=== PATIENT | female | born 1955 | race African-American/Black ===

== ENCOUNTER 2016-05-02 17:15 | Emergency (ER) | payer BC, OTHER ==
[~2016-05-02] VITALS: Ht 149.9 cm; Wt 82.6 kg
[2016-05-02 17:25] VITALS: Ht 149.9 cm; Wt 82.6 kg
[2016-05-02] MEDS ORDERED: TRMO2580 TOP (17:49)
--- NOTE | 2016-05-02 17:49 | EMERGENCY ROOM VISIT NOTE ---
ED Visit Note First contact with patient: 17:28 CHIEF COMPLAINT: Rash HISTORY OF PRESENT ILLNESS: This 60-year-old female patient presents to the emergency department ambulatory complaining of a rash on her abdomen which started a few days ago. The patient reports that she was seen by an urgent care over one week ago for a rash under her breasts. They prescribed her a nystatin powder and Diflucan, which resolved this rash. However, the patient reports that over the past few days she has had an itchy rash on her abdomen. She has been applying nystatin powder but this has been making it worse. She has also been applying an aloe lotion to the area. The patient denies fever, chills, nausea, or loss of appetite. They deny any URI symptoms. No change in food, soap, detergents, or other environmental factors. No new medications. No weakness or numbness. REVIEW OF SYSTEMS: A 6 system review of systems was completed with positives and pertinent negatives listed in the HPI. ALLERGIES: No known drug allergies MEDICATIONS: No known drug allergies PMH: See med list SOCIAL HISTORY: The patient lives locally with family. She is a smoker. PHYSICAL EXAM: Vital Signs: Reviewed Nurse's notes, vital signs stable. GENERAL : This is a 60-year-old female, in no acute distress, well-developed, well- nourished. SKIN: There are multiple urticarial lesions across the abdomen and low back. Capillary refill less than 2 seconds. EMERGENCY DEPARTMENT COURSE: The patient was evaluated as above. She was instructed to stop the nystatin powder, as she may be having an allergic reaction. She was given a prescription for tramadol and ointment. She was instructed to follow-up with her primary care provider or return here for worsening symptoms. She verbalized understanding assessment and treatment plan was discharged home in good condition. DIAGNOSIS: Urticaria Current/Historical Medications Scheduled Cetirizine (Zyrtec), 10 MG PO DAILY Chlorthalidone (Chlorthalidone), 50 MG PO QAM Nystatin (Topical) (Nystop), 1 APPLN TOP TID Triamcinolone Acetonide (Topic (Triamcinolone Acet 0.025%), 1 APPLN TOP BID Allergies Coded Allergies: No Known Allergies (Unverified , 05/02/16) Vital Signs Date Time Temp Pulse Resp B/P Pulse Ox O2 Delivery O2 Flow Rate FiO2 05/02/16 18:05 36.8 91 18 154/100 97 05/02/16 17:25 36.8 91 18 154/100 97 Room Air Departure Information Impression Primary Impression: Urticaria Dispostion Home / Self-Care Condition GOOD Prescriptions Triamcinolone Acetonide (Topic (TRIAMCINOLONE ACET 0.025%) 0.025 % Oin 1 APPLN TOP BID, #30 GM Prov: Shelby Turner ., HERACLIO 05/02/16 Referrals No Doctor, Assigned (PCP) Patient Instructions My [facility] Additional Instructions You have been treated in the Emergency Department for a rash. You should take Benadryl (diphenhydramine) 25-50 mg orally every 4-6 hours for the next 5-7 days as needed for itching. This medication is [id number] and you will NOT need a prescription to purchase this at your local pharmacy. You should take Zantac (ranitidine) 75 mg orally once daily for the next 5-7 days as needed for itching. Apply the ointment to any areas of itching/redness. As with every Emergency Department visit, you should follow-up with your primary care provider in 2-3 days for reevaluation. Return to the Emergency Department if your current symptoms worsen despite treatment course outlined above.
[2016-05-02] MEDS ORDERED: CETI10TA84 PO (17:52)
[2016-05-02] MEDS ORDERED: CHLO50TA PO (17:52)
[2016-05-02] MEDS ORDERED: NYST100010 TOP (17:52)
[2016-05-02 18:05] VITALS: BP 154/100; PULSE 91; TEMP 36.8; O2SAT 97
[2016-07-12] MEDS ORDERED: AMLO-114 PO (08:22)
[2016-07-12] MEDS ORDERED: ASPI81TA28 PO (08:22)
[2016-07-12] MEDS ORDERED: POTA20TA16 PO (08:22)
[2016-07-12] MEDS ORDERED: MISCCAP55 PO (08:22)
[2016-07-12] MEDS ORDERED: IBUP-1450 PO (08:22)
[2016-07-12] MEDS ORDERED: GARL1TAB8 PO (08:22)
[2016-07-12] MEDS ORDERED: [UNRECOGNIZED DRUG - OTHER] PO (08:35)
[2016-08-29] MEDS ORDERED: AN ANTIBIOTIC (19:23)
[2016-08-29] MEDS ORDERED: EYED (19:29)
[2016-11-21] MEDS ORDERED: AMOX1TAB42 PO (14:43)
[2016-11-21] MEDS ORDERED: BENZ100C6 PO (14:43)
== END 2016-05-02 18:06 | disposition home or self-care (01) ==
LOC: C.EDB 17:16 → C.EDD 18:06
DX: L50.9 Urticaria, unspecified (principal); F17.200 Nicotine dependence, unspecified, uncomplicated; Z79.899 Other long term (current) drug therapy

== ENCOUNTER → 2016-05-10 | Outpatient (CLI) | payer OTHER ==
[~2016-05-10] MED LIST: AMLO-114 PO; AMOX1TAB42 PO; AN ANTIBIOTIC; ASPI81TA28 PO; BENZ100C6 PO; CETI10TA84 PO; CHLO50TA PO; EYED; GARL1TAB8 PO; IBUP-1450 PO; MISCCAP55 PO; NYST100010 TOP; POTA20TA16 PO; TRMO2580 TOP; [UNRECOGNIZED DRUG - OTHER] PO
--- NOTE | 2016-05-10 08:36 | DIAGNOSTIC IMAGING REPORT ---
Ultrasound left axilla LEFT EXTREMITY NONVASCULAR LIMITED CLINICAL HISTORY: ENLARGED LYMPH NODES nodule TECHNIQUE: Ultrasound COMPARISON STUDY: None FINDINGS: A well-circumscribed somewhat serpiginous node left axilla measuring 3.5 x 2 x 3.0 cm. IMPRESSION: Palpable nodular density appears to represent enlarged lymph node Electronically signed by: Rommel Poole M.D. 05/10/2016 8:34 AM Dictated Date/Time: 05/10/2016 8:32 AM
[2016-05-10 11:01] LABS: BASO % 0.3 %; BASO ABS # 0.03 K/uL (0-0.2); COMPLETE YES; EOS % 3.4 %; HEMATOCRIT 45.8 % (37-47); IG% 0.1 %; LYMPH % 38.1 %; LYMPH ABS # 4.04 K/uL (1.2-3.4); MEAN CELL VOLUME 86.3 fL (80-100); MEAN CORPUSCULAR HEMOGLOBIN 29.6 pg (25-34); MEAN CORPUSCULAR HGB CONC 34.3 g/dl (32-36); MONO % 5.1 %; PLATELET COUNT 322 K/uL (130-400); RED BLOOD COUNT 5.31 M/uL (4.2-5.4)
[2016-05-10 11:18] LABS: ALKALINE PHOSPHATASE 67 U/L (45-117); ALT/SGPT 27 U/L (12-78); AST/SGOT 15 U/L (15-37); BLOOD UREA NITROGEN 16 mg/dl (7-18); BUN/CREATININE RATIO 14.5 (10-20); CALCIUM 9.2 mg/dl (8.5-10.1); CARBON DIOXIDE 31 mmol/L (21-32); CHLORIDE 103 mmol/L (98-107); GLUCOSE 123 mg/dl (70-99); HDL CHOLESTEROL 43 mg/dl; POTASSIUM 3.4 mmol/L (3.5-5.1); SODIUM 142 mmol/L (136-145)
[2016-05-10 11:19] LABS: ALB/GLOB RATIO 0.9 (0.9-2); CHOLESTEROL 187 mg/dl (0-200); CHOLESTEROL/HDL RATIO 4.3; LDL CHOLESTEROL CALCULATED 105 mg/dl; TRIGLYCERIDES 196 mg/dl (0-150); VERY LOW DENSITY LIPOPROT CALC 39 mg/dl
[2016-05-10 11:39] LABS: ESTIMATED AVERAGE GLUCOSE 134 mg/dl; HA1C FLAG Normal (Normal)
== END | disposition home or self-care (01) ==
LOC: C.ULTRBC 07:30
PROVIDERS: ATTEND Family Medicine
DX: R21 Rash and other nonspecific skin eruption (principal); L29.9 Pruritus, unspecified; Z13.220 Encounter for screening for lipoid disorders; Z13.228 Encounter for screening for other metabolic disorders; R59.0 Localized enlarged lymph nodes

== ENCOUNTER → 2016-05-16 | Outpatient (CLI) | payer OTHER ==
[~2016-05-16] MED LIST changes: -TRMO2580 TOP
--- NOTE | 2016-05-16 14:03 | Discharge Instructions ---
Discharge Instructions Procedure Procedure Date: May 16, 2016. Reason for visit: Enlarged Lymph Node, Left Axillary. Discharge Discharge Date: May 16, 2016. Discharge Diagnosis: s/p left axillary lymph node FNA Instructions Activity Recommendations: No limitations Return to School/Work: no limitations Recommended Home Diet: No Limitations Provider Instructions: ACTIVITY RECOMMENDATIONS: * Rest today. * Resume regular activity in one day. MEDICATIONS: * May take Tylenol or Ibuprofen as needed for pain. DIET: * Resume previous diet. SPECIAL CARE INSTRUCTIONS: Call your doctor if: * Temperature above 101 degrees F. * Pain not relieved by pain medicine ordered. * Increased drainage or redness from incision. * Notify your doctor with any questions or concerns. Call your doctor or go to the nearest Emergency Department if you experience: * Increased chest pain or shortness of breath. FOLLOW UP VISIT: Follow-up with Referring Physician as scheduled. Allergies Coded Allergies: No Known Allergies (Unverified , 05/02/16) Caitlin Sims Recommendations: Call your doctor if: * Temperature above 101 degrees * Pain not relieved by pain medicine ordered * There is increased drainage or redness from any incision * You have any unanswered questions or concerns. Your Doctors Instructions noted above were prepared by provider Pedrito Gutierrez. Patient Signature Section: Patient Instructions Signature Page Ann Mariedorita Preston Patient (or Guardian) Signature/Date: I have read and understand the instructions given to me by my caregivers. Caregiver/RN/Doctor Signature/Date: The above-named patient and/or guardian has received patient instructions on this date. + Original Patient Signature Page (only) stays with chart. Please make copy for patient.
--- NOTE | 2016-05-16 14:44 | DIAGNOSTIC IMAGING REPORT ---
ULTRASOUND GUIDED FINE NEEDLE ASPIRATION OF LEFT AXILLARY LYMPH NODE CLINICAL HISTORY: Enlarged left axillary lymph node. COMPARISON STUDY: Left axillary ultrasound May 10, 2016. PROCEDURE: Sonography of the left axilla again demonstrated the enlarged left axillary lymph node that measured 3.5 x 2 x 3 cm. The procedure, risks and benefits were discussed with the patient. The patient agreed to the procedure and informed written consent was obtained. The procedure was performed by Dr. Gutierrez following a timeout. Skin of the left axilla was prepped and draped in sterile fashion and local anesthesia achieved with 1% lidocaine. Under direct ultrasound guidance, 4 25-gauge fine needle aspirations of the left axillary lymph node were performed. The samples were deemed preliminarily adequate by pathology. The patient tolerated the procedure well and no immediate complications were evident. IMPRESSION: Ultrasound guided fine needle aspiration of left axillary lymph node. Electronically signed by: Pedrito Gutierrez M.D. 05/16/2016 2:43 PM Dictated Date/Time: 05/16/2016 2:42 PM
== END | disposition home or self-care (01) ==
LOC: C.ULTR 12:32
PROVIDERS: ATTEND Family Medicine
DX: C77.3 Secondary and unspecified malignant neoplasm of axilla and upper limb lymph nodes (principal)

== ENCOUNTER → 2016-05-22 | Outpatient (CLI) | payer OTHER ==
--- NOTE | 2016-05-22 15:37 | MAMMOGRAPHY REPORT ---
BILATERAL DIGITAL DIAGNOSTIC MAMMOGRAM TOMOSYNTHESIS WITH CAD AND TARGETED BILATERAL ULTRASOUND: 05/22 CLINICAL HISTORY: 60-year-old woman presents for diagnostic evaluation of the breasts after a recent fine-needle aspiration performed of an enlarged lymph node in the left axilla yielded metastatic ca rcinoma. Prior mammograms performed in 2008. TECHNIQUE: Bilateral CC and MLO 2-D digital and tomosynthesis images; right spot compression CC 2-D digital and tomosynthesis; spot magnification left CC and ML views were obtained. Current study wa s also evaluated with a Computer Aided Detection (CAD) system. COMPARISON: Comparison is made to exams dated: 05/25/2008 and 04/24/2008. BREAST COMPOSITION: There are scattered areas of fibroglandular density in both breasts. FINDINGS: A triangle skin palpable marker denotes the enlarged left axillary lymph node which was re cently biopsied and cytology results yielded metastatic carcinoma. This lymph node measures 2.6 x 3 .5 cm mammographically. There is a dense mass in the anterior lower inner left breast that measures 1.6 x 1.7 x 1.4 cm, suspicious for the primary malignancy. There are pleomorphic and coarse hetero geneous microcalcifications associated with this mass and extending over an area measuring approxima tely 3.4 x 2.8 cm throughout the lower inner anterior left breast, suspicious for associated DCIS. There is a third circumscribed mass in the subareolar left breast measuring approximately 1.9 x 2.1 x 2.2 cm. This is increased comparing to the 2009 and 2003 mammograms and is indeterminate. Additi onal evaluation with ultrasound was performed. There is an 11 mm asymmetry in the anterior right breast, 4 cm posterior to the nipple line on the C C view for which an additional spot compression CC view was obtained. With this additional view, th ere is persistence of an 11 x 10 mm mass. This was not definitely seen on the prior 2008 or 2003 ma mmograms. Further characterization with ultrasound was performed. Targeted ultrasound was performed in the left axilla, left subareolar breast and lower inner quadran t, and 12:00, retroareolar and 6:00 axes of the right breast. In the 7:00 left breast, 1 cm from th e nipple, there is an irregular hypoechoic solid mass with internal reflectors likely representing c alcifications. This mass measures 1.5 x 1.2 x 1.5 cm and is suspicious for malignancy. The retroar eolar left breast, there is a lobulated, partially circumscribed but partially angular solid mass me asuring 1.0 x 0.9 x 2.0 cm. Given the interval increase comparing to the prior mammograms and ultra sounds, this is indeterminate, warranting further evaluation with tissue sampling, as an intraductal mass could appear similar. Ultrasound of the left axilla again demonstrates an abnormal 3.4 x 1.5 cm node. In the 12:00 periareolar right breast, there is a lobulated hypoechoic solid mass measuring 0.8 x 0. 4 x 0.9 cm. This likely correlates with the mammographic mass and is indeterminate. Definitive kya racterization with tissue sampling is recommended. IMPRESSION: ACR BI-RADS CATEGORY 5: HIGHLY SUGGESTIVE OF MALIGNANCY, TARGETED ULTRASOUND ACR BI-RAD S CATEGORY 5: HIGHLY SUGGESTIVE OF MALIGNANCY 1. There is a suspicious angular solid 1.5 cm mass in the 7:00 left breast with associated pleomorp hic microcalcification thought to represent the primary lesion. The calcifications extend throughou t the lower inner quadrant of the left breast by approximately 3.4 x 2.8 cm. Definitive characteriz ation of the mass with tissue sampling and biopsy marker clip placement is recommended. 2. Indeterminate enlarging mass in the subareolar left breast which could represent an intraductal mass. Given the increase in size comparing to the 2008 and 2003 exams, definitive characterization with tissue sampling is recommended. 3. Indeterminate solid mass in the 12:00 right breast for which additional ultrasound guided core n eedle biopsy is recommended. 4. The patient is consulting with Dr. Monsalve 2 days from now. Will await his consultation and fu rther discussion with him if he deems it necessary to place a biopsy marker clip within the left axi llary lymph node, if he deems it necessary or if neoadjuvant chemotherapy is being considered. These results and recommendations were discussed with the patient, her daughter and her river driver at th e time of the exam. Approximately 10% of breast cancers are not detected with mammography. A negative mammographic repor t should not delay biopsy if a clinically suggestive mass is present. Katelyn Fuentes M.D. ay/:05/22/2016 15:18:28 Seedling Puller: Dagmar Phelan, [facility] letter sent: Abnormal 4/5 BI-RADS Code: ACR BI-RADS Category 5: Highly Suggestive Of Malignancy Ultrasound BI-RADS: ACR BI-RA DS Category 5: Highly Suggestive Of Malignancy
== END | disposition home or self-care (01) ==
LOC: C.MAMM 10:15
PROVIDERS: ATTEND Family Medicine
DX: N63 Unspecified lump in breast (principal)

== ENCOUNTER → 2016-05-26 | Outpatient (CLI) | payer OTHER | END | disposition home or self-care (01) | LOC: C.PAPS 11:48 | PROVIDERS: ATTEND Physician Assistant | DX: Z12.4 Encounter for screening for malignant neoplasm of cervix (principal); R87.616 Satisfactory cervical smear but lacking transformation zone ==

== ENCOUNTER → 2016-05-29 | Outpatient (CLI) | payer OTHER ==
--- NOTE | 2016-05-30 08:04 | DIAGNOSTIC IMAGING REPORT ---
PET/CT HISTORY: BREAST CANCER TECHNIQUE: PET/CT was performed from the base of the skull through the pelvis following the intravenous administration of 13.6 mCi of F18-FDG. Non-contrast CT imaging was performed over the same range without breath-hold for attenuation correction of PET images and anatomic correlation, but not for primary interpretation as it is not of standard diagnostic quality. CT DOSE: COMPARISON: Breast ultrasound 05/22/2016. FINDINGS: HEAD AND NECK: There is no FDG-avid disease or significant lymphadenopathy in the imaged portions of the head and the neck. A 1.4 cm left thyroid nodule. CHEST: A 1.6 cm mass within the central aspect of the left breast which demonstrates moderate FDG uptake with an SUV max of 4.9. There is also a single enlarged and FDG avid left axillary lymph node which demonstrates an SUV max of 5. This lymph node measures 3.8 x 1.8 cm. Additional subcentimeter axillary and subpectoral lymph nodes do not demonstrate abnormal FDG uptake. Mild skin thickening and mild FDG uptake associated with the upper left breast. This demonstrates an SUV max of 1.5. No FDG avid or suspicious pulmonary nodules. Mild volume loss within the right hemithorax. Linear densities within the right upper lobe and right middle lobe favor scarring or atelectasis. Mild smooth right pleural thickening does not demonstrate significant FDG uptake. ABDOMEN/PELVIS: Below the diaphragm, tracer is distributed physiologically in the gastrointestinal and genitourinary tracts. There is no significant lymphadenopathy and no FDG-avid disease. A few subcentimeter hypodense lesions within the liver do not appear to demonstrate significant FDG uptake. Dominant lesion within the right hepatic lobe measures 7 mm. These are too small to characterize. No adrenal gland masses. There are 2 hypodense lesions within the body of the pancreas measuring 1.4 and1.2 cm. These do not demonstrate abnormal FDG uptake. Punctate gallstone. There is a tiny infraumbilical midline ventral hernia which contains a knuckle of small bowel. The small bowel proximal to this hernia is slightly distended and contains fecal material is consistent with stasis. The small bowel loop measures 3 cm in diameter. The distal small bowel is decompressed. Therefore, this is consistent with a low-grade partial small bowel obstruction. MUSCULOSKELETAL: There is no FDG-avid or destructive bone lesion. IMPRESSION: 1. A 1.6 cm FDG avid mass within the left breast consistent with a malignancy. 2. There is also a 3.8 x 1.8 cm FDG avid left axillary lymph node consistent with metastatic disease. 3. Mild FDG uptake associated with the mildly thickened upper left breast skin. The mild FDG uptake is nonspecific and less likely to be pathologic. However, clinical correlation recommended to exclude the less likely possibility of a developing inflammatory type malignancy. 4. Tiny infraumbilical midline ventral hernia which contains a knuckle of small bowel. The small bowel proximal to this hernia is slightly distended. Therefore, this is consistent with a low-grade partial small bowel obstruction with the transition point at the ventral hernia. 5. There are 2 hypodense lesions within the body the pancreas measuring up to 1.4 cm. 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 One year MR/MRCP follow-up of the abdomen is recommended. Electronically signed by: Alfred Arguelles M.D. 05/30/2016 8:02 AM Dictated Date/Time: 05/29/2016 2:31 PM
== END | disposition home or self-care (01) ==
LOC: C.PET 12:16
PROVIDERS: ATTEND Surgery
DX: C50.312 Malignant neoplasm of lower-inner quadrant of left female breast (principal); C77.3 Secondary and unspecified malignant neoplasm of axilla and upper limb lymph nodes; K86.89 Other specified diseases of pancreas; K43.9 Ventral hernia without obstruction or gangrene

== ENCOUNTER → 2016-05-31 | Outpatient (CLI) | payer OTHER ==
--- NOTE | 2016-05-31 11:10 | Discharge Instructions ---
Discharge Instructions Procedure Procedure Date: May 31, 2016. Reason for visit: Bilateral Masses--Left Breast Ca. Discharge Discharge Date: May 31, 2016. Discharge Diagnosis: post bilateral breast ultrasound guided core biopsy Medications Restart Stopped Medication(s): May restart Aspirin today Instructions Activity Recommendations: Additional Limitations (see below) Return to School/Work: no limitations Recommended Home Diet: No Limitations Provider Instructions: ACTIVITY RECOMMENDATIONS: * No lifting, pushing, pulling or exercising the affected side for three days. RETURN TO SCHOOL/WORK: * You may return to work/school after the procedure, but do not perform any strenuous activities for 24 to 48 hours. MEDICATIONS: * Tylenol (two 325 mg) every four to six hours if needed for mild pain (if not allergic to Tylenol). DIET: * Resume previous diet. SPECIAL CARE INSTRUCTIONS: * Keep biopsy site dry for 24 hours. May shower after 24 hours, but do not soak (bathe) incision. * May remove Tegaderm (plastic patch) tomorrow AFTER showering. * Leave the steri-strips on for one week. Allow the steri-strips to fall off by themselves. If not off after one week, you may remove them. You may place a Bandaid crosswise over the strips, if desired. * Apply ice 10 minutes on and 10 minutes off as needed. * Wear a bra at bedtime to sleep more comfortably for 2-3 days. * Your referring physician should have the results after approximately 5 to 7 business days. * Call for unusual bleeding, fever, drainage, etc or if you have any questions call [phone] during normal business hours or after hours call Dr Fuentes, . FOLLOW UP VISIT: Follow-up with Referring Physician as scheduled. Allergies Coded Allergies: No Known Allergies (Unverified , 05/02/16) Caitlin Sims Recommendations: Call your doctor if: * Temperature above 101 degrees * Pain not relieved by pain medicine ordered * There is increased drainage or redness from any incision * You have any unanswered questions or concerns. Your Doctors Instructions noted above were prepared by provider Katelyn Fuentes. Patient Signature Section: Patient Instructions Signature Page Ann Marie Preston Patient (or Guardian) Signature/Date: I have read and understand the instructions given to me by my caregivers. Caregiver/RN/Doctor Signature/Date: The above-named patient and/or guardian has received patient instructions on this date. + Original Patient Signature Page (only) stays with chart. Please make copy for patient.
--- NOTE | 2016-05-31 16:06 | MAMMOGRAPHY REPORT ---
ULTRASOUND GUIDED BIOPSY LEFT BREAST: 05/31/2016 CLINICAL HISTORY: Indeterminate solid mass in the 12:00 right breast and 7:00 left breast. Patient presents for bilateral breast ultrasound guided core biopsy. She has a history of a recent FNA of a n enlarged left axillary lymph node which yielded metastatic carcinoma. COMPARISON: Comparison is made to exams dated: 04/24/2008, 05/25/2008, 05/22/2016 mammogram, 05/22/2016 ult rasound, and 05/31/2016 mammogram - [facility]. PATIENT CONSENT: The procedure, risks and benefits were discussed with the patient and informed writ ten consent was obtained. Specific risks to this procedure include: bleeding, infection, puncture of adjacent structure, nontarget biopsy, sampling error, metal allergy and medication reaction. PROCEDURE DESCRIPTION: First repeat targeted ultrasound was performed in the 7:00 left breast and 12 :00 right breast to reevaluate the masses seen on diagnostic ultrasound dated 05/22/2016. They are again identified and amenable to ultrasound-guided core biopsy. Please see below. A time out was performed and the both breasts were agreed as the site of biopsy. First the solid ir regular mass with associated pleomorphic microcalcifications in the 7:00 left breast was identified and targeted for biopsy. The skin was prepped and draped in the usual sterile fashion. The solid mas s in the 7:00 breast was identified. Subcutaneous and intraparenchymal 1% buffered lidocaine, with and without epinephrine, was administered as local anesthesia. A skin incision was made. Through th e incision, 4 samples were taken with a 14 gauge Achieve biopsy device. A metallic marker was placed at the biopsy site. Hemostasis was achieved after manual compression. The patient tolerated the pro cedure well and there was no immediate complication. The samples were sent to the pathology departm ent in an appropriately labeled container. Then the solid lobulated hypoechoic mass in the 12:00 right breast was identified and targeted for b iopsy. The skin was prepped and draped in the usual sterile fashion. Subcutaneous and intraparenchy mal 1% buffered lidocaine, with and without epinephrine, was administered as local anesthesia. A ski n incision was made. Through the incision, 4 samples were taken with a 14 gauge Achieve biopsy john ce. A metallic marker was placed at the biopsy site. Hemostasis was achieved after manual compressio n. The patient tolerated the procedure well and there was no immediate complication. The samples we re sent to the pathology department in an appropriately labeled container. Postprocedure CC and ML views of each breast were obtained. Ribbon-shaped metallic biopsy markers ar e identified within the masses in the 7:00 left breast and 12:00 right breast. No significant postb iopsy hematoma is seen in either breast. Pathology is pending. IMPRESSION: ULTRASOUND GUIDED BIOPSY Status post ultrasound guided core biopsy of indeterminate masses in the right 12:00 and left 7:00 b reast, with biopsy markers placed at each site. The patient will receive notification of the biopsy results from her referring physician. Katelyn Fuentes M.D. ay/:05/31/2016 12:45:40 Director Custom: Chaya GONZALES)(Gely), [facility]
--- NOTE | 2016-06-02 07:42 | MAMMOGRAPHY REPORT ---
ULTRASOUND GUIDED BIOPSY: 05/31/2016 CLINICAL HISTORY: Indeterminate solid masses in the left 7:00 and right 12:00 breast. Patient prese nted for ultrasound-guided core needle biopsy. Please refer to the report from left breast ultrasound guided core biopsy performed at the same time for full detail. IMPRESSION: ULTRASOUND GUIDED BIOPSY Please refer to the report from left breast ultrasound guided core biopsy performed at the same time for full detail. Katelyn Fuentes M.D. ay/:05/31/2016 11:13:40 Wet Machine Cutter: Chaya GARCIA(R)(M), [facility]
--- NOTE | 2016-06-02 07:42 | MAMMOGRAPHY REPORT ---
BILATERAL DIGITAL DIAGNOSTIC MAMMOGRAM TOMOSYNTHESIS: 05/31/2016 CLINICAL HISTORY: Status post bilateral breast ultrasound guided core needle biopsy of indeterminate masses in the left 7:00 and right 12:00 axes. Please refer to the report from left breast ultrasound guided core biopsy performed at the same time for full detail. IMPRESSION: POST PROCEDURE IMAGING FOR MARKER PLACEMENT Please refer to the report from left breast ultrasound guided core biopsy performed at the same time for full detail. Approximately 10% of breast cancers are not detected with mammography. A negative mammographic repor t should not delay biopsy if a clinically suggestive mass is present. Katelyn Fuentes M.D. ay/:05/31/2016 11:12:41 Straightener Gun Parts: Chaya GONZALES)(Gely), [facility] BI-RADS Code: Post Procedure Imaging For Marker Placement
== END | disposition home or self-care (01) ==
LOC: C.MAMM 09:30
PROVIDERS: ATTEND Surgery
DX: N63 Unspecified lump in breast (principal); C50.912 Malignant neoplasm of unspecified site of left female breast

== ENCOUNTER → 2016-06-05 | Outpatient (CLI) | payer OTHER ==
--- NOTE | 2016-06-05 09:05 | DIAGNOSTIC IMAGING REPORT ---
THYROID ULTRASOUND HISTORY: THYROID NODULE COMPARISON: None. FINDINGS: Right lobe: 3.8 x 1.5 x 1.3 cm. There is a single nodule measuring 2 mm. Left lobe: 4.5 x 1.5 x 2.1 cm. There are 3 adjacent nodules within the lower pole with the largest measuring 1.5 cm. This demonstrates a small amount of peripheral calcification. Isthmus: An 8 mm hypoechoic nodule. IMPRESSION: A few scattered nodules within the thyroid gland with the largest solid nodule in the lower pole measuring 1.5 cm. Ultrasound-guided fine-needle aspiration of this nodule is recommended given the size of the lesion. Electronically signed by: Alfred Arguelles M.D. 06/05/2016 9:03 AM Dictated Date/Time: 06/05/2016 8:59 AM
--- NOTE | 2016-06-05 16:29 | EXERCISE STRESS ECHO ---
*NOTICE TO RECEIVING LIBERTARIAN AGENCY This information is strictly Confidential and protected under [place] law. [place] law prohibits you from making any further disclosure of this information unless further disclosure is expressly permitted by the written consent of the person to whom it pertains or is authorized by law. A general authorization for the release of medical or other information is not sufficient for this purpose. Hospital accepts no responsibility if the information is made available to any other person, INCLUDING THE PATIENT. Interpretation Summary * Name: JAVIER WHITTINGTON Study Date: 06/05/2016 09:04 AM BP: 124/81 mmHg * Patient Location: Cardiopulmonary Lab HR: 60 * : 1955 (M/d/yyyy) Gender: Female Height: 59 in * Age: 60 yrs Ethnicity: AA Weight: 182 lb * Ordering Physician: Pamella Zelaya * Referring Physician: Pamella Zelaya D.O. * Performed By: Rosa Holguin RCS * * Reason For Study: Abnormal EKG, Pre-Op Clearance * BSA: 1.8 m2 * -- Conclusions -- * 1. Negative exercise stress echo for ischemia at 94% MPHR. * 2. Negative stress ECG for ischemia. * 3. Normal LV size and function. RV not well visualized. No significant valvular pathology. * 4. Above average functional capacity. Exercised 6:41 min, achieved 8 METS. Normal hemodynamic response to exercise. No exercise induced chest pain. Procedure Details * ECHOEX, CPT #[id number] * ECHO COLOR FLOW, CPT #[id number] * ECHO DOPPLER, CPT #[id number] Left Ventricle * The left ventricle is grossly normal size. * There is normal left ventricular wall thickness. * Ejection Fraction = 65-70%. * Resting wall motion: Normal. Stress wall motion: Appropriate increase in Left ventricular systolic function and decrease in cavity size. No stress induced segmental wall motion abnormalities. * The left ventricular ejection fraction increases normally with stress. The left ventricular end-systolic cavity size reduces post-stress (normal response). The left ventricular wall motion with stress is normal. Right Ventricle * The right ventricle is not well visualized. * The right ventricle is grossly normal size. * The right ventricular systolic function is mildly reduced. Atria * The left atrial size is normal. * Right atrial size is normal. * No ASD detected; PFO is not assessed. Mitral Valve * The mitral valve is grossly normal. * Mitral stenosis is absent. * There is trace mitral regurgitation. Tricuspid Valve * The tricuspid valve is not well visualized. * There is trace tricuspid regurgitation. Aortic Valve * The aortic valve opens well. * Aortic stenosis is absent. * There is no significant aortic regurgitation. Pulmonic Valve * The pulmonary valve is inadequately visualized, but the Doppler data is adequate for interpretation. * There is no pulmonic valvular regurgitation. Great Vessels * The aortic root and proximal ascending aorta are normal sized. Stress Parameters * Normal baseline electrocardiogram. * inferolateral T wave inversions. * Stress ECG: No ST changes. No arrhythmias. * No arrhythmia were noted with stress. * The stress portion of this study was personally supervised by the undersigned interpreting physician. * Rest heart rate was '60' BPM. * Rest blood pressure was '124/81' * Maximum heart rate achieved was 151 bpm. * Maximum heart rate was 94 % of maximum age-predicted heart rate. * Maximum blood pressure was '186/83' * Total exercise time was '6:41' * Maximum exercise MET level achieved was '8.0' METS * Maximum treadmill speed was '3.4' miles per hour. * Maximum treadmill elevation was '14'% grade. * Exercise was terminated due to 'fatigue after achieving target heart rate' * Normal blood pressure response to exercise. MMode 2D Measurements and Calculations IVSd 1.0 cm IVSs 1.2 cm LVIDd 4.2 cm LVIDs 2.5 cm LVPWd 1.0 cm LVPWs 1.2 cm IVS/LVPW 1.0 FS 40.8 % EDV(Teich) 80.4 ml ESV(Teich) 22.6 ml EF(Teich) 71.9 % EDV(cubed) 76.3 ml ESV(cubed) 15.9 ml EF(cubed) 79.2 % % IVS thick 13.5 % % LVPW thick 21.4 % LV mass(C)d 142.8 grams LV mass(C)dI 80.6 grams/m\S\2 LV mass(C)s 85.4 grams LV mass(C)sI 48.2 grams/m\S\2 CO(Teich) 3.4 l/min CI(Teich) 1.9 l/min/m\S\2 SV(Teich) 57.8 ml SI(Teich) 32.6 ml/m\S\2 CO(cubed) 3.5 l/min CI(cubed) 2.0 l/min/m\S\2 SV(cubed) 60.4 ml SI(cubed) 34.1 ml/m\S\2 Ao root diam 3.0 cm Ao root area 6.9 cm\S\2 ACS 1.5 cm LA dimension 3.4 cm LA/Ao 1.2 LVAd ap4 24.8 cm\S\2 LVLd ap4 7.6 cm EDV(MOD-sp4) 68.0 ml LVAs ap4 10.5 cm\S\2 LVLs ap4 5.5 cm ESV(MOD-sp4) 19.0 ml EF(MOD-sp4) 72.1 % LVAd ap2 21.6 cm\S\2 LVLd ap2 7.2 cm EDV(MOD-sp2) 55.0 ml LVAs ap2 9.4 cm\S\2 LVLs ap2 5.0 cm ESV(MOD-sp2) 15.0 ml EF(MOD-sp2) 72.7 % CO(MOD-sp4) 2.8 l/min CI(MOD-sp4) 1.6 l/min/m\S\2 SV(MOD-sp4) 49.0 ml SI(MOD-sp4) 27.7 ml/m\S\2 CO(MOD-sp2) 2.3 l/min CI(MOD-sp2) 1.3 l/min/m\S\2 SV(MOD-sp2) 40.0 ml SI(MOD-sp2) 22.6 ml/m\S\2 Doppler Measurements and Calculations MV E max erica 46.5 cm/sec MV A max erica 46.3 cm/sec MV E/A 1.0 MV P1/2t max erica 111.0 cm/sec MV P1/2t 62.2 msec MVA(P1/2t) 3.5 cm\S\2 MV dec slope 522.8 cm/sec\S\2 MV dec time 0.19 sec Ao V2 max 135.7 cm/sec Ao max PG 7.4 mmHg Ao max PG (full) 2.6 mmHg LV V1 max PG 4.8 mmHg LV V1 max 109.7 cm/sec PA V2 max 88.8 cm/sec PA max PG 3.2 mmHg TR max erica 249.3 cm/sec
== END | disposition home or self-care (01) ==
LOC: C.ULTR 08:12
PROVIDERS: ATTEND Family Medicine
DX: R94.31 Abnormal electrocardiogram [ECG] [EKG] (principal); E04.1 Nontoxic single thyroid nodule

== ENCOUNTER → 2016-11-03 | Outpatient (CLI) | payer OTHER ==
[~2016-11-03] MED LIST changes: -AN ANTIBIOTIC; -EYED; -GARL1TAB8 PO; -IBUP-1450 PO; -MISCCAP55 PO; -NYST100010 TOP; -POTA20TA16 PO
--- NOTE | 2016-11-03 16:01 | DIAGNOSTIC IMAGING REPORT ---
CHEST 2 VIEWS ROUTINE CLINICAL HISTORY: 61 years-old Female presenting with COUGH. TECHNIQUE: PA and lateral views of the chest were obtained. COMPARISON: CT from 08/08/2016. FINDINGS: Slight rightward cardiomediastinal shift. Architectural distortion in the right midlung with reticular and bandlike opacities and overlying loculated pleural fluid or pleural thickening. Left lung and pleural space clear. Osseous structures normal. Upper abdomen normal. IMPRESSION: 1. Chronic architectural distortion in the right lung with suspected cicatrizing atelectasis. Chronic overlying loculated fluid and/or pleural thickening. No convincing evidence of acute cardiopulmonary disease. Electronically signed by: Chivo Kitchen M.D. 11/03/2016 3:59 PM Dictated Date/Time: 11/03/2016 3:57 PM
== END | disposition home or self-care (01) ==
LOC: C.RAD 15:33
PROVIDERS: ATTEND Physician Assistant Medical
DX: R05 Cough (principal); Z92.3 Personal history of irradiation

== ENCOUNTER → 2016-11-21 | Outpatient (CLI) | payer OTHER ==
[2016-11-21 14:31] VITALS: BP 137/88; PULSE 78; TEMP 36.8; O2SAT 95
--- NOTE | 2016-11-21 16:14 | Radiation Oncology Follow-Up ---
Radiation Oncology Follow-Up Date of Visit Nov 21, 2016. 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 Received 6640 cGy. Last Edited By: Ena Bishop on Oct 27, 2016 13:56 History of Present Illness Ms. Preston is a 61-year-old female who self detected a left axillary lymph node. She presented to her PCP Dr. Zelaya who ordered an ultrasound of the left axilla on 05/10/2016. This showed a well circumscribed somewhat serpiginous node in the left axilla measuring 3.5 x 2.0 x 3.0 cm. An ultrasound-guided biopsy of this left axillary lymph node was recommended and was performed on 05/16/2016. This identified metastatic adenocarcinoma with apocrine features consistent with a metastatic apocrine carcinoma of breast origin. Metastatic adenocarcinoma is estrogen receptor negative, progesterone receptor negative and HER-2/sadie negative by immunohistochemical analysis. The tumor cells were confirmed negative for HER-2/sadie amplification by FISH confirming the negative results obtained by IHC. Case: [id number]. The patient was sent for further evaluation to Dr. Patrick Monsalve. Bilateral digital diagnostic mammograms and targeted bilateral breast ultrasound were ordered and performed on 05/22/2016. A marker was placed over the palpable nodule. This node measured 2.6 x 3.5 cm mammographically. There was dense mass in the anterior lower inner left breast measuring 1.6 x 1.7 x 1.4 cm that was suspicious for a primary malignancy. There were pleomorphic and coarse heterogeneous microcalcifications associated with this mass and extending over an area measuring 3.4 x 2.8 cm throughout the lower inner anterior left breast. This was suspicious for associated DCIS. A third circumscribed mass was noted in the subareolar left breast measuring 1.9 x 2.1 x 2.2 cm. This had increased in size compared to prior mammograms from 2008 and 2003 and was deemed indeterminate. In the right breast and 1.1 cm asymmetry was noted in the anterior position 4 cm from the nipple on the CC view. Additional spot compression cc views were obtained and a persistence of a 1.1 x 1.0 cm mass was noted. This was not definitely seen on the prior 2009 or 2003 mammograms and further characterization with ultrasound was performed. Targeted ultrasound of the left axilla, left supra areolar breast and lower inner quadrant and 12 o' clock position as well as retroareolar and 6:00 axis of the right breast were performed. At the 7:00 left breast 1 cm from the nipple there was an irregular hypoechoic solid mass likely representing calcifications. This mass measured 1.5 x 1.2 x 1.5 cm and was suspicious for malignancy. The retroareolar left breast there was a lobulated partially circumscribed but partially angular solid mass measuring 1.0 x 0.9 x 2.0 cm with interval increase compared to prior mammogram warrants further evaluation and tissue sampling. Ultrasound of the left axilla again demonstrated an abnormal 3.4 x 1.5 cm lymph node. In the right breast at the 12:00 periareolar position was a lobulated hypoechoic solid mass measuring 0.8 x 0.4 x 0.9 cm likely correlates with the mammographic mass and was indeterminate with tissue sampling recommended. These were given BI- RADS Category 5 highly suggestive of malignancies. On 05/29/2016 the patient underwent a staging PET/CT scan. There were no FDG avid disease or significant lymphadenopathy in the images of the head and neck. A 1.4 cm left thyroid nodule was appreciated. In the chest a 1.6 cm mass within the central aspect of the left breast demonstrating moderate FDG uptake and an SUV max of 4.9 was noted. There was also a single enlarged and FDG avid left axillary node demonstrating an SUV max of 5. This lymph node measured 3.8 x 1.8 cm. Additional subcentimeter axillary and subpectoral lymph nodes were noted but did not demonstrate abnormal FDG uptake. There was mild skin thickening and mild FDG uptake associated with the upper left breast. This demonstrated an SUV max of 1.5. There were no FDG avid or suspicious pulmonary nodules. In the abdomen and pelvis there were no significant areas of FDG uptake. 2 hypodense lesions were noted in the body of the pancreas measuring 1.4 and 1.2 cm which did not demonstrate abnormal FDG uptake. There was a tiny infraumbilical midline ventral hernia containing a knuckle of small bowel. The small bowel proximal to the hernia is slightly distended and contained fecal material and consistent with stasis. This measured 3 cm and is consistent with a low-grade partial small bowel obstruction. On 05/31/2016 Dr. Monsalve performed and ultrasound-guided core biopsy of the right breast at 12 o'clock position. This was negative for invasive and in situ carcinoma. Ultrasound-guided biopsies of the left breast 7 o'clock position confirmed an infiltrating ductal carcinoma, grade 3 with apocrine features. There was no perineural or lymphovascular space invasion identified. Estrogen receptors and progesterone receptors were negative and HER-2/sadie was negative by IHC and confirmed negative by fish analysis. Case: [id number]. After discussion of treatment options the patient agreed to proceed with a breast conserving technique consisting of a left axillary dissection and left breast partial mastectomy. This procedure was performed on 06/12/2016. The partial mastectomy specimen confirmed infiltrating apocrine carcinoma. The area of infiltrating and in situ carcinoma measured 2.0 x 2.0 x 1.5 cm on gross examination. The inked and examined surgical margins were free of tumor. Lymphatic and askedinvasion was present. No perineural invasion was identified. The margins for the invasive carcinoma was negative but in infiltrative apocrine carcinoma was located 1 mm from the superior inked margin of the specimen. The margin from the ductal carcinoma in situ apocrine type high-grade was also negative and located 3 mm the superior inked margin. A lymph node dissection was performed. A total of 10 lymph nodes were identified. 2 of the lymph nodes were involved by carcinoma with macro metastasis. The largest metastasis was 1.8 cm and there was not extranodal extension. Tissue from the "hernia sac" revealed benign fibroma adipose tissue and fibrovascular tissue with no tumor. Tissue from the left breast areolar cyst also revealed no tumor seen. Case: [id number]. The patient was seen by Dr. Keith Gan on 06/28/2016 to discuss the role of systemic therapy. Given the unusual histology of high-grade apocrine carcinoma and more significantly the finding of triple negative cancer he is highly recommended systemic chemotherapy either conventional or possibly participation in a NR randomized trial BR003 which is a phase 3 trial of adjuvant chemotherapy comparing Adriamycin and Cytoxan followed by weekly Paclitaxel with or without Carboplatin for a node positive or high risk node-negative triple negative invasive breast cancer. He felt the patient was somewhat overwhelmed by all this data and at that time was not able to make a decision. She is considering this option. It was arranged for us to see the patient in referral to review the role of adjuvant radiation in this setting. His for this reason the patient is being seen. Ultimately she declined systemic chemotherapy. She underwent conventional radiation therapy. This was completed on 2016. She received 6640 cGy. Interim History Over this past month she has had steady improvement in the skin irritation. The peeling has nearly resolved. She had swelling which has steadily improved. She denies any pain. She is noted no masses. There is no change of the axilla. She is being followed by [facility] for her lymphedema. Her arm has improved but she continues to have some swelling in her hand. They have sent a prescription in this was signed and returned for a sleeve and gauntlet. She continues to have an ongoing cough. We had discussed this following treatment. A chest x-ray was obtained and did not reveal radiation pneumonia. She was seen by a primary care physician and is currently on Augmentin. The cough continues in spite of the antibiotic therapy. She denies nasal drainage. Reviewed prior studies. She did have a ultrasound of the neck which showed thyroid nodules. An FNA was recommended. She did not follow through with getting the FNA performed. Allergies Coded Allergies: Cat Dander (Verified Allergy, Mild, Itchy Eyes , 07/12/16) Home Medications Scheduled Amlodipine (Norvasc), 10 MG PO DAILY Amoxicillin & Pot Clavulanate (Amoxicillin/Clavulanate P), 1 TAB PO BID Aspirin (Aspirin Ec), 81 MG PO DAILY Cetirizine (Zyrtec), 10 MG PO DAILY Chlorthalidone (Chlorthalidone), 50 MG PO QAM [Centrum Gummy ], 1 CAP PO DAILY Scheduled PRN Benzonatate (Tessalon Perles), 100 MG PO TID PRN for Cough Review of Systems Gastrointestinal: Symptoms: WNL Oral: Symptoms: No Problems Respiratory: Symptoms: WNL, Dry Cough Other Respiratory: Conitued Dry Cough since finishing radiation Urinary: Symptoms: WNL Skin: Symptoms: Dry Desquamation, No Problems Other Skin Symptoms: "Healing" Breast: Right Upper Arm Measurement: 32.2 Right Mid Arm Measurement: 25.3 Right Wrist Measurement: 16.8 Left Upper Arm Measurement: 34.3 Left Mid Arm Measurement: 27.3 Left Wrist Measurement: 17.3 Arm Dominence: Left Additional Notes: She completed distress management report and answered "no" other than she is concerned about her breathing and lymphedema. Physical Exam Vital Signs Date Time Temp Pulse Resp B/P (MAP) Pulse Ox O2 Delivery O2 Flow Rate FiO2 11/21/16 14:31 36.8 78 16 137/88 95 Fatigue: None General Appearance: no apparent distress Eyes: normal inspection, EOMI ENT: normal ENT inspection, hearing grossly normal Neck: no adenopathy, thyroid normal Respiratory/Chest: lungs clear, no respiratory distress, no accessory muscle use Breast: Breast examination reveals resolving hyperpigmentation and edema of the left breast. There is mild dryness to the skin. Resolving hyperpigmentation of the nipple. There are no masses or tenderness and no axillary adenopathy. She is no skin retractions. Using the [place] score cosmesis she currently had a fair outcome. The right breast showed no masses or tenderness no axillary adenopathy. Cardiovascular: regular rate, rhythm, no gallop, no murmur Abdomen: non tender Extremities: + pertinent finding (there is edema of the left hand.) Neurologic/Psychiatric: no motor/sensory deficits, alert, normal mood/affect Skin: warm/dry Laboratory Studies Test 08/23/16 18:42 Thyroid Stimulating Hormone (TSH) 1.330 uIu/ml (0.300-4.500) Assessment & Plan Plan: Due to the ongoing cough a CT of the chest was ordered. Due to prior noncompliance in obtaining the FNA of the thyroid nodule we will include CT of the neck. We did discuss that should this continue to show abnormalities that an FNA should be performed. She was in agreement to go forward with that. She' ll complete the antibiotic given by her primary care physician. She'll be seeing Dr. Monsalve next month. We discussed that she should continue follow- up with Dr. Gan. Today we ordered mammography for the left breast in 2 months. She'll then have bilateral mammography in 8 months. These will be digital diagnostic mammograms. Today we completed a cancer survivorship care plan. A copy of the document was given to patient. She'll be notified as to results of her studies and treatment will be recommended according to the outcomes of her tests. If there is finding of radiation pneumonia she'll be given steroid therapy. Continue physical therapy for lymphedema. Recently I completed forms for her to obtain a sleeve and gauntlet. She will otherwise return to our office in 6 months. She may call our office if she has any questions or concerns in the interim. Total Time In Follow-Up I spent 20 minutes speaking to the patient performing examination. I spent 20 minutes reviewing information, preparing the survivorship document, and completing this note. Copy To Patrick Monsalve M.D.; Keith Gan MD; Pamella Zelaya D.[place] Problem Qualifiers (1) Breast cancer: Breast location: upper inner quadrant of breast Estrogen receptor status: negative Patient sex: female Laterality: left Qualified Codes: C50.212 - Malignant neoplasm of upper-inner quadrant of left female breast; Z17.1 - Estrogen receptor negative status [ER-]
== END | disposition home or self-care (01) ==
LOC: C.ONC 14:27
PROVIDERS: ATTEND Physician Assistant Medical
DX: Z08 Encounter for follow-up examination after completed treatment for malignant neoplasm (principal); Z92.3 Personal history of irradiation; Z85.3 Personal history of malignant neoplasm of breast

== ENCOUNTER → 2016-12-01 | Outpatient (CLI) | payer OTHER ==
[~2016-12-01] MED LIST changes: +OPTIRAY 320 IV PRN
--- NOTE | 2016-12-01 13:04 | DIAGNOSTIC IMAGING REPORT ---
CT OF THE NECK WITH CONTRAST CLINICAL HISTORY: Cough. Thyroid nodules. History of breast cancer. COMPARISON STUDY: PET/CT May 29, 2016 and thyroid ultrasound June 05, 2016. TECHNIQUE: Axial images of the neck were obtained following intravenous injection of 93 cc Optiray 320 IV. FINDINGS: Visualized portions of the intracranial contents are unremarkable. There is moderate polypoid mucosal thickening of the right maxillary sinus. No enlarged cervical lymph nodes are identified. No mass is identified within the neck. The epiglottis is normal. No mucosal lesion is identified although these may be occult by CT. The parotid and submandibular glands are normal. No suspicious osseous lesions are identified within visualized skeletal structures. A few thyroid nodules are again noted, including a 1.8 cm nodule within the lower pole of the left thyroid lobe with peripheral calcification. These are similar to prior PET/CT. The chest will be reported separately. IMPRESSION: 1. No acute process within the neck by CT. No cervical lymphadenopathy. 2. Redemonstration of several thyroid nodules, including a 1.8 cm left lower pole thyroid nodule with peripheral calcification. If not already performed, ultrasound guided fine needle aspiration of this nodule might be considered. Electronically signed by: Pedrito Gutierrez M.D. 12/01/2016 1:03 PM Dictated Date/Time: 12/01/2016 12:49 PM
--- NOTE | 2016-12-01 13:06 | DIAGNOSTIC IMAGING REPORT ---
CT OF THE CHEST WITH IV CONTRAST CLINICAL HISTORY: COUGH,THYROID NODULES COMPARISON STUDY: Thyroid ultrasound dated 06/05/2016 TECHNIQUE: Following the IV administration of 93 mL of Optiray-320, CT of the thorax was performed from the thoracic inlet to the lung bases. Images are reviewed in the axial, sagittal, and coronal planes. IV contrast was administered without complication. A dose lowering technique was utilized adhering to the principles of ALARA. CT DOSE: 1205.84 mGy.cm FINDINGS: Thyroid: There is a dominant 17 mm left lobe thyroid nodule. Thoracic aorta: The thoracic aorta is normal in course and caliber, noting standard 3-vessel arch anatomy. No aneurysm or dissection is seen. Pulmonary vasculature: The pulmonary trunk is normal in caliber. There are no central filling defects identified to suggest pulmonary embolus. Note that this examination was not protocoled for the evaluation of pulmonary emboli. HEART: The heart is normal in size and configuration, without pericardial effusion. Lungs and pleural spaces: There are subpleural opacities within the left upper lobe, likely secondary to post radiation changes, as the left breast demonstrates skin thickening and surgical clips. There is mild right-sided circumferential pleural thickening. There is right lung volume loss. There are nodular opacities within the right upper lobe, likely representing atelectasis/scarring. Mediastinum: There is no mediastinal lymphadenopathy. Rika: Clear. Axilla: There is nonspecific infiltration of the left axilla, possibly related to prior surgery/radiation therapy. Upper abdomen: There is a 3 mm gallbladder polyp/noncalcified stone. There is a 3 mm upper pole right renal cyst. There is mild hepatic steatosis. There are subcentimeter hepatic hypodensities, likely representing cysts. There are 2 cystic lesions in the pancreas measuring 13 mm and 15.5 mm respectively. These statistically represent side branch IPMNs. Skeletal structures: There are no lytic or blastic osseous lesions. IMPRESSION: 1. Dominant 17 mm lower pole left lobe thyroid nodule 2. No evidence of pathologic adenopathy 3. Subpleural left upper lobe opacities, likely secondary to post radiation change 4. Unexplained mild right upper and right middle lobe volume loss with associated parenchymal opacities.. In addition there is mild circumferential right-sided pleural thickening. The findings remain similar to a prior PET CT scan performed May 2016, and may represent chronic disease. 5. Two cystic pancreatic lesions measuring 13 and 15.5 mm respectively. These may represent side branch IPMNs. Electronically signed by: Magen Crespo M.D. 12/01/2016 1:04 PM Dictated Date/Time: 12/01/2016 12:51 PM
== END | disposition home or self-care (01) ==
LOC: C.CTS 12:20
PROVIDERS: ATTEND Physician Assistant Medical
DX: R05 Cough (principal); E04.2 Nontoxic multinodular goiter; R91.8 Other nonspecific abnormal finding of lung field; K86.9 Disease of pancreas, unspecified; E07.89 Other specified disorders of thyroid

== ENCOUNTER → 2016-12-12 | Outpatient (CLI) | payer OTHER ==
[~2016-12-12] MED LIST changes: -OPTIRAY 320 IV PRN
--- NOTE | 2016-12-12 11:59 | DIAGNOSTIC IMAGING REPORT ---
ULTRASOUND GUIDED FINE-NEEDLE ASPIRATION BIOPSY OF A LOWER POLE LEFT LOBE THYROID NODULE CLINICAL HISTORY: Thyroid nodule. Breast carcinoma. COMPARISON STUDY: 05/16/2016 FINDINGS: A timeout was performed. The risks the procedure were explained the patient informed consent was obtained. The patient was prepped in sterile fashion. The skin was anesthetized 1% lidocaine. Under ultrasound guidance, utilizing a 25-gauge needle, 2 passes into the left lower pole nodule in question were performed. Initial pathologic review indicates satisfactory material for diagnosis. IMPRESSION: Successful ultrasound-guided fine-needle aspiration biopsy of a dominant peripherally calcified lower pole left lobe thyroid nodule. Electronically signed by: Magen Crespo M.D. 12/12/2016 11:58 AM Dictated Date/Time: 12/12/2016 11:55 AM
== END | disposition home or self-care (01) ==
LOC: C.ULTR 10:38
PROVIDERS: ATTEND Physician Assistant Medical
DX: E04.1 Nontoxic single thyroid nodule (principal); R94.6 Abnormal results of thyroid function studies; R05 Cough; C50.312 Malignant neoplasm of lower-inner quadrant of left female breast; Z92.3 Personal history of irradiation

== ENCOUNTER → 2017-01-01 | Outpatient (CLI) | payer OTHER ==
--- NOTE | 2017-01-01 08:40 | DIAGNOSTIC IMAGING REPORT ---
RIGHT HAND ULTRASONOGRAPHY CLINICAL HISTORY: SMALL TISSUE MASS RT HAND COMPARISON STUDY: No previous studies for comparison. FINDINGS: There is a hypoechoic 18 x 12 x 6 mm mass located between the first and second metacarpals. This lesion demonstrates internal vascularity. The lesion is circumscribed. IMPRESSION: Solid circumscribed 18 x 12 x 6 mm mass located between the first and second metacarpals. The lesion demonstrates internal vascularity, and should be presumed neoplastic. Electronically signed by: Magen Crespo M.D. 01/01/2017 8:39 AM Dictated Date/Time: 01/01/2017 8:36 AM
== END | disposition home or self-care (01) ==
LOC: C.ULTRBC 08:01
PROVIDERS: ATTEND Dermatology
DX: M79.9 Soft tissue disorder, unspecified (principal); R22.31 Localized swelling, mass and lump, right upper limb

== ENCOUNTER → 2017-01-22 | Outpatient (CLI) | payer OTHER ==
--- NOTE | 2017-01-22 15:19 | MAMMOGRAPHY REPORT ---
UNILATERAL LEFT DIGITAL DIAGNOSTIC MAMMOGRAM TOMOSYNTHESIS WITH CAD: 01/22/2017 CLINICAL HISTORY: 61-year-old woman with a personal history of left breast invasive cancer plus DCIS and metastatic lymph nodes to the left axilla presents after breast conserving treatment. A benign l esion was also removed from the subareolar left breast at the time of lumpectomy. TECHNIQUE: Left breast CC and MLO 2-D and tomosynthesis images, spot magnification left CC and ML vie ws were obtained. Current study was also evaluated with a Computer Aided Detection (CAD) system. COMPARISON: Comparison is made to exams dated: 05/31/2016 mammogram, 05/22/2016 mammogram - [facility], 05/25/2008, and 04/24/2008. BREAST COMPOSITION: There are scattered areas of fibroglandular density in the left breast. FINDINGS: There is asymmetry, expected architectural distortion and surgical clips within the 6:00 an d medial left breast, denoting the surgical bed. There is diffuse trabecular edema and skin thickeni ng, likely related to prior radiation therapy. Spot magnification views of the left breast demonstra te a few scattered benign-appearing coarse calcifications that could represent dystrophic calcificati on. However, close follow-up and repeat assessment with spot magnification views is recommended when the patient is due for bilateral mammography in 4-5 months. No other suspicious mass, suspicious mi crocalcifications or unexpected architectural distortion is seen in the left breast. IMPRESSION: ACR-BI-RADS CATEGORY 3: PROBABLY BENIGN 1. Expected posttreatment changes in the left breast with a few scattered benign-appearing calcifica tions near the surgical site. Close follow-up diagnostic mammography including spot magnification vi ews is recommended of the left breast in 4-5 months. Annual right mammography will also be due at at time. These results and recommendations were discussed with the patient at the time of the exam. Approximately 10% of breast cancers are not detected with mammography. A negative mammographic report should not delay biopsy if a clinically suggestive mass is present. Katelyn Fuentes M.D. ay/:01/22/2017 11:32:21 Security Solutions Architect: Milena GARCIA(Chastity)(Gely), [facility] letter sent: Follow Up Recommended 3 BI-RADS Code: ACR-BI-RADS Category 3: Probably Benign
== END | disposition home or self-care (01) ==
LOC: C.MAMM 09:09
PROVIDERS: ATTEND Physician Assistant Medical
DX: Z08 Encounter for follow-up examination after completed treatment for malignant neoplasm (principal); R92.0 Mammographic microcalcification found on diagnostic imaging of breast

== ENCOUNTER → 2017-03-21 | Outpatient (CLI) | payer OTHER ==
[~2017-03-21] MED LIST changes: +BENZ-54 PO; -BENZ100C6 PO
== END | disposition home or self-care (01) ==
LOC: C.PATHSPEC 18:13
PROVIDERS: ATTEND Orthopaedic Surgery
DX: D18.01 Hemangioma of skin and subcutaneous tissue (principal)

== ENCOUNTER → 2017-05-22 | Outpatient (CLI) | payer OTHER ==
[~2017-05-22] MED LIST changes: +IBUP-1427 PO
[2017-05-22 13:37] VITALS: BP 157/92; PULSE 69; TEMP 36.6; O2SAT 95
--- NOTE | 2017-05-22 15:19 | Radiation Oncology Follow-Up ---
Radiation Oncology Follow-Up Date of Visit May 22, 2017. 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 Received 6640 cGy. Lymphedema of the left arm and breast, lymphedema therapy Last Edited By: Ena Bishop on May 22, 2017 14:52 History of Present Illness Ms. Preston had self detected a left axillary lymph node. She presented to her PCP Dr. Zelaya who ordered an ultrasound of the left axilla on 05/10/2016. This showed a well circumscribed somewhat serpiginous node in the left axilla measuring 3.5 x 2.0 x 3.0 cm. An ultrasound-guided biopsy of this left axillary lymph node was recommended and was performed on 05/16/2016. This identified metastatic adenocarcinoma with apocrine features consistent with a metastatic apocrine carcinoma of breast origin. Metastatic adenocarcinoma is estrogen receptor negative, progesterone receptor negative and HER-2/sadie negative by immunohistochemical analysis. The tumor cells were confirmed negative for HER-2/sadie amplification by FISH confirming the negative results obtained by IHC. Case: [id number]. The patient was sent for further evaluation to Dr. Patrick Monsalve. Bilateral digital diagnostic mammograms and targeted bilateral breast ultrasound were ordered and performed on 05/22/2016. A marker was placed over the palpable nodule. This node measured 2.6 x 3.5 cm mammographically. There was dense mass in the anterior lower inner left breast measuring 1.6 x 1.7 x 1.4 cm that was suspicious for a primary malignancy. There were pleomorphic and coarse heterogeneous microcalcifications associated with this mass and extending over an area measuring 3.4 x 2.8 cm throughout the lower inner anterior left breast. This was suspicious for associated DCIS. A third circumscribed mass was noted in the subareolar left breast measuring 1.9 x 2.1 x 2.2 cm. This had increased in size compared to prior mammograms from 2008 and 2003 and was deemed indeterminate. In the right breast and 1.1 cm asymmetry was noted in the anterior position 4 cm from the nipple on the CC view. Additional spot compression cc views were obtained and a persistence of a 1.1 x 1.0 cm mass was noted. This was not definitely seen on the prior 2009 or 2003 mammograms and further characterization with ultrasound was performed. Targeted ultrasound of the left axilla, left supra areolar breast and lower inner quadrant and 12 o' clock position as well as retroareolar and 6:00 axis of the right breast were performed. At the 7:00 left breast 1 cm from the nipple there was an irregular hypoechoic solid mass likely representing calcifications. This mass measured 1.5 x 1.2 x 1.5 cm and was suspicious for malignancy. The retroareolar left breast there was a lobulated partially circumscribed but partially angular solid mass measuring 1.0 x 0.9 x 2.0 cm with interval increase compared to prior mammogram warrants further evaluation and tissue sampling. Ultrasound of the left axilla again demonstrated an abnormal 3.4 x 1.5 cm lymph node. In the right breast at the 12:00 periareolar position was a lobulated hypoechoic solid mass measuring 0.8 x 0.4 x 0.9 cm likely correlates with the mammographic mass and was indeterminate with tissue sampling recommended. These were given BI- RADS Category 5 highly suggestive of malignancies. On 05/29/2016 the patient underwent a staging PET/CT scan. There were no FDG avid disease or significant lymphadenopathy in the images of the head and neck. A 1.4 cm left thyroid nodule was appreciated. In the chest a 1.6 cm mass within the central aspect of the left breast demonstrating moderate FDG uptake and an SUV max of 4.9 was noted. There was also a single enlarged and FDG avid left axillary node demonstrating an SUV max of 5. This lymph node measured 3.8 x 1.8 cm. Additional subcentimeter axillary and subpectoral lymph nodes were noted but did not demonstrate abnormal FDG uptake. There was mild skin thickening and mild FDG uptake associated with the upper left breast. This demonstrated an SUV max of 1.5. There were no FDG avid or suspicious pulmonary nodules. In the abdomen and pelvis there were no significant areas of FDG uptake. 2 hypodense lesions were noted in the body of the pancreas measuring 1.4 and 1.2 cm which did not demonstrate abnormal FDG uptake. There was a tiny infraumbilical midline ventral hernia containing a knuckle of small bowel. The small bowel proximal to the hernia is slightly distended and contained fecal material and consistent with stasis. This measured 3 cm and is consistent with a low-grade partial small bowel obstruction. On 05/31/2016 Dr. Monsalve performed and ultrasound-guided core biopsy of the right breast at 12 o'clock position. This was negative for invasive and in situ carcinoma. Ultrasound-guided biopsies of the left breast 7 o'clock position confirmed an infiltrating ductal carcinoma, grade 3 with apocrine features. There was no perineural or lymphovascular space invasion identified. Estrogen receptors and progesterone receptors were negative and HER-2/sadie was negative by IHC and confirmed negative by fish analysis. Case: [id number]. After discussion of treatment options the patient agreed to proceed with a breast conserving technique consisting of a left axillary dissection and left breast partial mastectomy. This procedure was performed on 06/12/2016. The partial mastectomy specimen confirmed infiltrating apocrine carcinoma. The area of infiltrating and in situ carcinoma measured 2.0 x 2.0 x 1.5 cm on gross examination. The inked and examined surgical margins were free of tumor. Lymphatic and askedinvasion was present. No perineural invasion was identified. The margins for the invasive carcinoma was negative but in infiltrative apocrine carcinoma was located 1 mm from the superior inked margin of the specimen. The margin from the ductal carcinoma in situ apocrine type high-grade was also negative and located 3 mm the superior inked margin. A lymph node dissection was performed. A total of 10 lymph nodes were identified. 2 of the lymph nodes were involved by carcinoma with macro metastasis. The largest metastasis was 1.8 cm and there was not extranodal extension. Tissue from the "hernia sac" revealed benign fibroma adipose tissue and fibrovascular tissue with no tumor. Tissue from the left breast areolar cyst also revealed no tumor seen. Case: [id number]. The patient was seen by Dr. Keith Gan on 06/28/2016 to discuss the role of systemic therapy. Given the unusual histology of high-grade apocrine carcinoma and more significantly the finding of triple negative cancer he is highly recommended systemic chemotherapy either conventional or possibly participation in a [facility] randomized trial BR003 which is a phase 3 trial of adjuvant chemotherapy comparing Adriamycin and Cytoxan followed by weekly Paclitaxel with or without Carboplatin for a node positive or high risk node-negative triple negative invasive breast cancer. He felt the patient was somewhat overwhelmed by all this data and at that time was not able to make a decision. She is considering this option. It was arranged for us to see the patient in referral to review the role of adjuvant radiation in this setting. His for this reason the patient is being seen. Ultimately she declined systemic chemotherapy. She underwent conventional radiation therapy. This was completed on 2016. She received 6640 cGy. Interim History She continues to have lymphedema of the breast and left arm. She had been seen weekly at the lymphedema clinic. This is now twice a month. Arm wraps were placed. She does wear a glove. Massage therapy is given to the breast also. She was seen by Dr. Pantoja at the breast care center in [place]. She had noted a firm area in the upper inner portion of the breast. There was no associated pain. He felt this was lymphedema also in the breast. She has no discomfort. She has noticed no change of the axilla. There is a tight feeling of the skin of her hand. She continues to use Aquaphor to the breast for prevention of skin dryness. Allergies Coded Allergies: Cat Dander (Verified Allergy, Mild, Itchy Eyes , 07/12/16) Home Medications Scheduled Amlodipine (Norvasc), 10 MG PO DAILY Aspirin (Aspirin Ec), 81 MG PO DAILY Cetirizine (Zyrtec), 10 MG PO DAILY Chlorthalidone (Chlorthalidone), 50 MG PO QAM [Centrum Gummy ], 1 CAP PO DAILY Scheduled PRN Ibuprofen Tab (Motrin), 600 MG PO Q6H PRN for Swelling Review of Systems Gastrointestinal: Symptoms: WNL Oral: Symptoms: No Problems Respiratory: Symptoms: WNL Urinary: Symptoms: WNL Skin: Symptoms: No Problems Breast: Right Upper Arm Measurement: 33.9 Right Mid Arm Measurement: 26.7 Right Wrist Measurement: 17.0 Left Upper Arm Measurement: 34.5 Left Mid Arm Measurement: 28.5 Left Wrist Measurement: 17.5 Arm Dominence: Left Physical Exam Vital Signs Date Time Temp Pulse Resp B/P (MAP) Pulse Ox O2 Delivery O2 Flow Rate FiO2 05/22/17 13:37 36.6 69 16 157/92 95 General Appearance: no apparent distress Eyes: normal inspection, EOMI ENT: normal ENT inspection, hearing grossly normal Neck: no adenopathy, thyroid normal Respiratory/Chest: lungs clear, no respiratory distress, no accessory muscle use Breast: Breast examination reveals hyperpigmentation and lymphedema of the left breast. There is firmness in the upper inner portion of the breast. There are no distinct masses. There is no tenderness. She has no axillary adenopathy. Using the [place]ag[place] score cosmesis she has a fair outcome. The right breast showed no masses or tenderness and no axillary adenopathy. Cardiovascular: regular rate, rhythm, no gallop, no murmur Abdomen: non tender, soft, no organomegaly Extremities: no pedal edema, + pertinent finding (There is lymphedema of the left arm.) Neurologic/Psychiatric: no motor/sensory deficits, alert, normal mood/affect Skin: warm/dry Pain Management Patient Reports Pain: No Pain Management Plan She denies pain therefore requires no pain management. Laboratory Laboratory Results: not applicable Pathology Pathology Results: were reviewed, and pertinent findings noted in HPI Imaging Imaging Studies: were reviewed, and pertinent findings noted below Imaging Comments Patient: JAVIER PRESTON [facility] Rec: [id number] Address1: [address] [place] [address] Address2: [facility] ID: [id number] Date: 1955 Sex: F Ref Phy: Patrick Monsalve M.D. Att Phy: Ena Bishop PA-C Lilo Phy: Pamella Zelaya D.O. Inter Phy: Katelyn Fuentes MD [facility]: [place] [address] SC: [email or web address] Report #: [id number] Office Messenger Helper: HUSEYIN Diagnosis: POST RADIATION LEFT Service Date: 01/22/17 MNE: [id number] Ordering Dr: Ena Bishop PA-C CC: Ena Bishop PA-C CONF: DICTATED BY: Katelyn Fuentes MD MAMMOGRAPHY REPORT UNILATERAL LEFT DIGITAL DIAGNOSTIC MAMMOGRAM TOMOSYNTHESIS WITH CAD: 01/22/2017 CLINICAL HISTORY: 61-year-old woman with a personal history of left breast invasive cancer plus DCIS and metastatic lymph nodes to the left axilla presents after breast conserving treatment. A benign lesion was also removed from the subareolar left breast at the time of lumpectomy. TECHNIQUE: Left breast CC and MLO 2-D and tomosynthesis images, spot magnification left CC and ML views were obtained. Current study was also evaluated with a Computer Aided Detection (CAD) system. COMPARISON: Comparison is made to exams dated: 05/31/2016 mammogram, 05/22/2016 mammogram - [facility], 05/25/2008, and 04/24/2008. BREAST COMPOSITION: There are scattered areas of fibroglandular density in the left breast. FINDINGS: There is asymmetry, expected architectural distortion and surgical clips within the 6:00 and medial left breast, denoting the surgical bed. There is diffuse trabecular edema and skin thickening, likely related to prior radiation therapy. Spot magnification views of the left breast demonstrate a few scattered benign-appearing coarse calcifications that could represent dystrophic calcification. However, close follow-up and repeat assessment with spot magnification views is recommended when the patient is due for bilateral mammography in 4-5 months. No other suspicious mass, suspicious microcalcifications or unexpected architectural distortion is seen in the left breast. IMPRESSION: ACR-BI-RADS CATEGORY 3: PROBABLY BENIGN 1. Expected posttreatment changes in the left breast with a few scattered benign-appearing calcifications near the surgical site. Close follow-up diagnostic mammography including spot magnification views is recommended of the left breast in 4-5 months. Annual right mammography will also be due at that time. These results and recommendations were discussed with the patient at the time of the exam. Approximately 10% of breast cancers are not detected with mammography. A negative mammographic report should not delay biopsy if a clinically suggestive mass is present. Katelyn Fuentes M.D. ay/:01/22/2017 11:32:21 Tool And Fixture Repairer: Milena GONZALES)(Gely), [facility] letter sent: Follow Up Recommended 3 BI-RADS Code: ACR-BI-RADS Category 3: Probably Benign Dictated by: Katelyn Fuentes MD Signed by: Katelyn Fuentes MD Assessment & Plan Plan: Continue mammography as scheduled. She will have bilateral digital diagnostic mammogram first week of June. She continues therapy through the lymphedema clinic. Treatment to the breast as well as her arm. She can use Aquaphor for the skin dryness. We asked her to return to our office in 1 year. She will be seeing Dr. Pantoja in between times. I had recommended previously to continue follow-up also with medical oncology. She may call our office if she has any questions or concerns in the interim. Total Time In Follow-Up I spent 20 minutes speaking to the patient in performing examination. I spent 15 minutes reviewing information and completing this note. AK Copy To Keith Gan MD; LUDIVINA PANTOJA M.D.; Pamella Zelaya D.OGeorg[place] Problem Qualifiers (1) Breast cancer: Breast location: upper inner quadrant of breast Estrogen receptor status: negative Patient sex: female Laterality: left Qualified Codes: C50.212 - Malignant neoplasm of upper-inner quadrant of left female breast; Z17.1 - Estrogen receptor negative status [ER-]
== END | disposition home or self-care (01) ==
LOC: C.ONC 13:33
PROVIDERS: ATTEND Physician Assistant Medical
DX: Z08 Encounter for follow-up examination after completed treatment for malignant neoplasm (principal); Z92.3 Personal history of irradiation; Z85.3 Personal history of malignant neoplasm of breast

== ENCOUNTER → 2017-06-19 | Outpatient (CLI) | payer OTHER ==
[~2017-06-19] MED LIST changes: -AMOX1TAB42 PO; -BENZ-54 PO
--- NOTE | 2017-06-19 12:46 | MAMMOGRAPHY REPORT ---
BILATERAL DIGITAL DIAGNOSTIC MAMMOGRAM TOMOSYNTHESIS WITH CAD: 06/19/2017 CLINICAL HISTORY: 62-year-old woman with a personal history of left breast cancer status post breast conservation treatment and axillary lymph node dissection presents for continued close follow-up in t he left breast after treatment. She has left arm lymphedema and reports mild persistent swelling of the left breast. Also due for annual bilateral screening mammography. TECHNIQUE: Bilateral breast tomosynthesis in addition to standard 2D mammography was performed. Spot magnification left CC and ML views were also obtained. Current study was also evaluated with a Comp uter Aided Detection (CAD) system. COMPARISON: Comparison is made to exams dated: 01/22/2017 mammogram, 05/31/2016 ultrasound biopsy, 05/20 mammogram, 05/22/2016 mammogram - [facility], 05/25/2008, and 04/24/2008. BREAST COMPOSITION: There are scattered areas of fibroglandular density in the right breast. The ti ssue of the left breast is heterogeneously dense, which may obscure small masses. FINDINGS: There is persistent diffuse skin thickening and trabecular edema of the left breast, likely related to prior treatment. There is expected architectural distortion, focal asymmetry and surgica l clips in the retroareolar middle and posterior left breast, at the site of prior lumpectomy. There are a few benign linear calcifications near the surgical site which could represent sutural calcific ation. No obvious new masses, suspicious calcifications, unexpected architectural distortion or asym metries are identified in the left breast. There is a 7 mm lobulated and circumscribed mass in the retroareolar middle to anterior right breast, with associated ribbon-shaped biopsy marker clip. The mass appears slightly decreased in size elier ring to the 2017 mammograms, concordant with the pathology results of a benign mass. A few morpholog ically normal lymph nodes project over the superior right pectoralis muscle on the MLO view. No new suspicious masses, asymmetries, areas of architectural distortion or microcalcifications are identifi ed in the right breast. IMPRESSION: ACR-BI-RADS CATEGORY 3: PROBABLY BENIGN 1. Expected posttreatment changes in the left breast, without definite mammographic evidence of elke gnancy. Recommend another six-month close follow-up left diagnostic mammogram and possible ultrasoun d to ensure longer stability after treatment. 2. Stable mammographic appearance of the right breast, without mammographic evidence of malignancy. Recommend routine screening mammography in 1 year. These results and recommendations were discussed with the patient at the time of the exam. Approximately 10% of breast cancers are not detected with mammography. A negative mammographic report should not delay biopsy if a clinically suggestive mass is present. Katelyn Fuentes M.D. ay/:06/19/2017 09:36:12 Company Doctor: Alcira GONZALES)(Gely), [facility] letter sent: Follow Up Recommended 3 BI-RADS Code: ACR-BI-RADS Category 3: Probably Benign
== END | disposition home or self-care (01) ==
LOC: C.MAMM 08:30
PROVIDERS: ATTEND Physician Assistant Medical
DX: Z08 Encounter for follow-up examination after completed treatment for malignant neoplasm (principal); Z12.31 Encounter for screening mammogram for malignant neoplasm of breast

== ENCOUNTER → 2017-06-21 | Outpatient (CLI) | payer OTHER ==
[~2017-06-21] VITALS: Ht 149.9 cm; Wt 83.8 kg
[2017-06-21 11:30] VITALS: BP 137/89; PULSE 81; Ht 149.9 cm; Wt 83.8 kg
== END | disposition home or self-care (01) ==
LOC: C.NEUR 11:10
PROVIDERS: ATTEND Internal Medicine Pulmonary Disease
DX: G47.33 Obstructive sleep apnea (adult) (pediatric) (principal)

== ENCOUNTER → 2017-07-04 | Outpatient (CLI) | payer OTHER ==
--- NOTE | 2017-07-04 14:34 | DIAGNOSTIC IMAGING REPORT ---
MRCP CLINICAL HISTORY: 62 years-old Female presenting with K86.2 Pancreatic cyst. TECHNIQUE: Multisequence, multiplanar MR imaging of the abdomen was performed without the use of intravenous contrast. IV contrast: None. COMPARISON: PET/CT from 05/29/2016. FINDINGS: Localizer images: Unremarkable. Lung bases: Lungs and pleural spaces clear. Normal heart size. No pericardial or pleural effusion. Liver: Normal morphology. Several well-defined T2 hyperintense lesions, indeterminate though suggestive of hepatic cysts or hamartomas. Biliary: No intrahepatic or extrahepatic biliary ductal dilatation. Gallbladder contains gallstones. Pancreas: At least 5 T2 hyperintense well-defined lobular lesions noted throughout the pancreatic parenchyma the largest in the pancreatic body-tail measuring 16 mm in diameter. All of these lesions demonstrate small connections to the pancreatic ductal system. No pancreatic ductal dilatation. Mild pancreatic parenchymal atrophy. Spleen: Normal noncontrast appearance. Adrenal glands: Normal noncontrast appearance. Kidneys and ureters: Normal noncontrast appearance. No hydronephrosis. Normal ureters. Bowel: Normal noncontrast appearance. No bowel obstruction. Peritoneal cavity: No free fluid. Lymph nodes: No gross lymphadenopathy allowing for noncontrast technique. Vasculature: Normal noncontrast appearance. Abdominal wall: Normal. Musculoskeletal: Normal. IMPRESSION: 1. 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 No worrisome features. By Judith 2012 criteria, CT or MRI is recommended yearly for 2 years from their initial identification, lengthening the interval if no change occurs. Electronically signed by: Chivo Kitchen M.D. 07/04/2017 2:32 PM Dictated Date/Time: 07/04/2017 2:22 PM
== END | disposition home or self-care (01) ==
LOC: C.MRI 13:48
PROVIDERS: ATTEND Physician Assistant
DX: K86.2 Cyst of pancreas (principal)

== ENCOUNTER → 2017-07-09 | Outpatient (CLI) | payer OTHER ==
--- NOTE | 2017-07-10 06:26 | SPLIT NIGHT TECHNICIAN REPORT ---
[facility] Split Night Polysomnogram - Administrator Pesticide Report Study date: 07/09/2017 Referring Physician: Dr. Hugo Olivas DO Name: JAVIER PRESTON Administrator Pesticide: MATEO Carvajal. Date of : 1955 Height: 62 years, Height 4' 11" Sex: Female Weight: 184.7 lbs Age: 62 BMI: Medications: 37.3 Amlodipine 10 mg, chlorthalidone 50 mg, Ibuprofen 600 mg, Zyrtec 10 mg Patient History 62 yr. old female here for a split night sleep study if AHI >15. Patient complains of EDS, snoring and witnessed apneas. ESS . Parameters Monitored NPSG: E1-M2, E2-M1, Fp1-M2, Fp2-M1, F3-M2, F4-M2, F4-M1, C3-M2, C4-M2, C4-M1, O1-M2, O2-M2, O2-M1, T3-M2, T4-M1, P3-M2, P4-M1, CHIN1, CHIN2, HR, EKG, Legs, PFLOW, SNOR, FLOW, CFLOW, Tidal Volume, THOR, ABDO, SpO2, PLTH, CPRESS, ETCO2 Wave, ETCO2, pH SLEEP SUMMARY DATA DIAGNOSTIC TREATMENT Lights Out: 10:41:00 PM 1:08:00 AM Lights On: 1:02:00 AM 5:37:30 AM Total Recording Time (TRT): 143.5 min. 269.5 min. Total Sleep Time (TST): 121.5 min. 258.5 min. NREM Time: 121.5 min. 187.0 min. REM Time: 0.0 min. 71.5 min. Sleep Period Time (SPT): 135.0 min. 266.5 min. Sleep Efficiency (SE): 86 % 96 % Sleep Latency: 6.0 min. 3.0 min. Arousal Index: 24.2 8.1 PAP Treatment Levels: 5, 7, 8, 9, 10, 11, 12, 13, 14 * Optimal Pressure(s) SLEEP STAGING DATA DIAGNOSTIC TREATMENT Duration (min) TST % Duration (min) TST % Stage Wake: 21.5 min. -- 11.0 min. -- WASO: 13.5 min. -- 8.0 min. -- NREM: 121.5 min. 100 % 187.0 min. 72 % Stage N1: 18.5 min. 15 % 11.5 min. 4 % Stage N2: 103.0 min. 85 % 128.5 min. 50 % Stage N3: 0.0 min. 0 % 47.0 min. 18 % REM: 0.0 min. 0 % 71.5 min. 28 % POSITIONAL DATA Event Count Index Event Count Index Supine: 216 107 81 25.8 Supine NREM: 216 106.7 56 28.8 Supine REM: N/A N/A 25 21 Non-Supine: N/A N/A 11 9.4 Non-Supine NREM: N/A N/A 11 9.4 Non-Supine REM: N/A N/A N/A N/A AROUSAL SUMMARY DATA: Event Count Index Event Count Index Apnea Arousals: 39 72.1 1 0.9 Hypopnea Arousals: 9 4.4 8 1.9 Snore Arousals: 0 0.0 6 1.4 PLM Arousals: 0 0.0 1 0.2 Non-Specific Arousals: 2 1.0 8 1.9 Total Arousals: 49 24.2 35 8.1 MYOCLONUS (PLM) Event Count Index Event Count Index PLM: 0 0.0 7 1.6 PLM AROUSAL: 0 0.0 1 0.2 PLM W/O AROUSAL 0 0.0 6 1.4 PLM W/RESP EVENT 0 0.0 1 0.0 MYOCLONUS (PLM) Event Count Index Event Count Index LM: 3 33.6 45 10.4 LM AROUSAL: 3 1.5 12 2.8 LM W/O AROUSAL LM W/RESP EVENT LM NON SPECIFIC 10 4.9 28 6.5 HEART RATE DATA DIAGNOSTIC TREATMENT Sleep (bpm): 65 67 REM (bpm): N/A 93 NREM (bpm): 90 94 Tachycardia Count: 0 0 Tachycardia Duration: 0.00 0 Bradycardia Count: 0 0 Bradycardia Duration: 0.00 0 DIAGNOSTIC PORTION TREATMENT PORTION RESPIRATORY DATA Event Count Index Event Count Index AHI: -- 106.7 -- 21.4 RDI: -- 106.7 -- 21 Obstructive Apnea: 112 55.3 0 0.0 Central Apnea: 6 3.0 4 0.9 Mixed Apnea: 28 13.8 0 0.0 Hypopnea: 70 34.6 88 20.4 RERA: 0 0.0 0 0.0 Total Apneas: 146 72.1 4 0.9 RESPIRATORY DATA REM NREM SLEEP REM NREM SLEEP Supine Position: Obstructive Apneas: N/A 112 112 0 0 0 Central Apneas: N/A 6 6 0 4 4 Mixed Apneas: N/A 28 28 0 0 0 Hypopneas: N/A 70 70 25 52 77 RERA N/A 0 0 0 0 0 Total Supine Events: N/A 216 216 25 56 81 Supine AHI: N/A 106.7 107 21 28.8 25.8 Supine RDI: N/A 106.7 106.7 21.0 28.8 25.8 REM NREM SLEEP REM NREM SLEEP Non-Supine Position: Obstructive Apneas: N/A N/A N/A N/A 0 0 Central Apneas: N/A N/A N/A N/A 0 0 Mixed Apneas: N/A N/A N/A N/A 0 0 Hypopneas: N/A N/A N/A N/A 11 11 RERA N/A N/A N/A N/A 0 0 Total Supine Events: N/A N/A N/A N/A 11 11 Supine AHI: N/A N/A N/A N/A 9.4 9.4 Supine RDI: N/A N/A N/A N/A 9.4 9.4 OXYGEN DESTAURATION DATA: Event Count Index Event Count Index REM Desaturations: N/A N/A 25 21.0 NREM Desaturations: 217 107.2 73 23.4 SNORE DATA DIAGNOSTIC TREATMENT Snore Time: 2.1 1:11:00 AM Snore TST%: 1 1 Snore Arousal Count: 0 6 Snore Arousal Index: 0.0 1.4 Desaturation Event Summary: Minimum %SpO2 Event Count Mean/Min/Max Duration(sec.) Desaturation Index % Time In Bed > 90 329 21.7 / 6.3 / 55.0 59.1 81.4 86 - 90 1 20.8 / 20.8 / 20.8 1.1 13.3 81 - 85 0 N/A 0.0 5.1 76 - 80 0 N/A 0.0 0.2 71 - 75 0 N/A 0.0 0.0 66 - 70 0 N/A 0.0 0.0 61 - 65 0 N/A 0.0 0.0 56 - 60 0 N/A 0.0 0.0 51 - 55 0 N/A 0.0 0.0 < 50 0 N/A 0.0 0.0 OXYGEN SATURATION DATA DIAGNOSTIC TREATMENT SpO2 Mean Sleep: 90 % 94 % SpO2 Mean REM: N/A % 93 % SpO2 Mean NREM: 90 % 94 % SpO2 Minimum Sleep: 78 % 83 % SpO2 Minimum REM: N/A % 84 % SpO2 Minimum NREM: 78 % 83 % Time Below 90% (TST): 51.8 7.1 Time Below 88% (TST): 36.5 2.6 Total REM NREM Awake <50% 0.0 min. 0.0 min. 0.0 min. 0.0 min. 51 - 60% 0.0 min. 0.0 min. 0.0 min. 0.0 min. 61 - 70% 0.0 min. 0.0 min. 0.0 min. 0.0 min. 71 - 80% 0.7 min. 0.0 min. 0.7 min. 0.0 min. 81 - 90% 75.7 min. 5.1 min. 67.4 min. 3.2 min. 91 - 100% 333.9 min. 66.4 min. 240.2 min. 27.3 min. Average 93 93 92 94 Minimum SpO2 78 84 78 82 Desaturation Event Index 48.1 21.0 56.4 31.5 # Desat. Events below 89% 194 4 185 5 Time(%) with Saturation below 89% 12.1 0.4 11.3 0.5 Time(min.) with Saturation below 89% 49.8 1.4 46.2 2.2 Recording Administrator Pesticide Comments: Mrs. Preston slept in the right and supine positions. Cardiac arrhythmia and PLMs noted. No bruxism noted. Snoring was noted and scored as a 3 on a scale of 0 through 5. (0=no snoring, 5=snoring loud enough to be heard through a closed door or down the ma way) At 1:08 am , Mrs. Preston met specific Split-Night criteria during the diagnostic portion of this study. CPAP was initiated at +4 CMH2O room air and up-titrated to a level of +14 CMH2O Cflex, which nearly eliminated all respiratory events and snoring. A small ResMed mirage FX nasal mask, was used during titration. Mrs. Preston did not wake to use the restroom during the night. Mrs. Preston stated, I slept the same. The final report will be interpreted and signed by a sleep physician. The completed physician report will then be placed in the patient medical record. Therapy Event: Therapy (cm H20) 0 5 7 8 9 10 11 12 13 14 Total Time at Pressure (min.) 141.0 13.4 13.7 26.6 64.7 11.5 29.7 38.3 42.7 29.0 TST at Pressure (min.) 121.5 8.4 13.7 26.6 64.2 11.0 28.2 37.3 40.2 29.0 # Periods 1 1 1 1 1 1 1 1 1 1 Sleep Onset (min.) 6.0 3.0 0.0 0.0 0.0 0.0 0.0 0.0 0.0 0.0 REM Onset (min.) N/A N/A 8.6 0.0 0.0 N/A N/A 18.4 N/A N/A Sleep Efficiency % 86 62 100 100 99 95 95 97 94 100 Wakefulness (%) 13.8 37.4 0.0 0.0 0.8 4.4 5.0 2.6 5.9 0.0 Wakefulness (min.) 19.5 5.0 0.0 0.0 0.5 0.5 1.5 1.0 2.5 0.0 NREM 1 (%) 13.1 22.4 3.7 0.0 1.5 13.1 3.4 2.6 8.2 0.0 NREM 1 (min.) 18.5 3.0 0.5 0.0 1.0 1.5 1.0 1.0 3.5 0.0 NREM 2 (%) 73.0 40.2 59.3 0.0 21.5 82.6 37.8 54.3 71.9 100.0 NREM 2 (min.) 103.0 5.4 8.1 0.0 13.9 9.5 11.2 20.8 30.7 29.0 NREM 3 (%) 0.0 0.0 0.0 0.0 38.7 0.0 53.8 0.0 14.1 0.0 NREM 3 (min.) 0.0 0.0 0.0 0.0 25.0 0.0 16.0 0.0 6.0 0.0 REM (%) 0.0 0.0 37.0 100.0 37.6 0.0 0.0 40.5 0.0 0.0 REM (min.) 0.0 0.0 5.1 26.6 24.3 0.0 0.0 15.5 0.0 0.0 # Arousals 49 4 4 0 5 7 5 4 2 4 Arousal Index 24.2 28.6 17.5 0.0 4.7 38.2 10.6 6.4 3.0 8.3 # Snore 116 17 42 17 17 6 12 5 5 4 Snore Index 57.3 121.6 184.1 38.3 15.9 32.8 25.5 8.0 7.5 8.3 AHI 106.7 85.9 83.3 18.0 9.4 54.6 14.9 27.4 9.0 6.2 AHI Supine 106.7 85.9 83.3 18.0 9.4 54.6 14.9 25.0 N/A N/A AHI Non-Supine N/A N/A N/A N/A N/A N/A N/A 92.5 9.0 6.2 NREM AHI 106.7 85.9 90.5 N/A 10.5 54.6 14.9 24.8 9.0 6.2 REM AHI N/A N/A 71.0 18.0 7.4 N/A N/A 31.0 N/A N/A RDI 106.7 85.9 83.3 18.0 9.4 54.6 14.9 27.4 9.0 6.2 # Obstructive 112 0 0 0 0 0 0 0 0 0 # Central Ap 6 3 1 0 0 0 0 0 0 0 # Mixed 28 0 0 0 0 0 0 0 0 0 # Hypopneas 70 9 18 8 10 10 7 17 6 3 RERAS 0 0 0 0 0 0 0 0 0 0 Total Respiratory Events 216 12 19 8 10 10 7 17 6 3 Time Below SpO2 89.00% (min.) 44.2 0.6 2.1 0.5 0.2 0.0 0.0 0.0 0.0 0.0 Mean NREM SpO2 (%) 90 93 92 N/A 93 93 93 93 95 95 Mean REM SpO2 (%) N/A N/A 91 93 93 N/A N/A 93 N/A N/A Mean Sleep SpO2 (%) 90 93 92 93 93 93 93 93 95 95 Min NREM SpO2 (%) 78 83 85 N/A 90 89 90 89 91 91 Min REM SpO2 (%) N/A N/A 84 87 87 N/A N/A 90 N/A N/A Position Supine (min.) 121.5 8.4 13.7 26.6 64.2 11.0 28.2 36.0 0.0 0.0 Position Non-supine (min.) 0.0 0.0 0.0 0.0 0.0 0.0 0.0 1.3 40.2 29.0 LM Index Sleep 33.6 64.4 21.9 6.8 8.4 38.2 19.1 3.2 10.5 2.1 LM Index NREM 33.6 64.4 34.8 N/A 9.0 38.2 19.1 5.5 10.5 2.1 LM Index REM N/A N/A 0.0 6.8 7.4 N/A N/A 0.0 N/A N/A Mean Heart Rate (bpm) 65 67 72 77 71 69 67 65 61 61 Min Heart Rate (bpm) 54 55 57 62 59 59 58 54 52 53
--- NOTE | 2017-07-12 21:22 | POLYSOMNOGRAPH REPORT ---
CLINICAL DATA: The patient is a 62-year-old female with a history of snoring, observed apneas, and excessive daytime somnolence. Her [place] sleepiness scale score is 14 out of a possible 24. She has hypertension and prediabetes, has comorbidities. This was an in-lab overnight split study. SLEEP ARCHITECTURE: The study was divided into a diagnostic and treatment portion, using nasal CPAP during the treatment portion of the study. During the diagnostic portion of the study, the sleep period time was 135 minutes. The total sleep time was 121.5 minutes. The sleep efficiency was 86%. Sleep latency was 6 minutes. Sleep consisted of stage N1 of 15%, stage N2 of 85%, stage N3 of 0%, stage REM 0%. During the treatment portion of the study, the sleep period time was 266.5 minutes. The total sleep time was 258.5 minutes. The sleep efficiency was normal at 96%. The sleep latency was only 3 minutes. Sleep consisted of stage N1 of 4%, stage N2 of 50%, stage N3 of 18%, stage REM 28%. AROUSAL DATA: During the diagnostic portion of the study, the patient had 49 arousals including 39 apnea arousals, 9 hypopnea arousals, and 2 nonspecific arousals. The arousal index was 24.2. During the therapeutic portion of the study, the patient had 35 arousals including 1 apnea arousal, 8 hypopnea arousals, 6 snoring arousals, 1 PLM arousal, and 8 nonspecific arousals. The arousal index was 8.1. PLM DATA: During the diagnostic portion of the study, there was no periodic limb movements. During the treatment portion of the study, there were 7 periodic limb movements for a PLM index of 1.6. There was only 1 arousal associated with limb movements for a PLM arousal index of 0.2. EKG: The underlying cardiac rhythm was normal sinus. The cardiac rates ranged from 65-94 beats per minute. There was a rare extrasystole. RESPIRATORY DATA: During the diagnostic portion of the study, the patient had a total of 216 respiratory events including 112 obstructive apneas, 6 central apneas, 28 mixed apneas, and 70 hypopneas. The apnea hypopnea index was severely elevated at 106.7 events per hour. During the treatment portion of the study, the patient's nocturnal events were treated with nasal CPAP, which was titrated up to a final pressure of 14 cm. The patient had a total of 92 respiratory events including 4 central apneas and 88 hypopneas. Hypopneas were scored according to the 4% desaturation rule. The apnea hypopnea index was 21.4 events per hour. At the final pressure of 14 cm, the patient had an apnea hypopnea index of 6.2 events per hour. She was at that pressure for 29 minutes. OXIMETRY DATA: During the diagnostic portion of the study, the mean saturation was 90%. The minimum saturation was 78%. There was a total of 36.5 minutes with saturations less than 88%. During the treatment portion of the study, the mean saturation was 94%. The minimum saturation was 83%. There was only 2.6 minutes with saturations less than 88%. BOAT CAMP OPERATOR COMMENTS: Ms. Preston slept in the right and supine positions. Cardiac arrhythmia and PLMs noted. No bruxism noted. Snoring was noted and scored as a 3 on a scale of 0 through 5. Ms. Preston met specific split night criteria during the diagnostic portion of the study. CPAP was initiated at 4 cm and up titrated to a level of 14 cm, which nearly eliminated all respiratory events and snoring. A small ResMed Mirage FX nasal mask was used during the titration. Ms. Preston did not wake to use the restroom during the night. She stated that she slept the same as usual. IMPRESSION: Severe obstructive sleep apnea -- markedly improved with nasal CPAP at 14 cm. COMMENTS: The patient had very severe sleep apnea as noted. This was resulting in significant decreases in her oxygen saturation as well as disruption to her sleep. A split study was done and she was treated with nasal CPAP and did well. It was notable that during the treatment portion of the study, she developed a significant amount of stage N3 and stage REM sleep, none of which was seen during the diagnostic portion. Her oxygenation also significantly improved. RECOMMENDATIONS: 1. It is advised that the patient be treated with nasal CPAP at 14 cm. 2. It is suggested that she wear the ResMed small Mirage FX nasal mask. 3. Weight loss is advised in light of the elevation of body mass index at 37.3 events per hour. 4. If possible, she should avoid sleeping in the supine position as there is typically more respiratory events supine.
== END | disposition home or self-care (01) ==
LOC: C.NEUR 21:00
PROVIDERS: ATTEND Internal Medicine Pulmonary Disease
DX: G47.33 Obstructive sleep apnea (adult) (pediatric) (principal)

== ENCOUNTER → 2017-09-27 | Outpatient (CLI) | payer OTHER ==
[~2017-09-27] MED LIST changes: -AMLO-114 PO; +AMLO10TA3 PO; +ATOR-22 PO
[2017-09-27 17:00] LABS: HEMATOCRIT 41.9 % (37-47); HEMOGLOBIN 14.3 g/dL (12.0-16.0); MEAN CELL VOLUME 85.5 fL (80-100); MEAN CORPUSCULAR HEMOGLOBIN 29.2 pg (25-34); MEAN CORPUSCULAR HGB CONC 34.1 g/dl (32-36); MEAN PLATELET VOLUME 10.2 fL (7.4-10.4); PLATELET COUNT 346 K/uL (130-400); RED CELL DISTRIBUTION WIDTH CV 13.8 % (11.5-14.5); RED CELL DISTRIBUTION WIDTH SD 43.2 fL (36.4-46.3); WHITE BLOOD COUNT 9.34 K/uL (4.8-10.8)
== END | disposition home or self-care (01) ==
LOC: C.LAB 16:28
PROVIDERS: ATTEND Family Medicine
DX: N61.1 Abscess of the breast and nipple (principal)

== ENCOUNTER → 2017-10-01 | Outpatient (CLI) | payer OTHER ==
--- NOTE | 2017-10-01 14:41 | DIAGNOSTIC IMAGING REPORT ---
L VENOUS DOPP LOWER EXT UNILAT CLINICAL HISTORY: 62 years-old Female presenting with LT LEG Pain, r/o DVT. TECHNIQUE: Real-time grayscale and color and spectral Doppler ultrasound imaging of the veins of the left lower extremity was performed. Compression and augmentation were also utilized. COMPARISON: None. FINDINGS: LEFT: Common femoral vein: Patent. Greater saphenous vein: Patent. Deep femoral vein: Patent. Femoral vein: Patent. Popliteal vein: Patent. Calf veins: Patent. Other: None. IMPRESSION: No evidence of deep venous thrombosis. Electronically signed by: Chivo Kitchen M.D. 10/01/2017 2:40 PM Dictated Date/Time: 10/01/2017 2:39 PM
[2017-10-01 17:41] LABS: ALBUMIN 3.7 gm/dl (3.4-5.0); ALKALINE PHOSPHATASE 58 U/L (45-117); ALT/SGPT 20 U/L (12-78); AST/SGOT 15 U/L (15-37); BLOOD UREA NITROGEN 15 mg/dl (7-18); CALCIUM 9.4 mg/dl (8.5-10.1); CARBON DIOXIDE 28 mmol/L (21-32); CREATININE 0.98 mg/dl (0.60-1.20); GLUCOSE 97 mg/dl (70-99); POTASSIUM 3.4 mmol/L (3.5-5.1); SODIUM 137 mmol/L (136-145); TOTAL PROTEIN 7.7 gm/dl (6.4-8.2)
[2017-10-01 18:04] LABS: BASO % 0.2 %; BASO ABS # 0.02 K/uL (0-0.2); EOS % 1.7 %; EOS ABS # 0.17 K/uL (0-0.5); HEMATOCRIT 42.3 % (37-47); HEMOGLOBIN 14.6 g/dL (12.0-16.0); IG# 0.03 K/uL (0.00-0.02); LYMPH % 25.7 %; LYMPH ABS # 2.62 K/uL (1.2-3.4); MEAN CELL VOLUME 86.2 fL (80-100); MEAN CORPUSCULAR HEMOGLOBIN 29.7 pg (25-34); MEAN CORPUSCULAR HGB CONC 34.5 g/dl (32-36); MEAN PLATELET VOLUME 10.5 fL (7.4-10.4); MONO ABS # 0.41 K/uL (0.11-0.59); NEUT % 68.1 %; NEUT ABS # 6.96 K/uL (1.4-6.5); PLATELET COUNT 313 K/uL (130-400); RED CELL DISTRIBUTION WIDTH CV 14.1 % (11.5-14.5); RED CELL DISTRIBUTION WIDTH SD 44.3 fL (36.4-46.3); WHITE BLOOD COUNT 10.21 K/uL (4.8-10.8)
== END | disposition home or self-care (01) ==
LOC: C.ULTRBC 13:59
PROVIDERS: ATTEND Family Medicine
DX: M79.605 Pain in left leg (principal); I10 Essential (primary) hypertension; R25.2 Cramp and spasm

== ENCOUNTER 2018-07-31 21:25 | Inpatient (IN) ==
[2018-07-31] MEDS ORDERED: ALBUT/IPRATROP 3MG/0.5MG NEB 3 ML VIAL NEB STA (21:52)
[2018-07-31] MEDS ORDERED: SODIUM CHLORIDE 0.9% 1000ML 1,000 ML IV SCH (22:00)
[2018-07-31 22:07] LABS: Basophils # (auto) 0.03 K/uL (0-0.2); Basophils % (auto) 0.2 %; Eosinophils % (auto) 1.3 %; Hematocrit (blood only) 41.8 % (37-47); Hemoglobin 14.5 g/dL (12.0-16.0); Immature Granulocytes # (auto) 0.05 K/uL (0.00-0.02); Immature Granulocytes % (auto) 0.3 %; Lymphocytes # (auto) 2.26 K/uL (1.2-3.4); Lymphocytes % (auto) 14.7 %; Mean Corpuscular Hgb Conc 34.7 g/dL (32-36); Mean Corpuscular Volume 83.4 fL (80-100); Mean Platelet Volume 10.3 fL (7.4-10.4); Monocytes # (auto) 0.94 K/uL (0.11-0.59); Monocytes % (auto) 6.1 %; Neutrophils # (auto) 11.87 K/uL (1.4-6.5); Neutrophils % (auto) 77.4 %; Platelet Count 360 K/uL (130-400); RDW Coefficient of Variation 14.6 % (11.5-14.5); RDW Standard Deviation 44.2 fL (36.4-46.3); Red Blood Count 5.01 M/uL (4.2-5.4); White Blood Count 15.35 K/uL (4.8-10.8)
[2018-07-31 22:17] LABS: Albumin Level 3.4 gm/dl (3.4-5.0); BUN Creatinine Ratio 16.2 (10-20); Calcium 9.9 mg/dl (8.5-10.1); Creatinine Clr Calc Pharmacy 61.9 ml/min; Est GFR (African American) 83.3; Est GFR (Non-African American) 71.9; Potassium 3.1 mmol/L (3.5-5.1)
[2018-07-31 22:27] LABS: Albumin Globulin Ratio 0.8 (0.9-2); Bilirubin,Total 0.5 mg/dl (0.2-1); Globulin 4.4 gm/dl (2.5-4.0); Total Protein 7.8 gm/dl (6.4-8.2); Troponin I 0.033 ng/ml (0-0.045)
[2018-07-31 22:31] LABS: D Dimer 800 ug/L FEU (0-500)
[2018-07-31] MEDS ORDERED: OPTIRAY 320 125ml IV PRN (22:34)
--- NOTE | 2018-07-31 22:40 | Emergency Department Note ---
History of Present Illness General Chief complaint: Cough Stated complaint: COUGHING, WHEEZING Time Seen by Provider: 07/31/18 21:43 History of Present Illness Maximum Pain Intensity: 0 This is a 63-year-old female presenting to the emergency department for evaluation of shortness of breath, coughing, and wheezing worsening over the past 1 day. The patient was seen and evaluated by thoracic medicine 2 days ago at this facility for lymph node biopsy. The patient evidently has a history of breast cancer with possible metastasis, and underwent ultrasound-guided esophageal needle biopsy of carinal lymph nodes. The patient believes that she tolerated the procedure well, and was told that she would have a mild cough. The patient did well immediately after the procedure without any sort of complication, however today she feels it is difficult to walk any distance without becoming short of breath. She does not experience any lightheadedness or dizziness. She is without distinct chest pain. She does have an albuterol inhaler that she used twice without any relief of symptoms. She rates her current pain is 0/10, however her shortness of breath is worsened with walking. She does not report pain or swelling into her legs. No fevers or chills. Home Medications Home Medications Medication Instructions Recorded Confirmed Type amlodipine 10 mg PO HS 07/26/18 08/01/18 History cetirizine [Zyrtec] 10 mg PO QAM 07/26/18 08/01/18 History chlorthalidone 50 mg PO QAM 07/26/18 08/01/18 History cholecalciferol (vitamin D3) 2,000 unit PO DAILY 07/26/18 08/01/18 History [Vitamin D3] clindamycin HCl 300 mg PO BID 07/26/18 08/01/18 History multivitamin 1 tab PO DAILY 07/26/18 08/01/18 History albuterol sulfate 2 puff INHALATION QID PRN 08/01/18 08/01/18 History albuterol sulfate 2.5 mg INHALATION QID PRN 08/01/18 08/01/18 History cephalexin 500 mg PO TID 08/01/18 08/01/18 History Allergies Allergy/AdvReac Type Severity Reaction Status Date / Time cat dander Allergy Mild Itchy Eyes Verified 08/01/18 00:09 Past Med/Surg History Medical History Mediastinal adenopathy Essential (primary) hypertension CKD (chronic kidney disease), stage III Thyroid nodule 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 Prediabetes MARK (obstructive sleep apnea) CPAP Breast CA LEFT BREAST CANCER LEFT BREAST TUMOR REMOVAL Cellulitis LEFT BREAST (REASON FOR ANTIBIOTICS) History of ectopic had part of tube removed Hyperlipidemia DIET CONTROLLED Hypertension Obesity Pancreatic cyst BEING MONITORED Thalassemia carrier Surgical History H/O heart surgery (Acute) BENIGN VALVULAR TUMOR EXCISION 2004; SUBSEQUENT CARDIO FOLLOWUP "NORMAL" AND TOLD SHE DID NOT NEED TO CONTINUE FOLLOWING WITH CARDIO H/O section H/O hernia repair H/O tubal ligation History of cardiac cath 2004 (NO STENTS) DONE BEFORE HEART TUMOR REMOVAL History of tooth extraction Status post partial mastectomy of left breast Family History Father Family history of diabetes mellitus Social History Preferred Language: Kiswahili Communication Ability: Effective Beliefs That Will Affect Care: None Current Living Situation: Spouse Feels Safe at Home: Yes Smoking Status: Never smoker Second Hand Exposure: No Hx Alcohol Use: Yes Alcohol type: wine Hx Substance Use: No Review of Systems A total of 10 systems reviewed and were otherwise negative Physical Exam Vital Signs Vital Signs - 24 hr 07/31/18 21:27 07/31/18 22:08 07/31/18 22:10 Temperature 36.6 C Temperature Source Oral Sepsis Recent Fever Within 48 Hours No Sepsis New/Unexplained Change in Mental Status No Sepsis Action Taken by Nursing No Action Required Pulse Rate 102 H Pulse Rate [Exercises] 112 H Pulse Rate [Left Finger] 93 H Respiratory Rate 22 20 Respiratory Rate [Exercises] 22 Respiratory Effort / Characteristics Non-Labored Spontaneous Blood Pressure 151/98 H Blood Pressure [Right Arm] Blood Pressure Mean 115 Blood Pressure Mean [Right Arm] Pulse Oximetry 90 93 Pulse Oximetry [Exercises] 84 L Oxygen Delivery Method Room Air Room Air Nasal Cannula Oxygen Flow Rate 4 07/31/18 23:50 08/01/18 01:04 Temperature 36.6 C 36.6 C Temperature Source Oral Oral Sepsis Recent Fever Within 48 Hours Sepsis New/Unexplained Change in Mental Status Sepsis Action Taken by Nursing Pulse Rate Pulse Rate [Exercises] Pulse Rate [Left Finger] 97 H 93 H Respiratory Rate 20 20 Respiratory Rate [Exercises] Respiratory Effort / Characteristics Non-Labored Spontaneous Non-Labored Spontaneous Blood Pressure Blood Pressure [Right Arm] 127/71 130/70 Blood Pressure Mean Blood Pressure Mean [Right Arm] 89 90 Pulse Oximetry 93 95 Pulse Oximetry [Exercises] Oxygen Delivery Method Nasal Cannula Nasal Cannula Oxygen Flow Rate 2 2 VITALS: Vitals are noted on the nurse's note and reviewed by myself. Vital signs with hypoxia GENERAL: Well-developed, well-nourished, white female, who is in no acute distress and resting comfortably. Patient is cooperative with the examination. HEAD: Normocephalic atraumatic. NECK: Supple without nuchal rigidity. No lymphadenopathy. No thyromegaly. Cervical spine is nontender. HEART: Mildly tachycardic with regular rate LUNGS: No significant wheezing or rhonchi, however breath sounds are overall diminished and lung negron do sound tight ABDOMEN: Positive normal bowel sounds x 4. Soft, nontender, without masses or organomegaly. No guarding or rebound tenderness. MUSCULOSKELETAL: No muscle atrophy, erythema, or edema noted. Full range of motion in all extremities. No posterior calf tenderness NEURO: Patient was alert and oriented to person place and time. CN II through XII grossly intact. SKIN: The skin was without rashes, erythema, edema, or bruising. Capillary refill less than 2 seconds. Course Administered Medications Vancomycin HCl 1,750 mg/ (Sodium Chloride) 535 mls @ 200 mls/hr IV NOW ONE; Protocol Stop: 08/01/18 02:12 Last Admin: 08/01/18 00:28 Dose: 200 mls/hr Documented by: [id number] Ioversol (Optiray 320 125ml) 125 ml IV ONCE PRN PRN Reason: Interaction Checking Stop: 08/04/18 22:33 Last Admin: 07/31/18 22:35 Dose: 91 ml Documented by: [id number] Discontinued Medications Albuterol (Duoneb) 3 ml NEB NOW STA Stop: 07/31/18 21:53 Last Admin: 07/31/18 22:09 Dose: 3 ml Documented by: [id number] Sodium Chloride (Nss 1000ml) 1,000 mls @ 999 mls/hr IV .Q1H1M DANIA Stop: 07/31/18 23:00 Last Infusion: 07/31/18 23:49 Dose: 0 mls/hr Documented by: [id number] Admin: 07/31/18 22:41 Dose: 999 mls/hr Documented by: [id number] Piperacillin Sod/Tazobactam Sod (Zosyn) 4.5 gm in 120 mls @ 240 mls/hr IV NOW ONE Stop: 08/01/18 00:01 Last Infusion: 08/01/18 00:42 Dose: 0 mls/hr Documented by: [id number] Admin: 07/31/18 23:49 Dose: 240 mls/hr Documented by: [id number] Medical Decision Making Differential Diagnosis Differential diagnosis includes, but is not limited to: Myocardial infarction, dysrhythmia, pericarditis, pneumothorax, aortic aneurysm/dissection, DVT/PE, anxiety, GERD, PUD, electrolyte imbalance, thyroid disorder, pneumonia, bronchitis, pancreatitis, and others Laboratory Data Result diagrams: 07/31/18 21:47 07/31/18 21:47 Lab Results 07/31/18 07/31/18 07/31/18 Range/Units 21:47 21:47 21:47 WBC 15.35 H (4.8-10.8) K/uL RBC 5.01 (4.2-5.4) M/uL Hgb 14.5 (12.0-16.0) g/dL Hct 41.8 (37-47) % MCV 83.4 (80-100) fL MCH 28.9 (25-34) pg MCHC 34.7 (32-36) g/dL RDW Std Deviation 44.2 (36.4-46.3) fL RDW Coeff of Geoffrey 14.6 H (11.5-14.5) % Plt Count 360 (130-400) K/uL MPV 10.3 (7.4-10.4) fL Immature Gran % (Auto) 0.3 % Neut % (Auto) 77.4 % Lymph % (Auto) 14.7 % [place] % (Auto) 6.1 % Eos % (Auto) 1.3 % Baso % (Auto) 0.2 % Immature Gran # (Auto) 0.05 H (0.00-0.02) K/uL Neut # (Auto) 11.87 H (1.4-6.5) K/uL Lymph # (Auto) 2.26 (1.2-3.4) K/uL [place] # (Auto) 0.94 H (0.11-0.59) K/uL Eos # (Auto) 0.20 (0-0.5) K/uL Baso # (Auto) 0.03 (0-0.2) K/uL D-Dimer 800 H* (0-500) ug/L FEU Sodium 137 (136-145) mmol/L Potassium 3.1 L (3.5-5.1) mmol/L Chloride 100 (98-107) mmol/L Carbon Dioxide 27 (21-32) mmol/L Anion Gap 10.0 (3-11) BUN 14 (7-18) mg/dl Creatinine 0.86 (0.6-1.2) mg/dl Est Cr Clr Drug Dosing 61.9 ml/min Est GFR ( Amer) 83.3 Est GFR (Non-Af Amer) 71.9 BUN/Creatinine Ratio 16.2 (10-20) Glucose 123 H (70-99) mg/dl Calcium 9.9 (8.5-10.1) mg/dl Total Bilirubin 0.5 (0.2-1) mg/dl AST 25 (15-37) U/L ALT 27 (12-78) U/L Alkaline Phosphatase 72 (45-117) U/L Troponin I 0.033 (0-0.045) ng/ml Total Protein 7.8 (6.4-8.2) gm/dl Albumin 3.4 (3.4-5.0) gm/dl Globulin 4.4 H (2.5-4.0) gm/dl Albumin/Globulin Ratio 0.8 L (0.9-2) TSH 2.210 (0.300-4.500) uIu/ml Urine Color Urine Appearance (Clear) Urine pH (4.5-7.5) Ur Specific [place] (1.000-1.030) Urine Protein (Negative) Urine Glucose (UA) (Negative) Urine Ketones (Negative) Urine Blood (Negative) Urine Nitrite (Negative) Urine Bilirubin (Negative) Urine Urobilinogen (Negative) Ur Leukocyte Esterase (Negative) 07/31/18 Range/Units 21:47 WBC (4.8-10.8) K/uL RBC (4.2-5.4) M/uL Hgb (12.0-16.0) g/dL Hct (37-47) % MCV (80-100) fL MCH (25-34) pg MCHC (32-36) g/dL RDW Std Deviation (36.4-46.3) fL RDW Coeff of Geoffrey (11.5-14.5) % Plt Count (130-400) K/uL MPV (7.4-10.4) fL Immature Gran % (Auto) % Neut % (Auto) % Lymph % (Auto) % [place] % (Auto) % Eos % (Auto) % Baso % (Auto) % Immature Gran # (Auto) (0.00-0.02) K/uL Neut # (Auto) (1.4-6.5) K/uL Lymph # (Auto) (1.2-3.4) K/uL [place] # (Auto) (0.11-0.59) K/uL Eos # (Auto) (0-0.5) K/uL Baso # (Auto) (0-0.2) K/uL D-Dimer (0-500) ug/L FEU Sodium (136-145) mmol/L Potassium (3.5-5.1) mmol/L Chloride (98-107) mmol/L Carbon Dioxide (21-32) mmol/L Anion Gap (3-11) BUN (7-18) mg/dl Creatinine (0.6-1.2) mg/dl Est Cr Clr Drug Dosing ml/min Est GFR ( Amer) Est GFR (Non-Af Amer) BUN/Creatinine Ratio (10-20) Glucose (70-99) mg/dl Calcium (8.5-10.1) mg/dl Total Bilirubin (0.2-1) mg/dl AST (15-37) U/L ALT (12-78) U/L Alkaline Phosphatase (45-117) U/L Troponin I (0-0.045) ng/ml Total Protein (6.4-8.2) gm/dl Albumin (3.4-5.0) gm/dl Globulin (2.5-4.0) gm/dl Albumin/Globulin Ratio (0.9-2) TSH (0.300-4.500) uIu/ml Urine Color Yellow Urine Appearance Clear (Clear) Urine pH 8.0 H (4.5-7.5) Ur Specific [place] 1.013 (1.000-1.030) Urine Protein Negative (Negative) Urine Glucose (UA) Negative (Negative) Urine Ketones Negative (Negative) Urine Blood Negative (Negative) Urine Nitrite Negative (Negative) Urine Bilirubin Negative (Negative) Urine Urobilinogen Negative (Negative) Ur Leukocyte Esterase Negative (Negative) Imaging Data Radiologist's Impression: CT angio chest PE protocol CLINICAL HISTORY: 63 years-old Female presenting with shortness of breath, carinal lymph node biopsy 2 days ago, history of breast cancer, clinical concern for pulmonary embolus. TECHNIQUE: Multidetector CT angiography of the chest was performed after admini stration of intravenous contrast. 3-D volumetric and/or maximum intensity projection (MIP) images were subsequently reconstructed for review. IV contrast: 91 mL of Optiray 320. One or more dose lowering techniques were used consistent with the principles of ALARA (as low as reasonably achievable), including automatic exposure control, mA or kV adjustment to individual patient size, and/or use of iterative reconstruction. COMPARISON: Contrast-enhanced CT chest from 12/01/2016. CT DOSE (mGy.cm): The estimated cumulative dose is 563.31 mGy.cm. 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 Right perihilar reticulation. Pulmonary vasculature: The study is suboptimal for the assessment of the pulmonary vascular tree secondary to respiratory motion artifact. No filling defect within the pulmonary arteries to suggest embolus. Main pulmonary artery is not enlarged. No flattening of the interventricular septum. No intracardiac filling defect. No reflux of contrast into the hepatic veins. Remaining chest: Soft tissues: Left breast skin thickening and a surgical clips likely indicate a history of left lumpectomy and prior radiation therapy. Peripherally calcified nodule noted in the left lobe of the thyroid unchanged from prior. Pathologically enlarged right supraclavicular lymph nodes. Pathologically enlarged right axillary and mediastinal lymph nodes. Bilateral hilar lymphaden opathy is also suspected. Normal aorta. Normal heart size. There is rightward mediastinal shift. This is similar to prior exam. Moderate to large left pleural effusion, which is simple appearing and low density. Upper abdomen normal. Lungs and airways: No pneumothorax. Limited layering debris in the trachea. Bronchial wall thickening in the right middle and lower lobes increased from prior. Persistence architectural distortion of the right lung with bandlike opacities and cicatrizing atelectasis of the right middle lobe. Interval development of patchy groundglass opacity in the superior segment of the right lower lobe and more solid peripheral/subpleural consolidation in the lateral basal right lower lobe. Interlobular septal thickening is noted in the right lower lobe. Extensive passive atelectasis of the left lower lobe though the superior segment remains aerated. Left upper lobe clear with passive atelectasis of the lingula noted. Musculoskeletal: Sclerotic focus in the anterolateral left fifth rib, unchanged from prior exam and likely related to prior radiation. No destructive osseous lesion. IMPRESSION: 1. No evidence of pulmonary embolus. 2. Moderate to large simple left pleural effusion with extensive left lung passive atelectasis. 3. Groundglass infiltrate in the superior segment of the right lower lobe consistent with pneumonia. Differential considerations include hemorrhage. Edema would be expected to the more basilar and diffuse. 4. Congestive changes of the right lower lobe are also evident. 5. Extensive lymphadenopathy involving the right supraclavicular, right axillary, mediastinal, and bilateral hilar regions. This is most suspicious for metastatic disease. 6. Posttreatment changes of the left breast. ECG Data Additional Comments: Normal sinus rhythm @95bpm No acute ST elevation No previous ECGs available MDM Narrative Physical exam and history were performed. Nursing notes, EMR, and Medication List were personally reviewed. Patient appears to have shortness of breath symptoms over the past 1 day. The patient does have a concerning history of breast cancer with likely metastasis. IV access was established and labs were obtained. EKG was performed as above. She was placed on the quality assurance monitor. The patient was gently hydrated with normal saline and given a DuoNeb. Ambulatory pulse ox was performed, and the patient desaturated to 84% on room air with less than 30 feet of walking. She does not wear oxygen regularly, and was placed on 2 L nasal cannula. The patient's blood work is as above and was reviewed. She does have an elevated white blood cell count of 15,000. She does not have a significant anemia, bandemia, or gross electrolyte imbalance. TSH is 2.2. Troponin is negative. Transaminases are not diagnostic. D-dimer is elevated at 800. CT scan of the chest was performed and reviewed by myself and radiology. CT scan does not show acute pulmonary emboli, but is concerning for pneumonia. Additionally she has a left pleural effusion and findings concerning for metastatic cancer. On reevaluation the patient feels somewhat improved after oxygen and the DuoNeb. She continues without distinct pain, and her primary complaint is shortness of breath. I discussed the case with my attending, as well as the on-call hospitalist, Dr. Salamanca. We will start the patient on vancomycin and Zosyn. Dr. Salamanca agreed to evaluate the patient here in the department. Please see his dictation for further patient course, plan, and disposition. The chart was completed utilizing [employer] Speech Voice Recognition Software. Grammatical errors, random word insertions, pronoun errors, and incomplete sentences are an occasional consequence of this system due to software case itations, ambient noise, and hardware issues. Any formal questions or concerns about the content, text, or information contained within the body of this dictation should be directly addressed to the provider for clarification. . Impression & Plan Pneumonia, Hypoxia Discharge Plan Visit Data Chief Complaint: Cough Stated Complaint: COUGHING, WHEEZING ED Provider: Diogo Mares ED Midlevel Provider: Monico Concepcion Discharge Problem: Pneumonia, Hypoxia Patient Disposition: Being Evaluated by Hospitalist Condition: Fair Forms Stand Alone Forms: My [facility], Important Visit Information Prescriptions Prescriptions: No Action albuterol sulfate 90 mcg/actuation Hfa Aerosol Inhaler 2 puff INHALATION QID PRN (Reason: Wheezing) RF: 0 albuterol sulfate 2.5 mg /3 mL (0.083 %) Solution For Nebulization 2.5 mg INHALATION QID PRN (Reason: sob/wheezing) RF: 0 cephalexin 500 mg Capsule 500 mg PO TID RF: 0 multivitamin Tablet 1 tab PO DAILY RF: 0 cetirizine [Zyrtec] 10 mg Tablet 10 mg PO QAM RF: 0 cholecalciferol (vitamin D3) [Vitamin D3] 2,000 unit Capsule 2,000 unit PO DAILY RF: 0 chlorthalidone 50 mg Tablet 50 mg PO QAM RF: 0 amlodipine 10 mg Tablet 10 mg PO HS RF: 0 clindamycin HCl 300 mg Capsule 300 mg PO BID RF: 0 Referrals Referrals: Pamella Zelaya DO [Primary Care Provider] - Discharge Problem: Pneumonia Qualifiers: Pneumonia type: due to unspecified organism Laterality: unspecified laterality Lung location: lower lobe of lung Qualified Code(s): J18.1 - Lobar pneumonia, unspecified organism
--- NOTE | 2018-07-31 22:50 | CT Scan Report ---
CT angio chest PE protocol CLINICAL HISTORY: 63 years-old Female presenting with shortness of breath, carinal lymph node biopsy 2 days ago, history of breast cancer, clinical concern for pulmonary embolus. TECHNIQUE: Multidetector CT angiography of the chest was performed after administration of intravenou s contrast. 3-D volumetric and/or maximum intensity projection (MIP) images were subsequently reconst ructed for review. IV contrast: 91 mL of Optiray 320. One or more dose lowering techniques were used consistent with the principles of ALARA (as low as reasonably achievable), including automatic exposu re control, mA or kV adjustment to individual patient size, and/or use of iterative reconstruction. COMPARISON: Contrast-enhanced CT chest from 12/01/2016. CT DOSE (mGy.cm): The estimated cumulative dose is 563.31 mGy.cm. 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 Right perihilar reticulation. Pulmonary vasculature: The study is suboptimal for the assessment of the pulmonary vascular tree secondary to respiratory mo tion artifact. No filling defect within the pulmonary arteries to suggest embolus. Main pulmonary art jeff is not enlarged. No flattening of the interventricular septum. No intracardiac filling defect. No reflux of contrast into the hepatic veins. Remaining chest: Soft tissues: Left breast skin thickening and a surgical clips likely indicate a history of left lump ectomy and prior radiation therapy. Peripherally calcified nodule noted in the left lobe of the thyro id unchanged from prior. Pathologically enlarged right supraclavicular lymph nodes. Pathologically en larged right axillary and mediastinal lymph nodes. Bilateral hilar lymphadenopathy is also suspected. Normal aorta. Normal heart size. There is rightward mediastinal shift. This is similar to prior exam . Moderate to large left pleural effusion, which is simple appearing and low density. Upper abdomen n ormal. Lungs and airways: No pneumothorax. Limited layering debris in the trachea. Bronchial wall thickening in the right middle and lower lobes increased from prior. Persistence architectural distortion of th e right lung with bandlike opacities and cicatrizing atelectasis of the right middle lobe. Interval d evelopment of patchy groundglass opacity in the superior segment of the right lower lobe and more mac id peripheral/subpleural consolidation in the lateral basal right lower lobe. Interlobular septal thi ckening is noted in the right lower lobe. Extensive passive atelectasis of the left lower lobe though the superior segment remains aerated. Left upper lobe clear with passive atelectasis of the lingula noted. Musculoskeletal: Sclerotic focus in the anterolateral left fifth rib, unchanged from prior exam and l ikely related to prior radiation. No destructive osseous lesion. IMPRESSION: 1. No evidence of pulmonary embolus. 2. Moderate to large simple left pleural effusion with extensive left lung passive atelectasis. 3. Groundglass infiltrate in the superior segment of the right lower lobe consistent with pneumonia. Differential considerations include hemorrhage. Edema would be expected to the more basilar and diff use. 4. Congestive changes of the right lower lobe are also evident. 5. Extensive lymphadenopathy involving the right supraclavicular, right axillary, mediastinal, and b ilateral hilar regions. This is most suspicious for metastatic disease. 6. Posttreatment changes of the left breast. Electronically signed by: Chivo Kitchen M.D. 07/31/2018 10:48 PM
[2018-07-31 23:27] LABS: Appearance Urine Clear (Clear); Bilirubin Urine Negative (Negative); Blood Urine Negative (Negative); Color Urine Yellow; Glucose Urine UA Negative (Negative); Ketones Urine Negative (Negative); Leukocyte Esterase Urine Negative (Negative); Nitrite Urine Negative (Negative); Protein Urine Negative (Negative); Specific Gravity Urine 1.013 (1.000-1.030); Urobilinogen Urine Negative (Negative)
[2018-07-31] MEDS ORDERED: PIPERACILLIN/TAZOBACTAM 4.5 GM/120 ML BAG IV ONE (23:32)
[2018-07-31] MEDS ORDERED: PIPERACILL/TAZOBAC CONSULT ACTIVE PRN (23:32)
[2018-07-31] MEDS ORDERED: VANCOMYCIN CONSULT ACTIVE PRN (23:32)
[2018-07-31] MEDS ORDERED: VANCOMYCIN HCL 1,750 MG in SODIUM CHLORIDE 0.9% 500 ML IV ONE (23:32)
--- NOTE | 2018-08-01 00:38 | History & Physical Report ---
Date of Service August 01, 2018 Assessment & Plan (1) Pleural effusion: Left lower leg with worsening pleural effusion compared x-ray 2 days previously. We will consult Dr. Judd, as patient is likely to need a thoracentesis. May eventually need a Pleurx catheter. Present on Admission?: Yes (2) Pneumonia: Healthcare associated. Place on vancomycin IV and Zosyn IV. Duonebs every 4 hours while awake and every 2 hours when necessary. Guaifenesin extended release 600 mg p.o. twice daily. Sputum Gram stain and culture. Present on Admission?: Yes (3) Hypoxia: Secondary to pneumonia and pleural effusion, treated as above. Present on Admission?: Yes (4) Mediastinal adenopathy: Consult with oncology Dr. Gan to assess response to treatment. Present on Admission?: Yes (5) Essential (primary) hypertension: Hypertension/hypokalemia- Continue amlodipine 10 mg p.o. at bedtime. Hold chlorthalidone 50 mg every morning, as because of hypokalemia. Follow vital signs, and adjust medications as needed. Present on Admission?: Yes (6) Hypokalemia due to loss of potassium: See above Present on Admission?: Yes History of Present Illness Chief Complaint: The patient presents to the emergency department with worsening shortness of breath, wheezing and a chronic cough which has now become productive. Primary Care Provider: Pamella Zelaya DO The patient is a 63-year-old female with history of metastatic breast cancer to lung, who was seen by Dr. Judd, thoracic surgery, and underwent an ultrasound-guided needle biopsy of carinal lymph nodes a few days ago. She tolerated the procedure well, but has noted over the past 24 hours that her chronic cough has become more productive sounding, has developed wheezing, and more short of breath. She has been using her albuterol inhaler and nebulizer as directed. Allergies Allergy/AdvReac Type Severity Reaction Status Date / Time cat dander Allergy Mild Itchy Eyes Verified 08/01/18 00:09 Home Medications Home Medications Medication Instructions Recorded Confirmed Type amlodipine 10 mg PO HS 07/26/18 08/01/18 History cetirizine [Zyrtec] 10 mg PO QAM 07/26/18 08/01/18 History chlorthalidone 50 mg PO QAM 07/26/18 08/01/18 History cholecalciferol (vitamin D3) 2,000 unit PO DAILY 07/26/18 08/01/18 History [Vitamin D3] clindamycin HCl 300 mg PO BID 07/26/18 08/01/18 History multivitamin 1 tab PO DAILY 07/26/18 08/01/18 History albuterol sulfate 2 puff INHALATION QID PRN 08/01/18 08/01/18 History albuterol sulfate 2.5 mg INHALATION QID PRN 08/01/18 08/01/18 History cephalexin 500 mg PO TID 08/01/18 08/01/18 History Past Med/Surg History Medical History Mediastinal adenopathy Essential (primary) hypertension CKD (chronic kidney disease), stage III Thyroid nodule 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 Prediabetes MARK (obstructive sleep apnea) CPAP Breast CA LEFT BREAST CANCER LEFT BREAST TUMOR REMOVAL Cellulitis LEFT BREAST (REASON FOR ANTIBIOTICS) History of ectopic had part of tube removed Hyperlipidemia DIET CONTROLLED Hypertension Obesity Pancreatic cyst BEING MONITORED Thalassemia carrier Surgical History H/O heart surgery (Acute) BENIGN VALVULAR TUMOR EXCISION 2004; SUBSEQUENT CARDIO FOLLOWUP "NORMAL" AND TOLD SHE DID NOT NEED TO CONTINUE FOLLOWING WITH CARDIO H/O section H/O hernia repair H/O tubal ligation History of cardiac cath 2004 (NO STENTS) DONE BEFORE HEART TUMOR REMOVAL History of tooth extraction Status post partial mastectomy of left breast Family History Father Family history of diabetes mellitus Social History Preferred Language: [place]i Communication Ability: Effective Beliefs That Will Affect Care: None Current Living Situation: Spouse Other Information That Helps Us Care for You: No Feels Safe at Home: Yes Safety Concerns: Feels Safe At This Time Smoking Status: Never smoker Do You Dip or Chew Tobacco: No Second Hand Exposure: No Tobacco Cessation Education Requested by Patient: No Hx Alcohol Use: Yes Alcohol type: wine Hx Substance Use: No Review of Systems Review of Systems: The patient denies chest pain, palpitations, lower extremity swelling, sore throat, fevers, chills, sweats, nausea, vomiting, diarrhea , constipation, abdominal pain, pelvic pain, blood in urine or stool, dysuria, urinary frequency or urgency, lightheadedness, dizziness, headache, memory loss, loss of consciousness, rash, abnormal bruising or bleeding, imbalance, focal or generalized weakness, numbness or tingling in arms or legs, generalized arthralgias or myalgias, back or neck pain, or night sweats. The review of systems is otherwise negative other than for that already noted above, and at least 10 systems have been reviewed. Physical Exam Physical Exam: The patient is awake, alert and oriented 3, normocephalic and atraumatic, lying in bed and in no acute distress. HEENT--PERRL, EOMI, mucous membranes and oropharynx normal. Neck--supple. No JVD. No bruits. Thyroid normal, trachea midline, no adenopathy. Heart--normal S1 and S2. No murmurs, rubs or gallops. Lungs--coarse breath sounds bilaterally, with decreased breath sounds left base. Abdomen--normal bowel sounds and soft. Nontender. Nondistended. Extremities--no cyanosis or clubbing. No edema. There are good distal pulses b/l. Dermatologic--normal skin turgor, normal color, no abnormal lymph nodes, no rash. Neurologic--cranial nerves II through XII grossly intact. Rheumatologic--normal range of motion. Psychiatric--normal affect. Results & Data Vital Signs (Past 12 Hours) Vital Signs Temp Pulse Pulse Pulse Resp Resp BP 07/31/18 23:50 97.9 F 97 H 20 07/31/18 22:10 93 H 20 07/31/18 22:08 112 H 22 07/31/18 21:27 97.9 F 102 H 22 151/98 H BP Pulse Ox Pulse Ox 07/31/18 23:50 127/71 93 07/31/18 22:10 93 07/31/18 22:08 84 L 07/31/18 21:27 90 Laboratory Results Laboratory Results WBC 15.35 K/uL (4.8-10.8) H 07/31/18 21:47 RBC 5.01 M/uL (4.2-5.4) 07/31/18 21:47 Hgb 14.5 g/dL (12.0-16.0) 07/31/18 21:47 Hct 41.8 % (37-47) 07/31/18 21:47 MCV 83.4 fL (80-100) 07/31/18 21:47 MCH 28.9 pg (25-34) 07/31/18 21:47 MCHC 34.7 g/dL (32-36) 07/31/18 21:47 RDW Std Deviation 44.2 fL (36.4-46.3) 07/31/18 21:47 RDW Coeff of Geoffrey 14.6 % (11.5-14.5) H 07/31/18 21:47 Plt Count 360 K/uL (130-400) 07/31/18 21:47 MPV 10.3 fL (7.4-10.4) 07/31/18 21:47 Immature Gran % (Auto) 0.3 % 07/31/18 21:47 Neut % (Auto) 77.4 % 07/31/18 21:47 Lymph % (Auto) 14.7 % 07/31/18 21:47 [place] % (Auto) 6.1 % 07/31/18 21:47 Eos % (Auto) 1.3 % 07/31/18 21:47 Baso % (Auto) 0.2 % 07/31/18 21:47 Immature Gran # (Auto) 0.05 K/uL (0.00-0.02) H 07/31/18 21:47 Neut # (Auto) 11.87 K/uL (1.4-6.5) H 07/31/18 21:47 Lymph # (Auto) 2.26 K/uL (1.2-3.4) 07/31/18 21:47 [place] # (Auto) 0.94 K/uL (0.11-0.59) H 07/31/18 21:47 Eos # (Auto) 0.20 K/uL (0-0.5) 07/31/18 21:47 Baso # (Auto) 0.03 K/uL (0-0.2) 07/31/18 21:47 D-Dimer 800 ug/L FEU (0-500) H* 07/31/18 21:47 Sodium 137 mmol/L (136-145) 07/31/18 21:47 Potassium 3.1 mmol/L (3.5-5.1) L 07/31/18 21:47 Chloride 100 mmol/L (98-107) 07/31/18 21:47 Carbon Dioxide 27 mmol/L (21-32) 07/31/18 21:47 Anion Gap 10.0 (3-11) 07/31/18 21:47 BUN 14 mg/dl (7-18) 07/31/18 21:47 Creatinine 0.86 mg/dl (0.6-1.2) 07/31/18 21:47 Est Cr Clr Drug Dosing 61.9 ml/min 07/31/18 21:47 Est GFR ( Amer) 83.3 07/31/18 21:47 Est GFR (Non-Af Amer) 71.9 07/31/18 21:47 BUN/Creatinine Ratio 16.2 (10-20) 07/31/18 21:47 Glucose 123 mg/dl (70-99) H 07/31/18 21:47 Calcium 9.9 mg/dl (8.5-10.1) 07/31/18 21:47 Total Bilirubin 0.5 mg/dl (0.2-1) 07/31/18 21:47 AST 25 U/L (15-37) 07/31/18 21:47 ALT 27 U/L (12-78) 07/31/18 21:47 Alkaline Phosphatase 72 U/L (45-117) 07/31/18 21:47 Troponin I 0.033 ng/ml (0-0.045) 07/31/18 21:47 Total Protein 7.8 gm/dl (6.4-8.2) 07/31/18 21:47 Albumin 3.4 gm/dl (3.4-5.0) 07/31/18 21:47 Globulin 4.4 gm/dl (2.5-4.0) H 07/31/18 21:47 Albumin/Globulin Ratio 0.8 (0.9-2) L 07/31/18 21:47 TSH 2.210 uIu/ml (0.300-4.500) 07/31/18 21:47 Urine Color Yellow 07/31/18 21:47 Urine Appearance Clear (Clear) 07/31/18 21:47 Urine pH 8.0 (4.5-7.5) H 07/31/18 21:47 Ur Specific [place] 1.013 (1.000-1.030) 07/31/18 21:47 Urine Protein Negative (Negative) 07/31/18 21:47 Urine Glucose (UA) Negative (Negative) 07/31/18 21:47 Urine Ketones Negative (Negative) 07/31/18 21:47 Urine Blood Negative (Negative) 07/31/18 21:47 Urine Nitrite Negative (Negative) 07/31/18 21:47 Urine Bilirubin Negative (Negative) 07/31/18 21:47 Urine Urobilinogen Negative (Negative) 07/31/18 21:47 Ur Leukocyte Esterase Negative (Negative) 07/31/18 21:47 Diagnostic Findings [place], [place] [phone] CT Scan Report Patient: JAVIER WHITTINGTON Date: 07/31/18 MR#: [id number]: [address] Acct ID:[id number]: Date: 1955ity Zip: [place] [address] Age: 63Location: ED Sex: F Room/Bed: Att Phy: Diagnosis: COUGHING, WHEEZING Lilo Phy: Pamella Zelaya D.O.Service Date: 07/31/18 Fam Phy: Interpreting Phy: Chivo Kitchen MD Admit Phy: Ordering Phy: Monico Concepcion PA-C cc: ~ CT angio chest PE protocol CLINICAL HISTORY: 63 years-old Female presenting with shortness of breath, carinal lymph node biopsy 2 days ago, history of breast cancer, clinical concern for pulmonary embolus. TECHNIQUE: Multidetector CT angiography of the chest was performed after administration of intravenous contrast. 3-D volumetric and/or maximum intensity projection (MIP) images were subsequently reconstructed for review. IV contrast: 91 mL of Optiray 320. One or more dose lowering techniques were used consistent with the principles of ALARA (as low as reasonably achievable), including automatic exposure control, mA or kV adjustment to individual patient size, and/or use of iterative reconstruction. COMPARISON: Contrast-enhanced CT chest from 12/01/2016. CT DOSE (mGy.cm): The estimated cumulative dose is 563.31 mGy.cm. FINDINGS: Physical Geographer topogram: Left pleural effusion. Right perihilar reticulation. Pulmonary vasculature: The study is suboptimal for the assessment of the pulmonary vascular tree secondary to respiratory motion artifact. No filling defect within the pulmonary arteries to suggest embolus. Main pulmonary artery is not enlarged. No flattening of the interventricular septum. No intracardiac filling defect. No reflux of contrast into the hepatic veins. Remaining chest: Soft tissues: Left breast skin thickening and a surgical clips likely indicate a history of left lumpectomy and prior radiation therapy. Peripherally calcified nodule noted in the left lobe of the thyroid unchanged from prior. Pathologically enlarged right supraclavicular lymph nodes. Pathologically enlarged right axillary and mediastinal lymph nodes. Bilateral hilar lymphadenopathy is also suspected. Normal aorta. Normal heart size. There is rightward mediastinal shift. This is similar to prior exam. Moderate to large left pleural effusion, which is simple appearing and low density. Upper abdomen normal. Lungs and airways: No pneumothorax. Limited layering debris in the trachea. Bronchial wall thickening in the right middle and lower lobes increased from prior. Persistence architectural distortion of the right lung with bandlike opacities and cicatrizing atelectasis of the right middle lobe. Interval development of patchy groundglass opacity in the superior segment of the right lower lobe and more solid peripheral/subpleural consolidation in the lateral basal right lower lobe. Interlobular septal thickening is noted in the right lower lobe. Extensive passive atelectasis of the left lower lobe though the superior segment remains aerated. Left upper lobe clear with passive atelectasis of the lingula noted. Musculoskeletal: Sclerotic focus in the anterolateral left fifth rib, unchanged from prior exam and likely related to prior radiation. No destructive osseous lesion. IMPRESSION: 1. No evidence of pulmonary embolus. 2. Moderate to large simple left pleural effusion with extensive left lung passive atelectasis. 3. Groundglass infiltrate in the superior segment of the right lower lobe consistent with pneumonia. Differential considerations include hemorrhage. Edema would be expected to the more basilar and diffuse. 4. Congestive changes of the right lower lobe are also evident. 5. Extensive lymphadenopathy involving the right supraclavicular, right axillary, mediastinal, and bilateral hilar regions. This is most suspicious for metastatic disease. 6. Posttreatment changes of the left breast. Electronically signed by: Chivo Kitchen M.D. 07/31/2018 10:48 PM Dictated: 07/31/182237 Transcribed: 07/31/182237 Code Status & VTE Plan Code Status Full code VTE Prophylaxis Plan VTE Prophylaxis will be ordered: Yes (1) Pneumonia Laterality: unspecified laterality Lung location: lower lobe of lung Pneumonia type: due to unspecified organism Qualified Code(s): J18.1 - Lobar pneumonia, unspecified organism
[2018-08-01] MEDS ORDERED: MAGNESIUM HYDROXIDE SUSP 30 ML UDC PO PRN (01:51)
[2018-08-01] MEDS ORDERED: POTASSIUM CHLORIDE 20 MEQ TABCR PO STA (01:51)
[2018-08-01] MEDS ORDERED: ACETAMINOPHEN 325 MG TAB PO PRN (01:51)
[2018-08-01] MEDS ORDERED: POLYETHYLENE (MIRALAX) 17 GM PACK PO PRN (01:51)
[2018-08-01] MEDS ORDERED: ALUMINUM/MAGNESIUM SUSP 30 ML UDC PO PRN (01:51)
[2018-08-01] MEDS ORDERED: ALBUT/IPRATROP 3MG/0.5MG NEB 3 ML VIAL NEB PRN ×2 (02:29→02:45)
[2018-08-01] MEDS: ALBUT/IPRATROP 3MG/0.5MG NEB 3 ML VIAL NEB SCH ×7 (02:57→23:21)
[2018-08-01] MEDS: PIPERACILLIN/TAZOBACTAM 4.5 GM in DEXTROSE 5% 100 ML IV SCH ×3 (06:00→22:42)
--- NOTE | 2018-08-01 07:27 | XRay Report ---
TWO VIEW CHEST CLINICAL HISTORY: Cough and wheezing. FINDINGS: AP and lateral chest radiographs are compared to study dated 07/29/2018. Correlation is made with PET/CT dated 07/08/[address] performed the same day 07/31/2018. The AP view is degraded b y apical lordotic positioning. The heart is top normal for projection. Again seen is volume loss in t he right lung. Foci of parenchyma scarring are noted in the right mid to lower lung. There are modera te left and trace right pleural effusions with associated bibasilar consolidation. No pneumothorax is seen. The skeletal structures are osteopenic. The bony thorax is grossly intact. IMPRESSION: 1. There are trace right and moderate left pleural effusions with associated bibasilar consolidation. 2. Chronic parenchymal change and volume loss are again seen in the right lung. Electronically signed by: Zheng Campos M.D. 08/01/2018 7:25 AM
[2018-08-01] MEDS: CHOLECALCIFEROL 1,000 UNITS TAB PO SCH (07:41)
[2018-08-01] MEDS: MULTIVITAMIN TAB PO SCH (07:41)
[2018-08-01] MEDS: CETIRIZINE HCL 10 MG TABLET PO SCH (07:42)
[2018-08-01 09:27] LABS: INR 1.1 (0.9-1.1); Partial Thromboplastin Ratio 1.1; Partial Thromboplastin Time 29.3 Seconds (21.0-31.0)
--- NOTE | 2018-08-01 11:59 | Pharmacy Report ---
Pharmacy Abx Initial Consult - Date of Service August 01, 2018 - Pharmacy Dosing Scope Date of Consult: 08/01/18 Consultation requested by: Dr. Pond Pharmacy is consulted to initiate Vancomycin + Zosyn IV dosing therapy, order appropriate labs and adjust drug dose/frequency. - Subjective The patient is a 63 year old F admitted on 08/01/18 00:38. - Objective Height: 4 ft 11 in Weight: 82.1 kg Vital Signs (Past 12hrs): Vital Signs Temp Pulse Pulse Resp BP Pulse Ox 08/01/18 11:27 85 16 96 08/01/18 10:53 36.5 C 90 18 137/91 94 08/01/18 07:19 36.8 C 91 H 19 126/92 93 08/01/18 07:14 96 H 16 91 08/01/18 04:00 36.6 C 90 20 114/74 91 08/01/18 03:09 82 20 94 08/01/18 03:00 84 18 94 08/01/18 01:30 37 C 98 H 22 165/85 H 93 08/01/18 01:04 36.6 C 93 H 20 130/70 95 Lab Results (24hrs): Laboratory Tests (24 Hours) 07/31/18 07/31/18 21:47 21:47 WBC 15.35 H Neut # (Auto) 11.87 H Creatinine 0.86 Est Cr Clr Drug Dosing 61.9 - Risk Factors for Resistance * Recent procedure (biopsy) * Immunocompromised (chronic steroid therapy, chemotherapy, immunomodulators) * Antimicrobial use within the last 90 days Keflex, clinda - Assessment & Plan Assessment 63 year old F initiated on IV Vanco + Zosyn for HAP BMI > 35kg/m2 --> will need to dose on a lower mg/kg basis to prevent supratherapeutic trough levels Combination of Vanco/Zosyn can induce JOSE; will need to deescalate JAK Plan Vancomycin IV * Estimated PK Parameters: Vd 0.6 L/kg, Ajit 0.044 hr-1, t1/2 15.8 hr * Loading dose: 1,750 mg (21.3 mg/kg) * Maintenance dose: 1,000 mg IV (12 mg/kg) every 16 hours * Goal trough level for Pulmonary : 15 to 20 mcg/mL * Trough/Random level ordered for 6/15/19 @ 1330 (prior to 4th maintenance dose d/t large Vd) * A less than traditional dose and/or extended dosing interval have been selected due to likelihood of drug accumulation in obese patient Piperacillin/tazobactam * 4.5 g bolus administered over 30 minutes, then 4.5 g IV extended infusion every 8 hours for CrCl greater than 20 mL/min * Aggressive dosing selected due to BMI 35 or more Pharmacy will continue to follow and will adjust dose/frequency as necessary. Thank you.
--- NOTE | 2018-08-01 13:22 | Surgery Progress Note ---
Date of Service August 01, 2018 Assessment & Plan (1) Pleural effusion: -discussed withh Dr. Coats: -he will see pt. for thoracentesis later today (2) Mediastinal adenopathy: -pt. had EBUS on 07/29/18 with path showing findings consistent with metastatic breaast CA Subjective Pt. notes she is slightly SOB, worse than what she noted at time of EBUS on 07/29/18. Physical Exam Respiratory: BS decreased on left. No use of accessory muscles. Results & Data Vital Signs (Past 12 Hours) Vital Signs Temp Pulse Pulse Resp BP Pulse Ox 08/01/18 11:27 85 16 96 08/01/18 10:53 36.5 C 90 18 137/91 94 08/01/18 07:19 36.8 C 91 H 19 126/92 93 08/01/18 07:14 96 H 16 91 08/01/18 04:00 36.6 C 90 20 114/74 91 08/01/18 03:09 82 20 94 08/01/18 03:00 84 18 94 08/01/18 01:30 37 C 98 H 22 165/85 H 93
[2018-08-01] MEDS: VANCOMYCIN HCL 1,000 MG in SODIUM CHLORIDE 0.9% 250 ML IV SCH (14:01)
--- NOTE | 2018-08-01 14:29 | Procedure Note ---
Procedure Note Date of Service August 01, 2018 Procedure: Left diagnostic and therapeutic thoracentesis. Indication: Large symptomatic left pleural effusion in the setting of metastatic breast cancer Surgeon: Dr. Coats Assistants: None Anesthesia: Local Informed consent: Obtained from patient Specimens: 800 cc of bloody pleural fluid obtained without difficulty and sent for cytology as well as usual pleural fluid studies Blood loss: 1 cc Complications: None Postprocedure chest x-ray: Pending Follow-up: With Dr. Judd as scheduled on Sunday Procedure was explained to the patient and informed consent was obtained and the patient was appropriately identified. Pleural fluid collection was marked with ultrasound and confirmed by percussion. Thoracentesis was performed in the usual manner and 800 cc of bloody fluid was obtained without difficulty and sent for the usual studies including cytology and cell block. Coding CPT Codes Pulmonary/Thoracic - Pulmonary and Thoracic: Thoracentesis w/o imaging ([id number])
--- NOTE | 2018-08-01 14:38 | History & Physical Bridge Note ---
Date of Service August 01, 2018 History & Physical Bridge Note 63yo F w/ hx of Stage IV triple-negative breast cancer who presents with shortness of breath and cough after a lymph node biopsy with Dr. uJdd on 07/29. - Will treat her cough. - Plan for thoracentesis today with Dr. Matt - Treat her pneumonia
--- NOTE | 2018-08-01 14:59 | XRay Report ---
XR chest 1V portable HISTORY: post thoracentesis COMPARISON: Chest 07/31/2018. FINDINGS: Trace left pleural effusion has decreased in size status post thoracentesis. No pneumothora x. A trace right pleural effusion persists. The heart remains enlarged. Bilateral mid to lower lungs and densities are again noted. IMPRESSION: 1. Trace left pleural effusion has decreased in size status post thoracentesis. 2. No pneumothorax. 3. Bibasilar airspace opacities and a trace right pleural effusion are again noted. Electronically signed by: Alfred Arguelles M.D. 08/01/2018 2:58 PM
[2018-08-01 15:01] LABS: Appearance Pleural Fluid BLOODY; Color Pleural Fluid RED; Mononuclear WBC Pleural 88.2 %; Polynuclear WBC Pleural 11.8 %; RBC Pleural Fluid (A) 147000 /uL; Source Pleural Fluid LEFT LUNG; WBC Pleural Fluid (A) 2006 /uL
[2018-08-01] MEDS: GUAIFENESIN/CODEINE 200MG/20MG 10ML UDC PO PRN (17:15)
[2018-08-01] MEDS: BENZONATATE 100 MG CAPSULE PO SCH (20:45)
[2018-08-01] MEDS: AMLODIPINE BESYLATE 5 MG TAB PO SCH (20:45)
[2018-08-02] MEDS: ALBUT/IPRATROP 3MG/0.5MG NEB 3 ML VIAL NEB SCH ×6 (03:29→23:02)
[2018-08-02] MEDS: PIPERACILLIN/TAZOBACTAM 4.5 GM in DEXTROSE 5% 100 ML IV SCH ×3 (06:30→22:21)
[2018-08-02] MEDS: VANCOMYCIN HCL 1,000 MG in SODIUM CHLORIDE 0.9% 250 ML IV SCH ×2 (06:45→22:22)
[2018-08-02 07:23] LABS: Hematocrit (blood only) 39.5 % (37-47); Hemoglobin 13.6 g/dL (12.0-16.0); Mean Corpuscular Hgb Conc 34.4 g/dL (32-36); Mean Corpuscular Volume 84.2 fL (80-100); Mean Platelet Volume 10.2 fL (7.4-10.4); Platelet Count 329 K/uL (130-400); RDW Coefficient of Variation 14.8 % (11.5-14.5); RDW Standard Deviation 45.4 fL (36.4-46.3); Red Blood Count 4.69 M/uL (4.2-5.4)
[2018-08-02] MEDS: MULTIVITAMIN TAB PO SCH (07:45)
[2018-08-02] MEDS: BENZONATATE 100 MG CAPSULE PO SCH ×3 (07:45→22:23)
[2018-08-02] MEDS: CHOLECALCIFEROL 1,000 UNITS TAB PO SCH (07:45)
[2018-08-02] MEDS: CETIRIZINE HCL 10 MG TABLET PO SCH (07:45)
[2018-08-02 07:49] LABS: Calcium 9.2 mg/dl (8.5-10.1); Creatinine Clr Calc Pharmacy 57.4 ml/min; Est GFR (African American) 75.8; Est GFR (Non-African American) 65.4; Magnesium 1.9 mg/dl (1.8-2.4); Potassium 3.4 mmol/L (3.5-5.1)
--- NOTE | 2018-08-02 08:31 | XRay Report ---
TWO VIEW CHEST CLINICAL HISTORY: Recent thoracentesis. FINDINGS: PA and lateral chest radiographs are compared to study dated 08/01/2018. Correlation is made with PET/CT dated 07/08/[address] dated 07/31/2018. The PA view is degraded by apical lordotic positioning and patient rotation. The heart is top normal for projection. Again seen is volume loss in the right lung. Foci of parenchyma scarring are noted in the right mid to lower lung. There are sm all pleural effusions with associated bibasilar consolidation. No pneumothorax is seen. The skeletal structures are osteopenic. The bony thorax is grossly intact. IMPRESSION: 1. Small pleural effusions with bibasilar consolidation. This is similar in appearance to yesterday. 2. Chronic parenchymal change and volume loss are again seen in the right lung. Electronically signed by: Zheng Campos M.D. 08/02/2018 8:29 AM
--- NOTE | 2018-08-02 12:36 | Palliative Care Progress Note ---
Date of Service August 02, 2018 Subjective This is a 63 year old patient who has Stage IV triple-negative breast cancer who presented with shortness of breath and cough after a lymph node biopsy with Dr. Judd on 07/29. Palliative Care consulted to discuss goals of care. Will await heme-onc documented input to discuss overall goals with patient. Formal consult to follow. Please contact us with any further questions. Results & Data Vital Signs (Past 12 Hours) Vital Signs Temp Pulse Pulse Resp BP Pulse Ox 08/02/18 11:31 36.7 C 98 H 16 115/78 91 08/02/18 11:18 80 18 91 08/02/18 07:30 37 C 78 20 120/82 97 08/02/18 07:10 84 20 97 08/02/18 07:09 20 97 08/02/18 04:39 36.4 C L 85 20 117/81 94 08/02/18 03:30 87 18 95 08/02/18 03:29 87 18 95
--- NOTE | 2018-08-02 13:18 | Hospitalist Progress Note ---
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 - Oncology consulted - Dr. Gan spoke with the patient on 08/01, though no note at this time. - Palliative care consulted - General surgery consulted for possible Port placement - Close follow ups (2) Pleural effusion: Left lower lung with worsening pleural effusion compared x-ray 2 days previously. - Tapped by pulmonology on 08/01 with improvement in breathing - Weaned O2 on 08/02 with sats in the 95% range. - Will follow up outpatient with Dr. Judd. May eventually need a Pleurx catheter as the pleural effusion was exudative and likely a malignant pleural effusion. (3) Pneumonia: Healthcare associated. - Place on vancomycin IV and Zosyn IV on admission. - Duonebs PRN - Guaifenesin extended release 600 mg p.o. twice daily. - Sputum Gram stain and culture ordered, but not able to provide - Following pleural fluid culture from 08/01 (4) Hypoxia: Secondary to pneumonia and pleural effusion, treated as above. - Weaned on 08/02 (5) Essential (primary) hypertension: BP has been normal here with some highs due to stress (up to 170/100). - Continue amlodipine - Holding chlorthalidone for hypokalemia - Follow vital signs, and adjust medications as needed. (6) MARK (obstructive sleep apnea): Using hospital CPAP. (7) DVT prophylaxis: Lovenox Subjective Doing better this morning. Breathing is improving. No change to her left breast redness and swelling. Review of Systems Review of Systems: All systems reviewed & are unremarkable except as noted in HPI & below Physical Exam Constitutional: WD/WN, vitals as above Eyes: EOM intact bilaterally; no conjunctival abnormality ENMT: external ear and nose normal, oropharynx normal Neck: trachea midline, no thyromegaly normal visual inspection Respiratory: normal respiratory effort; no respiratory distress Auscultation: + crackles Cardiovascular: RRR, no murmur, no edema Gastrointestinal (Abdomen): Inspection/Auscultation: abdomen normal to inspection; abdomen not distended Musculoskeletal: no cyanosis or clubbing, extremities motor strength 5/5 Skin: Left breast with erythema and induration. Unchanged and not better or worse in comparison to markings from yesterday. Neurologic: moves all extremities and awake Psychiatric: Orientation: alert, oriented to person and cooperative Results & Data Vital Signs (Past 12 Hours) Vital Signs Temp Pulse Pulse Resp BP Pulse Ox 08/02/18 11:31 36.7 C 98 H 16 115/78 91 08/02/18 11:18 80 18 91 08/02/18 07:30 37 C 78 20 120/82 97 08/02/18 07:10 84 20 97 08/02/18 07:09 20 97 08/02/18 04:39 36.4 C L 85 20 117/81 94 08/02/18 03:30 87 18 95 08/02/18 03:29 87 18 95 PG Care Time/CCT Total # of Minutes Spent Total Time Spent with Patient: Total time spent is greater than 50% in coordination of care (as documented) at patient's floor/unit and/or counseling patient: (1) Pneumonia Laterality: unspecified laterality Lung location: lower lobe of lung Pneumonia type: due to unspecified organism Qualified Code(s): J18.1 - Lobar pneumonia, unspecified organism
--- NOTE | 2018-08-02 15:47 | Palliative Care Consultation ---
Date of Consultation August 02, 2018 Assessment & Plan (1) Palliative care encounter: Patient is a 63-year-old female with a history of triple negative left breast cancer status post mastectomy in 2016 who underwent biopsy of carinal node on 07/29-node was positive for metastatic breast cancer. Patient presented to the emergency room on 07/31 with increased shortness of breath. Patient was found to have a left pleural effusion-status post paracentesis on 08/01-800 cc of bloody fluid removed. Pathology pending-fluid suggestive of a malignant effusion. Patient shortness of breath has improved-however she still has a cough whenever she takes a deep breath. Patient was seen by Dr. Gan of oncology to evaluate for treatment options. Patient's medical history is significant for CAD-status post CABG in 2004, CKD stage III-EGFR 65, MARK-on CPAP, and hypertension. Patient's goal is to be able to sing and breech again. Patient unable to speak for any length of time or sitting due to increased cough. Patient is , lives with her , their 36-year-old son who is currently a student also lives with them. She has 3 other children a daughter in this area, son in [place] and a daughter in [facility]. Patient has 4 grandsons ages 9-20 locally. 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 Discussed the role of palliative care in regards to managing current symptoms as well as assisting with medical decision making. Patient given information to be followed up as an outpatient after a plan is proposed by oncology. -Gave patient information to make follow-up appointment in the palliative care clinic as an outpatient. 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, will have patient make appointment after follow-up with oncology -Dyspnea-improved after thoracentesis-continues to have cough with deep inspiration -Pleural effusion-status post thoracentesis-suspect malignant pleural effusion -Metastatic breast cancer-status post left mastectomy 2016, mets to lung and [id number] with oncology -CKD stage III-creatinine 0.9 with EGFR of 65-follow as an outpatient -MARK-on CPAP nightly Will continue to follow well inpatient or can follow-up as an outpatient to further discuss goals of care once oncology for poses a treatment plan (2) Shortness of breath: (3) Pleural effusion: (4) Metastatic breast cancer: (5) CKD (chronic kidney disease), stage III: (6) MARK (obstructive sleep apnea): History of Present Illness Reason for Consultation: Establish goals of care Requesting Physician: Dr. Farhat Lane Attending Physician: Farhat Lane MD History of Present Illness Patient is a 63-year-old female with a history of triple negative left breast cancer status post mastectomy in 2016 who underwent biopsy of carinal node on 07/29-node was positive for metastatic breast cancer. Patient presented to the emergency room on 07/31 with increased shortness of breath. Patient was found to have a left pleural effusion-status post paracentesis on 08/01-800 cc of bloody fluid removed. Pathology pending-fluid suggestive of a malignant effusion. Patient shortness of breath has improved-however she still has a cough whenever she takes a deep breath. Patient was seen by Dr. Gan of oncology to evaluate for treatment options. Patient's medical history is significant for CAD-status post CABG in 2004, CKD stage III-EGFR 65, MARK-on CPAP, and hypertension. Patient's goal is to be able to sing and breech again. Patient unable to speak for any length of time or sitting due to increased cough. Patient is , lives with her , their 36-year-old son who is currently a student also lives with them. She has 3 other children a daughter in this area, son in [place] and a daughter in [facility]. Patient has 4 grandsons ages 9-20 locally. 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 Discussed the role of palliative care in regards to managing current symptoms as well as assisting with medical decision making. Patient given information to be followed up as an outpatient after a plan is proposed by oncology. Allergies Allergy/AdvReac Type Severity Reaction Status Date / Time cat dander Allergy Mild Itchy Eyes Verified 08/01/18 00:09 Home Medications Home Medications Medication Instructions Recorded Confirmed Type amlodipine 10 mg PO HS 07/26/18 08/01/18 History cetirizine [Zyrtec] 10 mg PO QAM 07/26/18 08/01/18 History chlorthalidone 50 mg PO QAM 07/26/18 08/01/18 History cholecalciferol (vitamin D3) 2,000 unit PO DAILY 07/26/18 08/01/18 History [Vitamin D3] clindamycin HCl 300 mg PO BID 07/26/18 08/01/18 History multivitamin 1 tab PO DAILY 07/26/18 08/01/18 History albuterol sulfate 2 puff INHALATION QID PRN 08/01/18 08/01/18 History albuterol sulfate 2.5 mg INHALATION QID PRN 08/01/18 08/01/18 History cephalexin 500 mg PO TID 08/01/18 08/01/18 History Patient History Medical History Essential (primary) hypertension CKD (chronic kidney disease), stage III Thyroid nodule 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 Prediabetes MARK (obstructive sleep apnea) CPAP Breast CA LEFT BREAST CANCER LEFT BREAST TUMOR REMOVAL Cellulitis LEFT BREAST (REASON FOR ANTIBIOTICS) History of ectopic had part of tube removed Hyperlipidemia DIET CONTROLLED Hypertension Obesity Pancreatic cyst BEING MONITORED Thalassemia carrier Surgical History H/O heart surgery (Acute) BENIGN VALVULAR TUMOR EXCISION 2004; SUBSEQUENT CARDIO FOLLOWUP "NORMAL" AND TOLD SHE DID NOT NEED TO CONTINUE FOLLOWING WITH CARDIO H/O section H/O hernia repair H/O tubal ligation History of cardiac cath 2004 (NO STENTS) DONE BEFORE HEART TUMOR REMOVAL History of tooth extraction Status post partial mastectomy of left breast Family History Father Family history of diabetes mellitus Social History Preferred Language: Thai Communication Ability: Effective Beliefs That Will Affect Care: None marital status: Current Living Situation: Spouse Feels Safe at Home: Yes Smoking Status: Never smoker Second Hand Exposure: No Hx Alcohol Use: Yes Alcohol type: wine Hx Substance Use: No Review of Systems Constitutional: no fever and no chills Eyes: no problem reported Respiratory: + cough and + dyspnea Left pleural effusion-status post thoracentesis on 08/01 Cardiovascular: Additional Comments: No chest pain-status post CABG 2004 Gastrointestinal: no abdominal pain Musculoskeletal: no muscle weakness Integumentary: no rash Neurologic: no problem reported Psychiatric: No prior psychiatric issues Endocrine: Hyperglycemia Hematologic / Lymphatic: + lymphadenopathy Physical Exam Physical Exam: PE: Awake and alert, no acute distress, cough with deep inspiration or prolonged conversation HEENT: EOMI, hearing within normal limits Respirations: Slightly labored with prolonged conversation, diminished bilateral bases CV: Regular rate on exam, no edema Abdomen: Soft nontender, obese Extremities: Full range of motion, normal strength Neuro: Alert and oriented x4 Results & Data Vital Signs (Past 12 Hours) Vital Signs Temp Pulse Resp BP Pulse Ox 08/02/18 14:23 91 H 14 93 08/02/18 11:31 98.1 F 98 H 16 115/78 91 08/02/18 11:18 80 18 91 08/02/18 07:30 98.6 F 78 20 120/82 97 08/02/18 07:10 84 20 97 08/02/18 07:09 20 97 08/02/18 04:39 97.5 F L 85 20 117/81 94 Time Spent Attending Total time spent 60 minutes with greater than 50% of the time spent at bedside discussing role of palliative care, assessing patient's current symptoms as well as providing emotional support.
[2018-08-02] MEDS: ENOXAPARIN INJ 40 MG/0.4 ML SYR SQ SCH (15:58)
--- NOTE | 2018-08-02 17:09 | Oncology Consultation ---
Date of Consultation August 01, 2018 Assessment & Plan (1) Metastatic breast cancer: I spent some time speaking with Ms. Preston and her daughter. We reviewed the natural history and prognosis of metastatic triple-negative breast cancer. It is unfortunately an aggressive disease and will likely play a role in the end of her life. However, there are a number of treatment options and there remains optimism that we can control her disease and prolong her survival with a good quality of life. I requested pathology to send her tumor specimen for PD-L1 testing, to evaluate her candidacy for immunotherapy. If she is positive, we would start with Abraxane and atezolizumab. If she is negative, there are a few options and we can discuss them more at an office visit. For now, she needs to complete treatment for her pneumonia. If her pleural effusion recurs, she may also require a Pleur-x drain. Hopefully, it will resolve with treatment of her cancer. She is not in much pain and is otherwise comfortable. I will make arrangements for her to be seen in my office to make a final plan for treatment. Present on Admission?: Yes History of Present Illness Reason for Consultation: Metastatic breast cancer Attending Physician: Farhat Lane MD History of Present Illness Ms. Preston is a 63 year old woman who presented in April of 2016 with an enlarging axillary lymph node. Subsequent diagnostic workup revealed a triple negative breast cancer. She underwent needle-localization lumpectomy with ALND on 06/08/16. This revealed a Stage IIA (pT1c pN1a cM0) cancer. I met her around that time and recommended adjuvant chemotherapy. However, she refused, citing concerns about toxicity. She did proceed with radiation, which she completed in September 2016. She came to attention again in May, with a left breast cellulitis. As part of a workup, she was found to have an abnormal right axillary lymph node with no associated breast masses. A biopsy of the node on 07/02/18 revealed metastatic apocrine breast cancer that was triple negative and had an IHC profile similar to her breast cancer from 2017. A PET/CT 07/10/18 revealed FDG avid neck and thoracic adenopathy and a left pleural effusion with focal FDG avidity. I referred her to Dr. Judd, who took her for EBUS and biopsies on Sunday. The biopsies confirmed metastatic breast cancer. She was admitted on Wednesday with worsening shortness of breath and chest pain. Imaging in the ER revealed a moderate to large simple left pleural effusion with extensive left lung passive atelectasis and a groundglass infiltrate in the superior segment of the right lower lobe consistent with pneumonia. She underwent thoracentesis yesterday, with removal of 800 cc of bloody pleural fluid. She felt better afterward and was breathing more comfortably when I saw her in the afternoon. She was tired but otherwise looked well. Allergies Allergy/AdvReac Type Severity Reaction Status Date / Time cat dander Allergy Mild Itchy Eyes Verified 08/01/18 00:09 Home Medications Home Medications Medication Instructions Recorded Confirmed Type amlodipine 10 mg PO HS 07/26/18 08/01/18 History cetirizine [Zyrtec] 10 mg PO QAM 07/26/18 08/01/18 History chlorthalidone 50 mg PO QAM 07/26/18 08/01/18 History cholecalciferol (vitamin D3) 2,000 unit PO DAILY 07/26/18 08/01/18 History [Vitamin D3] clindamycin HCl 300 mg PO BID 07/26/18 08/01/18 History multivitamin 1 tab PO DAILY 07/26/18 08/01/18 History albuterol sulfate 2 puff INHALATION QID PRN 08/01/18 08/01/18 History albuterol sulfate 2.5 mg INHALATION QID PRN 08/01/18 08/01/18 History cephalexin 500 mg PO TID 08/01/18 08/01/18 History Patient History Medical History Essential (primary) hypertension CKD (chronic kidney disease), stage III Thyroid nodule 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 Prediabetes MARK (obstructive sleep apnea) CPAP Breast CA LEFT BREAST CANCER LEFT BREAST TUMOR REMOVAL Cellulitis LEFT BREAST (REASON FOR ANTIBIOTICS) History of ectopic had part of tube removed Hyperlipidemia DIET CONTROLLED Hypertension Obesity Pancreatic cyst BEING MONITORED Thalassemia carrier Surgical History H/O heart surgery (Acute) BENIGN VALVULAR TUMOR EXCISION 2004; SUBSEQUENT CARDIO FOLLOWUP "NORMAL" AND TOLD SHE DID NOT NEED TO CONTINUE FOLLOWING WITH CARDIO H/O section H/O hernia repair H/O tubal ligation History of cardiac cath 2004 (NO STENTS) DONE BEFORE HEART TUMOR REMOVAL History of tooth extraction Status post partial mastectomy of left breast Family History Father Family history of diabetes mellitus Social History Preferred Language: Malay Communication Ability: Effective Beliefs That Will Affect Care: None marital status: Current Living Situation: Spouse Feels Safe at Home: Yes Smoking Status: Never smoker Second Hand Exposure: No Hx Alcohol Use: Yes Alcohol type: wine Hx Substance Use: No Review of Systems Constitutional: + fatigue; no fever and no weight loss Eyes: no worsening vision Respiratory: + cough and + dyspnea; no hemoptysis Cardiovascular: no chest pain and no palpitations Gastrointestinal: no abdominal pain, no nausea and no diarrhea/loose stools Genitourinary: no dysuria and no urinary frequency Musculoskeletal: no back pain and no joint pain Integumentary: no rash Neurologic: no dizziness and no headache(s) Hematologic / Lymphatic: + lymphadenopathy (in her right axilla) Physical Exam Constitutional: well developed, well nourished and comfortable; no acute distress Eyes: + anicteric sclerae and EOM intact bilaterally ENMT: external ear and nose normal, oropharynx normal Respiratory: normal respiratory effort Auscultation: + diminished lung sounds (at the bases) Cardiovascular: RRR, no murmur, no edema Gastrointestinal (Abdomen): normal bowel sounds, soft, nontender, no hepatosplenomegaly Skin: no rashes, warm and dry Psychiatric: A+Ox3, euthymic affect Lymphatic: + axillary lymphadenopathy (palpable right axillary lymph node, non-tender) Results & Data Vital Signs (Past 12 Hours) Vital Signs Temp Pulse Pulse Resp BP Pulse Ox 08/02/18 16:00 95 H 08/02/18 15:49 36.4 C L 102 H 18 131/86 94 08/02/18 14:23 91 H 14 93 08/02/18 11:31 36.7 C 98 H 16 115/78 91 08/02/18 11:18 80 18 91 08/02/18 07:30 37 C 78 20 120/82 97 08/02/18 07:10 84 20 97 08/02/18 07:09 20 97 Laboratory Results Abnormal Labs 07/31/18 07/31/18 07/31/18 21:47 21:47 21:47 WBC 15.35 H RDW Coeff of Geoffrey 14.6 H Immature Gran # (Auto) 0.05 H Neut # (Auto) 11.87 H Story # (Auto) 0.94 H D-Dimer 800 H* Potassium 3.1 L Glucose 123 H Globulin 4.4 H Albumin/Globulin Ratio 0.8 L Urine pH 07/31/18 08/02/18 08/02/18 21:47 06:57 06:57 WBC 12.60 H RDW Coeff of Geoffrey 14.8 H Immature Gran # (Auto) Neut # (Auto) Story # (Auto) D-Dimer Potassium 3.4 L Glucose 140 H Globulin Albumin/Globulin Ratio Urine pH 8.0 H Diagnostic Findings CTA, 07/31/18: IMPRESSION: 1. No evidence of pulmonary embolus. 2. Moderate to large simple left pleural effusion with extensive left lung passive atelectasis. 3. Groundglass infiltrate in the superior segment of the right lower lobe consistent with pneumonia. Differential considerations include hemorrhage. Edema would be expected to the more basilar and diffuse. 4. Congestive changes of the right lower lobe are also evident. 5. Extensive lymphadenopathy involving the right supraclavicular, right axillary, mediastinal, and bilateral hilar regions. This is most suspicious for metastatic disease. 6. Posttreatment changes of the left breast.
[2018-08-02] MEDS ORDERED: POTASSIUM CHLORIDE PWD 20 MEQ PACK PO STA (17:57)
[2018-08-02] MEDS: AMLODIPINE BESYLATE 5 MG TAB PO SCH (22:22)
[2018-08-03] MEDS: ALBUT/IPRATROP 3MG/0.5MG NEB 3 ML VIAL NEB SCH ×2 (04:18→06:40)
[2018-08-03] MEDS: PIPERACILLIN/TAZOBACTAM 4.5 GM in DEXTROSE 5% 100 ML IV SCH (05:33)
[2018-08-03 06:59] LABS: Calcium 8.7 mg/dl (8.5-10.1); Creatinine Clr Calc Pharmacy 56.7 ml/min; Est GFR (African American) 74.8; Est GFR (Non-African American) 64.6; Potassium 3.2 mmol/L (3.5-5.1)
[2018-08-03] MEDS ORDERED: POTASSIUM CHLORIDE 20 MEQ TABCR PO STA (07:59)
[2018-08-03] MEDS: BENZONATATE 100 MG CAPSULE PO SCH ×3 (08:03→20:49)
[2018-08-03] MEDS: MULTIVITAMIN TAB PO SCH (08:03)
[2018-08-03] MEDS: CHOLECALCIFEROL 1,000 UNITS TAB PO SCH (08:03)
[2018-08-03] MEDS: ENOXAPARIN INJ 40 MG/0.4 ML SYR SQ SCH (08:03)
[2018-08-03] MEDS: CETIRIZINE HCL 10 MG TABLET PO SCH (08:03)
[2018-08-03] MEDS ORDERED: POTASSIUM CHLORIDE PWD 20 MEQ PACK PO ONE (08:30)
[2018-08-03] MEDS ORDERED: ALBUTEROL HFA 8 GM INHALER INH PRN (10:33)
[2018-08-03] MEDS: ALBUTEROL HFA 8 GM INHALER INH SCH ×3 (13:22→20:49)
[2018-08-03] MEDS ORDERED: VANCOMYCIN TROUGH ONE (13:30)
--- NOTE | 2018-08-03 13:36 | Hospitalist Progress Note ---
Date of Service August 03, 2018 Assessment & Plan (1) Pneumonia: Healthcare associated. - Placed on vancomycin IV and Zosyn IV on admission -> Switched to levofloxacin on 08/03 - Sputum Gram stain and culture ordered, but not able to provide - Following pleural fluid culture from 08/01 - Negative so far. 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 - Oncology consulted - Dr. Gan spoke with the patient on 08/01 - Palliative care consulted - Can follow up outpatient. - General surgery consulted - Will get outpatient Port placement as she has current infection. - Close follow ups (3) Pleural effusion: Left lower lung with worsening pleural effusion compared x-ray 2 days previously. - Tapped by pulmonology on 08/01 with improvement in breathing - Weaned O2 on 08/02 with sats in the 95% range. - Will follow up outpatient with Dr. Judd. May eventually need a Pleurx catheter as the pleural effusion was a malignant pleural effusion. (4) Hypoxia: Secondary to pneumonia and pleural effusion, treated as above. - Weaned on 08/02 (5) Essential (primary) hypertension: BP has been normal here with some highs due to stress (up to 170/100). - Continue amlodipine - Holding chlorthalidone for hypokalemia - Follow vital signs, and adjust medications as needed. (6) MARK (obstructive sleep apnea): Using hospital CPAP. (7) DVT prophylaxis: Lovenox Subjective Less coughing today. Less shortness of breath. Feeling better. Review of Systems Review of Systems: All systems reviewed & are unremarkable except as noted in HPI & below Physical Exam Constitutional: WD/WN, vitals as above Eyes: EOM intact bilaterally; no conjunctival abnormality ENMT: external ear and nose normal, oropharynx normal Neck: trachea midline, no thyromegaly normal visual inspection Respiratory: normal respiratory effort; no respiratory distress Auscultation: + crackles Cardiovascular: RRR, no murmur, no edema Gastrointestinal (Abdomen): Inspection/Auscultation: abdomen normal to inspection; abdomen not distended Musculoskeletal: no cyanosis or clubbing, extremities motor strength 5/5 Neurologic: moves all extremities and awake Psychiatric: Orientation: alert, oriented to person and cooperative Results & Data Vital Signs (Past 12 Hours) Vital Signs Temp Pulse Pulse Pulse Resp BP Pulse Ox 08/03/18 11:54 36.7 C 100 H 18 130/86 96 08/03/18 08:21 37.0 C 86 16 130/82 97 08/03/18 06:40 89 20 91 08/03/18 04:19 82 20 92 08/03/18 04:18 85 20 92 08/03/18 03:00 36.7 C 78 20 118/81 95 PG Care Time/CCT Total # of Minutes Spent Total Time Spent with Patient: Total time spent is greater than 50% in coordi nation of care (as documented) at patient's floor/unit and/or counseling patient: (1) Pneumonia Laterality: unspecified laterality Lung location: lower lobe of lung Pneumonia type: due to unspecified organism Qualified Code(s): J18.1 - Lobar pneumonia, unspecified organism
[2018-08-03] MEDS: GUAIFENESIN/CODEINE 200MG/20MG 10ML UDC PO PRN ×2 (15:01→23:30)
[2018-08-03] MEDS: levoFLOXacin 750 MG TAB PO SCH (15:01)
[2018-08-03] MEDS: AMLODIPINE BESYLATE 5 MG TAB PO SCH (20:48)
[2018-08-03] MEDS ORDERED: COUGH DROP (SUGAR FREE) LOZ 24 LOZ/1 BOX BUCCAL PRN (22:39)
[2018-08-04] MEDS: ENOXAPARIN INJ 40 MG/0.4 ML SYR SQ SCH (08:37)
[2018-08-04] MEDS: BENZONATATE 100 MG CAPSULE PO SCH (08:38)
[2018-08-04] MEDS: CHOLECALCIFEROL 1,000 UNITS TAB PO SCH (08:39)
[2018-08-04] MEDS: MULTIVITAMIN TAB PO SCH (08:40)
[2018-08-04] MEDS: CETIRIZINE HCL 10 MG TABLET PO SCH (08:40)
[2018-08-04] MEDS: ALBUTEROL HFA 8 GM INHALER INH SCH (08:40)
[2018-08-04] MEDS: levoFLOXacin 750 MG TAB PO SCH (11:02)
--- NOTE | 2018-08-04 14:16 | Discharge Summary ---
Date of Service August 04, 2018 Admission HPI Per Admitting Provider The patient is a 63-year-old female with history of metastatic breast cancer to lung, who was seen by Dr. Judd, thoracic surgery, and underwent an ultrasound-guided needle biopsy of carinal lymph nodes a few days ago. She tolerated the procedure well, but has noted over the past 24 hours that her chronic cough has become more productive sounding, has developed wheezing, and more short of breath. She has been using her albuterol inhaler and nebulizer as directed. Principal Diagnosis Pneumonia and left malignant pleural effusion Discharge Exam Constitutional WD/WN, vitals as above Eyes EOM intact bilaterally; no conjunctival abnormality ENMT external ear and nose normal, oropharynx normal Neck trachea midline, no thyromegaly normal visual inspection Respiratory normal respiratory effort; no respiratory distress Auscultation: + crackles Cardiovascular RRR, no murmur, no edema Gastrointestinal (Abdomen) Inspection/Auscultation: abdomen normal to inspection; abdomen not distended Musculoskeletal no cyanosis or clubbing, extremities motor strength 5/5 Neurologic moves all extremities and awake Psychiatric Orientation: alert, oriented to person and cooperative Discharge Data Allergies Allergy/AdvReac Type Severity Reaction Status Date / Time cat dander Allergy Mild Itchy Eyes Verified 08/01/18 00:09 Consultations 07/31/18 23:32 ED Decision to Admit Stat 08/01/18 01:51 Consult Case Management - Discharge Planning Routine Consult Hematology Routine 08/01/18 04:09 Consult Thoracic Surgery Routine 08/01/18 08:47 Consult Property Damage Claims Adjustor Routine 08/01/18 14:41 Consult Palliative Care Routine 08/01/18 18:13 Consult General Surgery Routine 08/04/18 08:02 Consult [facility] first crusher Routine Ordered Studies 07/31/18 22:09 CT angio chest PE protocol Stat Hospital Course (1) Pneumonia: Healthcare associated. - Placed on vancomycin IV and Zosyn IV on admission -> Switched to levofloxacin on 08/03. Will need 3 additional days. - Sputum Gram stain and culture ordered, but not able to provide - Following pleural fluid culture from 08/01 - Negative so far. 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 - Oncology consulted - Dr. Gan spoke with the patient on 08/01 - Palliative care consulted - Can follow up outpatient. - General surgery consulted - Will get outpatient Port placement as she has current infection. - Close follow ups (3) Pleural effusion: Left lower lung with worsening pleural effusion compared x-ray 2 days previously. - Tapped by pulmonology on 08/01 with improvement in breathing - Weaned O2 on 08/02 with sats in the 95% range. - Will follow up outpatient with Dr. Judd. May eventually need a Pleurx catheter as the pleural effusion was a malignant pleural effusion. (4) Hypoxia: Secondary to pneumonia and pleural effusion, treated as above. - Weaned on 08/02 (5) Essential (primary) hypertension: BP has been normal here with some highs due to stress (up to 170/100). - Continue amlodipine - Held chlorthalidone for hypokalemia -> Restarted on discharge. (6) MARK (obstructive sleep apnea): Using hospital CPAP. (7) DVT prophylaxis: Lovenox Total Time Total Time Spent Total Time Spent (In Minutes): 35 Total Time Includes: Examination of the Patient, Discharge Planning and Co mmunication With Other Providers Discharge Plan Discharge Items Patient Disposition: Home - Self-Care Reason For Visit: ACUTE RESPIRATORY FAILURE WITH HYPOXIA Discharge Diagnosis: Pneumonia and pleural effusion Condition: Fair Discharge Goals: Decrease discomfort, Diagnostic testing, Improve disease control and Improve function Activity: Resume your previous activity Exercise/Sports: Gradually increase as tolerated Non-emergency contact: Primary Care Provider, Surgeon and Oncologist Call non-emergency contact if: your symptoms worsen and your pain is not controlled Follow-up/Referrals: Hugo Judd MD, FACS [Surgeon] - 08/05/18 1:00 pm (Please keep this previously scheduled appointment with Dr. Judd in his office. ) Cuco Brooks DO [Surgeon] - (Please call Dr. Brooks's office on Sunday morning for an appointment next week. Tell them he allowed for an "overbook" if needed.) Milena Angelo MD [Physician] - Keith Gan [Physician] - 08/09/18 2:30 pm Pamella Zelaya DO [Primary Care Provider] - Diet: Regular Addtl Provider Instructions: Ms. Preston, Dennis were admitted for shortness of breath that was related to a pneumonia (infection) in your right lung and due to fluid on the left lung. The electronics processing supervisor removed the fluid on the left side. Repeat chest x-rays showed that it had not come back. However, over the next weeks, it may return as our testing indicates it is related to the breast cancer that has spread to the lungs. You will see Dr. Hugo Judd in the office tomorrow and can discuss options for how to keep the fluid away. For the pneumonia, we will give you another 3 days of antibiotics by mouth. For the cough, please take the Tessalon Perles and/or cough syrup sent [facility] on [facility]. As we discussed, the cough may last another week or more after you finish your antibiotics. You saw Dr. Keith Gan in the hospital as well. You will see him next Sunday to discuss the results of the extra testing he sent out. He will be able to talk with you about treatment options. We are also having you call the surgeons on Sunday morning to help get a port placed to start chemotherapy as soon as you are able. Dr. Gan would like to start treatment before the end of the month. Finally, we had Dr. Milena Angelo speak with you. She is a palliative care doctor and can help work with you regarding your symptoms and how you are feeling. You can follow up with her as you would like in her office. Please come back to the hospital or call with any further shortness of breath, chest pain, or other concerning symptoms. Prescriptions: New benzonatate [Tessalon Perles] 100 mg Capsule 100 mg PO TID PRN (Reason: Cough) Qty: 50 RF: 0 levofloxacin 750 mg Tablet 750 mg PO DAILY@1100 Qty: 3 RF: 0 codeine-guaifenesin [Cheratussin AC] 10-100 mg/5 mL Liquid 10 ml PO Q6H PRN (Reason: cough) Qty: 473 RF: 0 Continued albuterol sulfate 90 mcg/actuation Hfa Aerosol Inhaler 2 puff INHALATION QID PRN (Reason: Wheezing) RF: 0 albuterol sulfate 2.5 mg /3 mL (0.083 %) Solution For Nebulization 2.5 mg INHALATION QID PRN (Reason: sob/wheezing) RF: 0 multivitamin Tablet 1 tab PO DAILY RF: 0 cetirizine [Zyrtec] 10 mg Tablet 10 mg PO QAM RF: 0 cholecalciferol (vitamin D3) [Vitamin D3] 2,000 unit Capsule 2,000 unit PO DAILY RF: 0 amlodipine 10 mg Tablet 10 mg PO HS RF: 0 Discontinued cephalexin 500 mg Capsule 500 mg PO TID RF: 0 chlorthalidone 50 mg Tablet 50 mg PO QAM RF: 0 clindamycin HCl 300 mg Capsule 300 mg PO BID RF: 0 Stand-Alone Forms: [facility] Discharge Orders: Discharge Order (Routine); Ordered 08/04/18 Ordered By: Farhat Lane Admission Data Admit Date/Time: 08/01/18 00:38 Attending Provider: Farhat Lane Admit Provider: Micheal Pond Primary Care Provider: Pamella Zelaya Other Providers: Farhat Lane ; Micheal Pond ; Keith Gan ; Hugo Judd ; Milena Angelo Matthew D. ; Chi Coats Service: Medical Other Interventions: Discharge Summary Assessment (RN) Last Done: 08/04/18 11:09 DC Date/Time DO NOT enter until pt leaves facility: 08/04/18 12:42
== END 2018-08-04 12:42 | disposition home or self-care (01) | DRG 194 ==
LOC: ED 21:25 → SUATTDRO 08-01 00:38 → 2S 08-01 00:38 → 4E 08-02 15:14

== ENCOUNTER 2018-08-22 05:39 | Inpatient (IN) ==
[2018-08-22] MEDS ORDERED: ALBUT/IPRATROP 3MG/0.5MG NEB 3 ML VIAL NEB ONE (06:07)
[2018-08-22 06:23] LABS: Basophils # (auto) 0.01 K/uL (0-0.2); Basophils % (auto) 0.1 %; Eosinophils # (auto) 0.08 K/uL (0-0.5); Eosinophils % (auto) 0.6 %; Hematocrit (blood only) 39.4 % (37-47); Hemoglobin 13.8 g/dL (12.0-16.0); Immature Granulocytes # (auto) 0.02 K/uL (0.00-0.02); Immature Granulocytes % (auto) 0.1 %; Lymphocytes # (auto) 1.64 K/uL (1.2-3.4); Lymphocytes % (auto) 12.3 %; Mean Corpuscular Volume 83.1 fL (80-100); Mean Platelet Volume 10.3 fL (7.4-10.4); Monocytes # (auto) 0.82 K/uL (0.11-0.59); Monocytes % (auto) 6.1 %; Neutrophils # (auto) 10.81 K/uL (1.4-6.5); Neutrophils % (auto) 80.8 %; Platelet Count 394 K/uL (130-400); RDW Coefficient of Variation 13.8 % (11.5-14.5); RDW Standard Deviation 41.2 fL (36.4-46.3); Red Blood Count 4.74 M/uL (4.2-5.4); White Blood Count 13.38 K/uL (4.8-10.8)
[2018-08-22 06:43] LABS: Alanine Aminotransferase 21 U/L (12-78); Albumin Level 3.4 gm/dl (3.4-5.0); Aspartate Aminotransferase 21 U/L (15-37); BUN Creatinine Ratio 14.1 (10-20); Blood Urea Nitrogen 13 mg/dl (7-18); Carbon Dioxide 26 mmol/L (21-32); Chloride 98 mmol/L (98-107); Est GFR (African American) 76.8; Est GFR (Non-African American) 66.3; Glucose 166 mg/dl (70-99); Magnesium 1.8 mg/dl (1.8-2.4); Potassium 2.8 mmol/L (3.5-5.1); Sodium 135 mmol/L (136-145)
--- NOTE | 2018-08-22 06:48 | XRay Report ---
XR chest 1V portable HISTORY: 63 years-old Female sob acute shortness of breath COMPARISON: Chest radiograph 08/02/2018, CTA chest 07/31/2018 TECHNIQUE: Portable AP view of the chest FINDINGS: Cardiac silhouette is enlarged. Pulmonary vascular congestion. No pneumothorax. Large left pleural ef fusion with associated left midlung opacities. Patchy alveolar opacities throughout the right lung ar e redemonstrated with unchanged blunting of the right costophrenic angle suggestive of trace right pl eural effusion. Degenerative changes of the shoulders and spine. IMPRESSION: 1. Large left pleural effusion with left midlung opacities. 2. Cardiomegaly with pulmonary vascular congestion. 3. Multifocal alveolar opacities throughout the right lung with probable small right pleural effusion appears similar to comparison. The above report was generated using voice recognition software. It may contain grammatical, syntax o r spelling errors. Electronically signed by: Cornell Flores M.D. 08/22/2018 6:47 AM
[2018-08-22 06:51] LABS: INR 1.1 (0.9-1.1); Partial Thromboplastin Ratio 1.1; Partial Thromboplastin Time 28.9 Seconds (21.0-31.0); Prothrombin Time 11.1 Seconds (9.0-12.0)
[2018-08-22 06:54] LABS: Albumin Globulin Ratio 0.7 (0.9-2); Alkaline Phosphatase 80 U/L (45-117); Bilirubin,Total 0.3 mg/dl (0.2-1); Globulin 4.6 gm/dl (2.5-4.0); Troponin I 0.019 ng/ml (0-0.045)
[2018-08-22 06:56] LABS: Oxygen Saturation VBG 96.9 %; pH VBG 7.5 (7.36-7.41)
[2018-08-22] MEDS ORDERED: PIPERACILLIN/TAZOBACTAM 4.5 GM/120 ML BAG IV ONE (06:58)
[2018-08-22] MEDS ORDERED: SODIUM CHLORIDE 0.9% IV ONE (06:58)
[2018-08-22] MEDS ORDERED: PIPERACILL/TAZOBAC CONSULT ACTIVE PRN ×2 (06:58→15:44)
[2018-08-22] MEDS ORDERED: VANCOMYCIN CONSULT ACTIVE PRN (06:58)
[2018-08-22] MEDS ORDERED: VANCOMYCIN HCL IV ONE (06:58)
[2018-08-22] MEDS ORDERED: VANCOMYCIN HCL 1,500 MG in SODIUM CHLORIDE 0.9% 500 ML IV STA (07:09)
--- NOTE | 2018-08-22 07:33 | History & Physical Report ---
Date of Service August 22, 2018 Assessment & Plan (1) Acute respiratory failure with hypoxia: At minimum is 2nd to large left-sided malignant pleural effusion which has reaccumulated since her last admission. I am concerned she may have PEs or additional metastatic foci to the lungs. It is uncertain if bacterial pneumonia is present. I have spoken with Dr Judd who will consult today for management of the left-sided pleural effusion. Likely he will place pleurX catheter. Once she is more comfortable & less dyspneic I would like to obtain CTA chest to rule out new PE, pneumonia, etc. She did receive IV zosyn/vanco for HCAP - await CTA to make decision about ongoing IV antibiotics. Continue NC O2; keep sats >90%. Present on Admission?: Yes (2) Malignant pleural effusion: Left-sided. Large. Consult thoracic, Dr Judd - see above. (3) Breast cancer, stage 4: Initial diagnosis in 2017 - triple negative breast ca of left breast s/p lumpectomy at that time. s/p XRT. Did NOT receive chemotherapy. Now with recurrent stage 4 disease, biopsy-confirmed. Appears to be quite aggressive. Just saw Carol earlier this week to discuss palliative chemotherapy. Address effusion. r/o PE. Pain control. There is considerable inflammatory change in the superior portion of the breast. I am not certain if there is a component of cellulitis of the breast. Low threshold to treat for such. Present on Admission?: Yes (4) Essential (primary) hypertension: Continue amlodipine. Would hold diuretic in light of severe hypokalemia. Adjust meds as needed. Present on Admission?: Yes (5) Prediabetes: HbA1c was >6.5% earlier this year. Glucose is elevated today. T2DM diet. BSGs ac/hs. Low threshold for basal-bolus insulin. Present on Admission?: Yes (6) MARK (obstructive sleep apnea): Continue home CPAP. Present on Admission?: Yes (7) Hypokalemia: Likely due to thiazide use +/- lack of adequate intake. KCL 20meq IV x 1. KCL 40meq PO x 1. Place on telemetry. Recheck K later today. Mag noted to be normal. BMP am. Present on Admission?: Yes (8) Edema: left leg - focal. check doppler - r/o DVT in light of cancer and recent travel. Present on Admission?: Yes (9) DVT prophylaxis: after Dr Judd has completed his procedure and if CTA chest is negative start lovenox 40mg daily family updated at bedside time - 75 minutes History of Present Illness Chief Complaint: dyspnea Primary Care Provider: Pamella Zelaya DO 63yo female with known stage 4 breast cancer who presents with worsening dyspnea x 24-36 hours. She has had cough for several weeks - no hemoptysis or sputum. She had associated orthopnea and PND last evening. No chest pain or pleurisy. No fevers or chills. Denies anorexia. No weight loss. She saw Dr Gan last and she was referred to [facility] for 2nd opinion. She saw [place] this past Sunday and she was given a "treatment plan" for treating her cancer. She had a cxr on Sunday of this week and she was called the next day. She was told she had a pleural effusion. She is NOT on oxygen at home. Allergies Allergy/AdvReac Type Severity Reaction Status Date / Time cat dander Allergy Mild Itchy Eyes Verified 08/22/18 06:12 Home Medications Home Medications Medication Instructions Recorded Confirmed Type cetirizine [Zyrtec] 10 mg PO QAM 07/26/18 08/22/18 History chlorthalidone 50 mg PO QAM 08/09/18 08/22/18 History albuterol sulfate 0.63 mg INHALATION QID PRN 08/12/18 08/22/18 History albuterol sulfate 2 inh INHALATION Q6H PRN 08/12/18 08/22/18 History amlodipine 5 mg PO HS 08/12/18 08/22/18 History aspirin 81 mg PO DAILY 08/12/18 08/22/18 History benzonatate [Tessalon Perles] 100 mg PO TID PRN 08/12/18 08/22/18 History codeine-guaifenesin 5 - 10 ml PO UD PRN 08/22/18 08/22/18 History dexamethasone 4 mg PO BID 08/22/18 08/22/18 History ondansetron HCl 8 mg PO Q8 08/22/18 08/22/18 History prochlorperazine maleate 10 mg PO UD PRN 08/22/18 08/22/18 History Past Med/Surg History Medical History Essential (primary) hypertension CKD (chronic kidney disease), stage III Thyroid nodule 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 Prediabetes MARK (obstructive sleep apnea) CPAP Breast CA LEFT BREAST CANCER S/P LEFT BREAST TUMOR REMOVAL Hyperlipidemia DIET CONTROLLED Obesity Pancreatic cyst BEING MONITORED Pneumonia RECENT DX Thalassemia carrier Surgical History H/O section H/O heart surgery BENIGN VALVULAR TUMOR EXCISION 2004; SUBSEQUENT CARDIO FOLLOWUP "NORMAL" AND TOLD SHE DID NOT NEED TO CONTINUE FOLLOWING WITH CARDIO H/O hernia repair H/O tubal ligation History of bronchoscopy + CANCER (RECENT BIOPSY) History of cardiac cath 2004= NO STENTS History of ectopic WITH PARTIAL FALLOPIAN TUBE REMOVAL PER PT History of tooth extraction Status post partial mastectomy of left breast lumpectomy, 2017, with axillary lymph node dissection Family History Father , age 61 Stroke Mother , age 78 Pulmonary embolism Social History Preferred Language: Estonian Communication Ability: Effective Beliefs That Will Affect Care: None marital status: marital status details: 4 children Current Living Situation: Spouse 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[place]; 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[employer] (-[place] [employer] Other Information That Helps Us Care for You: No Feels Safe at Home: Yes Safety Concerns: Feels Safe At This Time Smoking Status: Never smoker Second Hand Exposure: No Hx Alcohol Use: Yes Alcohol type: wine Alcohol Intake Frequency: Holidays/Special Occasions Hx Substance Use: No Review of Systems Constitutional: no fever, no chills, no anorexia and no weight loss Eyes: no worsening vision Ear, Nose, Mouth, Throat: no sore throat and no dysphagia Respiratory: + cough and + dyspnea on exertion; no hemoptysis and no sputum production Cardiovascular: + orthopnea, + paroxysmal nocturnal dyspnea and + edema (left leg); no chest pain Gastrointestinal: no abdominal pain, no nausea, no vomiting and no diarrhea/loose stools Genitourinary: no dysuria Musculoskeletal: no joint pain Integumentary: no rash Neurologic: no numbness Psychiatric: no depression Hematologic / Lymphatic: no easy bleeding Physical Exam Constitutional: + acute distress (tachypneic, with moving on bed she has mild retractions) and + obese; no altered mental status Eyes: PERRL ENMT: external ear and nose normal, oropharynx normal Ears: no TM abnormality Neck: trachea midline, no thyromegaly Respiratory: + labored breathing, + retractions, + dullness to percussion (1/2 way up L posterior thorax) and + tachypneic Auscultation: + diminished lung sounds (left base 1/2 way up back); no rales, no rhonchi and no wheezes Cardiovascular: Rate/Rhythm: regular rhythm and + tachycardic Heart Sounds: normal S1 and normal S2; no murmur Vessels: posterior tibial pulses present and dorsalis pedis pulses present; no JVD Extremities: + edema (<1+ on left) Chest (Breasts): Additional Comments: chaperoned by nursing staff - left breast severely enlarged, erythema left upper inner quadrant; skin thickening of most of breast with crusting around nipple and areola Gastrointestinal (Abdomen): normal bowel sounds, soft, nontender, no hepato splenomegaly Musculoskeletal: no cyanosis or clubbing, extremities motor strength 5/5 Skin: no generalized rash; left upper inner breast (10 to 12 o'clock) with warmth and erythema; skin thickening throughout most of the breast with nipple skin changes Neurologic: deep tendon reflexes 2+ bilaterally; no focal motor deficits Psychiatric: A+Ox3, euthymic affect Lymphatic: + subclavicular lymphadenopathy (right) and + axillary lymphadenopathy (right); no cervical lymphadenopathy Results & Data Vital Signs (Past 12 Hours) Vital Signs Temp Pulse Pulse Resp BP BP Pulse Ox 08/22/18 07:11 103 H 28 H 150/112 H 97 08/22/18 06:26 101 H 20 90 08/22/18 05:43 37.1 C 107 H 24 151/92 H 88 L Laboratory Results Laboratory Results - last 24 hr 08/22/18 08/22/18 08/22/18 06:11 06:11 06:11 WBC 13.38 H RBC 4.74 Hgb 13.8 Hct 39.4 MCV 83.1 MCH 29.1 MCHC 35.0 RDW Std Deviation 41.2 RDW Coeff of Geoffrey 13.8 Plt Count 394 MPV 10.3 Immature Gran % (Auto) 0.1 Neut % (Auto) 80.8 Lymph % (Auto) 12.3 Kent % (Auto) 6.1 Eos % (Auto) 0.6 Baso % (Auto) 0.1 Immature Gran # (Auto) 0.02 Neut # (Auto) 10.81 H Lymph # (Auto) 1.64 Kent # (Auto) 0.82 H Eos # (Auto) 0.08 Baso # (Auto) 0.01 PT 11.1 INR 1.1 APTT 28.9 PTT Ratio 1.1 VBG pH VBG pCO2 VBG pO2 VBG HCO3 VBG O2 Saturation VBG Base Excess Barometric Pressure Sodium 135 L Potassium 2.8 L Chloride 98 Carbon Dioxide 26 Anion Gap 11.0 BUN 13 Creatinine 0.92 Est Cr Clr Drug Dosing Not Reportable Est GFR ( Amer) 76.8 Est GFR (Non-Af Amer) 66.3 BUN/Creatinine Ratio 14.1 Glucose 166 H Lactate Calcium 9.0 Magnesium 1.8 Total Bilirubin 0.3 AST 21 ALT 21 Alkaline Phosphatase 80 Troponin I 0.019 Total Protein 8.0 Albumin 3.4 Globulin 4.6 H Albumin/Globulin Ratio 0.7 L Lipase 84 Procalcitonin TSH 1.210 08/22/18 08/22/18 08/22/18 06:11 06:11 06:46 WBC RBC Hgb Hct MCV MCH MCHC RDW Std Deviation RDW Coeff of Geoffrey Plt Count MPV Immature Gran % (Auto) Neut % (Auto) Lymph % (Auto) Kent % (Auto) Eos % (Auto) Baso % (Auto) Immature Gran # (Auto) Neut # (Auto) Lymph # (Auto) Kent # (Auto) Eos # (Auto) Baso # (Auto) PT INR APTT PTT Ratio VBG pH 7.50 H VBG pCO2 34 L VBG pO2 82 VBG HCO3 26 VBG O2 Saturation 96.9 VBG Base Excess 3.0 Barometric Pressure 733.3 Sodium Potassium Chloride Carbon Dioxide Anion Gap BUN Creatinine Est Cr Clr Drug Dosing Est GFR ( Amer) Est GFR (Non-Af Amer) BUN/Creatinine Ratio Glucose Lactate 2.1 H* Calcium Magnesium Total Bilirubin AST ALT Alkaline Phosphatase Troponin I Total Protein Albumin Globulin Albumin/Globulin Ratio Lipase Procalcitonin < 0.05 TSH Diagnostic Findings CXR - IMPRESSION: 1. Large left pleural effusion with left midlung opacities. 2. Cardiomegaly with pulmonary vascular congestion. 3. Multifocal alveolar opacities throughout the right lung with probable small right pleural effusion appears similar to comparison. EKG - my reading - sinus tach, flattened ST segments in limb and anterior chest leads, similar to prior EKG from July Code Status & VTE Plan Code Status full code VTE Prophylaxis Plan VTE Prophylaxis will be ordered: Yes PG Care Time/CCT Total # of Minutes Spent Total Time Spent with Patient: 75 minutes (1) Breast cancer, stage 4 Laterality: left Qualified Code(s): C50.912 - Malignant neoplasm of unspecified site of left female breast (2) Edema Edema type: unspecified Qualified Code(s): R60.9 - Edema, unspecified
[2018-08-22] MEDS ORDERED: POTASSIUM CHLORIDE 10 MEQ TABCR PO STA ×3 (08:21→20:15)
[2018-08-22] MEDS: POTASSIUM CHLORIDE / WTR 10 MEQ/100 ML PLCT IV SCH ×2 (09:05→10:06)
[2018-08-22] MEDS ORDERED: LORazepam 2 MG/4 ML VIAL ONE (12:28)
[2018-08-22] MEDS ORDERED: LIDOCAINE HCL 1% 20 ML VIAL ONE (12:33)
[2018-08-22] MEDS ORDERED: ONDANSETRON INJ 2 MG/ML 2 ML VIAL IV PRN (12:58)
[2018-08-22] MEDS ORDERED: NITROGLYCERIN SL 0.4 MG/TAB TAB SL PRN (12:58)
[2018-08-22] MEDS ORDERED: MoRPHine SULFATE 2 MG/ML CARP IV PRN (12:58)
[2018-08-22] MEDS ORDERED: LORazepam 0.25 MG/0.5 ML VIAL IV STA (13:00)
--- NOTE | 2018-08-22 13:47 | XRay Report ---
XR chest 1V portable HISTORY: 63 years-old Female LEFT CATH PLACEMENT STATUS post placement of a left-sided pleural drain age catheter COMPARISON: Chest radiograph of same day at 6:07 AM TECHNIQUE: Portable AP view of the chest FINDINGS: Cardiomediastinal and hilar silhouettes are unchanged. Markedly decreased size of the left pleural ef fusion status post placement of a left basilar pleural drainage catheter. No postprocedural pneumotho rax. Persistent bilateral midlung and lung base opacities with trace bilateral pleural effusions. Deg enerative changes of the shoulders and spine. IMPRESSION: 1. Markedly decreased size of the left pleural effusion status post placement of a pleural drainage c atheter. 2. No postprocedural pneumothorax. 3. Unchanged bilateral midlung zone and bibasilar opacities. 4. Cardiomegaly. The above report was generated using voice recognition software. It may contain grammatical, syntax o r spelling errors. Electronically signed by: Cornell Flores M.D. 08/22/2018 1:46 PM
[2018-08-22] MEDS: ASPIRIN 81 MG ECTAB PO SCH (13:58)
[2018-08-22] MEDS: CETIRIZINE HCL 10 MG TABLET PO SCH (13:58)
[2018-08-22] MEDS: ENOXAPARIN INJ 40 MG/0.4 ML SYR SQ SCH (13:58)
[2018-08-22] MEDS: BENZONATATE 100 MG CAPSULE PO PRN (13:58)
--- NOTE | 2018-08-22 14:28 | Ultrasound Report ---
US venous doppler LE LT HISTORY: 63 years-old Female edema, breast ca; eval DVT acute swelling of the left lower extremity COMPARISON: Doppler study 10/01/2017 TECHNIQUE: Multiple real time sonographic images of the left lower extremity deep venous structures w ere obtained assessing grayscale appearance, color and spectral flow FINDINGS: Normal flow, compressibility, phasicity and augmentation of the left lower extremity deep venous stru ctures. IMPRESSION: No sonographic evidence of deep venous thrombosis. The above report was generated using voice recognition software. It may contain grammatical, syntax o r spelling errors. Electronically signed by: Cornell Flores M.D. 08/22/2018 2:26 PM
[2018-08-22] MEDS ORDERED: OPTIRAY 320 125ml IV PRN (14:32)
--- NOTE | 2018-08-22 15:07 | CT Scan Report ---
CT angio chest PE protocol CT DOSE: 629.45 mGy.cm HISTORY: 63 years-old Female with breast ca, dyspnea, L effusion; eval PE. Acute shortness of breat h with history of breast cancer TECHNIQUE: Multiple CTA images of the chest were obtained after the intravenous administration of 86 ml Optiray 320. Coronal and sagittal MIPS were obtained from the axial data set and were submitted f or review. All measurements were obtained according to NASCET criteria. A dose lowering technique wa s utilized adhering to the principles of ALARA. COMPARISON: Chest radiograph of same day. FINDINGS: CTA: Heart is mildly enlarged. No pericardial effusion. No thoracic aortic aneurysm or dissection. Tortuos ity of the descending thoracic aorta. Patency of the imaged great vessels. The pulmonary arterial callie e is opacified to the level of the proximal subsegmental branches and demonstrates no focal filling d efects to suggest pulmonary thromboembolic disease. CT CHEST: Multinodular goiter. Enlarged mediastinal hilar and bilateral axillary chain lymph nodes are redemons trated. 1.8 x 3.0 cm right hilar lymph node, image 176 series 4 previously measured the same on prior study. No adenopathy measures up to 1.8 cm in short axis, also unchanged. AP window lymph nodes aubrey uring up to 10 mm are stable. Small left and trace right pleural effusions. Pleural drainage catheter "about the left lung base. No pneumothorax. Multifocal bronchovascular distribution of alveolar opac ities noted about the left greater than right lungs and multilobar distribution. Bilateral bronchial wall thickening. Areas of pleural-parenchymal scarring admixed with atelectasis again noted throughou t the right lung. Opacities throughout the left lung are new from comparison. Mild associated intralo bular septal thickening. Indeterminate 9 mm hypodense lesion about the hepatic dome. There are a few additional subcentimeter hypodense lesions of the liver again noted. Skin thickening of the left breast with asymmetric strand ing about the left neck trauma is musculature redemonstrated, possibly on a posttreatment related bas is. Biopsy clips noted about the left breast. There are multiple scattered lytic lesions throughout s everal ribs and vertebral bodies compatible with osseous metastatic disease (please see bookmarks) ad ditional lytic lesion about the right clavicular head, image 208 series 4. Lesion at T12 measures 9 m m, previously 7 mm. Additional lesions have also slightly increased in size. IMPRESSION: 1. Small left and trace right pleural effusions with pleural drainage catheter noted about the left l adolph base. 2. Cardiomegaly with suggestion of interstitial pulmonary edema. 3. Left greater than right multifocal, multisegmental and multilobar distribution of groundglass and alveolar opacities suggest multifocal pneumonia versus asymmetric alveolar pulmonary edema. 4. Irregular and linear pleural-based consolidative opacity throughout the right lung appear unchange d suggestive of scarring with atelectasis. 5. Posttreatment related changes of the left breast with multifocal thoracic metastatic adenopathy re demonstrated. 6. Multiple osseous lytic metastatic lesions have slightly progressed from comparison. 7. No evidence of pulmonary thromboembolic disease. The above report was generated using voice recognition software. It may contain grammatical, syntax o r spelling errors. Electronically signed by: Cornell Flores M.D. 08/22/2018 3:05 PM
[2018-08-22] MEDS ORDERED: PIPERACILLIN/TAZOBACTAM 3.375 GM in DEXTROSE 5% 100 ML IV SCH (15:45)
[2018-08-22 15:59] LABS: Glucose Pleural Fluid 131 mg/dl
[2018-08-22] MEDS ORDERED: FUROSEMIDE 20 MG in SYRINGE 0 ML IV ONE (16:00)
[2018-08-22] MEDS ORDERED: PIPERACILLIN/TAZOBACTAM 4.5 GM in DEXTROSE 5% 100 ML IV ONE (16:00)
[2018-08-22 16:08] LABS: LDH Pleural Fluid 220 U/L; Total Protein Pleural Fluid 5.4 g/dl
[2018-08-22 16:39] LABS: Appearance Pleural Fluid BLOODY; Color Pleural Fluid RED; Mononuclear WBC Pleural 45.8 %; Polynuclear WBC Pleural 54.2 %; RBC Pleural Fluid (A) 124000 /uL; Source Pleural Fluid LEFT LUNG; WBC Pleural Fluid (A) 4339 /uL
[2018-08-22] MEDS: GUAIFENESIN/CODEINE 100MG/10MG 5ML UDC PO PRN ×2 (17:20→22:29)
[2018-08-22] MEDS: AMLODIPINE BESYLATE 5 MG TAB PO SCH (19:46)
--- NOTE | 2018-08-22 22:02 | Consultation Report ---
DATE OF CONSULTATION: 08/22/2018 REASON FOR CONSULTATION: Enlarging left pleural effusion. 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 She has a malignant pleural effusion which was diagnosed on 08/01/2018 from a thoracentesis. This left effusion was nicely drained, but it was consistent with metastatic breast cancer. Unfortunately, Ann Marie presents back with acute shortness of breath and she has an extremely large left pleural effusion, which is not surprising. We discussed this after we tapped her and I told her that this would more than likely recur unless she responds to treatment. The fact that she is so short of breath now is almost certainly due to this malignant effusion. I have been asked to see her today about possibly inserting a PleurX catheter which we have discussed. PAST MEDICAL HISTORY: 1. Stage IV breast cancer. 2. Obesity. 3. Hypertension. 4. Hyperglycemia. 5. Obstructive sleep apnea. 6. Apparent cardiac valve "tumor." 7. Inguinal hernia. 8. Thalassemia carrier. 9. Obstructive sleep apnea. PAST SURGICAL HISTORY: 1. Childbirth with section. 2. Apparent benign tumor excision 14 years ago. 3. Herniorrhaphy. 4. Bilateral tubal ligation. 5. History of endobronchial ultrasound with biopsy. 6. Cardiac catheterization. 7. Salpingo-oophorectomy for ectopic . 8. Lumpectomy with axillary node dissection on the left in 2017. 9. Tooth extraction. MEDICATIONS: 1. Chlorthalidone. 2. Amlodipine. 3. Albuterol inhalers. 4. Aspirin. 5. Tessalon Perles. 6. Dexamethasone. 7. Prochlorperazine. ALLERGIES: No drug allergies. 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 She lives at home with her . She is originally from [place]. Her family and friends are quite supportive. She does not smoke cigarettes. She has never smoked. She does occasionally have alcohol. She has 4 children. 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 REVIEW OF SYSTEMS: The patient has had much more shortness of breath, has orthopnea with cough, dyspnea on exertion. She denies fever, chills or sputum production. She has had no hemoptysis. She denies palpitations. She has had no visual or auditory complaints. She had no skin breakdown, although she has had some swelling in her lower legs. She has had no arthritic-type pain. Neurologically, she has had no symptoms. PHYSICAL EXAMINATION: GENERAL: This is an obese female who stands 4 feet 11 inches tall and weighs almost 180 pounds. She is awake and alert. HEENT: Her extraocular movements are intact. Sclerae are muddy, but anicteric. Her tongue is midline. Her oral mucosa is moist. She is having difficulty breathing and cannot lie down. NECK: I really do not see much in the way of tracheal deviation or neck vein distention, but she is working pretty hard to breathe. LUNGS: She has markedly decreased breath sounds with dullness to percussion of her left base from her scapular tip down. HEART: She is tachycardic at about 105 beats per minute with a regular rate and rhythm with no significant murmur. BREASTS: Her left breast has edema with some erythema. ABDOMEN: Obese, soft, nontender. EXTREMITIES: She does have some swelling of her lower legs. She has palpable pulses. She has no joint effusions. NEUROLOGIC: She is completely intact. ASSESSMENT AND PLAN: Increasing left malignant pleural effusion. We will insert a left PleurX catheter today. I discussed this with the patient, her , and her grandson and they are all agreeable.
[2018-08-22] MEDS: PIPERACILLIN/TAZOBACTAM 4.5 GM in DEXTROSE 5% 100 ML IV SCH (22:28)
--- NOTE | 2018-08-22 22:28 | Operative Report ---
DATE OF OPERATION: 08/22/2018 PREOPERATIVE DIAGNOSIS: Increasing left malignant pleural effusion. POSTOPERATIVE DIAGNOSIS: Increasing left malignant pleural effusion. PROCEDURE PERFORMED: Insertion of a PleurX catheter. SURGEON: Hugo Judd MD IT ANALYST: Danie Moss MD ANESTHESIA: Local with sedation. 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 The patient is markedly short of breath and came in through the ER today. We had discussed a PleurX catheter before if this malignant pleural effusion on the left recurred and indeed it has. She has a large effusion on x-ray. DESCRIPTION OF PROCEDURE: I attempted to lay the patient down so we could place her in a decubitus position, but she could not lie down. She was too anxious and was working too hard to breathe. Even though her saturations did not drop, she was tachypneic. For this reason, we kept her in an upright position, which made it a bit more difficult. After consents had been obtained and appropriate timeout had been called, the patient's left lateral back was prepped and draped in the usual sterile fashion. A 25-gauge needle was used to raise a skin wheal in 2 different areas about 10 cm apart. A 1 cm incisions were made at each. A large bore needle was placed through the posterior incision and went above the rib anesthetizing the deeper subcutaneous tissues with Xylocaine and we got free-flowing bloody fluid back. A guidewire was inserted through the needle and the needle removed. A long needle was used to anesthetize the subcutaneous tissues between these 2 incisions and then a metal tunneler was attached to the PleurX catheter and dragged from the anterior to the posterior incision. After this had been pulled through, the tunneler was removed from the PleurX catheter. An introducer sheath with inner cannula was slid over the guidewire and inner cannula and guidewire removed. The PleurX catheter was then inserted through the peel-away sheath which was removed. Two separate 2-0 silk sutures were used to close the posterior incision. A 2-0 silk suture was used to anchor the catheter to the patient's skin anteriorly. A 1500 mL of a bloody non-clotting effusion was drained. She was much improved at the conclusion. Sterile dressings which were antimicrobial dressings in the form of Acticoat were placed over both incisions. She was then sterilely taped and her sites covered. She tolerated it quite well and felt much better. I attest to the content of the Intraoperative Record and any orders documented therein. Any exception s are noted below.
--- NOTE | 2018-08-23 01:20 | Emergency Department Note ---
History of Present Illness General Chief complaint: Shortness of Breath/Dyspnea Stated complaint: SOB History of Present Illness This is a 63-year-old female presenting to the emergency department for evaluation of worsening shortness of breath over the past 24 hours. The patient is with a history of relatively recently diagnosed metastatic stage IV breast cancer. The patient was admitted to this facility roughly 2 weeks ago for what ultimately was determined to be a malignant pleural effusion. The patient has subsequently followed with [facility] where chemotherapy treatment has been discussed. The patient has not yet begun chemo. She does not report fever or chills, but states it is difficult for her to breathe. She believes that her lungs are full again. She rates her overall discomfort in 09/28. No swelling into her legs. She has used albuterol inhalers at home without signifi cant improvement of symptoms. Home Medications Home Medications Medication Instructions Recorded Confirmed Type cetirizine [Zyrtec] 10 mg PO QAM 07/26/18 08/22/18 History chlorthalidone 50 mg PO QAM 08/09/18 08/22/18 History albuterol sulfate 0.63 mg INHALATION QID PRN 08/12/18 08/22/18 History albuterol sulfate 2 inh INHALATION Q6H PRN 08/12/18 08/22/18 History amlodipine 5 mg PO HS 08/12/18 08/22/18 History aspirin 81 mg PO DAILY 08/12/18 08/22/18 History benzonatate [Tessalon Perles] 100 mg PO TID PRN 08/12/18 08/22/18 History codeine-guaifenesin 5 - 10 ml PO UD PRN 08/22/18 08/22/18 History dexamethasone 4 mg PO BID 08/22/18 08/22/18 History ondansetron HCl 8 mg PO Q8 08/22/18 08/22/18 History prochlorperazine maleate 10 mg PO UD PRN 08/22/18 08/22/18 History Allergies Allergy/AdvReac Type Severity Reaction Status Date / Time cat dander Allergy Mild Itchy Eyes Verified 08/22/18 06:12 Past Med/Surg History Medical History Essential (primary) hypertension (Chronic) CKD (chronic kidney disease), stage III Thyroid nodule 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 Prediabetes (Chronic) MARK (obstructive sleep apnea) (Chronic) CPAP Breast CA LEFT BREAST CANCER S/P LEFT BREAST TUMOR REMOVAL Hyperlipidemia DIET CONTROLLED Obesity Pancreatic cyst BEING MONITORED Pneumonia RECENT DX Thalassemia carrier Surgical History H/O section H/O heart surgery BENIGN VALVULAR TUMOR EXCISION 2004; SUBSEQUENT CARDIO FOLLOWUP "NORMAL" AND TOLD SHE DID NOT NEED TO CONTINUE FOLLOWING WITH CARDIO H/O hernia repair H/O tubal ligation History of bronchoscopy + CANCER (RECENT BIOPSY) History of cardiac cath 2004= NO STENTS History of ectopic WITH PARTIAL FALLOPIAN TUBE REMOVAL PER PT History of tooth extraction Status post partial mastectomy of left breast lumpectomy, 2017, with axillary lymph node dissection Family History Father , age 61 Stroke Mother , age 78 Pulmonary embolism Social History Preferred Language: Albanian Communication Ability: Effective Beliefs That Will Affect Care: None marital status: marital status details: 4 children Current Living Situation: Spouse 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[place]; 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[employer] (-[employer] Other Information That Helps Us Care for You: No Feels Safe at Home: Yes Safety Concerns: Feels Safe At This Time Smoking Status: Never smoker Second Hand Exposure: No Hx Alcohol Use: Yes Alcohol type: wine Alcohol Intake Frequency: Holidays/Special Occasions Hx Substance Use: No Review of Systems A total of 10 systems reviewed and were otherwise negative Physical Exam Vital Signs Vital Signs - 24 hr 08/22/18 05:43 08/22/18 06:10 08/22/18 06:11 Temperature 37.1 C Temperature Source Oral Sepsis Recent Fever Within 48 Hours No Sepsis Action Taken by Nursing No Action Required Pulse Rate 107 H Pulse Rate [Right Finger] Pulse Rhythm Regular Pulse Strength Normal Respiratory Rate 24 Respiratory Effort / Characteristics Non-Labored Spontaneous Spontaneous Labored Short of Breath Respiratory Depth Normal Deep Respiratory Pattern Tachypnea Blood Pressure 151/92 H Blood Pressure [Right Arm] Blood Pressure Mean 111 Blood Pressure Mean [Right Arm] Blood Pressure Position Sitting Pulse Oximetry 88 L Oxygen Delivery Method Room Air Nasal Cannula Nasal Cannula Oxygen Flow Rate 4 4 08/22/18 06:26 08/22/18 07:11 08/22/18 07:50 Temperature Temperature Source Sepsis Recent Fever Within 48 Hours Sepsis Action Taken by Nursing Pulse Rate Pulse Rate [Right Finger] 101 H 103 H 105 H Pulse Rhythm Pulse Strength Respiratory Rate 20 28 H 30 H Respiratory Effort / Characteristics Labored Spontaneous Spontaneous Respiratory Depth Respiratory Pattern Blood Pressure Blood Pressure [Right Arm] 150/112 H 146/93 H Blood Pressure Mean Blood Pressure Mean [Right Arm] 124 110 Blood Pressure Position Pulse Oximetry 90 97 92 Oxygen Delivery Method Nasal Cannula Nebulizer Nasal Cannula Oxygen Flow Rate 4 2 VITALS: Vitals are noted on the nurse's note and reviewed by myself. Vital signs with tachycardia and tachypnea GENERAL: Ill-appearing black female who is cooperative with examination HEAD: Normocephalic atraumatic. NECK: Supple without nuchal rigidity. No lymphadenopathy. No thyromegaly. Cervical spine is nontender. HEART: Regular rate and rhythm without murmurs gallops or rubs. LUNGS: Mild wheezing heard throughout. Absent breath sounds in the left lower lung are noted ABDOMEN: Positive normal bowel sounds x 4. Soft, nontender, without masses or organomegaly. No guarding or rebound tenderness. MUSCULOSKELETAL: No muscle atrophy, erythema, or edema noted. Full range of motion in all extremities. NEURO: Patient was alert and oriented to person place and time. CN II through XII grossly intact. Course Administered Medications Amlodipine Besylate (Norvasc) 5 mg PO HS DANIA Stop: 09/21/18 20:59 Last Admin: 08/22/18 19:46 Dose: 5 mg Documented by: [id number] Aspirin (Ecotrin Ectab) 81 mg PO DAILY DANIA Stop: 09/21/18 12:57 Last Admin: 08/22/18 13:58 Dose: 81 mg Documented by: [id number] Benzonatate (Tessalon Perle) 100 mg PO TID PRN PRN Reason: Cough Stop: 09/21/18 12:57 Last Admin: 08/22/18 13:58 Dose: 100 mg Documented by: [id number] Cetirizine HCl (Zyrtec) 10 mg PO QAM DANIA Stop: 09/21/18 12:57 Last Admin: 08/22/18 13:58 Dose: 10 mg Documented by: [id number] Enoxaparin Sodium (Lovenox) 40 mg SQ Q24H DANIA Stop: 09/21/18 12:59 Last Admin: 08/22/18 13:58 Dose: 40 mg Documented by: [id number] Guaifenesin/Codeine Phosphate (Robitussin-Ac Sugar Free) 5 ml PO Q6H PRN PRN Reason: Cough Stop: 09/21/18 12:57 Last Admin: 08/22/18 22:29 Dose: 5 ml Documented by: [id number] Admin: 08/22/18 17:20 Dose: 5 ml Documented by: [id number] Piperacillin Sod/Tazobactam (Sod 4.5 gm/ Dextrose) 120 mls @ 30 mls/hr IV Q8H DANIA; Protocol Stop: 08/29/18 21:59 Last Admin: 08/22/18 22:28 Dose: 30 mls/hr Documented by: [id number] Ioversol (Optiray 320 125ml) 86 ml IV ONCE PRN PRN Reason: Interaction Checking Stop: 08/26/18 14:31 Last Admin: 08/22/18 14:33 Dose: 86 ml Documented by: [id number] Discontinued Medications Albuterol (Duoneb) 12 ml NEB ONE ONE Stop: 08/22/18 06:08 Last Admin: 08/22/18 06:25 Dose: 12 ml Documented by: [id number] Vancomycin HCl 1,594 mg/ (Sodium Chloride) 531.88 mls @ 200 mls/hr IV NOW ONE; Protocol Stop: 08/22/18 09:27 Last Admin: 08/22/18 14:56 Dose: Not Given Documented by: [id number] Piperacillin Sod/Tazobactam Sod (Zosyn) 4.5 gm in 120 mls @ 240 mls/hr IV NOW ONE Stop: 08/22/18 07:27 Last Infusion: 08/22/18 07:45 Dose: 0 mls/hr Documented by: [id number] Admin: 08/22/18 07:10 Dose: 240 mls/hr Documented by: [id number] Vancomycin HCl 1,500 mg/ (Sodium Chloride) 530 mls @ 200 mls/hr IV NOW STA; Protocol Stop: 08/22/18 09:47 Last Infusion: 08/22/18 10:25 Dose: 0 mls/hr Documented by: [id number] Admin: 08/22/18 07:46 Dose: 200 mls/hr Documented by: [id number] Potassium Chloride (K Gómez / Wtr) 10 meq in 100 mls @ 100 mls/hr IV Q1H DANIA Stop: 08/22/18 10:29 Last Infusion: 08/22/18 11:06 Dose: 0 mls/hr Documented by: [id number] Admin: 08/22/18 10:06 Dose: 100 mls/hr Documented by: [id number] Infusion: 08/22/18 10:05 Dose: 100 mls/hr Documented by: [id number] Admin: 08/22/18 09:05 Dose: 100 mls/hr Documented by: [id number] Lorazepam (Ativan) 0.25 mg in 0.5 mls @ 0.5 mls/min IV NOW STA Stop: 08/22/18 13:01 Last Admin: 08/22/18 13:08 Dose: 0.5 mls/min Documented by: [id number] Furosemide 20 mg/ Syringe 2 mls @ 4 mls/min IV ONE ONE Stop: 08/22/18 16:01 Last Admin: 08/22/18 16:05 Dose: 4 mls/min Documented by: [id number] Piperacillin Sod/Tazobactam (Sod 4.5 gm/ Dextrose) 120 mls @ 200 mls/hr IV NOW ONE; Protocol Stop: 08/22/18 16:35 Last Infusion: 08/22/18 17:04 Dose: 0 mls/hr Documented by: [id number] Admin: 08/22/18 16:28 Dose: 200 mls/hr Documented by: [id number] Lidocaine HCl (Xylocaine 1% (Local)) Confirm Administered Dose 20 ml .ROUTE .STK-MED ONE Stop: 08/22/18 12:34 Last Admin: 08/22/18 13:04 Dose: Not Given Documented by: [id number] Lorazepam (Ativan) Confirm Administered Dose 2 mg .ROUTE .STK-MED ONE Stop: 08/22/18 12:29 Last Admin: 08/22/18 13:03 Dose: Not Given Documented by: [id number] Potassium Chloride (Klor-Con M10) 40 meq PO NOW STA Stop: 08/22/18 08:22 Last Admin: 08/22/18 09:04 Dose: 40 meq Documented by: [id number] Potassium Chloride (Klor-Con M10) 40 meq PO NOW STA Stop: 08/22/18 15:45 Last Admin: 08/22/18 16:04 Dose: 40 meq Documented by: [id number] Potassium Chloride (Klor-Con M10) 40 meq PO NOW STA Stop: 08/22/18 20:16 Last Admin: 08/22/18 22:30 Dose: 40 meq Documented by: [id number] Medical Decision Making Differential Diagnosis Differential diagnosis includes, but is not limited to: Myocardial infarction, dysrhythmia, pericarditis, pneumothorax, aortic aneurysm/dissection, DVT/PE, anxiety, GERD, PUD, electrolyte imbalance, thyroid disorder, pneumonia, bronchitis, pancreatitis, and others Laboratory Data Result diagrams: 08/22/18 06:11 08/22/18 18:48 Lab Results 08/22/18 08/22/18 08/22/18 Range/Units 06:11 06:11 06:11 WBC 13.38 H (4.8-10.8) K/uL RBC 4.74 (4.2-5.4) M/uL Hgb 13.8 (12.0-16.0) g/dL Hct 39.4 (37-47) % MCV 83.1 (80-100) fL MCH 29.1 (25-34) pg MCHC 35.0 (32-36) g/dL RDW Std Deviation 41.2 (36.4-46.3) fL RDW Coeff of Geoffrey 13.8 (11.5-14.5) % Plt Count 394 (130-400) K/uL MPV 10.3 (7.4-10.4) fL Immature Gran % (Auto) 0.1 % Neut % (Auto) 80.8 % Lymph % (Auto) 12.3 % [place] % (Auto) 6.1 % Eos % (Auto) 0.6 % Baso % (Auto) 0.1 % Immature Gran # (Auto) 0.02 (0.00-0.02) K/uL Neut # (Auto) 10.81 H (1.4-6.5) K/uL Lymph # (Auto) 1.64 (1.2-3.4) K/uL [place] # (Auto) 0.82 H (0.11-0.59) K/uL Eos # (Auto) 0.08 (0-0.5) K/uL Baso # (Auto) 0.01 (0-0.2) K/uL PT 11.1 (9.0-12.0) Seconds INR 1.1 (0.9-1.1) APTT 28.9 (21.0-31.0) Seconds PTT Ratio 1.1 VBG pH (7.36-7.41) VBG pCO2 (38-50) mmHg VBG pO2 mmHg VBG HCO3 mmol/L VBG O2 Saturation % VBG Base Excess mEq/L Barometric Pressure mm/Hg Sodium 135 L (136-145) mmol/L Potassium 2.8 L (3.5-5.1) mmol/L Chloride 98 (98-107) mmol/L Carbon Dioxide 26 (21-32) mmol/L Anion Gap 11.0 (3-11) BUN 13 (7-18) mg/dl Creatinine 0.92 (0.6-1.2) mg/dl Est Cr Clr Drug Dosing Not Reportable Est GFR ( Amer) 76.8 Est GFR (Non-Af Amer) 66.3 BUN/Creatinine Ratio 14.1 (10-20) Glucose 166 H (70-99) mg/dl Lactate (0.4-2.0) mmol/L Calcium 9.0 (8.5-10.1) mg/dl Magnesium 1.8 (1.8-2.4) mg/dl Total Bilirubin 0.3 (0.2-1) mg/dl AST 21 (15-37) U/L ALT 21 (12-78) U/L Alkaline Phosphatase 80 (45-117) U/L Troponin I 0.019 (0-0.045) ng/ml Total Protein 8.0 (6.4-8.2) gm/dl Albumin 3.4 (3.4-5.0) gm/dl Globulin 4.6 H (2.5-4.0) gm/dl Albumin/Globulin Ratio 0.7 L (0.9-2) Lipase 84 (73-393) U/L Procalcitonin (0-0.5) ng/ml TSH 1.210 (0.300-4.500) uIu/ml 08/22/18 08/22/18 08/22/18 Range/Units 06:11 06:11 06:46 WBC (4.8-10.8) K/uL RBC (4.2-5.4) M/uL Hgb (12.0-16.0) g/dL Hct (37-47) % MCV (80-100) fL MCH (25-34) pg MCHC (32-36) g/dL RDW Std Deviation (36.4-46.3) fL RDW Coeff of Geoffrey (11.5-14.5) % Plt Count (130-400) K/uL MPV (7.4-10.4) fL Immature Gran % (Auto) % Neut % (Auto) % Lymph % (Auto) % [place] % (Auto) % Eos % (Auto) % Baso % (Auto) % Immature Gran # (Auto) (0.00-0.02) K/uL Neut # (Auto) (1.4-6.5) K/uL Lymph # (Auto) (1.2-3.4) K/uL [place] # (Auto) (0.11-0.59) K/uL Eos # (Auto) (0-0.5) K/uL Baso # (Auto) (0-0.2) K/uL PT (9.0-12.0) Seconds INR (0.9-1.1) APTT (21.0-31.0) Seconds PTT Ratio VBG pH 7.50 H (7.36-7.41) VBG pCO2 34 L (38-50) mmHg VBG pO2 82 mmHg VBG HCO3 26 mmol/L VBG O2 Saturation 96.9 % VBG Base Excess 3.0 mEq/L Barometric Pressure 733.3 mm/Hg Sodium (136-145) mmol/L Potassium (3.5-5.1) mmol/L Chloride (98-107) mmol/L Carbon Dioxide (21-32) mmol/L Anion Gap (3-11) BUN (7-18) mg/dl Creatinine (0.6-1.2) mg/dl Est Cr Clr Drug Dosing Est GFR ( Amer) Est GFR (Non-Af Amer) BUN/Creatinine Ratio (10-20) Glucose (70-99) mg/dl Lactate 2.1 H* (0.4-2.0) mmol/L Calcium (8.5-10.1) mg/dl Magnesium (1.8-2.4) mg/dl Total Bilirubin (0.2-1) mg/dl AST (15-37) U/L ALT (12-78) U/L Alkaline Phosphatase (45-117) U/L Troponin I (0-0.045) ng/ml Total Protein (6.4-8.2) gm/dl Albumin (3.4-5.0) gm/dl Globulin (2.5-4.0) gm/dl Albumin/Globulin Ratio (0.9-2) Lipase (73-393) U/L Procalcitonin < 0.05 (0-0.5) ng/ml TSH (0.300-4.500) uIu/ml Imaging Data Radiologist's Impression: XR chest 1V portable HISTORY: 63 years-old Female sob acute shortness of breath COMPARISON: Chest radiograph 08/02/2018, CTA chest 07/31/2018 TECHNIQUE: Portable AP view of the chest FINDINGS: Cardiac silhouette is enlarged. Pulmonary vascular congestion. No pneumothorax. Large left pleural effusion with associated left midlung opacities. Patchy alveolar opacities throughout the right lung are redemonstrated with unchanged blunting of the right costophrenic angle suggestive of trace right pleural effusion. Degenerative changes of the shoulders and spine. IMPRESSION: 1. Large left pleural effusion with left midlung opacities. 2. Cardiomegaly with pulmonary vascular congestion. 3. Multifocal alveolar opacities throughout the right lung with probable small right pleural effusion appears similar to comparison. ECG Data Additional Comments: Sinus tachycardia @102 bpm Cannot rule out Anterior infarct (cited on or before 31-JUL-2018) Nonspecific T wave abnormality Abnormal ECG When compared with ECG of 31-JUL-2018 22:08, No significant change was found MDM Narrative Physical exam and history were performed. Nursing notes, EMR, and Medication List were personally reviewed. Patient appears to have shortness of breath bringing her to the emergency department. The patient has a history of breast cancer and recent pleural ef fusion. IV access was established and labs were obtained. The patient was given a 1 hour DuoNeb. She was placed on the engine monitor. Chest x-ray was performed. The patient's blood work is as above and was reviewed. The patient's blood work is as above and was reviewed. She does have an elevated white blood cell count of 13,000. She does not have a significant anemia or gross electrolyte imbalance. Lactate is slightly elevated at 2.1. Blood cultures are pending. Lipase and transaminases are not diagnostic. Troponin is not elevated. Chest x-ray was reviewed by myself and radiology and shows a large left pleural effusion. On reevaluation the patient did have some mild improvement of her breathing with the hour-long DuoNeb. She did have some improvement of her vital signs. O verall she is doing much better with an oxygen mask. I do have concern for possible infection and the patient was started on Vanco and Zosyn. Overall she does not appear well for discharge home. She has multiple comorbidities and continues to be in respiratory discomfort. The patient case was discussed with the on-call hospitalist who agreed to evaluate the patient here in the department. Please see their dictation for further patient course, plan, and disposition. The chart was completed utilizing [employer] Voice Recognition Software. Grammatical errors, random word insertions, pronoun errors, and incomplete sentences are an occasional consequence of this system due to software l imitations, ambient noise, and hardware issues. Any formal questions or concerns about the content, text, or information contained within the body of this dictation should be directly addressed to the provider for clarification. . Impression & Plan Shortness of breath, Pleural effusion on left Discharge Plan Visit Data *Final* Discharge Date/Time: 08/22/18 10:01 Chief Complaint: Shortness of Breath/Dyspnea Stated Complaint: SOB ED Provider: Alba Avina ED Midlevel Provider: Monico Concepcion Discharge Problem: Shortness of breath, Pleural effusion on left Patient Disposition: Admitted As Inpatient Discharge Instructions Interventions: ED Discharge Assessment Last Done: 08/22/18 10:01
[2018-08-23] MEDS: PIPERACILLIN/TAZOBACTAM 4.5 GM in DEXTROSE 5% 100 ML IV SCH ×3 (05:25→22:27)
[2018-08-23] MEDS: ACETAMINOPHEN 325 MG TAB PO PRN ×3 (08:05→19:55)
--- NOTE | 2018-08-23 08:06 | XRay Report ---
XR chest 1V portable CLINICAL HISTORY: malignant pleural effusion COMPARISON STUDY: Chest radiograph and chest CT August 22, 2018. FINDINGS: Cardiomegaly is unchanged. A left pleural catheter is in place. Small left and trace right pleural effusions are noted. There is no pneumothorax. Bilateral lower lung airspace opacities are no case. Left lower lung opacity has slightly increased. Right lower lung opacity has slightly improved. IMPRESSION: 1. Persistent bilateral airspace opacities which may reflect pneumonia or pulmonary edema. 2. Small left and trace right pleural effusions. Electronically signed by: Pedrito Gutierrez M.D. 08/23/2018 8:05 AM
[2018-08-23] MEDS: CETIRIZINE HCL 10 MG TABLET PO SCH (08:21)
[2018-08-23] MEDS: ASPIRIN 81 MG ECTAB PO SCH (08:21)
[2018-08-23 08:50] LABS: BUN Creatinine Ratio 11.5 (10-20); Calcium 9.1 mg/dl (8.5-10.1); Creatinine Clr Calc Pharmacy 47.6 ml/min; Est GFR (African American) 61.2; Est GFR (Non-African American) 52.8; Potassium 3.6 mmol/L (3.5-5.1)
[2018-08-23] MEDS ORDERED: POTASSIUM CHLORIDE 20 MEQ TABCR PO STA (08:53)
[2018-08-23] MEDS ORDERED: FUROSEMIDE 20 MG in SYRINGE 0 ML IV ONE (09:45)
[2018-08-23] MEDS: ENOXAPARIN INJ 40 MG/0.4 ML SYR SQ SCH (13:08)
[2018-08-23] MEDS: GUAIFENESIN/CODEINE 100MG/10MG 5ML UDC PO PRN ×2 (15:32→22:27)
--- NOTE | 2018-08-23 19:16 | Hospitalist Progress Note ---
Date of Service August 23, 2018 Assessment & Plan (1) Acute respiratory failure with hypoxia: 2nd to large left-sided malignant pleural effusion which has reaccumulated since her last admission. Also possibly due to pneumonia +/- acute CHF. CTA chest negative for PEs. Appreciate Dr Judd's assistance with placement of left-sided pleurX catheter. 1500cc of fluid removed at time of insertion. Give additional lasix today. Continue zosyn for possible pneumonia. Can d/c MRSA coverage as MRSA swab negative. (2) Malignant pleural effusion: Left-sided. Large. s/p PleurX catheter insertion by Dr Judd - appreciate his assistance. PleurX catheter teaching. (3) Breast cancer, stage 4: Initial diagnosis in 2017 - triple negative breast ca of left breast s/p lumpectomy at that time. s/p XRT. Did NOT receive chemotherapy. Now with recurrent stage 4 disease, biopsy-confirmed. Appears to be quite aggressive. Just saw Carol earlier this week to discuss palliative chemotherapy. There continues to be considerable inflammatory change in the superior portion of the left breast. Less likely that this represents cellulitis of the breast. (4) Essential (primary) hypertension: Continue amlodipine. (5) Prediabetes: HbA1c was >6.5% earlier this year. T2DM diet. BSGs ac/hs. Low threshold for basal-bolus insulin. (6) MARK (obstructive sleep apnea): Continue home CPAP. (7) Hypokalemia: improved. continue supplementation in face of diuresis. repeat BMP in am. (8) Edema: left leg - focal. doppler negative for DVT. improved w/ diuresis. (9) DVT prophylaxis: lovenox 40mg daily Subjective tele stable overnight. she feels better - less dyspnea, less orthopnea, less cough. cough largely nonproductive. has pleurX catheter pain on left chest - this is largest complaint. Review of Systems Constitutional: no fever, no chills and no anorexia Respiratory: + pain on inspiration; no hemoptysis Cardiovascular: + chest pain; no dyspnea at rest and no edema Gastrointestinal: no abdominal pain, no nausea and no vomiting Physical Exam Constitutional: + obese; no acute distress and no altered mental status ENMT: external ear and nose normal, oropharynx normal Neck: trachea midline, no thyromegaly Respiratory: Auscultation: + diminished lung sounds (left base but much improved relative to prior exams) and + rales (left base); no rhonchi and no wheezes Cardiovascular: Rate/Rhythm: regular rate and regular rhythm Heart Sounds: normal S1 and normal S2; no murmur Vessels: posterior tibial pulses present and dorsalis pedis pulses present; no JVD Extremities: no edema Gastrointestinal (Abdomen): normal bowel sounds, soft, nontender, no hepatosplenomegaly Musculoskeletal: no cyanosis or clubbing, extremities motor strength 5/5 Psychiatric: A+Ox3, euthymic affect Results & Data Vital Signs (Past 12 Hours) Vital Signs Temp Pulse Resp BP Pulse Ox 08/23/18 15:27 36.8 C 87 20 119/89 96 08/23/18 11:55 36.4 C L 87 19 139/85 96 Laboratory Results Laboratory Results - last 24 hr 08/23/18 07:50 Sodium 134 L Potassium 3.6 Chloride 97 L Carbon Dioxide 28 Anion Gap 9.0 BUN 13 Creatinine 1.11 Est Cr Clr Drug Dosing 47.6 Est GFR ( Amer) 61.2 Est GFR (Non-Af Amer) 52.8 BUN/Creatinine Ratio 11.5 Glucose 141 H Calcium 9.1 PG Care Time/CCT Total # of Minutes Spent Total Time Spent with Patient: Total time spent is greater than 50% in coordination of care (as documented) at patient's floor/unit and/or counseling patient: (1) Edema Edema type: unspecified Qualified Code(s): R60.9 - Edema, unspecified (2) Breast cancer, stage 4 Laterality: left Qualified Code(s): C50.912 - Malignant neoplasm of unspecified site of left female breast
[2018-08-23] MEDS: BENZONATATE 100 MG CAPSULE PO PRN (19:55)
[2018-08-23] MEDS: AMLODIPINE BESYLATE 5 MG TAB PO SCH (19:55)
[2018-08-24] MEDS: PIPERACILLIN/TAZOBACTAM 4.5 GM in DEXTROSE 5% 100 ML IV SCH ×3 (05:26→22:02)
[2018-08-24 06:20] LABS: BUN Creatinine Ratio 15.9 (10-20); Calcium 8.9 mg/dl (8.5-10.1); Creatinine Clr Calc Pharmacy 58.7 ml/min; Est GFR (African American) 78.9; Potassium 3.3 mmol/L (3.5-5.1)
[2018-08-24] MEDS: ASPIRIN 81 MG ECTAB PO SCH ×2 (08:10→08:11)
[2018-08-24] MEDS: CETIRIZINE HCL 10 MG TABLET PO SCH (08:10)
[2018-08-24] MEDS: BENZONATATE 100 MG CAPSULE PO PRN ×2 (08:10→14:58)
--- NOTE | 2018-08-24 08:45 | Surgery Progress Note ---
Date of Service August 24, 2018 Assessment & Plan (1) Malignant pleural effusion: -pleurex catheter placed on with marked improvement of symptoms -continue daily drainage -pt. stable for d/c for thoracic surgery standpoint -pleurex form is signed and on chart -at time of d/c, our office will call for a follow-up appointment with CXR preceding appointment Subjective Pt. notes her breathing has markedly improved. She notes pain with drainage of pleurex, mostly at the end of drainage. Physical Exam Constitutional: well developed and well nourished; no acute distress Respiratory: BS are decreased at bases bilaterally Results & Data Vital Signs (Past 12 Hours) Vital Signs Temp Pulse Pulse Resp BP Pulse Ox 08/24/18 07:10 36.7 C 80 19 113/77 100 08/24/18 04:03 36.3 C L 79 18 114/80 97 08/23/18 23:57 36.3 C L 82 18 116/75 96 08/23/18 23:17 79 08/23/18 22:45 83 16 98
[2018-08-24] MEDS ORDERED: POTASSIUM CHLORIDE 10 MEQ TABCR PO ONE (10:00)
--- NOTE | 2018-08-24 11:02 | XRay Report ---
XR chest 2V routine HISTORY: breast ca, CHF, pleurX left COMPARISON: Chest 08/23/2018. FINDINGS: Left basilar pleural catheter is unchanged in position. No pneumothorax. The heart remains mildly enlarged. Improved aeration at the left lung base. Trace left pleural effusion has also improv ed. Patchy density at the right lung base persist. IMPRESSION: 1. Left basilar pleural catheter remains unchanged in position. No pneumothorax. 2. Improvement in the left base airspace opacities and trace left pleural effusion. Right basilar den sities persist. Electronically signed by: Alfred Arguelles M.D. 08/24/2018 11:01 AM
[2018-08-24] MEDS: ENOXAPARIN INJ 40 MG/0.4 ML SYR SQ SCH (11:52)
[2018-08-24] MEDS: GUAIFENESIN/CODEINE 100MG/10MG 5ML UDC PO PRN ×2 (11:53→18:00)
[2018-08-24] MEDS: ACETAMINOPHEN 325 MG TAB PO PRN (11:53)
[2018-08-24] MEDS ORDERED: COUGH DROP (SUGAR FREE) LOZ 24 LOZ/1 BOX BUCCAL PRN (14:28)
--- NOTE | 2018-08-24 18:44 | Hospitalist Progress Note ---
Date of Service August 24, 2018 Assessment & Plan (1) Bilateral pneumonia: as seen on CTA chest day of admission. day #3 of zosyn. consider atypical coverage as well given the b/l distribution. overall stable/improved. blood cx's negative to date. Present on Admission?: Yes (2) Acute respiratory failure with hypoxia: 2nd to large left-sided malignant pleural effusion which has reaccumulated since her last admission. Also possibly due to pneumonia +/- acute CHF. CTA chest negative for PEs. Appreciate Dr Judd's assistance with placement of left-sided pleurX catheter. 1500cc of fluid removed at time of insertion. 40cc obtained during daily drain today. No further lasix today; appears compensated. Continue zosyn for probable pneumonia. Overall status improved with Rx of multiple issues. Repeat cxr today pending. Increase tessalon to 200mg each dose PRN. (3) Malignant pleural effusion: Left-sided. Large. s/p PleurX catheter insertion by Dr Judd - appreciate his assistance. PleurX catheter teaching. Daily drain. (4) Breast cancer, stage 4: Initial diagnosis in 2017 - triple negative breast ca of left breast s/p lumpectomy at that time. s/p XRT. Did NOT receive chemotherapy. Now with recurrent stage 4 disease, biopsy-confirmed. Appears to be quite aggressive. Just saw Carol earlier this week to discuss palliative chemotherapy. Mets to pleural space, bones, etc. There continues to be considerable inflammatory change in the superior portion of the left breast. Less likely that this represents cellulitis of the breast. (5) Essential (primary) hypertension: Continue amlodipine. (6) Prediabetes: HbA1c was >6.5% earlier this year. T2DM diet. BSGs ac/hs. Control acceptable at this time. (7) MARK (obstructive sleep apnea): Continue home CPAP. (8) Hyponatremia: worse with diuresis. stop any further diuresis. hold home diuretic for now. BMP am. (9) Hypokalemia: continue to replace BMP am (10) Edema: left leg - focal. doppler negative for DVT. improved/resolved w/ diuresis. (11) DVT prophylaxis: lovenox 40mg daily d/c tele move to med/surg progressing Subjective overall feels better sleeping much better at night because cough/orthopnea are improved tele - NSR still coughing but largely nonproductive during my visit I stopped her O2 - sats stayed>90% for 10 minutes does report MACDONALD eating well Review of Systems Constitutional: no fever Respiratory: + cough, + dyspnea, + dyspnea on exertion and + pain on inspiration; no hemoptysis and no wheezing Cardiovascular: as per Subjective / HPI and + chest pain; no edema Gastrointestinal: no abdominal pain, no nausea and no vomiting Physical Exam Constitutional: + obese; no acute distress and no altered mental status ENMT: external ear and nose normal, oropharynx normal Respiratory: Auscultation: + rales (left base - minimal today; airation MUCH BETTER LLL); no rhonchi and no wheezes Cardiovascular: Rate/Rhythm: regular rate and regular rhythm Heart Sounds: normal S1 and normal S2; no murmur Vessels: posterior tibial pulses present and dorsalis pedis pulses present; no JVD Extremities: no edema Gastrointestinal (Abdomen): normal bowel sounds, soft, nontender, no hepatosplenomegaly Skin: erythema extending from inner upper quadrant of left breast unchanged Neurologic: no focal motor deficits Psychiatric: A+Ox3, euthymic affect Results & Data Vital Signs (Past 12 Hours) Vital Signs Temp Pulse Pulse Resp BP Pulse Ox 08/24/18 14:28 36.8 C 94 H 20 122/85 92 08/24/18 11:56 36.4 C L 89 17 114/84 95 08/24/18 08:00 81 08/24/18 07:10 36.7 C 80 19 113/77 100 Laboratory Results Laboratory Results - last 24 hr 08/24/18 04:56 Sodium 131 L Potassium 3.3 L Chloride 96 L Carbon Dioxide 28 Anion Gap 7.0 BUN 14 Creatinine 0.90 Est Cr Clr Drug Dosing 58.7 Est GFR ( Amer) 78.9 Est GFR (Non-Af Amer) 68.0 BUN/Creatinine Ratio 15.9 Glucose 117 H Calcium 8.9 Magnesium 2.0 PG Care Time/CCT Total # of Minutes Spent Total Time Spent with Patient: Total time spent is greater than 50% in coordination of care (as documented) at patient's floor/unit and/or counseling patient: (1) Edema Edema type: unspecified Qualified Code(s): R60.9 - Edema, unspecified (2) Breast cancer, stage 4 Laterality: left Qualified Code(s): C50.912 - Malignant neoplasm of unspecified site of left female breast (3) Bilateral pneumonia Pneumonia type: due to unspecified organism Lung location: unspecified part of lung Qualified Code(s): J18.9 - Pneumonia, unspecified organism
[2018-08-24] MEDS: AMLODIPINE BESYLATE 5 MG TAB PO SCH ×2 (22:05→22:06)
[2018-08-25] MEDS: PIPERACILLIN/TAZOBACTAM 4.5 GM in DEXTROSE 5% 100 ML IV SCH (05:39)
[2018-08-25 06:18] LABS: BUN Creatinine Ratio 14.2 (10-20); Calcium 8.9 mg/dl (8.5-10.1); Creatinine Clr Calc Pharmacy 56.8 ml/min; Est GFR (African American) 76.8; Est GFR (Non-African American) 66.3; Potassium 3.3 mmol/L (3.5-5.1)
[2018-08-25 06:27] LABS: Creatinine Clr Calc Pharmacy 52.8 ml/min; Est GFR (African American) 70.3; Est GFR (Non-African American) 60.6
[2018-08-25] MEDS ORDERED: POTASSIUM CHLORIDE 20 MEQ TABCR PO ONE (08:30)
[2018-08-25] MEDS: BENZONATATE 100 MG CAPSULE PO PRN ×3 (08:43→20:34)
--- NOTE | 2018-08-25 10:10 | Surgery Progress Note ---
Date of Service August 25, 2018 Assessment & Plan (1) Malignant pleural effusion: -left pleurex inserted on 08/22/18 -continue daily drainage (drained 300 cc this am) -will call her for outpt. follow-up after discharge Subjective Pt. notes her breathing is good, and definitely much better than time of admission. Physical Exam Physical Exam: Pleurex sites are clean. Respiratory: BS have slight decrese at bases Results & Data Vital Signs (Past 12 Hours) Vital Signs Temp Pulse Pulse Pulse Resp BP BP 08/25/18 08:00 36.7 C 87 22 123/85 08/25/18 05:42 86 16 08/25/18 02:14 83 16 08/24/18 23:55 36.6 C 85 20 106/73 Pulse Ox 08/25/18 08:00 94 08/25/18 05:42 93 08/25/18 02:14 93 08/24/18 23:55 98
[2018-08-25] MEDS: GUAIFENESIN/CODEINE 100MG/10MG 5ML UDC PO PRN (10:58)
[2018-08-25] MEDS: CETIRIZINE HCL 10 MG TABLET PO SCH (10:59)
[2018-08-25] MEDS: predniSONE 20 MG TAB PO SCH (13:43)
[2018-08-25] MEDS: levoFLOXacin 750 MG TAB PO SCH (13:44)
[2018-08-25] MEDS: LEVALBUTEROL TARTRATE 15 GM HFA.AER.AD INH SCH ×3 (13:44→20:00)
[2018-08-25] MEDS: HYDROCODONE/HOMATROPINE SYRUP 5MG/1.5MG 5ML UDP PO PRN ×2 (13:51→22:25)
[2018-08-25] MEDS: ENOXAPARIN INJ 40 MG/0.4 ML SYR SQ SCH (14:05)
--- NOTE | 2018-08-25 19:14 | Hospitalist Progress Note ---
Date of Service August 25, 2018 Assessment & Plan (1) Bilateral pneumonia: as seen on CTA chest day of admission. day #4 of zosyn. IMPROVED clinically. Off O2, no fevers, eating better, etc. STOP zosyn today. Transition to levaquin daily, first dose today. Plan 7 days of IV/PO abx in total. blood cx's negative to date. O2 sats at rest and w/ activity are satisfactory. (2) Acute respiratory failure with hypoxia: RESOLVED. 2nd to large left-sided malignant pleural effusion which had reaccumulated since her last admission. Also possibly due to pneumonia +/- acute CHF. CTA chest negative for PEs. Appreciate Dr Judd's assistance with placement of left-sided pleurX catheter earlier this stay. 1500cc of fluid removed at time of insertion. Continue daily draining of left chest cavity. No further lasix; appears compensated. Continue abx for probable b/l pneumonia. Overall status improved with Rx of multiple issues. I cannot rule out that she has lymphangitic spread of breast cancer in lungs. (3) Cough: Ongoing. Multifactorial - pneumonia, pleurX catheter irritation of pleura and effusions, ?cancer in lungs, pulm edema, etc. On recent CTA they mentioned bronchial wall thickening thus she may have bronchitic component as well. Start prednisone 40mg daily x 5 days. Xopenex 2 puffs q6h via spacer. Try hycotan in thelma of robitussin ac. Tessalon pearles 200mg prn. Levaquin for pneumonia. (4) Malignant pleural effusion: Left-sided. Large. s/p PleurX catheter insertion by Dr Judd - appreciate his assistance. PleurX catheter teaching. Daily drain. (5) Breast cancer, stage 4: Initial diagnosis in 2017 - triple negative breast ca of left breast s/p lumpectomy at that time. s/p XRT. Did NOT receive chemotherapy. Now with recurrent stage 4 disease, biopsy-confirmed. Appears to be quite aggressive. Just saw Carol earlier this week to discuss palliative chemotherapy. Mets to pleural space, bones, ?liver (see CTA chest report this admission), etc. There continues to be considerable inflammatory change in the superior portion of the left breast. Less likely that this represents cellulitis of the breast. She has been asking me the same questions every day, sometimes within the same conversation. Will check CT head to r/o mets. She was to have port placement later this week at [place] - this may have to be deferred because of resolving pneumonia. (6) Essential (primary) hypertension: Continue amlodipine. Chlorthalidone on hold due to low-normal BPs, low K, low Na, etc. (7) Prediabetes: HbA1c was >6.5% earlier this year. T2DM diet. BSGs ac/hs. Control acceptable at this time based on current BSGs. (8) MARK (obstructive sleep apnea): Continue home CPAP. (9) Hyponatremia: Had gotten worse with diuresis. stopped lasix. hold home diuretic as well. Na level mildly low today but stable. BMP am. (10) Hypokalemia: continue to replace BMP am (11) Edema: left leg - focal. doppler negative for DVT. improved/resolved w/ diuresis. (12) DVT prophylaxis: lovenox 40mg daily both daughters updated at bedside today home tomorrow on Sunday with ?? Subjective pt continues with cough - largely nonproductive. no dyspnea at rest. sleeping more soundly at night-time. less orthopnea. no PND. o2 has been off since yesterday. staff walked her today -- o2 sats 91% in RA at lowest. eating fair. drained 300cc of fluid from left PleurX today. 2 daughters at bedside today. questions answered. Review of Systems Constitutional: no fever, no chills and no fatigue Respiratory: + cough and + wheezing (subjective ); no hemoptysis Cardiovascular: no chest pain, no orthopnea, no paroxysmal nocturnal dyspnea and no edema Gastrointestinal: no abdominal pain, no nausea and no vomiting Physical Exam Constitutional: + obese; no acute distress and no altered mental status coughing ENMT: external ear and nose normal, oropharynx normal Respiratory: Auscultation: + rales (minimal left base) and + wheezes (scant b/l); no rhonchi Cardiovascular: Rate/Rhythm: regular rate and regular rhythm Heart Sounds: normal S1 and normal S2; no murmur Vessels: posterior tibial pulses present and dorsalis pedis pulses present; no JVD Extremities: no edema Gastrointestinal (Abdomen): normal bowel sounds, soft, nontender, no hepatosplenomegaly Psychiatric: A+Ox3, euthymic affect (asks the same questions repeatedly as earlier today & yesterday) Results & Data Vital Signs (Past 12 Hours) Vital Signs Temp Pulse Pulse Resp BP BP Pulse Ox 08/25/18 16:00 36.9 C 94 H 18 128/85 92 08/25/18 08:00 36.7 C 87 22 123/85 94 Laboratory Results Laboratory Results - last 24 hr 08/25/18 08/25/18 08/25/18 05:30 05:30 08:21 Sodium 132 L Potassium 3.3 L Chloride 97 L Carbon Dioxide 30 Anion Gap 5.0 BUN 13 Creatinine 0.99 0.92 Est Cr Clr Drug Dosing 52.8 56.8 Est GFR ( Amer) 70.3 76.8 Est GFR (Non-Af Amer) 60.6 66.3 BUN/Creatinine Ratio 14.2 Glucose 114 H POC Glucose 147 H Calcium 8.9 08/25/18 08/25/18 11:53 16:53 Sodium Potassium Chloride Carbon Dioxide Anion Gap BUN Creatinine Est Cr Clr Drug Dosing Est GFR ( Amer) Est GFR (Non-Af Amer) BUN/Creatinine Ratio Glucose POC Glucose 118 H 133 H Calcium PG Care Time/CCT Total # of Minutes Spent Total Time Spent with Patient: Total time spent is greater than 50% in coordination of care (as documented) at patient's floor/unit and/or counseling patient: (1) Bilateral pneumonia Pneumonia type: due to unspecified organism Lung location: unspecified part of lung Qualified Code(s): J18.9 - Pneumonia, unspecified organism (2) Breast cancer, stage 4 Laterality: left Qualified Code(s): C50.912 - Malignant neoplasm of unspecified site of left female breast (3) Edema Edema type: unspecified Qualified Code(s): R60.9 - Edema, unspecified
[2018-08-25] MEDS ORDERED: POTASSIUM CHLORIDE 20 MEQ TABCR PO STA (19:30)
--- NOTE | 2018-08-25 21:23 | CT Scan Report ---
HEAD CT NONCONTRAST CT DOSE: 537.48 mGy.cm HISTORY: stage 4 breast ca, mild confusion; eval for mets TECHNIQUE: Multiaxial CT images of the head were performed without the use of intravenous contrast. A utomated exposure control was utilized for this study. A dose lowering technique was utilized adheri ng to the principles of ALARA. Comparison: None. Findings: The paranasal sinuses and mastoid air cells are clear. The calvarium and skull base are int act. The ventricles and sulci are within normal limits. There is no mass, hematoma, midline shift, or acute infarct. Of note, evaluation for an intracranial lesion is suboptimal due to the lack of intra venous contrast. Impression: No acute intracranial abnormality. Electronically signed by: Alfred Arguelles M.D. 08/25/2018 9:22 PM
[2018-08-26 07:07] LABS: BUN Creatinine Ratio 21.5 (10-20); Calcium 9.3 mg/dl (8.5-10.1); Creatinine Clr Calc Pharmacy 63.8 ml/min; Est GFR (African American) 88.3; Est GFR (Non-African American) 76.2; Potassium 3.8 mmol/L (3.5-5.1)
--- NOTE | 2018-08-26 08:41 | Hospitalist Progress Note ---
Date of Service August 26, 2018 Assessment & Plan (1) Bilateral pneumonia: as seen on CTA chest day of admission. zosyn with transition to levaquin for planned 7 day course. IMPROVED clinically. Off O2, no fevers, eating better, etc. blood cx's negative to date. O2 sats at rest and w/ activity are satisfactory. (2) Acute respiratory failure with hypoxia: RESOLVED. 2nd to large left-sided malignant pleural effusion which had reaccumulated since her last admission. and pneumonia CTA chest negative for PEs. Appreciate Dr Judd's assistance with placement of left-sided pleurX catheter earlier this stay. 1500cc of fluid removed at time of insertion. Continue daily draining of left chest cavity. No further lasix; appears compensated. (3) Cough: Multifactorial - pneumonia, pleurX catheter irritation of pleura and effusions, ?cancer in lungs, pulm edema, etc. On recent CTA they mentioned bronchial wall thickening thus she may have bronchitic component as well. Started prednisone 40mg daily Xopenex 2 puffs q6h via spacer. Try hycotan in thelma of robitussin ac. Tessalon pearles 200mg prn. Levaquin for pneumonia. (4) Malignant pleural effusion: Left-sided. Large. s/p PleurX catheter insertion by Dr Judd - appreciate his assistance. PleurX catheter teaching. Daily drain. (5) Breast cancer, stage 4: Initial diagnosis in 2017 - triple negative breast ca of left breast s/p lumpectomy at that time. s/p XRT. Did NOT receive chemotherapy. Now with recurrent stage 4 disease, biopsy-confirmed. Appears to be quite aggressive. Just saw Carol earlier this week to discuss palliative chemotherapy. Mets to pleural space, bones, ?liver (see CTA chest report this admission), etc. There continues to be considerable inflammatory change in the superior portion of the left breast. Less likely that this represents cellulitis of the breast. CT head performed and did r/o mets. she has a baseline facial drop that she states has been present since post CABG She was to have port placement later this week at [place] -I did phone carol and she is on for IR around 12:30 on august 28, 2018 (6) Essential (primary) hypertension: Continue amlodipine. Chlorthalidone on hold due to low-normal BPs, low K, low Na, etc. (7) Prediabetes: HbA1c was >6.5% earlier this year. T2DM diet. BSGs ac/hs. Control acceptable at this time based on current BSGs. (8) MARK (obstructive sleep apnea): Continue home CPAP. (9) Hyponatremia: Had gotten worse with diuresis. stopped lasix. held home diuretic as well. (10) Hypokalemia: replete (11) Edema: left leg - focal. doppler negative for DVT. improved/resolved w/ diuresis. (12) DVT prophylaxis: lovenox 40mg daily Subjective Patient has occasional coughing with speaking. She overall states she feels m uch better. I did personally call Dr. BARTON at [facility] and informed of her inpatient stay. The patient is supposed to have a Mediport placement at [place] and interventional radiology on Sunday, August 28 otherwise the patient still has some breast discomfort on the left side her cough is nonproductive she is currently on room air She continues with pain at the left breast primarily in the upper quadrants it is firm to touch and uncomfortable Review of Systems Review of Systems: ROS: well nourished well developed. No double vision blurry vision No problems with speech or swallowing No palpitations, chest pain or pressure No Wheezing, patient coughs easily with speech this cough is nonproductive No abdominal pain nausea vomiting diarrhea changes in appetite or weight No burning urine urine frequency or changes in color No focal joint pain or muscle pain Tender skin changes about her left breast No focused back pain or numbness or loss of strength No changes in memory or confusion Physical Exam Physical Exam: The patient appeared well nourished and normally developed. Vital signs as documented. Head exam is unremarkable. normocephalic, atraumatic Neck is without jugular venous distension, thyromegaly, or lymphademopathy Lungs are clear to auscultation still slightly dull at the right base Pleurx catheter left chest wall Cardiac exam reveals Rhythm is regular. First and second heart sounds normal. Abdominal exam reveals normal bowel sounds, no masses, no organomegaly Extremities are nonedematous and both pedal pulses are present Neurologic exam is A&Ox3, no focal deficits, strength is equal bilateral Psychologically seems neither anxious or depressed Skin of left breast changes is nodular knobby and erythematous and firm Results & Data Vital Signs (Past 12 Hours) Vital Signs Temp Pulse Pulse Resp BP BP Pulse Ox 08/26/18 07:47 36.3 C L 76 16 154/67 H 98 08/26/18 05:43 84 14 98 08/26/18 01:03 73 16 96 08/25/18 23:30 36.7 C 97 H 20 134/86 94 08/25/18 22:54 88 16 98 PG Care Time/CCT Total # of Minutes Spent Total Time Spent with Patient: Total time spent is greater than 50% in coordination of care (as documented) at patient's floor/unit and/or counseling patient: (1) Edema Edema type: unspecified Qualified Code(s): R60.9 - Edema, unspecified (2) Breast cancer, stage 4 Laterality: left Qualified Code(s): C50.912 - Malignant neoplasm of unspecified site of left female breast (3) Bilateral pneumonia Lung location: unspecified part of lung Pneumonia type: due to unspecified organism Qualified Code(s): J18.9 - Pneumonia, unspecified organism
[2018-08-26] MEDS: LEVALBUTEROL TARTRATE 15 GM HFA.AER.AD INH SCH ×4 (09:09→21:18)
[2018-08-26] MEDS: levoFLOXacin 750 MG TAB PO SCH (09:09)
[2018-08-26] MEDS: CETIRIZINE HCL 10 MG TABLET PO SCH (09:10)
[2018-08-26] MEDS: predniSONE 20 MG TAB PO SCH (09:10)
[2018-08-26] MEDS: ASPIRIN 81 MG ECTAB PO SCH (09:10)
[2018-08-26] MEDS: ENOXAPARIN INJ 40 MG/0.4 ML SYR SQ SCH (14:10)
[2018-08-26] MEDS: HYDROCODONE/HOMATROPINE SYRUP 5MG/1.5MG 5ML UDP PO PRN ×2 (14:37→22:52)
[2018-08-26] MEDS: BENZONATATE 100 MG CAPSULE PO PRN (18:56)
[2018-08-26] MEDS: AMLODIPINE BESYLATE 5 MG TAB PO SCH (21:17)
[2018-08-27] MEDS: LEVALBUTEROL TARTRATE 15 GM HFA.AER.AD INH SCH (08:31)
[2018-08-27] MEDS: ASPIRIN 81 MG ECTAB PO SCH (08:32)
[2018-08-27] MEDS: CETIRIZINE HCL 10 MG TABLET PO SCH (08:32)
[2018-08-27] MEDS: predniSONE 20 MG TAB PO SCH (08:32)
[2018-08-27] MEDS: BENZONATATE 100 MG CAPSULE PO PRN (08:32)
[2018-08-27] MEDS: HYDROCODONE/HOMATROPINE SYRUP 5MG/1.5MG 5ML UDP PO PRN ×2 (08:37→13:46)
[2018-08-27] MEDS: levoFLOXacin 750 MG TAB PO SCH (11:38)
[2018-08-27] MEDS: ENOXAPARIN INJ 40 MG/0.4 ML SYR SQ SCH (13:42)
--- NOTE | 2018-08-27 16:23 | Discharge Summary ---
Date of Service August 27, 2018 Admission HPI Per Admitting Provider 63yo female with known stage 4 breast cancer who presents with worsening dyspnea x 24-36 hours. She has had cough for several weeks - no hemoptysis or sputum. She had associated orthopnea and PND last evening. No chest pain or pleurisy. No fevers or chills. Denies anorexia. No weight loss. She saw Dr Gan last and she was referred to [facility] for 2nd opinion. She saw [facility] this past Sunday and she was given a "treatment plan" for treating her cancer. She had a cxr on Sunday of this week and she was called the next day. She was told she had a pleural effusion. She is NOT on oxygen at home. Principal Diagnosis acute respiratory failure secondary to pneumonia and malignant pleural effusion Discharge Exam Patient awake and alert Vitals are stable She has a cough when talking Pulmonary exam shows bibasilar reduced breath sounds Pleurx catheter left chest wall site is mildly tender but not looking infected Significant firmness and skin changes about her left breast consistent with her recurrent breast cancer Discharge Data Allergies Allergy/AdvReac Type Severity Reaction Status Date / Time cat dander Allergy Mild Itchy Eyes Verified 08/22/18 06:12 Consultations 08/22/18 07:20 ED Decision to Admit Stat 08/22/18 12:58 Consult Thoracic Surgery Routine Ordered Studies 08/22/18 08:27 CT angio chest PE protocol Stat US venous doppler LE LT Stat 08/25/18 19:09 CT head/brain wo con Routine Hospital Course (1) Bilateral pneumonia: as seen on CTA chest day of admission. zosyn with transition to levaquin for planned 7 day course. Discharged with 3 additional days IMPROVED clinically. Off O2, no fevers, eating better, etc. blood cx's negative to date. O2 sats at rest and w/ activity are satisfactory. (2) Acute respiratory failure with hypoxia: RESOLVED. 2nd to large left-sided malignant pleural effusion which had reaccumulated since her last admission. and pneumonia CTA chest negative for PEs. Appreciate Dr Judd's assistance with placement of left-sided pleurX catheter earlier this stay. 1500cc of fluid removed at time of insertion. Continue daily draining of left chest cavity and arrange to home health therapy. No further lasix; appears compensated. (3) Cough: Multifactorial - pneumonia, pleurX catheter irritation of pleura and effusions this is improved since addition of prednisone therapy On recent CTA they mentioned bronchial wall thickening thus she may have bronchitic component as well. Will discharge home completing her course of Levaquin, 3 additional days of prednisone therapy, and Hycodan cough medicine (4) Malignant pleural effusion: Left-sided. Large. s/p PleurX catheter insertion by Dr Judd - appreciate his assistance. PleurX catheter teaching. Daily drain. (5) Breast cancer, stage 4: Initial diagnosis in 2017 - triple negative breast ca of left breast s/p lumpectomy at that time. s/p XRT. Did NOT receive chemotherapy. Now with recurrent stage 4 disease, biopsy-confirmed. Appears to be quite aggressive. Just saw [facility] earlier this week to discuss palliative chemotherapy. Mets to pleural space, bones, ?liver (see CTA chest report this admission), etc. There continues to be considerable inflammatory change in the superior portion of the left breast. Less likely that this represents cellulitis of the breast. CT head performed and did r/o mets. she has a baseline facial drop that she states has been present since post CABG She was to have port placement later this week at [facility] I spoke to her oncologist and she recommended slightly postponing her chemo treatment as she is planning for interventional radiology to place her Mediport around 12:30 on august 28, 2018 at [facility] (6) Essential (primary) hypertension: Continue amlodipine. Chlorthalidone to be held due to low-normal BPs, low K, low Na, etc. (7) Prediabetes: HbA1c was >6.5% earlier this year. T2DM diet. BSGs ac/hs. Control acceptable at this time based on current BSGs. (8) MARK (obstructive sleep apnea): Continue home CPAP. (9) Hyponatremia: held home diuretic as well. (10) Hypokalemia: replete (11) Edema: left leg - focal. doppler negative for DVT. improved/resolved w/ diuresis. Total Time Total Time Spent Total Time Spent (In Minutes): greater than 30 minutes were required to prepare discharge Discharge Plan Discharge Items Patient Disposition: Home - Home Health Services Reason For Visit: acute hypoxic resp failure; malignant L pe Discharge Diagnosis: fluid in lung. left breast cancer Discharge Goals: Decrease discomfort, Diagnostic testing and Improve disease control Activity: Resume your previous activity Non-emergency contact: Oncologist Call non-emergency contact if: you have any medication questions Follow-up/Referrals: Pamella Zelaya DO [Primary Care Provider] - 09/02/18 12:15 pm (Please, follow up with Dr. Zelaya on SundaySeptember 02 at 12:15 pm. *If you need to change this appointment, call the office at [phone].) Diet: Regular Addtl Provider Instructions: please follow up with Felicita for IV line placement this week on monday 08/28 Prescriptions: New hydrocodone-homatropine [Hydromet] 5-1.5 mg/5 mL Syrup 5 ml PO Q4H PRN (Reason: cough) Qty: 100 RF: 0 levofloxacin 750 mg Tablet 750 mg PO DAILY@1100 Qty: 3 RF: 0 prednisone 20 mg Tablet 40 mg PO DAILY Qty: 6 RF: 0 Continued albuterol sulfate 0.63 mg/3 mL Solution For Nebulization 0.63 mg INHALATION QID PRN (Reason: Shortness Of Breath) RF: 0 amlodipine 5 mg Tablet 5 mg PO HS RF: 0 aspirin 81 mg Tablet,Delayed Release (Dr/Ec) 81 mg PO DAILY RF: 0 benzonatate [Tessalon Perles] 100 mg Capsule 100 mg PO TID PRN (Reason: Cough) RF: 0 albuterol sulfate 90 mcg/actuation Aerosol Powdr Breath Activated 2 inh INHALATION Q6H PRN (Reason: Shortness Of Breath) RF: 0 ondansetron HCl 8 mg tablet 8 mg PO Q8 RF: 0 prochlorperazine maleate 10 mg tablet 10 mg PO UD PRN (Reason: Nausea) RF: 0 cetirizine [Zyrtec] 10 mg Tablet 10 mg PO QAM RF: 0 Discontinued chlorthalidone 50 mg Tablet 50 mg PO QAM RF: 0 dexamethasone 4 mg tablet 4 mg PO BID RF: 0 codeine-guaifenesin 10-100 mg/5 mL liquid 5 - 10 ml PO UD PRN (Reason: Cough) RF: 0 Stand-Alone Forms: [employer], Opioid Pain Management Krames/Other Patient Handouts: Narcotic Cough/Cold Preparations Oral syrup Discharge Orders: Discharge Order (Routine); Ordered 08/27/18 Ordered By: Diogo Frost Admission Data Admit Date/Time: 08/22/18 08:27 Attending Provider: Diogo Frost Admit Provider: Moreno Corbin Primary Care Provider: Pamella Zelaya Other Providers: Rach Echavarria ; Hugo Judd ; Moreno Corbin ; Harvey,Nursing Agency Service: Medical Other Interventions: Discharge Summary Assessment (RN) Last Done: 08/27/18 09:16 DC Date/Time DO NOT enter until pt leaves facility: 08/27/18 14:26
--- NOTE | 2018-08-27 18:44 | Progress Note ---
DATE: 08/27/2018 Ms. Preston was seen today. She looks great. She sounds very good also. The drainage is decreasing from her PleurX, putting out 350 yesterday and 200 today. We are going to follow her up in the office after she is discharged. I think we would be able to get this tube out. If the drainage continues to decrease, we may consider an outpatient sclerosis. We will take care of that as an outpatient.
== END 2018-08-27 14:26 | disposition home health service (06) | DRG 597 ==
LOC: ED 05:39 → 2S 08:27 → SUATTDRO 08:27 → 2S 10:01 → 4E 08-24 14:23

== ENCOUNTER 2019-01-07 17:13 | Inpatient (IN) ==
[2019-01-07] MEDS ORDERED: ONDANSETRON INJ 2 MG/ML 2 ML VIAL IV PRN (18:22)
[2019-01-07] MEDS ORDERED: VANCOMYCIN CONSULT ACTIVE PRN (18:22)
[2019-01-07] MEDS ORDERED: ACETAMINOPHEN 325 MG TAB PO PRN (18:22)
[2019-01-07] MEDS ORDERED: MAGNESIUM HYDROXIDE SUSP 30 ML UDC PO PRN (18:22)
[2019-01-07] MEDS ORDERED: PIPERACILL/TAZOBAC CONSULT ACTIVE PRN (18:22)
[2019-01-07] MEDS ORDERED: POTASSIUM CHLORIDE 20 MEQ TABCR PO STA (18:22)
--- NOTE | 2019-01-07 18:22 | History & Physical Report ---
Date of Service January 07, 2019 Assessment & Plan (1) Acute respiratory failure with hypoxia: Pleur-x was not draining properly and had thoracentesis in the ED on 01/[address] Judd, feeling much improved See below (2) Malignant pleural effusion: Hx of pleur-x Was not draining properly and had thoracentesis in the ED on 01/[address] Judd, feeling much improved Prelim evaluation is concerning for infection Vanco/zosyn as per CT surg recs Planning for MIST-2 protocol, Dr. Judd to order Pt takes aspirin 81mg QD for CAD prevention, denies hx of AL, CVA Will hold for now in case of further procedures (3) Hypokalemia: replace PO and monitor (4) Acute hyponatremia: Baseline is around 134-136 125 on admission Monitor with changes in fluid status (5) Leukocytosis: In the setting of current infection and recent dexamethasone use Dr. Judd also states that pt receives neulasta tx (6) Breast cancer: She has been following with Dr. Burton at [facility] for her oncology, however Dr. Judd is requesting oncology to follow her current progress Her last chemo was 01/01 She takes dexamethasone pre/post chemo (7) Essential (primary) hypertension: continue home meds (8) DVT prophylaxis: Lovenox for DVT proph History of Present Illness Primary Care Provider: Pamella Zelaya, 63 y/o F who was a direct from CT surgery for infectious pleural effusion. Pt was seen in the ED earlier today for SOB. She has a L sided pleurx for metastatic breast cancer causing fluid collections and was found to have some fluid overload. She had a thoracentesis at bedside with Dr. Judd and was feeling much improved. She was d/c'd to home with abx. Prelim eval of pleural fluid suggested infectious etiology and Dr. Judd feels that pt would benefit from IV abx and MIST-2 protocol. He spoke with pt and arranged for her to return to [facility] for admission. Pt is feeling much better overall. She is SOB with prolonged ambulation, but not at rest at present. She has some pain related to the pleurx site, but no other chest pain. She has had little appetite the last 2 days, but no n/v. Pt denies fever, abd pain, c/d, LE pain or swelling. She has been following with Dr. Burton at [facility] for her oncology, however Dr. Judd is requesting oncology to follow her current progress. Her last chemo was 01/01. She takes dexamethasone pre/post chemo. Allergies Allergy/AdvReac Type Severity Reaction Status Date / Time cat dander Allergy Mild Itchy Eyes Verified 01/07/19 10:38 lisinopril Allergy Mild Cough Unverified 01/07/19 10:38 Home Medications Home Medications Medication Instructions Recorded Confirmed Type cetirizine [Zyrtec] 10 mg PO QAM 07/26/18 01/07/19 History albuterol sulfate 2 inh INHALATION Q6H PRN 08/12/18 01/07/19 History amlodipine 5 mg PO HS 08/12/18 01/07/19 History aspirin 81 mg PO DAILY 08/12/18 01/07/19 History ondansetron HCl 8 mg PO Q8 08/22/18 01/07/19 History azithromycin [Zithromax] 500 mg PO DAILY 7 Days #7 tab 01/07/19 Rx cephalexin [Keflex] 500 mg PO Q6H 10 Days #40 cap 01/07/19 Rx chlorthalidone 50 mg PO DAILY 01/07/19 01/07/19 History dexamethasone 4 mg PO BID PRN 01/07/19 01/07/19 History Past Med/Surg History Medical History Breast CA LEFT BREAST CANCER S/P LEFT BREAST TUMOR REMOVAL CKD (chronic kidney disease), stage III Essential (primary) hypertension (Chronic) Hyperlipidemia DIET CONTROLLED Obesity MARK (obstructive sleep apnea) (Chronic) CPAP Pancreatic cyst BEING MONITORED Pneumonia RECENT DX Prediabetes (Chronic) Thalassemia carrier Thyroid nodule 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 Surgical History H/O section H/O heart surgery BENIGN VALVULAR TUMOR EXCISION 2004; SUBSEQUENT CARDIO FOLLOWUP "NORMAL" AND TOLD SHE DID NOT NEED TO CONTINUE FOLLOWING WITH CARDIO H/O hernia repair H/O tubal ligation History of bronchoscopy + CANCER (RECENT BIOPSY) History of cardiac cath 2004= NO STENTS History of ectopic WITH PARTIAL FALLOPIAN TUBE REMOVAL PER PT History of tooth extraction Status post partial mastectomy of left breast lumpectomy, 2017, with axillary lymph node dissection Family History Father , age 61 Stroke Mother , age 78 Pulmonary embolism Social History Preferred Language: Setswana Communication Ability: Effective Motor Route Carrier Required: No Beliefs That Will Affect Care: None marital status: marital status details: 4 children Current Living Situation: Spouse 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[place]; 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[employer] Other Information That Helps Us Care for You: No Feels Safe at Home: Yes Safety Concerns: Feels Safe At This Time Smoking Status: Never smoker Second Hand Exposure: No ; Hx Alcohol Use: Yes Alcohol type: wine Alcohol Intake Frequency: Ho lidays/Special Occasions Hx Substance Use: No Review of Systems Review of Systems: Pertinent positives and negatives reviewed in HPI--all others negative Physical Exam Constitutional: WD/WN, vitals as above Eyes: normal visual negron by confrontation and + anicteric sclerae Neck: normal visual inspection and trachea midline Respiratory: normal respiratory effort; no respiratory distress Auscultation: + diminished lung sounds (L sided) and + crackles; no wheezes Cardiovascular: Rate/Rhythm: regular rate and regular rhythm Gastrointestinal (Abdomen): Inspection/Auscultation: abdomen not distended Percussion/Palpation: abdomen soft; abdomen nontender Musculoskeletal: Head/Neck/Chest: normocephalic and head atraumatic negative for edema, peripheral pulses intact Skin: no rashes, warm and dry Neurologic: awake; not confused Speech / Cognition: normal speech Psychiatric: A+Ox3, euthymic affect Results & Data Diagnostic Findings CXR: increased L sided pleural fluid CT chest: 1. A pleural drain is present at the left lung base. 2. There is a moderate and at least partially loculated left pleural effusion. This has increased in size from 08/22/2018. 3. There is consolidative change at the left lung base, likely representing atelectasis. Correlate clinically for evidence of superimposed pneumonia. 4. There is trace right pleural effusion. 5. 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 There has been a significant increase in the size, number, and sclerosis of the lesions as compared to 08/22/2018. This could represent progression of disease or possibly treatment related change leading to increased conspicuity. Attention at follow-up is recommended. 6. Right axillary lymphadenopathy has decreased from 08/22/2018. Code Status & VTE Plan Code Status Full code, although pt states no prolonged mechanical life support, feeding tubes, etc. Pt is not entirely certain about short term intubation and is going to discuss with her further. I did advise her that she will be a full code for now and that she should let someone know if her wishes change. She does have a living will. PG Care Time/CCT Total # of Minutes Spent Total Time Spent with Patient: Total time spent is greater than 50% in coordination of care (as documented) at patient's floor/unit and/or counseling patient:
[2019-01-07] MEDS ORDERED: ALTEPLASE, RECOMBINANT 10 MG in SYRINGE 50 ML IPL SCH (18:30)
[2019-01-07] MEDS ORDERED: PATIENT'S HEIGHT AND/OR WEIGHT NEEDED SCH (18:30)
[2019-01-07] MEDS ORDERED: ALBUTEROL HFA INHALER 8.5 GM INH PRN (18:44)
[2019-01-07] MEDS ORDERED: DORNASE ALFA 5 ML in SYRINGE 25 ML IPL SCH (19:30)
[2019-01-07] MEDS ORDERED: VANCOMYCIN HCL 1,750 MG in SODIUM CHLORIDE 0.9% 500 ML IV STA (19:52)
[2019-01-07] MEDS ORDERED: PIPERACILLIN/TAZOBACTAM 3.375 GM in DEXTROSE 5% 100 ML IV ONE (20:00)
[2019-01-07] MEDS: ALTEPLASE, RECOMBINANT 10 MG in SYRINGE 50 ML IPL SCH (20:55)
[2019-01-07] MEDS: AMLODIPINE BESYLATE 5 MG TAB PO SCH (20:59)
--- NOTE | 2019-01-07 20:59 | Pharmacy Report ---
Pharmacy Abx Dose Short Note - Date of Service January 07, 2019 - Assessment & Plan Assessment 63 year old F receiving IV Vancomycin and Zosyn for treatment of pulm Day # 1 of antimicrobial therapy. * Current sCr = 0.81 mg/dL with estimated CrCl ~64 mL/min. Estimated pharmacokinetic parameters: * Ke ~0.057/hr * T1/2 ~12.1 hrs Plan Vancomycin * Give Vancomycin 1750mg (~23 mg/kg) IV x 1 as a loading dose * Initiate Vancomycin 1000mg (~13 mg/kg) IV q12 as maintenance regimen * Goal trough level for pulm : 15 to 20 mcg/mL * Trough level ordered for: 01/09/19 @ 0730 (prior to 3rd dose and therefore not reflective of steady state) * MRSA nasal swab ordered to assist with potential de-escalation Zosyn * Given Zosyn 3.375g IV x 1 as a loading dose * Initiate Zosyn 3.375g (extended infusion over 4 hours) IV q8 for CrCl >20 mL/min Pharmacy will continue to follow and will adjust dose/frequency as necessary. Thank you.
[2019-01-07] MEDS ORDERED: COUGH DROP (SUGAR FREE) LOZ 24 LOZ/1 BOX BUCCAL PRN (21:02)
[2019-01-07] MEDS: DORNASE ALFA 5 ML in SYRINGE 25 ML IPL SCH (21:52)
[2019-01-07] MEDS ORDERED: ONDANSETRON 8 MG TABLET PO PRN (22:00)
[2019-01-08] MEDS: PIPERACILLIN/TAZOBACTAM 3.375 GM in DEXTROSE 5% 100 ML IV SCH ×3 (02:30→17:56)
[2019-01-08 06:36] LABS: Hematocrit (blood only) 33.1 % (37-47); Hemoglobin 12.3 g/dL (12.0-16.0); Mean Corpuscular Hemoglobin 33.6 pg (25-34); Mean Corpuscular Hgb Conc 37.2 g/dL (32-36); Mean Corpuscular Volume 90.4 fL (80-100); Mean Platelet Volume 10.5 fL (7.4-10.4); Nucleated RBC # (auto) 0.05 K/uL (0-0); Nucleated RBC % (auto) 0.2 %; Platelet Count 382 K/uL (130-400); RDW Coefficient of Variation 15.8 % (11.5-14.5); RDW Standard Deviation 51.8 fL (36.4-46.3); Red Blood Count 3.66 M/uL (4.2-5.4); White Blood Count 30.71 K/uL (4.8-10.8)
[2019-01-08 06:53] LABS: BUN Creatinine Ratio 12.7 (10-20); Calcium 8.1 mg/dl (8.5-10.1); Creatinine Clr Calc Pharmacy 47.9 ml/min; Est GFR (African American) 64.7; Est GFR (Non-African American) 55.8; Magnesium 1.7 mg/dl (1.8-2.4); Phosphorus 1.9 mg/dl (2.5-4.9); Potassium 3.2 mmol/L (3.5-5.1)
[2019-01-08 07:06] LABS: ALC (manual) 1.57 K/uL (1.2-3.4); ANC (manual) 26.56 K/uL (1.4-6.5); Dohle Bodies 1+; Lymphocytes # (manual) 1.57 K/uL (1.2-3.4); Lymphocytes % (manual) 5.1 %; Metamyelocytes # (manual) 0.25 K/uL (0-0); Metamyelocytes % (manual) 0.8 %; Monocytes # (manual) 2.33 K/uL (0.11-0.59); Monocytes % (manual) 7.6 %; Neutrophils # (manual) 26.56 K/uL (1.4-6.5); Neutrophils % (manual) 86.5 %; Toxic Granulation 1+
--- NOTE | 2019-01-08 07:08 | XRay Report ---
XR chest 1V portable HISTORY: 63 years-old Female empyema follow-up study in a patient with reported empyema COMPARISON: Chest CT and chest radiographs 01/07/2019 TECHNIQUE: Portable AP view the chest FINDINGS: Stable positioning of the right IJ Pgedoy-l-Cldl catheter. Unchanged opacities throughout the right l adolph with cardiomegaly. Stable positioning of a pleural drainage catheter about the left lung base. No pneumothorax identified. Loculated left pleural effusion redemonstrated. Mildly progressed mixed int erstitial and alveolar opacities throughout the left upper lung. Bones appear grossly intact. IMPRESSION: 1. Unchanged loculated left pleural effusion with stable positioning of the left lung base pleural dr ainage catheter. 2. Mildly progressed mixed interstitial and alveolar opacities of the left upper lung. 3. No pneumothorax. 4. Cardiomegaly. The above report was generated using voice recognition software. It may contain grammatical, syntax o r spelling errors. Electronically signed by: Cornell Flores M.D. 01/08/2019 7:07 AM
[2019-01-08] MEDS ORDERED: VANCOMYCIN HCL 1,000 MG in SODIUM CHLORIDE 0.9% 250 ML IV SCH ×2 (08:00→21:45)
[2019-01-08] MEDS ORDERED: INFLUENZA ADMINISTRATION CHARGE ONE (08:00)
[2019-01-08] MEDS ORDERED: INFLUENZA VIRUS QUAD VACCINE 0.5 ML SYR IM ONE (08:00)
[2019-01-08] MEDS: ENOXAPARIN INJ 40 MG/0.4 ML SYR SQ SCH (08:08)
[2019-01-08] MEDS: CETIRIZINE HCL 10 MG TABLET PO SCH (08:10)
[2019-01-08] MEDS: ALTEPLASE, RECOMBINANT 10 MG in SYRINGE 50 ML IPL SCH ×2 (08:29→21:07)
[2019-01-08] MEDS ORDERED: CHLORTHALIDONE 25 MG TAB PO SCH (09:00)
[2019-01-08] MEDS: SODIUM CHLORIDE 0.9% 1000ML 1,000 ML IV SCH ×2 (09:02→21:48)
[2019-01-08] MEDS: DORNASE ALFA 5 ML in SYRINGE 25 ML IPL SCH ×2 (09:38→22:13)
[2019-01-08] MEDS: POTASSIUM CHLORIDE / WTR 10 MEQ/100 ML PLCT IV SCH ×4 (10:48→14:31)
--- NOTE | 2019-01-08 10:59 | Consultation Report ---
DATE OF CONSULTATION: 01/08/2019 REASON FOR CONSULTATION: Triple negative metastatic breast cancer in a 63-year-old -B[place] female. HISTORY OF PRESENT ILLNESS: Ann Marie Preston is a pleasant 63-year-old -B[place] female who was admitted to [facility] on 01/07/2019 for subacute onset shortness of breath. Apparently, she was a direct admission from thoracic surgery for pleural effusion. She was seen in the Emergency Room prior to admission, complaining of shortness of breath which has spanned a few days. She had had a left-sided PleurX catheter placed back in August of 2018 and on her estimation has yielded anywhere between 150-200 mL every other day since. The patient is not affiliated with the [facility], currently receives treatment at the [facility] and thus I am relying solely on information imparted by Ms. Preston. She was originally diagnosed with breast cancer back in 2016, involving her left breast. Her tumor was triple negative and she underwent successful lumpectomy followed by radiation therapy. According to Ms. Preston, she was offered adjuvant chemotherapy appropriately, and respectfully deferred out of fear for cardiac side effects. Nonetheless, she continued to be disease free until this past summer when she developed malignant pleural effusions. 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 Unfortunately, I do not have access to her current record, but according to Ms. Preston, she is receiving a docetaxel based regimen at the present time. She also reports based on CT scans done recently at the [facility] response to treatment is documented. Not terribly clear why we are being consulted as she has no affiliation with us and other than shortness of breath associated with malignant effusion, there is no obvious evidence for ongoing treatment related infection or disease progression. PAST MEDICAL HISTORY: Again, significant for triple negative metastatic breast cancer involving pleural effusion and bony skeleton, obstructive sleep apnea status post pneumonia, prediabetic, she is a thalassemia carrier, positive for thyroid nodule. PAST SURGICAL HISTORY: Includes section, heart surgery, hernia surgery, tubal ligation, history of bronchoscopy, cardiac catheterization, history of ectopic with partial fallopian tube removal, tooth extraction and partial mastectomy of the left breast in 2017. CURRENT MEDICATIONS: Include cetirizine 10 mg p.o. daily, albuterol 2 puffs inhaled q.6 hours p.r.n., amlodipine 5 mg p.o. at bedtime, aspirin 81 mg p.o. daily, Zofran 8 mg p.o. q.8 hours, azithromycin 500 mg daily for 7 days, Keflex 500 mg p.o. q.6 hours for 10 days, chlorthalidone 50 mg p.o. daily, dexamethasone 4 mg p.o. b.i.d. p.r.n. ALLERGIES: LISINOPRIL, CAT DANDER. FAMILY HISTORY: Father at age 61 from stroke. Mother at age 78, attributable to pulmonary embolism. 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 She has 4 grown children. She lives with her spouse. She is a nonsmoker and drinks alcohol only on rare social occasions. REVIEW OF SYSTEMS: Most prominently for dyspnea on exertion and shortness of breath. She denies fever, chills or sweats. She is maintaining a reasonable appetite with no overt weight loss. SKIN: No rashes or lesions. No history of dermatoses. HEENT: She denies headaches, lightheadedness or dizziness. No sinus symptoms, sore throat or dysphagia. LYMPH: No history of lymphoproliferative disease. CARDIAC: Positive history of valvular disease and cardiovascular disease. No current angina or palpitations. PULMONARY: Positive for malignant pleural effusion and insertion of left-sided PleurX catheter. She is short of breath. She denies productive cough. No hemoptysis is reported. GASTROINTESTINAL: Negative for abdominal pain, nausea, vomiting, diarrhea or constipation, hematochezia or melena stools. GENITOURINARY: No history of hematuria, dysuria, urinary incontinence. PSYCHIATRIC: Negative for anxiety, depression or psychoses. ENDOCRINE: Positive for prediabetes, negative for thyroid disease. NEUROLOGIC: Negative for seizure, stroke, or migraine headache. MUSCULOSKELETAL: Positive for bony metastatic disease. HEMATOLOGIC: She is a thalassemia carrier. Positive for profound leukocytosis with predominant neutrophilia. Hemoglobin and platelets are within normal range. PHYSICAL EXAMINATION: GENERAL: Very pleasant 63-year-old -B[place] female. Awake, alert and appropriate, in no acute distress. VITAL SIGNS: Temperature 36.7, pulse 111, respiratory rate 20, blood pressure 111/75. SKIN: Warm, dry, noncyanotic without petechia, rash or ecchymosis. HEENT: Head is atraumatic, normocephalic. Eyes: PERRLA, EOMI. Sclerae nonicteric. No conjunctival injection. Nares patent without rhinorrhea or discharge. Throat is clear. Tongue is midline. Mucous membranes are moist. NECK: Supple without JVD or thyromegaly. Lymph nodes cervical, supraclavicular, axillary or inguinal palpable nodes. HEART: Regular rate and rhythm. No clicks, rubs, murmurs or gallops. LUNGS: Clear to auscultation bilaterally. Breath sounds are blunted at left posterior base. ABDOMEN: Soft, nontender, nondistended, without palpable hepatosplenomegaly. EXTREMITIES: No clubbing, cyanosis or edema. MUSCULOSKELETAL: Strength and pulses are equal in all 4 quadrants. NEUROLOGICAL: She is awake, alert and oriented x3. Cranial nerves II-XII are intact. No gross motor or sensory deficits are noted. LABORATORY DATA: WBC count 30,710, hemoglobin 12.3, platelet count 318,000. Sodium 123, potassium 3.2, chloride 89, carbon dioxide 26, creatinine 1.06, BUN 13, magnesium 1.7, phosphorus 1.9. RADIOGRAPHIC DATA: Chest x-ray from this morning unchanged loculated left pleural effusion with stable positioning PleurX catheter, mildly progressed mixed interstitial and alveolar opacities, left upper lobe. IMPRESSION: 1. Acute respiratory failure with hypoxia. 2. Malignant pleural effusion (left) triple negative breast cancer. 3. Electrolyte dysfunction. 4. Leukocytosis. 5. Essential hypertension. PLAN: I have been asked to look in on Ann Marie Preston's case. This lady presently is under the care of Dr. Franco at the [facility]. She last received chemotherapy on the 01 of January and I believe is due for her next course on 22 of January. According to Ann Marie, she was informed by her oncologist recent scans performed at [facility] confirms she is responding to current treatment. Based on Ms. Preston's description, my assumption is she is receiving a docetaxel based regimen. She believes there are 2 drugs in her current combination treatment. She unfortunately developed malignant pleural effusions this past summer had the PleurX catheter placed and undergoes drainage of 150-200 mL every other day. She was also diagnosed with skeletal metastatic disease, recently started on regular bisphosphonate therapy. There is really not much in addition I can add as she receives appropriate care. She has made no indication that she wishes to transfer care to [facility] for chemotherapy moving forward. Thus, wished her well in her upcoming treatment and if there is a specific issue or question, feel free to contact me by phone. Otherwise, I will officially sign off at this point and assume Ann Marie will resume care at the [facility] as discussed. DERRELL
[2019-01-08 13:52] LABS: BUN Creatinine Ratio 11.3 (10-20); Calcium 7.7 mg/dl (8.5-10.1); Creatinine Clr Calc Pharmacy 37.1 ml/min; Est GFR (African American) 47.5; Est GFR (Non-African American) 40.9; Potassium 3.6 mmol/L (3.5-5.1)
--- NOTE | 2019-01-08 16:47 | Surgery Progress Note ---
Date of Service January 08, 2019 Assessment & Plan (1) Empyema of left pleural space: Had a long talk with Ann Marie Preston today. This is a very serious development. It appears she is responding with the amount of drainage to our protocol however, I explained to her that this can be a life-threatening problem. She does not appear toxic. I remain concerned about her leukocytosis as well as the fact that her x-ray was done is good today however, she does look better clinically. We will see how her x-ray looks tomorrow. MIST - 2 Protocol goes through 6 cycles which requires 3 days. She just completed her second cycle. Present on Admission?: Yes Subjective Patient is feeling "better" since she was admitted. I called her last night after seeing the gram-positive cocci on Gram stain of her pleural fluid. I asked her to come to the hospital so we could start the antibiotics parenterally and the MIST - 2 Protocol. This was done and she has drained much more fluid although her x-ray still looked worrisome to me today. She sounds better and looks better. She has been responding to the MIST - 2 Protocol. Review of Systems Review of Systems: All systems reviewed & are unremarkable except as noted in HPI & below Patient has had no fevers or chills and has been hemodynamically stable and is not tachycardic but I am quite concerned. She is having diarrhea 2-3 times a day but states this is been her norm. She is had no neurologic changes or skin breakdown. Of her review of systems is unremarkable. Physical Exam Physical Exam: Patient who is on supplemental oxygen. Sclera pale but anicteric. Oral mucosa is a bit dry. She has no neck vein distention. She has decreased breath sounds on the left. Her Pleurx site is clean. She has some mild peripheral edema. She has no joint effusions. Neurologically she is completely intact. Results & Data Vital Signs (Past 12 Hours) Vital Signs Temp Pulse Pulse Resp BP Pulse Ox 01/08/19 15:00 36.6 C 68 20 126/74 98 01/08/19 11:17 36.8 C 110 H 20 128/80 96 01/08/19 11:15 117 H 01/08/19 07:23 36.7 C 111 H 20 111/75 95 PG Care Time/CCT Total # of Minutes Spent Total Time Spent with Patient: Total time spent is greater than 50% in coor dination of care (as documented) at patient's floor/unit and/or counseling patient:
[2019-01-08] MEDS ORDERED: POTASSIUM PHOS 3 MMOL/1 ML INFUSION IV STA (16:54)
[2019-01-08] MEDS ORDERED: POTASSIUM PHOSPHATE 15 MMOL in SODIUM CHLORIDE 0.9% 250 ML IV ONE (17:15)
[2019-01-08 17:29] LABS: BUN Creatinine Ratio 11.5 (10-20); Calcium 7.9 mg/dl (8.5-10.1); Creatinine Clr Calc Pharmacy 36.8 ml/min; Est GFR (Non-African American) 40.6; Potassium 3.7 mmol/L (3.5-5.1)
[2019-01-08] MEDS: MAGNESIUM SULFATE / D5W 1 GM/100 ML BAG IV SCH ×2 (17:46→18:52)
--- NOTE | 2019-01-08 18:44 | Hospitalist Progress Note ---
Date of Service January 08, 2019 Assessment & Plan (1) Empyema of left pleural space: With PleurX catheter in place for malignant effusion since 08/2018 Now with loculated effusion, growing GPC in pleural fluid culture -Thoracic Surgery requested admission--> on day #2 of MIST-2 protocol, working well so far -follow CXR -follow Pleural cx--> Staph species, await sensitivities -continue Vanc and Zosyn -follow CBC-with significant leukocytosis (2) Acute respiratory failure with hypoxia: Secondary to loculated effusion, now improved somewhat with MIST-2 protocol -continue supplemental O2 as needed to keep POx>90% (3) Malignant pleural effusion: As above, secondary to Br CA (4) Hypokalemia: replace with KCl, IV Magnesium -follow BMP, Mag (5) Acute hyponatremia: Baseline is around 134-136 Is on chlorthalidone 50mg daily and did receive her dose today Is tachycardic, weight is down overall from previous, no edema Pleural effusion is not from CHF but rather from malignancy 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 Na+ 125 on admission and now down to 123 throughout the day despite NS administration Is hypotonic hyponatremia--> suspect hypovolemia and likely secondary to extra- renal losses and "tea/toast diet" as has had poor po intake Also with some developing acute kidney injury possibly due to ATN from infection BUN normal leads away from dehydration as cause though -will now dc IVFs -received dose of chlorthalidone today but now will hold -still awaiting 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 despite hydration with IVFs, now at 1.5 up from 0.8 yesterday BUN normal, otherwise lytes ok Suspect ATN from sepsis Check UA for casts, infection -is making adequate urine-follow I/Os received several liters of fluid today and worsened despite such-dc IVFs for now -check FeNa -consult Nephrology (12) MARK (obstructive sleep apnea): continue qhs CPAP (13) CKD (chronic kidney disease), stage III: baseline GFR 50s-70s CKD stage 2-3 -avoid nephrotpxins -renally dose meds -follow BMP (14) Prediabetes: HgbA1C actually in diabetic range at 6.7% on last check With hyperglycemia here -start accuchecks ACHS and SSI -check A1C in AM (15) DVT prophylaxis: Lovenox for DVT proph Dispo-remain hospitalized Subjective Pt feeling a little better than yesterday, feels less SOB. Denies CP. Denies fe vers/chills, no headache, no N/V, no abd pain, no constipation. Has had 2 loose stools today, nonbloody. Is anxious about her condition. She reports she has not been eating much at all lately but reports she has been drinking two 20 oz water bottles daily. Tele with [facility] Review of Systems Review of Systems: All systems reviewed & are unremarkable except as noted in HPI & below Physical Exam Constitutional: WD/WN, vitals as above + obese Eyes: + anicteric sclerae ENMT: external ear and nose normal, oropharynx normal Neck: trachea midline, no thyromegaly Respiratory: normal respiratory effort; no labored breathing Auscultation: + diminished lung sounds (left lower lung field); no crackles, no rhonchi and no wheezes Cardiovascular: Rate/Rhythm: regular rhythm and + tachycardic Heart Sounds: no murmur Extremities: no calf tenderness and no edema Gastrointestinal (Abdomen): normal bowel sounds, soft, nontender, no hepatosplenomegaly Musculoskeletal: Extremities: extremities normal to inspection; no cyanosis and no clubbing Skin: no rashes, warm and dry Neurologic: moves all extremities and awake; no focal motor deficits Psychiatric: A+Ox3, euthymic affect Results & Data Vital Signs (Past 12 Hours) Vital Signs Temp Pulse Pulse Resp BP Pulse Ox 01/08/19 16:00 107 H 01/08/19 15:00 36.6 C 68 20 126/74 98 01/08/19 11:17 36.8 C 110 H 20 128/80 96 01/08/19 11:15 117 H 01/08/19 07:23 36.7 C 111 H 20 111/75 95 Laboratory Results 01/08/19 01/08/19 01/08/19 Range/Units 20:31 20:31 20:31 WBC (4.8-10.8) K/uL RBC (4.2-5.4) M/uL Hgb (12.0-16.0) g/dL Hct (37-47) % MCV (80-100) fL MCH (25-34) pg MCHC (32-36) g/dL RDW Std Deviation (36.4-46.3) fL RDW Coeff of Geoffrey (11.5-14.5) % Plt Count (130-400) K/uL MPV (7.4-10.4) fL Absolute Nucleated RBC (0-0) K/uL Nucleated RBC % (auto) % Neutrophils % (Manual) % Lymphocytes % (Manual) % Monocytes % (Manual) % Metamyelocytes % (Man) % Neutrophils # (Manual) (1.4-6.5) K/uL Total Absolute Neuts (1.4-6.5) K/uL Lymphocytes # (Manual) (1.2-3.4) K/uL Total Abs Lymphocytes (1.2-3.4) K/uL Monocytes # (Manual) (0.11-0.59) K/uL Metamyelocytes # (Man) (0-0) K/uL Toxic Granulation Dohle Bodies Sodium 123 L (136-145) mmol/L Potassium 3.6 (3.5-5.1) mmol/L Chloride 90 L (98-107) mmol/L Carbon Dioxide 23 (21-32) mmol/L Anion Gap 10.0 (3-11) BUN 17 (7-18) mg/dl Creatinine 1.52 H (0.6-1.2) mg/dl Est Cr Clr Drug Dosing 33.4 ml/min Est GFR ( Amer) 41.9 Est GFR (Non-Af Amer) 36.1 BUN/Creatinine Ratio 11.0 (10-20) Glucose 233 H (70-99) mg/dl Osmolality 264 L (280-300) mOsm/kg Calcium 7.8 L (8.5-10.1) mg/dl Phosphorus (2.5-4.9) mg/dl Magnesium (1.8-2.4) mg/dl Random Vancomycin 11.9 mcg/ml Hepatitis C Ab Screen (Neg) 01/08/19 01/08/19 01/08/19 Range/Units 16:56 12:59 05:53 WBC (4.8-10.8) K/uL RBC (4.2-5.4) M/uL Hgb (12.0-16.0) g/dL Hct (37-47) % MCV (80-100) fL MCH (25-34) pg MCHC (32-36) g/dL RDW Std Deviation (36.4-46.3) fL RDW Coeff of Geoffrey (11.5-14.5) % Plt Count (130-400) K/uL MPV (7.4-10.4) fL Absolute Nucleated RBC (0-0) K/uL Nucleated RBC % (auto) % Neutrophils % (Manual) % Lymphocytes % (Manual) % Monocytes % (Manual) % Metamyelocytes % (Man) % Neutrophils # (Manual) (1.4-6.5) K/uL Total Absolute Neuts (1.4-6.5) K/uL Lymphocytes # (Manual) (1.2-3.4) K/uL Total Abs Lymphocytes (1.2-3.4) K/uL Monocytes # (Manual) (0.11-0.59) K/uL Metamyelocytes # (Man) (0-0) K/uL Toxic Granulation Dohle Bodies Sodium 123 L 123 L 123 L (136-145) mmol/L Potassium 3.7 3.6 3.2 L (3.5-5.1) mmol/L Chloride 91 L 90 L 89 L (98-107) mmol/L Carbon Dioxide 24 26 26 (21-32) mmol/L Anion Gap 8.0 7.0 8.0 (3-11) BUN 16 15 13 (7-18) mg/dl Creatinine 1.38 H 1.37 H D 1.06 (0.6-1.2) mg/dl Est Cr Clr Drug Dosing 36.8 37.1 47.9 ml/min Est GFR ( Amer) 47.0 47.5 64.7 Est GFR (Non-Af Amer) 40.6 40.9 55.8 BUN/Creatinine Ratio 11.5 11.3 12.7 (10-20) Glucose 156 H 205 H 178 H (70-99) mg/dl Osmolality (280-300) mOsm/kg Calcium 7.9 L 7.7 L 8.1 L (8.5-10.1) mg/dl Phosphorus 1.9 L (2.5-4.9) mg/dl Magnesium 1.7 L (1.8-2.4) mg/dl Random Vancomycin mcg/ml Hepatitis C Ab Screen (Neg) 01/08/19 01/08/19 Range/Units 05:53 05:53 WBC 30.71 H* (4.8-10.8) K/uL RBC 3.66 L (4.2-5.4) M/uL Hgb 12.3 (12.0-16.0) g/dL Hct 33.1 L (37-47) % MCV 90.4 (80-100) fL MCH 33.6 (25-34) pg MCHC 37.2 H (32-36) g/dL RDW Std Deviation 51.8 H (36.4-46.3) fL RDW Coeff of Geoffrey 15.8 H (11.5-14.5) % Plt Count 382 (130-400) K/uL MPV 10.5 H (7.4-10.4) fL Absolute Nucleated RBC 0.05 H (0-0) K/uL Nucleated RBC % (auto) 0.2 % Neutrophils % (Manual) 86.5 % Lymphocytes % (Manual) 5.1 % Monocytes % (Manual) 7.6 % Metamyelocytes % (Man) 0.8 % Neutrophils # (Manual) 26.56 H (1.4-6.5) K/uL Total Absolute Neuts 26.56 H (1.4-6.5) K/uL Lymphocytes # (Manual) 1.57 (1.2-3.4) K/uL Total Abs Lymphocytes 1.57 (1.2-3.4) K/uL Monocytes # (Manual) 2.33 H (0.11-0.59) K/uL Metamyelocytes # (Man) 0.25 H (0-0) K/uL Toxic Granulation 1+ Dohle Bodies 1+ Sodium (136-145) mmol/L Potassium (3.5-5.1) mmol/L Chloride (98-107) mmol/L Carbon Dioxide (21-32) mmol/L Anion Gap (3-11) BUN (7-18) mg/dl Creatinine (0.6-1.2) mg/dl Est Cr Clr Drug Dosing ml/min Est GFR ( Amer) Est GFR (Non-Af Amer) BUN/Creatinine Ratio (10-20) Glucose (70-99) mg/dl Osmolality (280-300) mOsm/kg Calcium (8.5-10.1) mg/dl Phosphorus (2.5-4.9) mg/dl Magnesium (1.8-2.4) mg/dl Random Vancomycin mcg/ml Hepatitis C Ab Screen Neg (Neg) PG Care Time/CCT Total # of Minutes Spent Total Time Spent with Patient: Total time spent is greater than 50% in coordination of care (as documented) at patient's floor/unit and/or counseling patient:
[2019-01-08 21:18] LABS: Calcium 7.8 mg/dl (8.5-10.1); Creatinine Clr Calc Pharmacy 33.4 ml/min; Est GFR (African American) 41.9; Est GFR (Non-African American) 36.1; Potassium 3.6 mmol/L (3.5-5.1)
[2019-01-08] MEDS: AMLODIPINE BESYLATE 5 MG TAB PO SCH (21:22)
[2019-01-08] MEDS ORDERED: GLUCOSE 40% GEL 15 GM TUBE PO PRN (22:32)
[2019-01-08] MEDS ORDERED: GLUCOSE 10 TABS/TUBE PO PRN (22:32)
[2019-01-08] MEDS ORDERED: CARBOHYDRATES FOR HYPOGLYCEMIA PO PRN (22:32)
[2019-01-08] MEDS ORDERED: GLUCAGON FOR INJ 1 MG VIAL SQ PRN (22:32)
[2019-01-08] MEDS ORDERED: DEXTROSE 50% 50 ML SYRINGE IV PRN (22:32)
[2019-01-09] MEDS: PIPERACILLIN/TAZOBACTAM 3.375 GM in DEXTROSE 5% 100 ML IV SCH ×2 (02:20→09:43)
[2019-01-09 07:11] LABS: Appearance Urine Clear (Clear); Bacteria Urine Automated Negative (Negative); Bilirubin Urine Negative (Negative); Blood Urine Trace (Negative); Cast Urine Automated 0 /lpf (0-5); Color Urine Yellow; Epithelial Cell Urine Auto >30 /lpf (0-5); Glucose Urine UA Negative (Negative); Ketones Urine Negative (Negative); Leukocyte Esterase Urine Negative (Negative); Nitrite Urine Negative (Negative); Protein Urine Trace (Negative); Specific Gravity Urine 1.015 (1.000-1.030); Urobilinogen Urine Negative (Negative)
[2019-01-09 07:13] LABS: Mean Corpuscular Hgb Conc 36.4 g/dL (32-36); Mean Corpuscular Volume 90.7 fL (80-100); Nucleated RBC # (auto) 0.05 K/uL (0-0); Nucleated RBC % (auto) 0.2 %; Platelet Count 361 K/uL (130-400); RDW Coefficient of Variation 15.8 % (11.5-14.5); RDW Standard Deviation 52.7 fL (36.4-46.3); Red Blood Count 3.64 M/uL (4.2-5.4); White Blood Count 32.67 K/uL (4.8-10.8)
[2019-01-09 07:16] LABS: BUN Creatinine Ratio 12.8 (10-20); Calcium 7.8 mg/dl (8.5-10.1); Est GFR (African American) 42.5; Est GFR (Non-African American) 36.7; Magnesium 2.6 mg/dl (1.8-2.4); Potassium 3.3 mmol/L (3.5-5.1)
[2019-01-09 07:21] LABS: Phosphorus 2.8 mg/dl (2.5-4.9)
[2019-01-09 07:27] LABS: Creatinine Urine Random 40.1 mg/dl; RBC Urine Automated 0-4 /hpf (0-4)
[2019-01-09] MEDS ORDERED: VANCOMYCIN TROUGH ONE (07:30)
--- NOTE | 2019-01-09 07:57 | XRay Report ---
XR chest 1V portable HISTORY: empyema COMPARISON: Chest 01/08/2019. FINDINGS: Slight improved aeration within the left midlung zone. Loculated left pleural effusion has also slightly improved. Left basilar pleural catheter remains in position. Right jugular Port-A-Cath terminates at the distal SVC. Suspect a small right pleural effusion. No pneumothorax. Right mid to l ower lung zone linear densities are also unchanged. The heart remains enlarged. IMPRESSION: 1. Slight improvement in the loculated left pleural effusion and aeration within the left lung. 2. Left basilar pleural catheter remains unchanged in position. Electronically signed by: Alfred Arguelles M.D. 01/09/2019 7:56 AM
[2019-01-09 08:01] LABS: ALC (manual) 0.98 K/uL (1.2-3.4); ANC (manual) 29.14 K/uL (1.4-6.5); Dohle Bodies 1+; Lymphocytes # (manual) 0.98 K/uL (1.2-3.4); Metamyelocytes # (manual) 0.13 K/uL (0-0); Metamyelocytes % (manual) 0.4 %; Monocytes # (manual) 2.29 K/uL (0.11-0.59); Myelocytes # (manual) 0.13 K/uL (0-0); Myelocytes % (manual) 0.4 %; Neutrophils # (manual) 29.14 K/uL (1.4-6.5); Neutrophils % (manual) 89.2 %; Toxic Granulation 1+
[2019-01-09 08:25] LABS: Estimated Average Glucose 146 mg/dl; Hemoglobin A1C 6.7 % (4.5-5.6)
[2019-01-09] MEDS: ALTEPLASE, RECOMBINANT 10 MG in SYRINGE 50 ML IPL SCH ×2 (09:06→20:55)
[2019-01-09] MEDS: SODIUM CHLORIDE 0.9% 1000ML 1,000 ML IV SCH ×2 (09:25→11:15)
[2019-01-09] MEDS: CETIRIZINE HCL 10 MG TABLET PO SCH (09:25)
[2019-01-09] MEDS: ENOXAPARIN INJ 40 MG/0.4 ML SYR SQ SCH (09:25)
[2019-01-09] MEDS: INSULIN ASPART 100 UNITS/ML 3 ML PEN SC SCH ×4 (09:48→20:53)
[2019-01-09] MEDS: DORNASE ALFA 5 ML in SYRINGE 25 ML IPL SCH ×2 (10:19→22:05)
[2019-01-09] MEDS ORDERED: POTASSIUM CHLORIDE / WTR 20 MEQ/100 ML PLCT IV SCH (11:00)
[2019-01-09] MEDS ORDERED: SODIUM CHLORIDE 1 GM TABLET PO ONE ×2 (11:15→16:06)
[2019-01-09] MEDS: POTASSIUM CHLORIDE / WTR 10 MEQ/100 ML PLCT IV SCH ×4 (11:36→16:19)
--- NOTE | 2019-01-09 11:36 | Nephrology Consultation ---
Date of Consultation January 09, 2019 Assessment & Plan (1) Hyponatremia: -- Hyponatremia due to appropriate ADH release in the setting of pulmonary infection -- Patient appears clinically euvolemic. Serum sodium dropped in the setting of saline administration -- Hold saline. Limit oral free water intake. Administer 2 g NaCl x1. Will recheck serum sodium this afternoon (2) JOSE (acute kidney injury): -- Mild elevation in creatinine. Will monitor. Consider gentle hydration once Pleur-x catheter is functioning and infection treated w/ antibiotics (3) Malignant pleural effusion: -- Pleur-x catheter nonfunctional. MIST-[address] Judd History of Present Illness Reason for Consultation: Hyponatremia Attending Physician: Rach Echavarria MD History of Present Illness Mrs. Preston is a 63 year old white female who is seen at the request of Dr. Echavarria for evaluation of hyponatremia. Medical records in the EMR were reviewed today and are summarized as follows: Mrs. Preston has breast CA w/ metastasis to the bone and malignant pleural effusions. She has a L Pleur-x catheter in place to drain the effusion. Unfortunately this became blocked and patient's effusion progressively worsened. She presented to the ED last evening for evaluation of dyspnea. She was diagnosed w/ a loculated effusion and underwent thoracentesis by Dr. Judd. Admission was advised for MIST-2 protocol and antibiotic therapy. Serum sodium was 125 mmol/L in the ED. This dropped to 123 mmol/L following hydration w/ 0.9NS and Nephrology consultation is now requested. Allergies Allergy/AdvReac Type Severity Reaction Status Date / Time cat dander Allergy Mild Itchy Eyes Verified 01/07/19 10:38 lisinopril Allergy Mild Cough Unverified 01/07/19 10:38 Home Medications Home Medications Medication Instructions Recorded Confirmed Type cetirizine [Zyrtec] 10 mg PO QAM 07/26/18 01/07/19 History albuterol sulfate 2 inh INHALATION Q6H PRN 08/12/18 01/07/19 History amlodipine 5 mg PO HS 08/12/18 01/07/19 History aspirin 81 mg PO DAILY 08/12/18 01/07/19 History ondansetron HCl 8 mg PO Q8 08/22/18 01/07/19 History azithromycin [Zithromax] 500 mg PO DAILY 7 Days #7 tab 11/19/19 Rx cephalexin [Keflex] 500 mg PO Q6H 10 Days #40 cap 01/07/19 Rx chlorthalidone 50 mg PO DAILY 01/07/19 01/07/19 History dexamethasone 4 mg PO BID PRN 01/07/19 01/07/19 History Patient History Medical History Breast CA LEFT BREAST CANCER S/P LEFT BREAST TUMOR REMOVAL CKD (chronic kidney disease), stage III Essential (primary) hypertension (Chronic) Hyperlipidemia DIET CONTROLLED Obesity MARK (obstructive sleep apnea) (Chronic) CPAP Pancreatic cyst BEING MONITORED Pneumonia RECENT DX Prediabetes (Chronic) Thalassemia carrier Thyroid nodule 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 Surgical History H/O section H/O heart surgery BENIGN VALVULAR TUMOR EXCISION 2004; SUBSEQUENT CARDIO FOLLOWUP "NORMAL" AND TOLD SHE DID NOT NEED TO CONTINUE FOLLOWING WITH CARDIO H/O hernia repair H/O tubal ligation History of bronchoscopy + CANCER (RECENT BIOPSY) History of cardiac cath 2004= NO STENTS History of ectopic WITH PARTIAL FALLOPIAN TUBE REMOVAL PER PT History of tooth extraction Status post partial mastectomy of left breast lumpectomy, 2017, with axillary lymph node dissection Family History Father , age 61 Stroke Mother , age 78 Pulmonary embolism Social History Preferred Language: German Communication Ability: Effective Industrial Millwright Required: No Beliefs That Will Affect Care: None marital status: marital status details: 4 children Current Living Situation: Spouse 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[place]; 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[employer] (-[employer] Other Information That Helps Us Care for You: No Feels Safe at Home: Yes Safety Concerns: Feels Safe At This Time Smoking Status: Never smoker Second Hand Exposure: No ; Hx Alcohol Use: Yes Alcohol type: wine Alcohol Intake Frequency: Holidays/Special Occasions Hx Substance Use: No Review of Systems Constitutional: no fever and no weakness Eyes: no worsening vision and no problem reported Ear, Nose, Mouth, Throat: no problem reported Respiratory: no cough and no dyspnea Cardiovascular: no chest pain, no palpitations and no edema Gastrointestinal: no abdominal pain, no nausea, no vomiting and no diarrhea/loose stools Genitourinary: no dysuria and no hematuria Musculoskeletal: no back pain Integumentary: no rash Neurologic: no falls, no dizziness and no confusion Physical Exam Constitutional: not in distress Eyes: PERRL, conjunctivae normal, anicteric sclerae ENMT: external ear and nose normal, oropharynx normal Neck: trachea midline, no thyromegaly Respiratory: normal respiratory effort, lungs clear to auscultation L Pleur-x catheter in place w/ clean, dry dressing Cardiovascular: RRR, no murmur, no edema Gastrointestinal (Abdomen): normal bowel sounds, soft, nontender, no hepatospl enomegaly Musculoskeletal: Extremities: no cyanosis Skin: no rashes, warm and dry Neurologic: awake; not confused Results & Data Vital Signs (Past 12 Hours) Vital Signs Temp Pulse Pulse Resp BP BP Pulse Ox 01/09/19 08:11 37.5 C 100 H 20 112/76 90 01/09/19 05:40 84 01/09/19 03:45 36.3 C L 102 H 18 122/84 97 01/09/19 00:00 99 H 01/08/19 23:53 36.7 C 101 H 19 106/74 95 Laboratory Results Laboratory Tests 01/09/19 01/09/19 01/09/19 06:29 06:29 06:45 WBC 32.67 H* Hgb 12.0 Hct 33.0 L Plt Count 361 Sodium 126 L Potassium 3.3 L Chloride 92 L Carbon Dioxide 25 BUN 19 H Creatinine 1.50 H Glucose 160 H Calcium 7.8 L Urine Color Yellow Urine Appearance Clear Urine pH 5.0 Ur Specific [place] 1.015 Urine Protein Trace H Urine Glucose (UA) Negative Urine Nitrite Negative Ur Leukocyte Esterase Negative Urine RBC (Auto) 0-4 U Epithel Cells (Auto) >30 H PG Care Time/CCT Total # of Minutes Spent Total Time Spent with Patient: Total time spent is greater than 50% in coordination of care (as documented) at patient's floor/unit and/or counseling patient:
--- NOTE | 2019-01-09 11:39 | Ultrasound Report ---
US renal/blad retro comp CLINICAL HISTORY: 63 years-old Female presenting with renal failure. TECHNIQUE: Real-time grayscale and limited color Doppler ultrasound imaging of the kidneys and bladde r was performed. COMPARISON: Correlation made to MRCP from 07/04/2017. FINDINGS: Right kidney: Normal echogenicity with preserved corticomedullary differentiation. Normal cortical th ickness. Right kidney measures 10.9 cm. No hydronephrosis. No convincing evidence of calculus or mass . Left kidney: Normal echogenicity with preserved corticomedullary differentiation. Normal cortical thi ckness. Left kidney measures 10.1 cm. No hydronephrosis. No convincing evidence of calculus or mass. Bladder: Normal. Bilateral ureteral jets present. Other: Prominence of the uterus. IMPRESSION: 1. Normal renal ultrasound. No obstruction. Electronically signed by: Chivo Kitchen M.D. 01/09/2019 11:38 AM
[2019-01-09 14:41] LABS: BUN Creatinine Ratio 12.9 (10-20); Calcium 7.2 mg/dl (8.5-10.1); Creatinine Clr Calc Pharmacy 31.5 ml/min; Est GFR (African American) 38.8; Est GFR (Non-African American) 33.4; Potassium 3.4 mmol/L (3.5-5.1)
--- NOTE | 2019-01-09 15:47 | Surgery Progress Note ---
Date of Service January 09, 2019 Assessment & Plan (1) Empyema of left pleural space: We had a long talk today. I explained to Ms. Preston that I was not happy with the x-ray however we will continue the MIST - 2 Protocol's are 6 cycles were completed. We will then repeat a CT scan. My threshold for repeating this 3-day cycle of the protocol is fairly low. She understands. Present on Admission?: Yes (2) Malignant pleural effusion: Present on Admission?: Yes Subjective Ann Marie Preston states that she is "better". She been ambulating in the hallway. Tolerating a diet. Unfortunately, she has not drained as well as I would have liked. Even though to put out a good deal of pleural fluid, she still has fluid which appears loculated in the upper left pleural cavity which is new from yesterday. We will complete the mist 2 protocol after 6 doses and reevaluate. We may want to repeat this 3-day cycle again if she is not well drained. Results & Data Vital Signs (Past 12 Hours) Vital Signs Temp Pulse Pulse Resp BP BP Pulse Ox 01/09/19 15:36 37.1 C 92 H 16 117/80 97 01/09/19 12:28 87 01/09/19 12:02 37 C 104 H 17 113/80 98 01/09/19 08:11 37.5 C 100 H 20 112/76 90 01/09/19 05:40 84 01/09/19 03:45 36.3 C L 102 H 18 122/84 97 PG Care Time/CCT Total # of Minutes Spent Total Time Spent with Patient: Total time spent is greater than 50% in coordination of care (as documented) at patient's floor/unit and/or counseling patient:
[2019-01-09] MEDS: CEFAZOLIN 1000MG 1,000 MG/7.5 ML SYR IV SCH ×2 (16:12→23:47)
[2019-01-09] MEDS ORDERED: SODIUM CHLORIDE 0.9% 1000ML 1,000 ML IV SCH (18:00)
--- NOTE | 2019-01-09 18:49 | Hospitalist Progress Note ---
Date of Service January 09, 2019 Assessment & Plan (1) Empyema of left pleural space: With PleurX catheter in place for malignant effusion since 08/2018 Now with loculated effusion, growing MSSA in pleural fluid culture -Thoracic Surgery requested admission--> on day #3 of MIST-2 protocol, draining a lot of fluid, however chest x-ray findings are concerning that is not working -May repeat a second round of mist-2 protocol -follow CXR daily -Discontinue vancomycin and Zosyn -Start Ancef 1000 mg IV every 8 hours for MSSA empyema -follow CBC-with significant leukocytosis that is worsening today to 32,000-see below but will check blood cultures (2) Acute respiratory failure with hypoxia: Secondary to loculated effusion, does not feel dyspneic but still requiring 4 L nasal cannula -continue supplemental O2 as needed to keep POx>90% -Continue to treat empyema as above (3) Malignant pleural effusion: As above, secondary to Br CA (4) Hypokalemia: -Continues, replace with IV and p.o. potassium chloride -follow BMP, Mag daily (5) Acute hyponatremia: Baseline is around 134-136 Is on chlorthalidone 50mg daily prior to admission and did receive her dose on the morning of 01/08-it has since been held Is tachycardic, weight is down overall from previous, no edema Pleural effusion is not from CHF but rather from malignancy [employer] continues to rise despite IV fluid hydration Na+ 125 on admission and then down to 123, however back up to 126 this morning after copious normal saline hydration in the last 24 hours Repeat labs in the afternoon show sodium is back down to 123 after discontinuation of normal saline Is hypotonic hyponatremia--> suspect hypovolemia and likely secondary to extra- renal losses and "tea/toast diet" as has had poor po intake Also with some developing acute kidney injury possibly due to ATN from infection Urine sodium was 24 and urine osmolality 218 but was collected 24 hours after admission and after being given normal saline Urinalysis with only trace protein and trace blood, no casts Appreciate nephrology consultation-likely appropriate ADH release in the setting of infection and dehydration -Restart normal saline with 1 L to be given over 10 hours -Continue to hold chlorthalidone from home -consult Nephrology-appreciated -follow serial BMP in the morning (6) Leukocytosis: In the setting of current infection and recent dexamethasone use on 01/01- 01/03 as well as Neulasta received 01/01 -worsening again today to 32k, reactive in nature Obviously secondary to MSSA empyema, remains afebrile, but question if has developed bacteremia? -Check blood cultures -follow CBC -Continue treating infection with antibiotics (7) Breast cancer: Left Br CA triple neg dxd in 2017, s/p surgery but no chemo With mets now to bones, lungs She has been following with Dr. Burton at [facility] [place] Her last chemo was 01/01, doclataxel therapy She takes dexamethasone pre/post chemo Appreciate Onco consult here-nothing to add at this time (8) Essential (primary) hypertension: Controlled -continue home amlodipine -Continue to HOLD chlorthalidone secondary to hyponatremia (9) Hypophosphatemia: replaced with IV K-phos and now normal (10) Hypomagnesemia: replaced with IV Magnesium and now acceptable (11) JOSE (acute kidney injury): [employer] continues to be climbing throughout the hospitalization despite hydration with IVFs, now at 1.6 up from 0.8 upon admission BUN rising as well, otherwise lytes ok Suspect ATN from sepsis UA without casts or signs of infection -is making adequate urine-follow I/Os FeNa unreliable in the setting of taking thiazide diuretics but is 0.68%, FeUrea calculated at 55% which is indicative of intrinsic renal disease Renal ultrasound negative for obstruction -consult Nephrology appreciated -Restart IV fluids as above -Follow BMP in the morning (12) MARK (obstructive sleep apnea): continue qhs CPAP-ordered, however patient is refusing (13) CKD (chronic kidney disease), stage III: baseline GFR 50s-70s CKD stage 2-3 -avoid nephrotpxins -renally dose meds -follow BMP (14) Prediabetes: HgbA1C actually in diabetic range at 6.7% on last check and remains stable at that level this admission With hyperglycemia here which is now improving after starting sliding scale insulin -Continue accuchecks ACHS and SSI -Will not need medication upon discharge (15) DVT prophylaxis: Lovenox for DVT proph Dispo-remain hospitalized, if needs to repeat the mist-2 protocol, would be here for yet another 3 days Subjective Patient states she feels better today, denies lightheadedness or chest pain, not short of breath. She plans on ambulating today. Denies nausea or abdominal pain. I discussed her case with nephrology and thoracic surgery. Telemetry with sinus tachycardia with rates in the 100s and normal sinus rhythm with rates in the 80s to 90s, some PVCs Review of Systems Review of Systems: All systems reviewed & are unremarkable except as noted in HPI & below Physical Exam Constitutional: WD/WN, vitals as above + obese Eyes: + anicteric sclerae ENMT: external ear and nose normal, oropharynx normal Neck: trachea midline, no thyromegaly Respiratory: normal respiratory effort; no labored breathing Auscultation: + diminished lung sounds (left lower lung field); no crackles, no rhonchi and no wheezes Cardiovascular: Rate/Rhythm: regular rate and regular rhythm Heart Sounds: no murmur Extremities: no calf tenderness and no edema Gastrointestinal (Abdomen): normal bowel sounds, soft, nontender, no hepatosplenomegaly Musculoskeletal: Extremities: extremities normal to inspection; no cyanosis and no clubbing Skin: no rashes, warm and dry Neurologic: moves all extremities and awake; no focal motor deficits Psychiatric: A+Ox3, euthymic affect Results & Data Vital Signs (Past 12 Hours) Vital Signs Temp Pulse Pulse Resp BP BP Pulse Ox 01/09/19 15:36 37.1 C 92 H 16 117/80 97 01/09/19 12:28 87 01/09/19 12:02 37 C 104 H 17 113/80 98 01/09/19 08:11 37.5 C 100 H 20 112/76 90 Laboratory Results 01/09/19 01/09/19 01/09/19 Range/Units 16:23 13:52 13:52 WBC (4.8-10.8) K/uL RBC (4.2-5.4) M/uL Hgb (12.0-16.0) g/dL Hct (37-47) % MCV (80-100) fL MCH (25-34) pg MCHC (32-36) g/dL RDW Std Deviation (36.4-46.3) fL RDW Coeff of Geoffrey (11.5-14.5) % Plt Count (130-400) K/uL MPV (7.4-10.4) fL Absolute Nucleated RBC (0-0) K/uL Nucleated RBC % (auto) % Neutrophils % (Manual) % Lymphocytes % (Manual) % Monocytes % (Manual) % Metamyelocytes % (Man) % Myelocytes % (Man) % Neutrophils # (Manual) (1.4-6.5) K/uL Total Absolute Neuts (1.4-6.5) K/uL Lymphocytes # (Manual) (1.2-3.4) K/uL Total Abs Lymphocytes (1.2-3.4) K/uL Monocytes # (Manual) (0.11-0.59) K/uL Metamyelocytes # (Man) (0-0) K/uL Myelocytes # (Manual) (0-0) K/uL Toxic Granulation Dohle Bodies Sodium 125 L (136-145) mmol/L Potassium 3.4 L (3.5-5.1) mmol/L Chloride 94 L (98-107) mmol/L Carbon Dioxide 23 (21-32) mmol/L Anion Gap 8.0 (3-11) BUN 21 H (7-18) mg/dl Creatinine 1.62 H (0.6-1.2) mg/dl Est Cr Clr Drug Dosing 31.5 ml/min Est GFR ( Amer) 38.8 Est GFR (Non-Af Amer) 33.4 BUN/Creatinine Ratio 12.9 (10-20) Glucose 177 H (70-99) mg/dl POC Glucose 147 H (70-99) Estimat Average Glucose mg/dl Hemoglobin A1c (4.5-5.6) % Osmolality (280-300) mOsm/kg Calcium 7.2 L (8.5-10.1) mg/dl Phosphorus (2.5-4.9) mg/dl Magnesium (1.8-2.4) mg/dl Random Cortisol 41.62 mcg/dl Urine Color Urine Appearance (Clear) Urine pH (4.5-7.5) Ur Specific Alta (1.000-1.030) Urine Protein (Negative) Urine Glucose (UA) (Negative) Urine Ketones (Negative) Urine Blood (Negative) Urine Nitrite (Negative) Urine Bilirubin (Negative) Urine Urobilinogen (Negative) Ur Leukocyte Esterase (Negative) Urine WBC (Auto) (0-5) /hpf Urine RBC (Auto) (0-4) /hpf U Hyaline Cast (Auto) (0-5) /lpf U Epithel Cells (Auto) (0-5) /lpf Urine Bacteria (Auto) (Negative) Urine Yeast Urine Osmolality (500-800) mOsm/kg Ur Random Creatinine mg/dl Ur Random Sodium mmol/L Ur Random Urea Nitrogn mg/dl Random Vancomycin mcg/ml 01/09/19 01/09/19 01/09/19 Range/Units 11:54 07:27 06:45 WBC (4.8-10.8) K/uL RBC (4.2-5.4) M/uL Hgb (12.0-16.0) g/dL Hct (37-47) % MCV (80-100) fL MCH (25-34) pg MCHC (32-36) g/dL RDW Std Deviation (36.4-46.3) fL RDW Coeff of Geoffrey (11.5-14.5) % Plt Count (130-400) K/uL MPV (7.4-10.4) fL Absolute Nucleated RBC (0-0) K/uL Nucleated RBC % (auto) % Neutrophils % (Manual) % Lymphocytes % (Manual) % Monocytes % (Manual) % Metamyelocytes % (Man) % Myelocytes % (Man) % Neutrophils # (Manual) (1.4-6.5) K/uL Total Absolute Neuts (1.4-6.5) K/uL Lymphocytes # (Manual) (1.2-3.4) K/uL Total Abs Lymphocytes (1.2-3.4) K/uL Monocytes # (Manual) (0.11-0.59) K/uL Metamyelocytes # (Man) (0-0) K/uL Myelocytes # (Manual) (0-0) K/uL Toxic Granulation Dohle Bodies Sodium (136-145) mmol/L Potassium (3.5-5.1) mmol/L Chloride (98-107) mmol/L Carbon Dioxide (21-32) mmol/L Anion Gap (3-11) BUN (7-18) mg/dl Creatinine (0.6-1.2) mg/dl Est Cr Clr Drug Dosing ml/min Est GFR ( Amer) Est GFR (Non-Af Amer) BUN/Creatinine Ratio (10-20) Glucose (70-99) mg/dl POC Glucose 163 H 161 H (70-99) Estimat Average Glucose mg/dl Hemoglobin A1c (4.5-5.6) % Osmolality (280-300) mOsm/kg Calcium (8.5-10.1) mg/dl Phosphorus (2.5-4.9) mg/dl Magnesium (1.8-2.4) mg/dl Random Cortisol mcg/dl Urine Color Urine Appearance (Clear) Urine pH (4.5-7.5) Ur Specific Alta (1.000-1.030) Urine Protein (Negative) Urine Glucose (UA) (Negative) Urine Ketones (Negative) Urine Blood (Negative) Urine Nitrite (Negative) Urine Bilirubin (Negative) Urine Urobilinogen (Negative) Ur Leukocyte Esterase (Negative) Urine WBC (Auto) (0-5) /hpf Urine RBC (Auto) (0-4) /hpf U Hyaline Cast (Auto) (0-5) /lpf U Epithel Cells (Auto) (0-5) /lpf Urine Bacteria (Auto) (Negative) Urine Yeast Urine Osmolality (500-800) mOsm/kg Ur Random Creatinine mg/dl Ur Random Sodium mmol/L Ur Random Urea Nitrogn Cancelled mg/dl Random Vancomycin mcg/ml 01/09/19 01/09/19 01/09/19 Range/Units 06:45 06:45 06:45 WBC (4.8-10.8) K/uL RBC (4.2-5.4) M/uL Hgb (12.0-16.0) g/dL Hct (37-47) % MCV (80-100) fL MCH (25-34) pg MCHC (32-36) g/dL RDW Std Deviation (36.4-46.3) fL RDW Coeff of Geoffrey (11.5-14.5) % Plt Count (130-400) K/uL MPV (7.4-10.4) fL Absolute Nucleated RBC (0-0) K/uL Nucleated RBC % (auto) % Neutrophils % (Manual) % Lymphocytes % (Manual) % Monocytes % (Manual) % Metamyelocytes % (Man) % Myelocytes % (Man) % Neutrophils # (Manual) (1.4-6.5) K/uL Total Absolute Neuts (1.4-6.5) K/uL Lymphocytes # (Manual) (1.2-3.4) K/uL Total Abs Lymphocytes (1.2-3.4) K/uL Monocytes # (Manual) (0.11-0.59) K/uL Metamyelocytes # (Man) (0-0) K/uL Myelocytes # (Manual) (0-0) K/uL Toxic Granulation Dohle Bodies Sodium (136-145) mmol/L Potassium (3.5-5.1) mmol/L Chloride (98-107) mmol/L Carbon Dioxide (21-32) mmol/L Anion Gap (3-11) BUN (7-18) mg/dl Creatinine (0.6-1.2) mg/dl Est Cr Clr Drug Dosing ml/min Est GFR ( Amer) Est GFR (Non-Af Amer) BUN/Creatinine Ratio (10-20) Glucose (70-99) mg/dl POC Glucose (70-99) Estimat Average Glucose mg/dl Hemoglobin A1c (4.5-5.6) % Osmolality (280-300) mOsm/kg Calcium (8.5-10.1) mg/dl Phosphorus (2.5-4.9) mg/dl Magnesium (1.8-2.4) mg/dl Random Cortisol mcg/dl Urine Color Yellow Urine Appearance Clear (Clear) Urine pH 5.0 (4.5-7.5) Ur Specific Alta 1.015 (1.000-1.030) Urine Protein Trace H (Negative) Urine Glucose (UA) Negative (Negative) Urine Ketones Negative (Negative) Urine Blood Trace H (Negative) Urine Nitrite Negative (Negative) Urine Bilirubin Negative (Negative) Urine Urobilinogen Negative (Negative) Ur Leukocyte Esterase Negative (Negative) Urine WBC (Auto) 1-5 (0-5) /hpf Urine RBC (Auto) 0-4 (0-4) /hpf U Hyaline Cast (Auto) 0 (0-5) /lpf U Epithel Cells (Auto) >30 H (0-5) /lpf Urine Bacteria (Auto) Negative (Negative) Urine Yeast Not Reportable Urine Osmolality 218 L (500-800) mOsm/kg Ur Random Creatinine mg/dl Ur Random Sodium Cancelled mmol/L Ur Random Urea Nitrogn mg/dl Random Vancomycin mcg/ml 01/09/19 01/09/19 01/09/19 Range/Units 06:45 06:29 06:29 WBC (4.8-10.8) K/uL RBC (4.2-5.4) M/uL Hgb (12.0-16.0) g/dL Hct (37-47) % MCV (80-100) fL MCH (25-34) pg MCHC (32-36) g/dL RDW Std Deviation (36.4-46.3) fL RDW Coeff of Geoffrey (11.5-14.5) % Plt Count (130-400) K/uL MPV (7.4-10.4) fL Absolute Nucleated RBC (0-0) K/uL Nucleated RBC % (auto) % Neutrophils % (Manual) % Lymphocytes % (Manual) % Monocytes % (Manual) % Metamyelocytes % (Man) % Myelocytes % (Man) % Neutrophils # (Manual) (1.4-6.5) K/uL Total Absolute Neuts (1.4-6.5) K/uL Lymphocytes # (Manual) (1.2-3.4) K/uL Total Abs Lymphocytes (1.2-3.4) K/uL Monocytes # (Manual) (0.11-0.59) K/uL Metamyelocytes # (Man) (0-0) K/uL Myelocytes # (Manual) (0-0) K/uL Toxic Granulation Dohle Bodies Sodium (136-145) mmol/L Potassium (3.5-5.1) mmol/L Chloride (98-107) mmol/L Carbon Dioxide (21-32) mmol/L Anion Gap (3-11) BUN (7-18) mg/dl Creatinine (0.6-1.2) mg/dl Est Cr Clr Drug Dosing ml/min Est GFR ( Amer) Est GFR (Non-Af Amer) BUN/Creatinine Ratio (10-20) Glucose (70-99) mg/dl POC Glucose (70-99) Estimat Average Glucose 146 mg/dl Hemoglobin A1c 6.7 H (4.5-5.6) % Osmolality (280-300) mOsm/kg Calcium (8.5-10.1) mg/dl Phosphorus (2.5-4.9) mg/dl Magnesium (1.8-2.4) mg/dl Random Cortisol mcg/dl Urine Color Urine Appearance (Clear) Urine pH (4.5-7.5) Ur Specific Alta (1.000-1.030) Urine Protein (Negative) Urine Glucose (UA) (Negative) Urine Ketones (Negative) Urine Blood (Negative) Urine Nitrite (Negative) Urine Bilirubin (Negative) Urine Urobilinogen (Negative) Ur Leukocyte Esterase (Negative) Urine WBC (Auto) (0-5) /hpf Urine RBC (Auto) (0-4) /hpf U Hyaline Cast (Auto) (0-5) /lpf U Epithel Cells (Auto) (0-5) /lpf Urine Bacteria (Auto) (Negative) Urine Yeast Urine Osmolality (500-800) mOsm/kg Ur Random Creatinine 40.1 mg/dl Ur Random Sodium 23 mmol/L Ur Random Urea Nitrogn 279 mg/dl Random Vancomycin 17.9 mcg/ml 01/09/19 01/09/19 01/08/19 Range/Units 06:29 06:29 20:31 WBC 32.67 H* (4.8-10.8) K/uL RBC 3.64 L (4.2-5.4) M/uL Hgb 12.0 (12.0-16.0) g/dL Hct 33.0 L (37-47) % MCV 90.7 (80-100) fL MCH 33.0 (25-34) pg MCHC 36.4 H (32-36) g/dL RDW Std Deviation 52.7 H (36.4-46.3) fL RDW Coeff of Geoffrey 15.8 H (11.5-14.5) % Plt Count 361 (130-400) K/uL MPV 10.0 (7.4-10.4) fL Absolute Nucleated RBC 0.05 H (0-0) K/uL Nucleated RBC % (auto) 0.2 % Neutrophils % (Manual) 89.2 % Lymphocytes % (Manual) 3.0 % Monocytes % (Manual) 7.0 % Metamyelocytes % (Man) 0.4 % Myelocytes % (Man) 0.4 % Neutrophils # (Manual) 29.14 H (1.4-6.5) K/uL Total Absolute Neuts 29.14 H (1.4-6.5) K/uL Lymphocytes # (Manual) 0.98 L (1.2-3.4) K/uL Total Abs Lymphocytes 0.98 L (1.2-3.4) K/uL Monocytes # (Manual) 2.29 H (0.11-0.59) K/uL Metamyelocytes # (Man) 0.13 H (0-0) K/uL Myelocytes # (Manual) 0.13 H (0-0) K/uL Toxic Granulation 1+ Dohle Bodies 1+ Sodium 126 L 123 L (136-145) mmol/L Potassium 3.3 L 3.6 (3.5-5.1) mmol/L Chloride 92 L 90 L (98-107) mmol/L Carbon Dioxide 25 23 (21-32) mmol/L Anion Gap 9.0 10.0 (3-11) BUN 19 H 17 (7-18) mg/dl Creatinine 1.50 H 1.52 H (0.6-1.2) mg/dl Est Cr Clr Drug Dosing 34.0 33.4 ml/min Est GFR ( Amer) 42.5 41.9 Est GFR (Non-Af Amer) 36.7 36.1 BUN/Creatinine Ratio 12.8 11.0 (10-20) Glucose 160 H 233 H (70-99) mg/dl POC Glucose (70-99) Estimat Average Glucose mg/dl Hemoglobin A1c (4.5-5.6) % Osmolality (280-300) mOsm/kg Calcium 7.8 L 7.8 L (8.5-10.1) mg/dl Phosphorus 2.8 (2.5-4.9) mg/dl Magnesium 2.6 H (1.8-2.4) mg/dl Random Cortisol mcg/dl Urine Color Urine Appearance (Clear) Urine pH (4.5-7.5) Ur Specific Alta (1.000-1.030) Urine Protein (Negative) Urine Glucose (UA) (Negative) Urine Ketones (Negative) Urine Blood (Negative) Urine Nitrite (Negative) Urine Bilirubin (Negative) Urine Urobilinogen (Negative) Ur Leukocyte Esterase (Negative) Urine WBC (Auto) (0-5) /hpf Urine RBC (Auto) (0-4) /hpf U Hyaline Cast (Auto) (0-5) /lpf U Epithel Cells (Auto) (0-5) /lpf Urine Bacteria (Auto) (Negative) Urine Yeast Urine Osmolality (500-800) mOsm/kg Ur Random Creatinine mg/dl Ur Random Sodium mmol/L Ur Random Urea Nitrogn mg/dl Random Vancomycin mcg/ml 01/08/19 01/08/19 Range/Units 20:31 20:31 WBC (4.8-10.8) K/uL RBC (4.2-5.4) M/uL Hgb (12.0-16.0) g/dL Hct (37-47) % MCV (80-100) fL MCH (25-34) pg MCHC (32-36) g/dL RDW Std Deviation (36.4-46.3) fL RDW Coeff of Geoffrey (11.5-14.5) % Plt Count (130-400) K/uL MPV (7.4-10.4) fL Absolute Nucleated RBC (0-0) K/uL Nucleated RBC % (auto) % Neutrophils % (Manual) % Lymphocytes % (Manual) % Monocytes % (Manual) % Metamyelocytes % (Man) % Myelocytes % (Man) % Neutrophils # (Manual) (1.4-6.5) K/uL Total Absolute Neuts (1.4-6.5) K/uL Lymphocytes # (Manual) (1.2-3.4) K/uL Total Abs Lymphocytes (1.2-3.4) K/uL Monocytes # (Manual) (0.11-0.59) K/uL Metamyelocytes # (Man) (0-0) K/uL Myelocytes # (Manual) (0-0) K/uL Toxic Granulation Dohle Bodies Sodium (136-145) mmol/L Potassium (3.5-5.1) mmol/L Chloride (98-107) mmol/L Carbon Dioxide (21-32) mmol/L Anion Gap (3-11) BUN (7-18) mg/dl Creatinine (0.6-1.2) mg/dl Est Cr Clr Drug Dosing ml/min Est GFR ( Amer) Est GFR (Non-Af Amer) BUN/Creatinine Ratio (10-20) Glucose (70-99) mg/dl POC Glucose (70-99) Estimat Average Glucose mg/dl Hemoglobin A1c (4.5-5.6) % Osmolality 264 L (280-300) mOsm/kg Calcium (8.5-10.1) mg/dl Phosphorus (2.5-4.9) mg/dl Magnesium (1.8-2.4) mg/dl Random Cortisol mcg/dl Urine Color Urine Appearance (Clear) Urine pH (4.5-7.5) Ur Specific Alta (1.000-1.030) Urine Protein (Negative) Urine Glucose (UA) (Negative) Urine Ketones (Negative) Urine Blood (Negative) Urine Nitrite (Negative) Urine Bilirubin (Negative) Urine Urobilinogen (Negative) Ur Leukocyte Esterase (Negative) Urine WBC (Auto) (0-5) /hpf Urine RBC (Auto) (0-4) /hpf U Hyaline Cast (Auto) (0-5) /lpf U Epithel Cells (Auto) (0-5) /lpf Urine Bacteria (Auto) (Negative) Urine Yeast Urine Osmolality (500-800) mOsm/kg Ur Random Creatinine mg/dl Ur Random Sodium mmol/L Ur Random Urea Nitrogn mg/dl Random Vancomycin 11.9 mcg/ml Diagnostic Findings Chest x-ray image personally reviewed by me and agree with the following report: XR chest 1V portable HISTORY: empyema COMPARISON: Chest 01/08/2019. FINDINGS: Slight improved aeration within the left midlung zone. Loculated left pleural effusion has also slightly improved. Left basilar pleural catheter remains in position. Right jugular Port-A-Cath terminates at the distal SVC. Suspect a small right pleural effusion. No pneumothorax. Right mid to lower lung zone linear densities are also unchanged. The heart remains enlarged. IMPRESSION: 1. Slight improvement in the loculated left pleural effusion and aeration within the left lung. 2. Left basilar pleural catheter remains unchanged in position. Renal ultrasound-normal PG Care Time/CCT Total # of Minutes Spent Total Time Spent with Patient: Total time spent is greater than 50% in coordination of care (as documented) at patient's floor/unit and/or counseling patient:
[2019-01-09] MEDS ORDERED: POTASSIUM CHLORIDE 10 MEQ TABCR PO STA (18:58)
[2019-01-09] MEDS: AMLODIPINE BESYLATE 5 MG TAB PO SCH (20:57)
--- NOTE | 2019-01-10 07:08 | XRay Report ---
XR chest 1V portable HISTORY: empyema COMPARISON: Chest 01/09/2019. FINDINGS: No change in the loculated left pleural effusion and left lung airspace opacities. Left bas ilar pleural catheter remains unchanged in position. The heart remains mildly enlarged. No pneumothor ax. Mild right mediastinal shift persists. Right jugular Port-A-Cath terminates at the SVC. Patchy ri ght midlung zone density is also unchanged. IMPRESSION: No change in the loculated left pleural effusion and left lung airspace opacities. The left basilar c hest tube remains unchanged in position. Electronically signed by: Alfred Arguelles M.D. 01/10/2019 7:07 AM
[2019-01-10 07:54] LABS: Hematocrit (blood only) 30.8 % (37-47); Mean Corpuscular Hemoglobin 32.5 pg (25-34); Mean Corpuscular Hgb Conc 35.7 g/dL (32-36); Mean Corpuscular Volume 91.1 fL (80-100); Mean Platelet Volume 10.4 fL (7.4-10.4); Nucleated RBC # (auto) 0.04 K/uL (0-0); Nucleated RBC % (auto) 0.1 %; Platelet Count 405 K/uL (130-400); RDW Coefficient of Variation 16.2 % (11.5-14.5); RDW Standard Deviation 53.6 fL (36.4-46.3); Red Blood Count 3.38 M/uL (4.2-5.4); White Blood Count 35.63 K/uL (4.8-10.8)
[2019-01-10 08:17] LABS: Basophils # (auto) 0.08 K/uL (0-0.2); Basophils % (auto) 0.2 %; Eosinophils # (auto) 0.04 K/uL (0-0.5); Eosinophils % (auto) 0.1 %; Immature Granulocytes # (auto) 2.05 K/uL (0.00-0.02); Immature Granulocytes % (auto) 5.8 %; Lymphocytes # (auto) 1.31 K/uL (1.2-3.4); Lymphocytes % (auto) 3.7 %; Monocytes # (auto) 3.26 K/uL (0.11-0.59); Monocytes % (auto) 9.1 %; Neutrophils # (auto) 28.89 K/uL (1.4-6.5); Neutrophils % (auto) 81.1 %
[2019-01-10 08:21] LABS: BUN Creatinine Ratio 17.6 (10-20); Calcium 7.5 mg/dl (8.5-10.1); Creatinine Clr Calc Pharmacy 40.3 ml/min; Est GFR (Non-African American) 44.9; Magnesium 2.5 mg/dl (1.8-2.4); Potassium 3.4 mmol/L (3.5-5.1)
[2019-01-10] MEDS: ALTEPLASE, RECOMBINANT 10 MG in SYRINGE 50 ML IPL SCH (08:24)
[2019-01-10 08:32] LABS: Thyroid Stimulating Hormone 1.7 uIu/ml (0.300-4.500)
[2019-01-10] MEDS ORDERED: SODIUM CHLORIDE 0.9% 1000ML 1,000 ML IV SCH (09:00)
[2019-01-10] MEDS ORDERED: POTASSIUM CHLORIDE 20 MEQ TABCR PO STA (09:14)
--- NOTE | 2019-01-10 09:40 | Surgery Progress Note ---
Date of Service January 10, 2019 Assessment & Plan (1) Empyema of left pleural space: -pt has had pleurex catheter since 08/22/18: -sclerosis not performed as drainage has been too high -pleural fluid culture on 01/07/19 grew MSSA -initial treatment with zosyn & vancomycin but now switched to ancef due to culture results -MIST-2 protocol utilized and will conclude this morning: -CXR shows persistent fluid loculations -due to CXR findings will continue MIST-2 protocol x 3 more days -renal function has been improving -leukocytosis noted but may be due to neulasta -lovenox in place for DVT prevention -case discussed with RN as well as hospitalist Subjective Pt. notes she feels improved since admission--less SOB and able to take deep breaths better and more energy/less fatigue. She denies fevers, shakes, or chills. She is tolerating diet and notes she is urinating without difficulty and dysuria. She notes only minor discomfort from pleurex and notes some minor pain at the end of drainage procedures. Physical Exam Physical Exam: -pleurex inspected--no swelling noted. Site looks clean without purulent drainage Constitutional: well developed and well nourished; no acute distress Neck: trachea midline Respiratory: normal respiratory effort; no respiratory distress and no labored breathing Auscultation: + wheezes (faint and noted at very end of expiration ) BS are slightly decreased on left, but she is moving air well in all lung field. Cardiovascular: Rate/Rhythm: regular rate and regular rhythm Neurologic: follows commands and no focal deficits noted Results & Data Vital Signs (Past 12 Hours) Vital Signs Temp Pulse Pulse Resp BP Pulse Ox 01/10/19 07:52 36.3 C L 93 H 18 109/70 96 01/10/19 04:00 37.1 C 95 H 18 121/78 98 01/10/19 02:07 93 H 01/10/19 00:04 36.7 C 84 16 106/71 94 PG Care Time/CCT Total # of Minutes Spent Total Time Spent with Patient: Total time spent is greater than 50% in coordination of care (as documented) at patient's floor/unit and/or counseling patient:
[2019-01-10] MEDS: DORNASE ALFA 5 ML in SYRINGE 25 ML IPL SCH ×2 (09:41→21:39)
[2019-01-10] MEDS: ENOXAPARIN INJ 40 MG/0.4 ML SYR SQ SCH (10:07)
[2019-01-10] MEDS: INSULIN ASPART 100 UNITS/ML 3 ML PEN SC SCH ×4 (10:07→21:09)
[2019-01-10] MEDS: CEFAZOLIN 1000MG 1,000 MG/7.5 ML SYR IV SCH ×3 (10:09→23:48)
[2019-01-10] MEDS: CETIRIZINE HCL 10 MG TABLET PO SCH (10:21)
--- NOTE | 2019-01-10 12:33 | Nephrology Progress Note ---
Date of Service January 10, 2019 Assessment & Plan (1) Hyponatremia: -- Hyponatremia due to appropriate ADH release in the setting of pulmonary infection -- Patient appears clinically euvolemic. Serum sodium dropped in the setting of saline administration -- Hold saline. Limit oral free water intake. 2 g NaCl x1 yesterday. KCL 40 mEq provided this AM. Will recheck serum sodium this afternoon and administer additional NaCl + KCl as needed (2) JOSE (acute kidney injury): -- Mild elevation in creatinine. Will monitor. Consider gentle hydration once Pleur-x catheter is functioning and infection treated w/ antibiotics (3) Malignant pleural effusion: -- Pleur-x catheter nonfunctional. MIST-[address] Judd Subjective No acute events. No fevers or chills. Dyspnea improved. Appetite decreased. Thirst noted.. Review of Systems Review of Systems: All systems reviewed & are unremarkable except as noted in HPI & below Constitutional: + fatigue and + weakness; no fever and no chills poor appetiteThe Physical Exam Constitutional: well developed and + well hydrated; no acute distress and not edematous Eyes: no scleral abnormality and no corneal abnormality ENMT: Mouth: no oral mucosal abnormality and oral mucous membranes not dry Neck: normal visual inspection and trachea midline Respiratory: normal respiratory effort Auscultation: lungs clear to auscultation bilaterally and + diminished lung sounds L pleurX catheter Cardiovascular: Rate/Rhythm: regular rate Heart Sounds: normal S1 and normal S2 Extremities: no edema Musculoskeletal: Extremities: no cyanosis and no clubbing Skin: normal turgor; no lesions Neurologic: Motor/Sensory: no tremor and no asterixis Psychiatric: Orientation: alert and oriented x 3 Results & Data Vital Signs (Past 12 Hours) Vital Signs Temp Pulse Pulse Resp BP Pulse Ox 01/10/19 11:24 36.8 C 94 H 18 116/76 97 01/10/19 07:52 36.3 C L 93 H 18 109/70 96 01/10/19 04:00 37.1 C 95 H 18 121/78 98 01/10/19 02:07 93 H Laboratory Results Laboratory Results - last 24 hr 01/09/19 01/09/19 01/09/19 13:52 13:52 16:23 WBC RBC Hgb Hct MCV MCH MCHC RDW Std Deviation RDW Coeff of Geoffrey Plt Count MPV Immature Gran % (Auto) Neut % (Auto) Lymph % (Auto) [place] % (Auto) Eos % (Auto) Baso % (Auto) Immature Gran # (Auto) Neut # (Auto) Lymph # (Auto) [place] # (Auto) Eos # (Auto) Baso # (Auto) Absolute Nucleated RBC Nucleated RBC % (auto) Sodium 125 L Potassium 3.4 L Chloride 94 L Carbon Dioxide 23 Anion Gap 8.0 BUN 21 H Creatinine 1.62 H Est Cr Clr Drug Dosing 31.5 Est GFR ( Amer) 38.8 Est GFR (Non-Af Amer) 33.4 BUN/Creatinine Ratio 12.9 Glucose 177 H POC Glucose 147 H Calcium 7.2 L Magnesium TSH Random Cortisol 41.62 01/09/19 01/10/19 01/10/19 20:22 07:20 07:20 WBC 35.63 H* RBC 3.38 L Hgb 11.0 L Hct 30.8 L MCV 91.1 MCH 32.5 MCHC 35.7 RDW Std Deviation 53.6 H RDW Coeff of Geoffrey 16.2 H Plt Count 405 H MPV 10.4 Immature Gran % (Auto) 5.8 Neut % (Auto) 81.1 Lymph % (Auto) 3.7 [place] % (Auto) 9.1 Eos % (Auto) 0.1 Baso % (Auto) 0.2 Immature Gran # (Auto) 2.05 H Neut # (Auto) 28.89 H Lymph # (Auto) 1.31 [place] # (Auto) 3.26 H Eos # (Auto) 0.04 Baso # (Auto) 0.08 Absolute Nucleated RBC 0.04 H Nucleated RBC % (auto) 0.1 Sodium 128 L Potassium 3.4 L Chloride 97 L Carbon Dioxide 22 Anion Gap 9.0 BUN 22 H Creatinine 1.27 H D Est Cr Clr Drug Dosing 40.3 Est GFR ( Amer) 52.0 Est GFR (Non-Af Amer) 44.9 BUN/Creatinine Ratio 17.6 Glucose 135 H POC Glucose 201 H Calcium 7.5 L Magnesium 2.5 H TSH 1.700 Random Cortisol 01/10/19 01/10/19 07:37 11:51 WBC RBC Hgb Hct MCV MCH MCHC RDW Std Deviation RDW Coeff of Geoffrey Plt Count MPV Immature Gran % (Auto) Neut % (Auto) Lymph % (Auto) [place] % (Auto) Eos % (Auto) Baso % (Auto) Immature Gran # (Auto) Neut # (Auto) Lymph # (Auto) [place] # (Auto) Eos # (Auto) Baso # (Auto) Absolute Nucleated RBC Nucleated RBC % (auto) Sodium Potassium Chloride Carbon Dioxide Anion Gap BUN Creatinine Est Cr Clr Drug Dosing Est GFR ( Amer) Est GFR (Non-Af Amer) BUN/Creatinine Ratio Glucose POC Glucose 139 H 137 H Calcium Magnesium TSH Random Cortisol PG Care Time/CCT Total # of Minutes Spent Total Time Spent with Patient: Total time spent is greater than 50% in coordination of care (as documented) at patient's floor/unit and/or counseling patient:
[2019-01-10] MEDS ORDERED: SODIUM CHLORIDE 0.65% NA SOLN 45 ML (OCEAN) ONE (13:58)
[2019-01-10] MEDS: metroNIDAZOLE 500 MG/100 ML BAG IV SCH ×2 (14:15→22:03)
[2019-01-10 15:16] LABS: Albumin Level 1.8 gm/dl (3.4-5.0); BUN Creatinine Ratio 16.9 (10-20); Calcium 7.4 mg/dl (8.5-10.1); Creatinine Clr Calc Pharmacy 38.2 ml/min; Est GFR (African American) 48.7; Est GFR (Non-African American) 42.1; Potassium 3.5 mmol/L (3.5-5.1)
--- NOTE | 2019-01-10 15:30 | Hospitalist Progress Note ---
Date of Service January 10, 2019 Assessment & Plan (1) Empyema of left pleural space: With PleurX catheter in place for malignant effusion since 08/2018 Now with loculated effusion, growing MSSA in pleural fluid culture -Thoracic Surgery requested admission--> on day #3 of MIST-2 protocol, draining a lot of fluid, however chest x-ray findings are concerning that is not working--> plan now for repeat cycle of MIST-2 protocol for another 3 days -follow CXR daily -initially on vancomycin and Zosyn which are now dcd -continued Ancef 1000 mg IV every 8 hours for MSSA empyema -Pharmacy suggested adding on Flagyl to cover for anaerobes as they are often hard to isolate on culture and could be present, especially in setting of rising WBC count -follow CBC -follow BCxs-NGTD -Remains with a very serious condition and is at high risk for worsening condition (2) Acute respiratory failure with hypoxia: Secondary to loculated effusion, does not feel dyspneic but still requiring 4 L nasal cannula -continue supplemental O2 as needed to keep POx>90% -Continue to treat empyema as above -draining Pleurx bid with MIST-2 (3) Malignant pleural effusion: As above, secondary to Br CA (4) Hypokalemia: -Continues, replace potassium chloride -follow BMP, Mag daily (5) Acute hyponatremia: Baseline is around 134-136 Is on chlorthalidone 50mg daily prior to admission and did receive her dose on the morning of 01/08-it has since been held Was tachycardic on admission and now improved with IVFs, weight is down overall from previous, no edema Pleural effusion is not from CHF but rather from malignancy 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 Is hypotonic hyponatremia--> suspect hypovolemia and likely secondary to extra- renal losses and "tea/toast diet" as has had poor po intake prior to admission Also with acute kidney injury possibly due to ATN from infection, now improving Urine sodium was 24 and urine osmolality 218 but was collected 24 hours after admission and after being given normal saline at the time of collection Urinalysis with only trace protein and trace blood, no casts Appreciate nephrology consultation-likely appropriate ADH release in the setting of infection and dehydration -finish out the current 1L normal saline and then stop -give NaCl tabs as needed -Continue to hold chlorthalidone from home -consult Nephrology-appreciated -follow serial BMP -encouraged Na+ intake in diet (6) Leukocytosis: In the setting of current infection and recent dexamethasone use on 01/01- 01/03 as well as Neulasta received 01/01-01/02 with Neulasta Patch Half life of Neulasta 7-10 days so any effect from this is likely now wearing off-would expect WBC count to go down by tomorrow assuming infection being adequately treated -continues to be worsening today to 35k, reactive in nature - secondary to MSSA empyema - remains afebrile -blood [id number] follow -follow CBC -Continue treating infection with antibiotics and adding Flagyl as above for anaerobes again (7) Breast cancer: Left Br CA triple neg dxd in 2017, s/p surgery but no chemo With mets now to bones, lungs She has been following with Dr. 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 with IVFs, was as high as 1.6 up from 0.8 upon admission Suspect ATN from sepsis UA without casts or signs of infection -is making adequate urine-follow I/Os FeNa unreliable in the setting of taking thiazide diuretics but is 0.68%, FeUrea calculated at 55% which is indicative of intrinsic renal disease Renal ultrasound negative for obstruction -consult Nephrology appreciated -Restarted IV fluids as above -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 -Follow BMP in the morning (12) MARK (obstructive sleep apnea): continue qhs CPAP-ordered,patient now agreeable (13) CKD (chronic kidney disease), stage III: baseline GFR 50s-70s CKD stage 2-3 -avoid nephrotpxins -renally dose meds -follow BMP (14) Prediabetes: HgbA1C actually in diabetic range at 6.7% on last check and remains stable at that level this admission With hyperglycemia here which is now improving after starting sliding scale insulin -Continue accuchecks ACHS and SSI -Will not need medication upon discharge (15) DVT prophylaxis: Lovenox for DVT proph Dispo-remain hospitalized, now for repeat the mist-2 protocol which would be completed Sunday, but then will see if needs decortication if protocol fails Subjective Pt anxious about if her pleural fluid loculations will resolve. Feels better overall, is out of bed to chair and plans on ambulating again today. Is having pain at left side with MIST-2 protocol instillation and requested something stronger for pain. Denies nausea or vomiting, feels she is eating better. Not lightheaded. Discussed her care with Thoracic Surgery PA Tele with NSR, rates 90s-100s She does not want me to remove her from tele-feels safer with it on because of her h/o open heart surgery Review of Systems Review of Systems: All systems reviewed & are unremarkable except as noted in HPI & below Physical Exam Constitutional: WD/WN, vitals as above + obese Eyes: + anicteric sclerae Neck: trachea midline, no thyromegaly Respiratory: normal respiratory effort; no labored breathing Auscultation: + diminished lung sounds (left lower lung field); no crackles, no rhonchi and no wheezes Cardiovascular: Rate/Rhythm: regular rate and regular rhythm Heart Sounds: no murmur Extremities: no calf tenderness and no edema Gastrointestinal (Abdomen): normal bowel sounds, soft, nontender, no hepatosplenomegaly Musculoskeletal: Extremities: extremities normal to inspection; no cyanosis and no clubbing Skin: no rashes, warm and dry Neurologic: moves all extremities and awake; no focal motor deficits Psychiatric: Orientation: alert and oriented x 3 Affect: + anxious affect Results & Data Vital Signs (Past 12 Hours) Vital Signs Temp Pulse Resp BP Pulse Ox 01/10/19 11:24 36.8 C 94 H 18 116/76 97 01/10/19 07:52 36.3 C L 93 H 18 109/70 96 01/10/19 04:00 37.1 C 95 H 18 121/78 98 Laboratory Results 01/10/19 01/10/19 01/10/19 Range/Units 14:46 11:51 07:37 WBC (4.8-10.8) K/uL RBC (4.2-5.4) M/uL Hgb (12.0-16.0) g/dL Hct (37-47) % MCV (80-100) fL MCH (25-34) pg MCHC (32-36) g/dL RDW Std Deviation (36.4-46.3) fL RDW Coeff of Geoffrey (11.5-14.5) % Plt Count (130-400) K/uL MPV (7.4-10.4) fL Immature Gran % (Auto) % Neut % (Auto) % Lymph % (Auto) % [place] % (Auto) % Eos % (Auto) % Baso % (Auto) % Immature Gran # (Auto) (0.00-0.02) K/uL Neut # (Auto) (1.4-6.5) K/uL Lymph # (Auto) (1.2-3.4) K/uL [place] # (Auto) (0.11-0.59) K/uL Eos # (Auto) (0-0.5) K/uL Baso # (Auto) (0-0.2) K/uL Absolute Nucleated RBC (0-0) K/uL Nucleated RBC % (auto) % Sodium 129 L (136-145) mmol/L Potassium 3.5 (3.5-5.1) mmol/L Chloride 97 L (98-107) mmol/L Carbon Dioxide 21 (21-32) mmol/L Anion Gap 10.0 (3-11) BUN 23 H (7-18) mg/dl Creatinine 1.34 H (0.6-1.2) mg/dl Est Cr Clr Drug Dosing 38.2 ml/min Est GFR ( Amer) 48.7 Est GFR (Non-Af Amer) 42.1 BUN/Creatinine Ratio 16.9 (10-20) Glucose 163 H (70-99) mg/dl POC Glucose 137 H 139 H (70-99) Calcium 7.4 L (8.5-10.1) mg/dl Phosphorus 1.5 L* D (2.5-4.9) mg/dl Magnesium (1.8-2.4) mg/dl Albumin 1.8 L (3.4-5.0) gm/dl TSH (0.300-4.500) uIu/ml 01/10/19 01/10/19 01/09/19 Range/Units 07:20 07:20 20:22 WBC 35.63 H* (4.8-10.8) K/uL RBC 3.38 L (4.2-5.4) M/uL Hgb 11.0 L (12.0-16.0) g/dL Hct 30.8 L (37-47) % MCV 91.1 (80-100) fL MCH 32.5 (25-34) pg MCHC 35.7 (32-36) g/dL RDW Std Deviation 53.6 H (36.4-46.3) fL RDW Coeff of Geoffrey 16.2 H (11.5-14.5) % Plt Count 405 H (130-400) K/uL MPV 10.4 (7.4-10.4) fL Immature Gran % (Auto) 5.8 % Neut % (Auto) 81.1 % Lymph % (Auto) 3.7 % [place] % (Auto) 9.1 % Eos % (Auto) 0.1 % Baso % (Auto) 0.2 % Immature Gran # (Auto) 2.05 H (0.00-0.02) K/uL Neut # (Auto) 28.89 H (1.4-6.5) K/uL Lymph # (Auto) 1.31 (1.2-3.4) K/uL [place] # (Auto) 3.26 H (0.11-0.59) K/uL Eos # (Auto) 0.04 (0-0.5) K/uL Baso # (Auto) 0.08 (0-0.2) K/uL Absolute Nucleated RBC 0.04 H (0-0) K/uL Nucleated RBC % (auto) 0.1 % Sodium 128 L (136-145) mmol/L Potassium 3.4 L (3.5-5.1) mmol/L Chloride 97 L (98-107) mmol/L Carbon Dioxide 22 (21-32) mmol/L Anion Gap 9.0 (3-11) BUN 22 H (7-18) mg/dl Creatinine 1.27 H D (0.6-1.2) mg/dl Est Cr Clr Drug Dosing 40.3 ml/min Est GFR ( Amer) 52.0 Est GFR (Non-Af Amer) 44.9 BUN/Creatinine Ratio 17.6 (10-20) Glucose 135 H (70-99) mg/dl POC Glucose 201 H (70-99) Calcium 7.5 L (8.5-10.1) mg/dl Phosphorus (2.5-4.9) mg/dl Magnesium 2.5 H (1.8-2.4) mg/dl Albumin (3.4-5.0) gm/dl TSH 1.700 (0.300-4.500) uIu/ml 01/09/19 Range/Units 16:23 WBC (4.8-10.8) K/uL RBC (4.2-5.4) M/uL Hgb (12.0-16.0) g/dL Hct (37-47) % MCV (80-100) fL MCH (25-34) pg MCHC (32-36) g/dL RDW Std Deviation (36.4-46.3) fL RDW Coeff of Geoffrey (11.5-14.5) % Plt Count (130-400) K/uL MPV (7.4-10.4) fL Immature Gran % (Auto) % Neut % (Auto) % Lymph % (Auto) % [place] % (Auto) % Eos % (Auto) % Baso % (Auto) % Immature Gran # (Auto) (0.00-0.02) K/uL Neut # (Auto) (1.4-6.5) K/uL Lymph # (Auto) (1.2-3.4) K/uL [place] # (Auto) (0.11-0.59) K/uL Eos # (Auto) (0-0.5) K/uL Baso # (Auto) (0-0.2) K/uL Absolute Nucleated RBC (0-0) K/uL Nucleated RBC % (auto) % Sodium (136-145) mmol/L Potassium (3.5-5.1) mmol/L Chloride (98-107) mmol/L Carbon Dioxide (21-32) mmol/L Anion Gap (3-11) BUN (7-18) mg/dl Creatinine (0.6-1.2) mg/dl Est Cr Clr Drug Dosing ml/min Est GFR ( Amer) Est GFR (Non-Af Amer) BUN/Creatinine Ratio (10-20) Glucose (70-99) mg/dl POC Glucose 147 H (70-99) Calcium (8.5-10.1) mg/dl Phosphorus (2.5-4.9) mg/dl Magnesium (1.8-2.4) mg/dl Albumin (3.4-5.0) gm/dl TSH (0.300-4.500) uIu/ml Diagnostic Findings CXR image personally reviewed and agree with the following report: XR chest 1V portable HISTORY: empyema COMPARISON: Chest 01/09/2019. FINDINGS: No change in the loculated left pleural effusion and left lung airspace opacities. Left basilar pleural catheter remains unchanged in position. The heart remains mildly enlarged. No pneumothorax. Mild right mediastinal shift persists. Right jugular Port-A-Cath terminates at the SVC. Patchy right midlung zone density is also unchanged. IMPRESSION: No change in the loculated left pleural effusion and left lung airspace opacities. The left basilar chest tube remains unchanged in position. PG Care Time/CCT Total # of Minutes Spent Total Time Spent with Patient: Total time spent is greater than 50% in coordination of care (as documented) at patient's floor/unit and/or counseling patient:
[2019-01-10 15:35] LABS: Phosphorus 1.5 mg/dl (2.5-4.9)
[2019-01-10] MEDS: POT PHOSPHATE MONOBASIC W/ SOD TAB PO SCH ×2 (17:24→21:10)
[2019-01-10] MEDS ORDERED: ALTEPLASE, RECOMBINANT 10 MG in SYRINGE 50 ML IPL SCH (20:00)
[2019-01-10] MEDS: HYDROCODONE/ACETAMOPHEN 5/325MG TAB PO PRN (20:05)
[2019-01-10] MEDS: AMLODIPINE BESYLATE 5 MG TAB PO SCH (21:10)
[2019-01-11 06:05] LABS: Hemoglobin 11.6 g/dL (12.0-16.0); Mean Corpuscular Hemoglobin 32.4 pg (25-34); Mean Corpuscular Hgb Conc 35.2 g/dL (32-36); Mean Corpuscular Volume 92.2 fL (80-100); Mean Platelet Volume 10.2 fL (7.4-10.4); Nucleated RBC # (auto) 0.15 K/uL (0-0); Nucleated RBC % (auto) 0.3 %; Platelet Count 482 K/uL (130-400); RDW Coefficient of Variation 16.3 % (11.5-14.5); RDW Standard Deviation 54.8 fL (36.4-46.3); Red Blood Count 3.58 M/uL (4.2-5.4); White Blood Count 45.26 K/uL (4.8-10.8)
[2019-01-11 06:25] LABS: BUN Creatinine Ratio 15.9 (10-20); Calcium 7.6 mg/dl (8.5-10.1); Creatinine Clr Calc Pharmacy 39.1 ml/min; Est GFR (African American) 50.1; Est GFR (Non-African American) 43.2; Magnesium 2.3 mg/dl (1.8-2.4); Potassium 3.8 mmol/L (3.5-5.1)
[2019-01-11 06:31] LABS: Basophils # (auto) 0.19 K/uL (0-0.2); Basophils % (auto) 0.4 %; Eosinophils # (auto) 0.04 K/uL (0-0.5); Eosinophils % (auto) 0.1 %; Immature Granulocytes # (auto) 3.87 K/uL (0.00-0.02); Immature Granulocytes % (auto) 8.6 %; Lymphocytes % (auto) 4.6 %; Monocytes # (auto) 3.77 K/uL (0.11-0.59); Monocytes % (auto) 8.3 %; Neutrophils # (auto) 35.29 K/uL (1.4-6.5); Polychromasia 1+
[2019-01-11 06:32] LABS: Phosphorus 2.9 mg/dl (2.5-4.9)
[2019-01-11] MEDS: metroNIDAZOLE 500 MG/100 ML BAG IV SCH ×3 (06:38→21:29)
[2019-01-11] MEDS: CEFAZOLIN 1000MG 1,000 MG/7.5 ML SYR IV SCH ×3 (07:46→23:46)
[2019-01-11] MEDS: POT PHOSPHATE MONOBASIC W/ SOD TAB PO SCH ×4 (07:46→21:29)
[2019-01-11] MEDS: CETIRIZINE HCL 10 MG TABLET PO SCH (07:46)
[2019-01-11] MEDS: INSULIN ASPART 100 UNITS/ML 3 ML PEN SC SCH ×4 (08:14→21:27)
[2019-01-11] MEDS: DORNASE ALFA 5 ML in SYRINGE 25 ML IPL SCH ×2 (08:40→20:26)
--- NOTE | 2019-01-11 08:49 | CT Scan Report ---
CT SCAN OF THE CHEST WITHOUT IV CONTRAST CLINICAL HISTORY: Empyema. Breast cancer. COMPARISON STUDY: Chest CT scans dated 01/07/2019, 08/22/2018, and 12/01/2016. Chest x-ray dated 01/11. TECHNIQUE: CT scan of the thorax was performed from the thoracic inlet to the upper abdomen. Images are reviewed in the axial, sagittal, and coronal planes. IV contrast was not administered for this ex amination as per the referring clinician. The examination is degraded by motion artifact. A dose lowe ring technique was utilized adhering to the principles of ALARA. CT DOSE: 587.92 mGy.cm FINDINGS: Thyroid: Imaged the thyroid gland appears enlarged and heterogeneous. A peripherally calcified 1.5 cm nodule is again seen in the left lobe. Thoracic aorta: The thoracic aorta is normal in caliber and demonstrates standard 3-vessel arch anato my. Heart: A right internal jugular central venous infusion port is in place. The heart is top normal in size and without pericardial effusion. The pulmonary trunk is mildly dilated measuring 3.1 cm in diam eter. This suggests pulmonary artery hypertension. Lungs and pleural spaces: A left-sided pleural drain is unchanged in position and enters between the posterior 10th and 11th ribs. This is coiled at the left lung base. There is a moderate and at least partially loculated left pleural effusion/collection with fluid tracking along the left major fissure . This has menisci decreased in size from 01/07/2019. There is associated consolidation at the left l adolph base. There is only trace right pleural effusion with right basilar atelectasis. Foci of parenchy mal scarring/atelectasis are seen throughout both lungs. Mediastinum: There are mildly enlarged mediastinal lymph nodes. A prevascular node seen on image #67 measures 12 mm in short axis. These are similar to previous. Rika: Not well assessed without IV contrast. Axillae: Right axillary lymph nodes are unchanged from 01/07/2019. Upper abdomen: There are least 2 hepatic cysts which measure up to 11 mm. A 1.8 cm ovoid cystic lesio n is again seen in the pancreatic neck and a 1.0 cm cystic lesion is seen in the pancreatic tail. 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 Skeletal structures: The skeletal structures are osteopenic. Changes of multifocal osteoblastic metas tatic disease are again noted and unchanged from 01/07/2019. There is a subacute/healing fracture of the right anterior 4th rib. Soft tissues: Dermal thickening and infiltration is again noted in the left breast, as well as severa l surgical clips. IMPRESSION: 1. A pleural drain is present at the left lung base and unchanged in position from previous. 2. There is a moderate and at least partially loculated left pleural effusion/collection. This has mo destly decreased in size from 01/07/2019. The sterility cannot be assessed by CT. 3. There is consolidative change at the left lung base, likely representing atelectasis. Correlate cl inically for evidence of superimposed pneumonia. 4. There is trace right pleural effusion. 5. 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 This is unchanged from . 6. Additional findings as above. Electronically signed by: Zheng Campos M.D. 01/11/2019 8:47 AM
--- NOTE | 2019-01-11 09:42 | Infectious Disease Consult ---
Date of Consultation January 11, 2019 Assessment & Plan (1) Empyema of left pleural space: 63-year-old female with metastatic breast cancer with malignant pleural effusion, now with left-sided empyema with methicillin sensitive staph aureus, with rising white blood cell count. Given overall clinical improvement, lack of fever, and lack of other localizing signs or symptoms, most likely this represents effects of Neulasta, previous steroids, recent chest procedures, and potential leukemoid reaction associated with her cancer. For now I would continue on present antibiotics, and follow white count which I suspect will start to improve in the next few days. Will discuss further with all involved. Will follow. (2) MSSA (methicillin susceptible Staphylococcus aureus) infection: (3) Breast cancer, stage 4: History of Present Illness Reason for Consultation: Empyema, worsening leukocytosis Attending Physician: Rach Echavarria MD History of Present Illness 63-year-old female with history of metastatic breast cancer, known left malignant pleural effusion, as well as stage III chronic kidney disease, ob structive sleep apnea, and prediabetes, who was admitted several days ago with worsening effusion, found to have empyema with cultures positive for methicillin sensitive staph aureus. She was initially treated with vancomycin and Zosyn, and now has subsequently been changed to cefazolin. She had significant leukocytosis upon admission, and now with worsening leukocytosis with white blood cell count 45,000. Clinically she is feeling better with less shortness of breath, no fever. Metronidazole has been added now for coverage of potential anaerobic component. She has not had any significant diarrhea, dysuria, or other localizing complaints. Allergies Allergy/AdvReac Type Severity Reaction Status Date / Time cat dander Allergy Mild Itchy Eyes Verified 01/07/19 10:38 lisinopril Allergy Mild Cough Unverified 01/07/19 10:38 Home Medications Home Medications Medication Instructions Recorded Confirmed Type cetirizine [Zyrtec] 10 mg PO QAM 07/26/18 01/07/19 History albuterol sulfate 2 inh INHALATION Q6H PRN 08/12/18 01/07/19 History amlodipine 5 mg PO HS 08/12/18 01/07/19 History aspirin 81 mg PO DAILY 08/12/18 01/07/19 History ondansetron HCl 8 mg PO Q8 08/22/18 01/07/19 History azithromycin [Zithromax] 500 mg PO DAILY 7 Days #7 tab 01/07/19 Rx cephalexin [Keflex] 500 mg PO Q6H 10 Days #40 cap 01/07/19 Rx chlorthalidone 50 mg PO DAILY 01/07/19 01/07/19 History dexamethasone 4 mg PO BID PRN 01/07/19 01/07/19 History Patient History Medical History Breast CA LEFT BREAST CANCER S/P LEFT BREAST TUMOR REMOVAL CKD (chronic kidney disease), stage III Essential (primary) hypertension (Chronic) Hyperlipidemia DIET CONTROLLED Hyponatremia Obesity MARK (obstructive sleep apnea) (Chronic) CPAP Pancreatic cyst BEING MONITORED Pneumonia RECENT DX Prediabetes (Chronic) Thalassemia carrier Thyroid nodule 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 Surgical History H/O section H/O heart surgery BENIGN VALVULAR TUMOR EXCISION 2004; SUBSEQUENT CARDIO FOLLOWUP "NORMAL" AND TOLD SHE DID NOT NEED TO CONTINUE FOLLOWING WITH CARDIO H/O hernia repair H/O tubal ligation History of bronchoscopy + CANCER (RECENT BIOPSY) History of cardiac cath 2004= NO STENTS History of ectopic WITH PARTIAL FALLOPIAN TUBE REMOVAL PER PT History of tooth extraction Status post partial mastectomy of left breast lumpectomy, 2016, with axillary lymph node dissection Family History Father , age 61 Stroke Mother , age 78 Pulmonary embolism Social History Preferred Language: Romanian Communication Ability: Effective Old Coin Dealer Required: No Beliefs That Will Affect Care: None marital status: marital status details: 4 children Current Living Situation: Spouse 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[employer]; 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 Other Information That Helps Us Care for You: No Feels Safe at Home: Yes Safety Concerns: Feels Safe At This Time Smoking Status: Never smoker Second Hand Exposure: No ; Hx Alcohol Use: Yes Alcohol type: wine Alcohol Intake Frequency: Holidays/Special Occasions Hx Substance Use: No Review of Systems Review of Systems: All systems reviewed & are unremarkable except as noted in HPI & below Physical Exam Constitutional: WD/WN, vitals as above + obese and comfortable; no acute distress Eyes: PERRL, conjunctivae normal, anicteric sclerae ENMT: external ear and nose normal, oropharynx normal Neck: trachea midline, no thyromegaly neck nontender Respiratory: normal respiratory effort and normal percussion; does not use accessory muscles Auscultation: + diminished lung sounds (Left base); no rales and no rhonchi Cardiovascular: Rate/Rhythm: regular rate and regular rhythm Heart Sounds: normal S1 and normal S2; no gallop, no murmur and no cardiac rub Vessels: normal peripheral pulses; no JVD Gastrointestinal (Abdomen): normal bowel sounds, soft, nontender, no hepatosplenomegaly Musculoskeletal: no cyanosis or clubbing, extremities motor strength 5/5 Spine: thoracic spine normal to inspection and lumbar spine normal to inspection; no cervical spinal tenderness Skin: no rashes, warm and dry normal turgor; no lesions Neurologic: patellar DTR's 2+ bilat, sensation intact no focal motor deficits Psychiatric: A+Ox3, euthymic affect Orientation: cooperative Lymphatic: no cervical or axillary lymphadenopathy no inguinal lymphadenop athy Results & Data Vital Signs (Past 12 Hours) Vital Signs Temp Pulse Pulse Resp BP Pulse Ox 01/11/19 08:29 37.5 C 117 H 20 106/66 94 01/11/19 04:51 36.8 C 108 H 20 120/78 96 01/11/19 01:14 100 H 17 95 01/11/19 00:32 97 H 01/10/19 23:35 36.4 C L 102 H 20 114/75 98 Laboratory Results Short CBC 01/11/19 Range/Units 05:32 WBC 45.26 H* (4.8-10.8) K/uL Hgb 11.6 L (12.0-16.0) g/dL Hct 33.0 L (37-47) % Plt Count 482 H (130-400) K/uL BMP 01/10/19 01/11/19 14:46 05:32 Sodium 129 L 128 L Potassium 3.5 3.8 Chloride 97 L 96 L Carbon Dioxide 21 26 BUN 23 H 21 H Creatinine 1.34 H 1.31 H Glucose 163 H 179 H Calcium 7.4 L 7.6 L Liver Function 01/10/19 Range/Units 14:46 Albumin 1.8 L (3.4-5.0) gm/dl Diagnostic Findings Microbiology 01/09/19 06:45 Urine,Clean Catch Urine Culture - Final No growth - less than 1,000 colonies/mL. 01/09/19 14:04 Blood Aerobic Blood Culture - Preliminary No growth in Aerobic bottle after 24 hours. 01/09/19 14:04 Blood Anaerobic Blood Culture - Preliminary No growth in Anaerobic bottle after 24 hours. 01/09/19 13:52 Blood Aerobic Blood Culture - Preliminary No growth in Aerobic bottle after 24 hours. 01/09/19 13:52 Blood Anaerobic Blood Culture - Preliminary No growth in Anaerobic bottle after 24 hours. XR chest 1V portable HISTORY: 63 years-old Female empyema follow-up study in a patient with reported empyema COMPARISON: Chest CT and chest radiographs 01/07/2019 TECHNIQUE: Portable AP view the chest FINDINGS: Stable positioning of the right IJ [id number] catheter. Unchanged opacities throughout the right lung with cardiomegaly. Stable positioning of a pleural d rainage catheter about the left lung base. No pneumothorax identified. Loculated left pleural effusion redemonstrated. Mildly progressed mixed interstitial and alveolar opacities throughout the left upper lung. Bones appear grossly intact. IMPRESSION: 1. Unchanged loculated left pleural effusion with stable positioning of the left lung base pleural drainage catheter. 2. Mildly progressed mixed interstitial and alveolar opacities of the left upper lung. 3. No pneumothorax. 4. Cardiomegaly. The above report was generated using voice recognition software. It may contain grammatical, syntax or spelling errors. Electronically signed by: Cornell Flores M.D. 01/08/2019 7:07 AM Dictated: 01/08/19 0704 PG Care Time/CCT Total # of Minutes Spent Total Time Spent with Patient: Total time spent is greater than 50% in coordination of care (as documented) at patient's floor/unit and/or counseling patient: (1) Breast cancer, stage 4 Laterality: left Qualified Code(s): C50.912 - Malignant neoplasm of unspecified site of left female breast
--- NOTE | 2019-01-11 10:18 | Surgery Progress Note ---
Date of Service January 11, 2019 Assessment & Plan (1) Empyema of left pleural space: -pt has had pleurex catheter since 08/22/18: -sclerosis not performed as drainage has been too high -pleural fluid culture on 01/07/19 grew MSSA -initial treatment with zosyn & vancomycin but now switched to ancef due to culture results -MIST-2 protocol utilized and 1 round completed: -due to persistent fluid loculations noted on CXR MIST-2 resumed for additional 3 days -CXR today showed some improvement of fluid loculation, so chest CT scan performed (was performed after morning drainage of pleurex: -CT scan of chest showed some improvement of fluid loculations -pleurex drained by myself this am for 450 cc of dark bloody appearing fluid: -H/H has not dropped -due to appearance of fluid, MIST-2 will continue with dornase only -pleural fluid has been recultured this morning -renal function has been stable last 24 hours -leukocytosis persists: -ID has been consulted and they feel this is due to previous use of prednisone as well as neulasta -lovenox in place for DVT prevention -case discussed with RN as well as hospitalist and ID service Subjective Pt. feels as though she continues to improve. No SOB. Intermittent cough. No shakes, chills, fevers. Physical Exam Physical Exam: Pleurex not painful to palpation. Constitutional: well developed and well nourished; no acute distress Respiratory: normal respiratory effort; no respiratory distress and no labored breathing BS are decreased on left side Cardiovascular: Rate/Rhythm: regular rate and regular rhythm Musculoskeletal: no calf tenderness Results & Data Vital Signs (Past 12 Hours) Vital Signs Temp Pulse Pulse Resp BP Pulse Ox 01/11/19 08:29 37.5 C 117 H 20 106/66 94 01/11/19 04:51 36.8 C 108 H 20 120/78 96 01/11/19 01:14 100 H 17 95 01/11/19 00:32 97 H 01/10/19 23:35 36.4 C L 102 H 20 114/75 98 PG Care Time/CCT Total # of Minutes Spent Total Time Spent with Patient: Total time spent is greater than 50% in coordination of care (as documented) at patient's floor/unit and/or counseling patient:
--- NOTE | 2019-01-11 12:13 | Nephrology Progress Note ---
Date of Service January 11, 2019 Assessment & Plan (1) Hyponatremia: -- Euvolemic -- Excessive ADH in setting of active pulmonary infection complicated by poor nutrition and protein and fluid losses via pleurx -- 2 L fluid restriction established -- 1 gm NaCl PO provided today -- Nutritional supplements encouraged to increase protein intake -- Continue Phos-NaK replacement for hypophosphatemia (2) JOSE (acute kidney injury): -- Mild, stable -- Electrolytes and volume status appropriate -- BP soft (3) Malignant pleural effusion: -- Pleur-x catheter nonfunctional. MIST-[address] Judd (4) Hypertension: -- BP low, amlodipine held Subjective No acute events overnight. No fevers or chills. Denies significant dyspnea. No pain. Appetite improving. Review of Systems Review of Systems: All systems reviewed & are unremarkable except as noted in HPI & below Physical Exam Constitutional: well developed and + well hydrated; no acute distress and not edematous Eyes: no scleral abnormality and no corneal abnormality ENMT: Mouth: no oral mucosal abnormality and oral mucous membranes not dry Neck: normal visual inspection and trachea midline Respiratory: normal respiratory effort Auscultation: lungs clear to auscultation bilaterally and + diminished lung sounds Cardiovascular: Rate/Rhythm: regular rate Heart Sounds: normal S1 and normal S2 Extremities: no edema Musculoskeletal: Extremities: no cyanosis and no clubbing Skin: normal turgor; no lesions Neurologic: Motor/Sensory: no tremor and no asterixis Psychiatric: Orientation: alert and oriented x 3 Results & Data Vital Signs (Past 12 Hours) Vital Signs Temp Pulse Pulse Resp BP Pulse Ox 01/11/19 12:03 36.9 C 100 H 20 112/77 98 01/11/19 09:45 112 H 01/11/19 08:29 37.5 C 117 H 20 106/66 94 01/11/19 04:51 36.8 C 108 H 20 120/78 96 01/11/19 01:14 100 H 17 95 01/11/19 00:32 97 H Laboratory Results Laboratory Results - last 24 hr 01/08/19 01/10/19 01/10/19 05:53 14:46 16:58 WBC 30.71 H* RBC 3.66 L Hgb 12.3 Hct 33.1 L MCV 90.4 MCH 33.6 MCHC 37.2 H RDW Std Deviation 51.8 H RDW Coeff of Geoffrey 15.8 H Plt Count 382 MPV 10.5 H Immature Gran % (Auto) Neut % (Auto) Lymph % (Auto) Victoria % (Auto) Eos % (Auto) Baso % (Auto) Immature Gran # (Auto) Neut # (Auto) Lymph # (Auto) Victoria # (Auto) Eos # (Auto) Baso # (Auto) Absolute Nucleated RBC 0.05 H Nucleated RBC % (auto) 0.2 Neutrophils % (Manual) 86.5 Lymphocytes % (Manual) 5.1 Monocytes % (Manual) 7.6 Metamyelocytes % (Man) 0.8 Neutrophils # (Manual) 26.56 H Total Absolute Neuts 26.56 H Lymphocytes # (Manual) 1.57 Total Abs Lymphocytes 1.57 Monocytes # (Manual) 2.33 H Metamyelocytes # (Man) 0.25 H Toxic Granulation 1+ Dohle Bodies 1+ Polychromasia Sodium 129 L Potassium 3.5 Chloride 97 L Carbon Dioxide 21 Anion Gap 10.0 BUN 23 H Creatinine 1.34 H Est Cr Clr Drug Dosing 38.2 Est GFR ( Amer) 48.7 Est GFR (Non-Af Amer) 42.1 BUN/Creatinine Ratio 16.9 Glucose 163 H POC Glucose 141 H Calcium 7.4 L Phosphorus 1.5 L* D Magnesium Albumin 1.8 L 01/10/19 01/11/19 01/11/19 20:53 05:32 05:32 WBC 45.26 H* RBC 3.58 L Hgb 11.6 L Hct 33.0 L MCV 92.2 MCH 32.4 MCHC 35.2 RDW Std Deviation 54.8 H RDW Coeff of Geoffrey 16.3 H Plt Count 482 H MPV 10.2 Immature Gran % (Auto) 8.6 Neut % (Auto) 78.0 Lymph % (Auto) 4.6 Victoria % (Auto) 8.3 Eos % (Auto) 0.1 Baso % (Auto) 0.4 Immature Gran # (Auto) 3.87 H Neut # (Auto) 35.29 H Lymph # (Auto) 2.10 Victoria # (Auto) 3.77 H Eos # (Auto) 0.04 Baso # (Auto) 0.19 Absolute Nucleated RBC 0.15 H Nucleated RBC % (auto) 0.3 Neutrophils % (Manual) Lymphocytes % (Manual) Monocytes % (Manual) Metamyelocytes % (Man) Neutrophils # (Manual) Total Absolute Neuts Lymphocytes # (Manual) Total Abs Lymphocytes Monocytes # (Manual) Metamyelocytes # (Man) Toxic Granulation Dohle Bodies Polychromasia 1+ Sodium 128 L Potassium 3.8 Chloride 96 L Carbon Dioxide 26 Anion Gap 6.0 BUN 21 H Creatinine 1.31 H Est Cr Clr Drug Dosing 39.1 Est GFR ( Amer) 50.1 Est GFR (Non-Af Amer) 43.2 BUN/Creatinine Ratio 15.9 Glucose 179 H POC Glucose 175 H Calcium 7.6 L Phosphorus 2.9 D Magnesium 2.3 Albumin 01/11/19 01/11/19 07:59 11:38 WBC RBC Hgb Hct MCV MCH MCHC RDW Std Deviation RDW Coeff of Geoffrey Plt Count MPV Immature Gran % (Auto) Neut % (Auto) Lymph % (Auto) Victoria % (Auto) Eos % (Auto) Baso % (Auto) Immature Gran # (Auto) Neut # (Auto) Lymph # (Auto) Victoria # (Auto) Eos # (Auto) Baso # (Auto) Absolute Nucleated RBC Nucleated RBC % (auto) Neutrophils % (Manual) Lymphocytes % (Manual) Monocytes % (Manual) Metamyelocytes % (Man) Neutrophils # (Manual) Total Absolute Neuts Lymphocytes # (Manual) Total Abs Lymphocytes Monocytes # (Manual) Metamyelocytes # (Man) Toxic Granulation Dohle Bodies Polychromasia Sodium Potassium Chloride Carbon Dioxide Anion Gap BUN Creatinine Est Cr Clr Drug Dosing Est GFR ( Amer) Est GFR (Non-Af Amer) BUN/Creatinine Ratio Glucose POC Glucose 196 H 171 H Calcium Phosphorus Magnesium Albumin PG Care Time/CCT Total # of Minutes Spent Total Time Spent with Patient: Total time spent is greater than 50% in coordination of care (as documented) at patient's floor/unit and/or counseling patient:
[2019-01-11] MEDS ORDERED: SODIUM CHLORIDE 1 GM TABLET PO ONE (12:14)
--- NOTE | 2019-01-11 12:57 | XRay Report ---
SINGLE VIEW CHEST CLINICAL HISTORY: Pleural effusion. FINDINGS: An AP, portable, upright chest radiograph is compared to study dated 01/10/2019 and correla case with chest CT dated 01/07/2019. The examination is degraded by portable technique and patient rot ation. A right internal jugular central venous infusion port is unchanged in position. A pleural drai n is again noted at the left lung base. The heart is top normal in size noting atherosclerotic calcif ication of the thoracic aorta. The pulmonary vasculature is noncongested. There is a moderate left pl eural effusion with associated consolidation. This appears to have decreased in size from yesterday. Atelectasis is noted at the right lung base. No pneumothorax is seen. The skeletal structures are ost eopenic. The bony thorax is grossly intact. IMPRESSION: 1. A pleural drain is again seen at the left lung base. The left pleural effusion has modestly decrea sed in size from yesterday. 2. Left basilar consolidation persists. Electronically signed by: Zheng Campos M.D. 01/11/2019 12:55 PM
--- NOTE | 2019-01-11 17:41 | Hospitalist Progress Note ---
Date of Service January 11, 2019 Assessment & Plan (1) Empyema of left pleural space: With PleurX catheter in place for malignant effusion since 08/2018 Now with loculated effusion, growing MSSA in pleural fluid culture -Thoracic Surgery requested admission--> on day #4 of MIST-2 protocol (repeating second cycle), draining a lot of fluid, and now chest x-ray/CT findings improving -follow CXR daily -initially on vancomycin and Zosyn which are now dcd -continued Ancef 1000 mg IV every 8 hours for MSSA empyema -Pharmacy suggested adding on Flagyl to cover for anaerobes as they are often hard to isolate on culture and could be present, especially in setting of rising WBC count -follow CBC-worsening leukocytosis despite appropriate treatment--> consult ID, but could still be effect from Neulasta -follow BCxs-NGTD -Remains with a very serious condition and is at high risk for worsening condition (2) Acute respiratory failure with hypoxia: Secondary to loculated effusion, does not feel dyspneic and is improving, now weaned down to 2 L nasal cannula -continue supplemental O2 as needed to keep POx>90% -Continue to treat empyema as above -draining Pleurx bid with MIST-2 (3) Malignant pleural effusion: As above, secondary to Br CA (4) Hypokalemia: -reoslved after replacement -follow BMP, Mag daily (5) Acute hyponatremia: Baseline is around 134-136 Is on chlorthalidone 50mg daily prior to admission and did receive her dose on the morning of 01/08-it has since been held Was tachycardic on admission and now improved with IVFs, weight is down overall from previous, no edema Pleural effusion is not from CHF but rather from malignancy [employer] continued to rise despite IV fluid hydration, but now is improved and stable at 1.3 Na+ 125 on admission and then down to 123, however back up to 128-129 now after copious normal saline hydration and also received NaCL tabs on 01/09. Is hypotonic hyponatremia--> suspect hypovolemia and likely secondary to extra- renal losses and "tea/toast diet" as has had poor po intake prior to admission Also with acute kidney injury possibly due to ATN from infection, now improving Urine sodium was 24 and urine osmolality 218 but was collected 24 hours after admission and after being given normal saline at the time of collection Urinalysis with only trace protein and trace blood, no casts Appreciate nephrology consultation-likely appropriate ADH release in the setting of infection and dehydration -no further IVFs -Nephro recommends fluid restrict to 2L -give NaCl 1gm tab today -Continue to hold chlorthalidone from home -consult Nephrology-appreciated -follow serial BMP -encouraged Na+ intake in diet (6) Leukocytosis: In the setting of current infection and recent dexamethasone use on 01/01- 01/03 as well as Neulasta received 01/01-01/02 with Neulasta Patch Half life of Neulasta 7-10 days so any effect from this is likely now wearing off-would expect WBC count to go down hopefully by tomorrow assuming infection being adequately treated -continues to be worsening today to 45k, reactive in nature - secondary to MSSA empyema, Neulasta, and no longer secondary to dexamethasone -consult ID-recommends no changes to regimen at this point - remains afebrile -blood mgxeoqlx-VIPH-joma follow -follow CBC -Continue treating infection with antibiotics and adding Flagyl as above for anaerobes again (7) Breast cancer: Left Br CA triple neg dxd in 2017, s/p surgery but no chemo With mets now to bones, lungs She has been following with Dr. Burton at [facility] for her oncology Her last chemo was 01/01, doclataxel therapy She takes dexamethasone pre/post chemo Appreciate Onco consult here-nothing to add at this time (8) Essential (primary) hypertension: Controlled -continue home amlodipine -Continue to HOLD chlorthalidone secondary to hyponatremia (9) Hypophosphatemia: replace with po Neutra Phos but change to 1 tab qid down from 2 -continue to follow Phos in AM (10) Hypomagnesemia: replaced with IV Magnesium and now acceptable (11) JOSE (acute kidney injury): [employer] Work[employer] was climbing throughout the hospitalization despite hydration with IVFs, was as high as 1.6 up from 0.8 upon admission Suspect ATN from sepsis UA without casts or signs of infection -is making adequate urine-follow I/Os FeNa unreliable in the setting of taking thiazide diuretics but is 0.68%, FeUrea calculated at 55% which is indicative of intrinsic renal disease Renal ultrasound negative for obstruction -consult Nephrology appreciated -Restarted IV fluids as above -mental health nurse now improved to 1.3 and stable -Follow BMP in the morning (12) MARK (obstructive sleep apnea): continue qhs CPAP-ordered,patient now agreeable (13) CKD (chronic kidney disease), stage III: baseline GFR 50s-70s CKD stage 2-3 -avoid nephrotpxins -renally dose meds -follow BMP (14) Prediabetes: HgbA1C actually in diabetic range at 6.7% on last check and remains stable at that level this admission With hyperglycemia here which is now improving after starting sliding scale insulin -Continue accuchecks ACHS and SSI -Will not need medication upon discharge (15) 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 Less SOB, no chest pain. Has more energy and appetite is better. Denies diarrhea or abd pain, no sore throat, no headache, no cough. No dysuria. No skin rashes. Discussed her case with Thoracic Surgery PA and with ID Tele with ST 100-120s, one short burst of SVT in the 150s Review of Systems Review of Systems: All systems reviewed & are unremarkable except as noted in HPI & below Physical Exam Constitutional: WD/WN, vitals as above + obese Eyes: + anicteric sclerae Neck: trachea midline, no thyromegaly Respiratory: normal respiratory effort; no labored breathing Auscultation: + diminished lung sounds (left lower lung field); no crackles, no rhonchi and no wheezes Cardiovascular: Rate/Rhythm: regular rate and regular rhythm Heart Sounds: no murmur Extremities: no calf tenderness and no edema Chest (Breasts): Chest: + abnormal inspection of chest (left lateral chest wall with PleurX catheter in place) Gastrointestinal (Abdomen): normal bowel sounds, soft, nontender, no hepatosplenomegaly Musculoskeletal: Extremities: extremities normal to inspection; no cyanosis and no clubbing Skin: no rashes, warm and dry Neurologic: moves all extremities and awake; no focal motor deficits Psychiatric: A+Ox3, euthymic affect Results & Data Vital Signs (Past 12 Hours) Vital Signs Temp Pulse Pulse Resp BP Pulse Ox 01/11/19 16:00 36.7 C 93 H 19 112/74 94 01/11/19 12:03 36.9 C 100 H 20 112/77 98 01/11/19 09:45 112 H 01/11/19 08:29 37.5 C 117 H 20 106/66 94 Laboratory Results Labs reviewed WBC 45k, mental health nurse 1.31, Na+ 128 Phos [address] CHest images personally reviewed and agree with the following report: IMPRESSION: 1. A pleural drain is present at the left lung base and unchanged in position from previous. 2. There is a moderate and at least partially loculated left pleural effusion/collection. This has modestly decreased in size from 01/07/2019. The sterility cannot be assessed by CT. 3. There is consolidative change at the left lung base, likely representing atelectasis. Correlate clinically for evidence of superimposed pneumonia. 4. There is trace right pleural effusion. 5. 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 This is unchanged from 01/07/2019. 6. Additional findings as above. PG Care Time/CCT Total # of Minutes Spent Total Time Spent with Patient: Total time spent is greater than 50% in c oordination of care (as documented) at patient's floor/unit and/or counseling patient:
[2019-01-11] MEDS: HYDROCODONE/ACETAMOPHEN 5/325MG TAB PO PRN (19:13)
[2019-01-12] MEDS: metroNIDAZOLE 500 MG/100 ML BAG IV SCH ×3 (05:43→21:46)
[2019-01-12 06:27] LABS: Albumin Level 1.7 gm/dl (3.4-5.0); BUN Creatinine Ratio 17.8 (10-20); Calcium 7.8 mg/dl (8.5-10.1); Creatinine Clr Calc Pharmacy 43.2 ml/min; Est GFR (African American) 56.8; Magnesium 2.1 mg/dl (1.8-2.4); Potassium 3.3 mmol/L (3.5-5.1)
[2019-01-12 06:30] LABS: Phosphorus 3.6 mg/dl (2.5-4.9)
[2019-01-12 06:47] LABS: Hematocrit (blood only) 28.3 % (37-47); Hemoglobin 9.6 g/dL (12.0-16.0); Mean Corpuscular Hemoglobin 31.7 pg (25-34); Mean Corpuscular Hgb Conc 33.9 g/dL (32-36); Mean Corpuscular Volume 93.4 fL (80-100); Mean Platelet Volume 10.3 fL (7.4-10.4); Nucleated RBC # (auto) 0.14 K/uL (0-0); Nucleated RBC % (auto) 0.4 %; Platelet Count 417 K/uL (130-400); RDW Coefficient of Variation 16.4 % (11.5-14.5); RDW Standard Deviation 56.3 fL (36.4-46.3); Red Blood Count 3.03 M/uL (4.2-5.4); White Blood Count 36.03 K/uL (4.8-10.8)
--- NOTE | 2019-01-12 07:04 | Surgery Progress Note ---
Date of Service January 12, 2019 Assessment & Plan (1) Empyema of left pleural space: -pt has had pleurex catheter since 08/22/18: -sclerosis not performed as drainage has been too high -pleural fluid culture on 01/07/19 grew MSSA -initial treatment with zosyn & vancomycin but now switched to ancef due to culture results -primary service has also added flagyl -MIST-2 protocol utilized and 1 round completed after am dose on 01/10/19: -due to persistent fluid loculations noted on CXR MIST-2 resumed for additional 3 days (will conclude with am dose on 01/13/19) -CXR on 01/11/19 showed some improvement of fluid loculation, so chest CT scan performed (was performed after morning drainage of pleurex: -CT scan of chest (01/11/19) showed some improvement of fluid loculations -pleurex drained by myself on 01/11/19 for 450 cc of dark bloody appearing fluid: -due to appearance of fluid, MIST-2 continued with dornase only (alteplase d/c on 01/11/19) -Hemoglobin noted to have approx. 2 gram drop last 24 hour -pleural fluid has been recultured om 01/11/19: -gram stain shows no organisms with culture pending -pleural fluid recultured again today -renal function remains stable -leukocytosis persists, but improved last 24 hours -ID has been consulted and they feel this is due to previous use of prednisone as well as neulasta -lovenox was place for DVT prevention but held due to bleeding concerns -case discussed with RN as well as hospitalist and ID service Subjective Pt. feels that she continues to improve since admission. Her apatite has improved as has her energy level. No SOB. She has intermittent cough. No fevers, shakes, chills. No N/V. Physical Exam Physical Exam: Pleurex site looks clean. Constitutional: well developed and well nourished; no acute distress Respiratory: normal respiratory effort; no respiratory distress and no labored breathing improved air movement noted on left side, no wheezing Cardiovascular: Rate/Rhythm: regular rate and regular rhythm Musculoskeletal: no calf tenderness Results & Data Vital Signs (Past 12 Hours) Vital Signs Temp Pulse Pulse Resp BP Pulse Ox 01/12/19 04:00 37.0 C 95 H 20 119/74 95 01/12/19 01:50 89 14 94 01/12/19 00:46 90 01/12/19 00:00 36.7 C 96 H 20 104/53 L 96 01/11/19 22:45 107 H 01/11/19 22:15 20 96 01/11/19 20:02 36.8 C 69 20 115/76 96 PG Care Time/CCT Total # of Minutes Spent Total Time Spent with Patient: Total time spent is greater than 50% in coordination of care (as documented) at patient's floor/unit and/or counseling patient:
[2019-01-12 07:08] LABS: Basophils # (auto) 0.07 K/uL (0-0.2); Basophils % (auto) 0.2 %; Eosinophils # (auto) 0.17 K/uL (0-0.5); Eosinophils % (auto) 0.5 %; Immature Granulocytes # (auto) 3.19 K/uL (0.00-0.02); Immature Granulocytes % (auto) 8.9 %; Lymphocytes # (auto) 1.31 K/uL (1.2-3.4); Lymphocytes % (auto) 3.6 %; Monocytes # (auto) 2.63 K/uL (0.11-0.59); Monocytes % (auto) 7.3 %; Neutrophils # (auto) 28.66 K/uL (1.4-6.5); Neutrophils % (auto) 79.5 %
--- NOTE | 2019-01-12 07:28 | XRay Report ---
XR chest 1V portable CLINICAL HISTORY: effusion dyspnea COMPARISON STUDY: 01/11/2019 FINDINGS: No major change compared to the prior study. Pleural drain persists the left base. effusion and or consolidation left lung base is unchanged. No significant pneumothorax. IMPRESSION: No change compared to the prior study. Left pleural drain remains in satisfactory positi on. The above report was generated using voice recognition software. It may contain grammatical, syntax or spelling errors. Electronically signed by: Rommel Poole M.D. 01/12/2019 7:26 AM
[2019-01-12] MEDS: CEFAZOLIN 1000MG 1,000 MG/7.5 ML SYR IV SCH ×3 (07:39→23:36)
[2019-01-12] MEDS: CETIRIZINE HCL 10 MG TABLET PO SCH (07:40)
[2019-01-12] MEDS: POT PHOSPHATE MONOBASIC W/ SOD TAB PO SCH (07:40)
[2019-01-12] MEDS: DORNASE ALFA 5 ML in SYRINGE 25 ML IPL SCH ×2 (08:25→19:59)
[2019-01-12] MEDS: INSULIN ASPART 100 UNITS/ML 3 ML PEN SC SCH ×4 (08:25→22:42)
[2019-01-12] MEDS ORDERED: POTASSIUM CHLORIDE 20 MEQ TABCR PO STA (09:35)
[2019-01-12] MEDS: HYDROCODONE/ACETAMOPHEN 5/325MG TAB PO PRN ×2 (10:25→19:28)
--- NOTE | 2019-01-12 12:00 | Nephrology Progress Note ---
Date of Service January 12, 2019 Assessment & Plan (1) Hyponatremia: -- Euvolemic -- Excessive ADH in setting of active pulmonary infection complicated by poor nutrition and protein and fluid losses via pleurx -- 2 L fluid restriction established -- Nutritional supplements encouraged to increase protein intake -- Hold Phos-NaK -- Additional oral KCl 40 mEq provided this AM -- Sodium improved to 133 mmol/L -- Nephrology will sign off -- Please call with any questions or concerns. (2) JOSE (acute kidney injury): -- Electrolytes and volume status appropriate -- Creatinine improved -- Nephrology will sign-off. Please call with any questions or concerns. (3) Malignant pleural effusion: (4) Hypertension: -- BP low, amlodipine held Subjective No acute events overnight. Appetite continues to improve. No complaints this AM. No fevers or chills. Breathing comfortably. Review of Systems Review of Systems: All systems reviewed & are unremarkable except as noted in HPI & below Physical Exam Constitutional: well developed and + well hydrated; no acute distress and not edematous Eyes: no scleral abnormality and no corneal abnormality ENMT: Mouth: no oral mucosal abnormality and oral mucous membranes not dry Neck: normal visual inspection and trachea midline Respiratory: normal respiratory effort Auscultation: lungs clear to auscultation bilaterally and + diminished lung sounds Cardiovascular: Rate/Rhythm: regular rate Heart Sounds: normal S1 and normal S2 Extremities: no edema Musculoskeletal: Extremities: no cyanosis and no clubbing Skin: normal turgor; no lesions Neurologic: Motor/Sensory: no tremor and no asterixis Psychiatric: Orientation: alert and oriented x 3 Results & Data Vital Signs (Past 12 Hours) Vital Signs Temp Pulse Pulse Resp BP Pulse Ox 01/12/19 08:00 36.4 C L 96 H 102 H 16 105/69 97 01/12/19 04:00 37.0 C 95 H 20 119/74 95 01/12/19 01:50 89 14 94 01/12/19 00:46 90 01/12/19 00:00 36.7 C 96 H 20 104/53 L 96 Laboratory Results Laboratory Results - last 24 hr 01/11/19 01/11/19 01/12/19 16:33 20:33 05:33 WBC RBC Hgb Hct MCV MCH MCHC RDW Std Deviation RDW Coeff of Geoffrey Plt Count MPV Immature Gran % (Auto) Neut % (Auto) Lymph % (Auto) Mccone % (Auto) Eos % (Auto) Baso % (Auto) Immature Gran # (Auto) Neut # (Auto) Lymph # (Auto) Mccone # (Auto) Eos # (Auto) Baso # (Auto) Absolute Nucleated RBC Nucleated RBC % (auto) Sodium 133 L Potassium 3.3 L Chloride 97 L Carbon Dioxide 26 Anion Gap 9.0 BUN 21 H Creatinine 1.18 Est Cr Clr Drug Dosing 43.2 Est GFR ( Amer) 56.8 Est GFR (Non-Af Amer) 49.0 BUN/Creatinine Ratio 17.8 Glucose 172 H POC Glucose 150 H 174 H Calcium 7.8 L Phosphorus 3.6 Magnesium 2.1 Albumin 1.7 L 01/12/19 01/12/19 05:33 07:58 WBC 36.03 H* RBC 3.03 L Hgb 9.6 L Hct 28.3 L MCV 93.4 MCH 31.7 MCHC 33.9 RDW Std Deviation 56.3 H RDW Coeff of Geoffrey 16.4 H Plt Count 417 H MPV 10.3 Immature Gran % (Auto) 8.9 Neut % (Auto) 79.5 Lymph % (Auto) 3.6 Mccone % (Auto) 7.3 Eos % (Auto) 0.5 Baso % (Auto) 0.2 Immature Gran # (Auto) 3.19 H Neut # (Auto) 28.66 H Lymph # (Auto) 1.31 Mccone # (Auto) 2.63 H Eos # (Auto) 0.17 Baso # (Auto) 0.07 Absolute Nucleated RBC 0.14 H Nucleated RBC % (auto) 0.4 Sodium Potassium Chloride Carbon Dioxide Anion Gap BUN Creatinine Est Cr Clr Drug Dosing Est GFR ( Amer) Est GFR (Non-Af Amer) BUN/Creatinine Ratio Glucose POC Glucose 181 H Calcium Phosphorus Magnesium Albumin PG Care Time/CCT Total # of Minutes Spent Total Time Spent with Patient: Total time spent is greater than 50% in coordination of care (as documented) at patient's floor/unit and/or counseling patient:
--- NOTE | 2019-01-12 19:07 | Hospitalist Progress Note ---
Date of Service January 12, 2019 Assessment & Plan (1) Empyema of left pleural space: With PleurX catheter in place for malignant effusion since 08/2018 Now with loculated effusion, growing MSSA in pleural fluid culture Had some bloody drainage on 01/11-her Lovenox prophylaxis was held in the alteplase was held from the protocol. She is only now receiving dornase -Thoracic Surgery requested admission--> on day #5/6 of MIST-2 protocol (repeating second cycle of 3 days), draining a lot of fluid, and now chest x- ray/CT findings improving somewhat -follow CXR daily -initially on vancomycin and Zosyn which are now dcd -continue Ancef 1000 mg IV every 8 hours for MSSA empyema -Pharmacy suggested adding on Flagyl to cover for anaerobes as they are often hard to isolate on culture and could be present, especially in setting of rising WBC count-now day #3 of Flagyl -follow CBC-she had worsening leukocytosis despite appropriate treatment which was most likely from Neulasta effect--> consulted ID who agreed with current management and also thought was from Neulasta -Leukocytosis is now finally starting to improve down to 36K -follow BCxs-NGTD -Remains with a very serious condition and is at high risk for worsening condition (2) Acute respiratory failure with hypoxia: Secondary to loculated effusion, does not feel dyspneic and is improving, now weaned down to 1-2 L nasal cannula -continue supplemental O2 as needed to keep POx>90% -Continue to treat empyema as above -draining Pleurx bid with MIST-2 -May need two step prior to discharge for home oxygen (3) Malignant pleural effusion: As above, secondary to Br CA (4) Hypokalemia: -Mild, potassium 3.3 today -Replace with oral potassium chloride 40 mill equivalents -follow BMP, Mag daily (5) Acute hyponatremia: Baseline is around 134-136 Is on chlorthalidone 50mg daily at home prior to admission and did receive her dose on the morning of 01/08-it has since been held Was tachycardic on admission and now improved with IVFs, weight is down overall from previous, no edema Pleural effusion is not from CHF but rather from malignancy Discount Clerk continued to rise despite IV fluid hydration, but now is improved at 1.18 Na+ 125 on admission and then down to 123, however back up to 133 now after normal saline hydration and also received NaCL tabs on 01/09 and 01/11. Is hypotonic hyponatremia--> suspect hypovolemia and likely secondary to extra- renal losses and "tea/toast diet" as has had poor po intake prior to admission Also with acute kidney injury possibly due to infection, now improving Urine sodium was 24 and urine osmolality 218 but was collected 24 hours after admission and after being given normal saline at the time of collection Urinalysis with only trace protein and trace blood, no casts Appreciate nephrology consultation-likely appropriate ADH release in the setting of infection and dehydration, loss of pleural fluid daily -no further IVFs -Nephro recommends fluid restrict to 2L -Salt tablets as needed -Continue to hold chlorthalidone from home -consult Nephrology-appreciated -follow BMP in the morning -encouraged Na+ intake in diet -Added boost shakes to improve hypoalbuminemia (6) Leukocytosis: In the setting of current infection and recent dexamethasone use on 01/01- 01/03 as well as Neulasta received 01/01-01/02 with Neulasta Patch Half life of Neulasta 7-10 days so any effect from this is likely now wearing off -Leukocytosis peaked at 45k, reactive in nature, and is finally now down to 36 - secondary to MSSA empyema, Neulasta effect -consult ID-recommends no changes to regimen at this point - remains afebrile -blood [id number] follow -follow CBC -Continue treating infection with antibiotics as above (7) Breast cancer: Left Br CA triple neg dxd in 2017, s/p surgery but no chemo With mets now to bones, lungs She has been following with Dr. Burton [place] [facility] [place] Her last chemo was 01/01, doclataxel therapy She takes dexamethasone pre/post chemo Appreciate Onco consult here-nothing to add at this time (8) Essential (primary) hypertension: Controlled -continue home amlodipine -Continue to HOLD chlorthalidone secondary to hyponatremia (9) Hypophosphatemia: replaced with po Neutra Phos but now will discontinue his phosphorus is normal (10) Hypomagnesemia: replaced with IV Magnesium and now acceptable (11) JOSE (acute kidney injury): Discount Clerk was climbing throughout the hospitalization despite hydration with IVFs, was as high as 1.6 up from 0.8 upon admission Suspect ATN from sepsis UA without casts or signs of infection -is making adequate urine-follow I/Os FeNa unreliable in the setting of taking thiazide diuretics but is 0.68%, FeUrea calculated at 55% which is indicative of intrinsic renal disease Renal ultrasound negative for obstruction -consult Nephrology appreciated -Creatinine now improved after giving IV fluids -IV fluids have since been discontinued and creatinine is normal at 1.18 -Follow BMP in the morning (12) MARK (obstructive sleep apnea): continue qhs CPAP (13) CKD (chronic kidney disease), stage III: baseline GFR 50s-70s CKD stage 2-3 -avoid nephrotpxins -renally dose meds -follow BMP (14) Prediabetes: HgbA1C actually in diabetic range at 6.7% on last check and remains stable at that level this admission With hyperglycemia here which is now improving after starting sliding scale insulin, but remains somewhat elevated -Continue accuchecks ACHS and SSI -Add on Lantus 8 units nightly -Could potentially add metformin versus Lantus at discharge (15) 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, seen previously and should continue to be followed as outpt (16) Anemia: Hemoglobin dropped acutely from 11 down to 9 today, remains hemodynamically stable Did have some bloody drainage on 01/11 from Pleurx catheter and both the Lovenox was held and the alteplase was held from the mist-2 protocol She also may be having some antineoplastic effect from her recent chemotherapy She has no other evidence of gross bleeding from any source -Follow CBC in the morning -No need for transfusion at this point we will transfuse if hemoglobin drops less than 8 or is hemodynamically unstable (17) DVT prophylaxis: Lovenox for DVT proph Dispo-remain hospitalized, now for repeat the mist-2 protocol which would be completed Sunday AM, but then will see if needs decortication if protocol fails Subjective Pt feeling better, mood is improved. Is weaning down on O2 at times to 1.5L. Is making urine, moving her bowels, had a good appetite today. Afebrile. Discussed her case with Thoracic Surgery PA and infectious disease. Telemetry with sinus tachycardia with rates in the 100s to 1 teens and 90s overnight, PACs Review of Systems Review of Systems: All systems reviewed & are unremarkable except as noted in HPI & below (No hematuria, no hematochezia or melena, no hemoptysis, no bleeding from anywhere else) Physical Exam Constitutional: WD/WN, vitals as above + obese Eyes: + anicteric sclerae Neck: trachea midline, no thyromegaly Respiratory: normal respiratory effort; no labored breathing Auscultation: + diminished lung sounds (left lower lung field); no crackles, no rhonchi and no wheezes Cardiovascular: Rate/Rhythm: regular rate and regular rhythm Heart Sounds: no murmur Extremities: no calf tenderness and no edema Chest (Breasts): Chest: + abnormal inspection of chest (left lateral chest wall with PleurX catheter in place) Gastrointestinal (Abdomen): normal bowel sounds, soft, nontender, no hepatosplenomegaly Musculoskeletal: Extremities: extremities normal to inspection; no cyanosis and no clubbing Skin: no rashes, warm and dry Neurologic: moves all extremities and awake; no focal motor deficits Psychiatric: A+Ox3, euthymic affect Results & Data Vital Signs (Past 12 Hours) Vital Signs Temp Pulse Pulse Resp BP Pulse Ox 01/12/19 15:43 106 H 01/12/19 15:38 36.8 C 103 H 19 134/78 96 01/12/19 12:38 36.5 C 99 H 20 122/80 97 01/12/19 08:00 36.4 C L 96 H 102 H 16 105/69 97 Laboratory Results 01/12/19 01/12/19 01/12/19 Range/Units 16:24 12:07 07:58 WBC (4.8-10.8) K/uL RBC (4.2-5.4) M/uL Hgb (12.0-16.0) g/dL Hct (37-47) % MCV (80-100) fL MCH (25-34) pg MCHC (32-36) g/dL RDW Std Deviation (36.4-46.3) fL RDW Coeff of Geoffrey (11.5-14.5) % Plt Count (130-400) K/uL MPV (7.4-10.4) fL Immature Gran % (Auto) % Neut % (Auto) % Lymph % (Auto) % [place] % (Auto) % Eos % (Auto) % Baso % (Auto) % Immature Gran # (Auto) (0.00-0.02) K/uL Neut # (Auto) (1.4-6.5) K/uL Lymph # (Auto) (1.2-3.4) K/uL [place] # (Auto) (0.11-0.59) K/uL Eos # (Auto) (0-0.5) K/uL Baso # (Auto) (0-0.2) K/uL Absolute Nucleated RBC (0-0) K/uL Nucleated RBC % (auto) % Sodium (136-145) mmol/L Potassium (3.5-5.1) mmol/L Chloride (98-107) mmol/L Carbon Dioxide (21-32) mmol/L Anion Gap (3-11) BUN (7-18) mg/dl Creatinine (0.6-1.2) mg/dl Est Cr Clr Drug Dosing ml/min Est GFR ( Amer) Est GFR (Non-Af Amer) BUN/Creatinine Ratio (10-20) Glucose (70-99) mg/dl POC Glucose 174 H 146 H 181 H (70-99) Calcium (8.5-10.1) mg/dl Phosphorus (2.5-4.9) mg/dl Magnesium (1.8-2.4) mg/dl Albumin (3.4-5.0) gm/dl 01/12/19 01/12/19 01/11/19 Range/Units 05:33 05:33 20:33 WBC 36.03 H* (4.8-10.8) K/uL RBC 3.03 L (4.2-5.4) M/uL Hgb 9.6 L (12.0-16.0) g/dL Hct 28.3 L (37-47) % MCV 93.4 (80-100) fL MCH 31.7 (25-34) pg MCHC 33.9 (32-36) g/dL RDW Std Deviation 56.3 H (36.4-46.3) fL RDW Coeff of Geoffrey 16.4 H (11.5-14.5) % Plt Count 417 H (130-400) K/uL MPV 10.3 (7.4-10.4) fL Immature Gran % (Auto) 8.9 % Neut % (Auto) 79.5 % Lymph % (Auto) 3.6 % [place] % (Auto) 7.3 % Eos % (Auto) 0.5 % Baso % (Auto) 0.2 % Immature Gran # (Auto) 3.19 H (0.00-0.02) K/uL Neut # (Auto) 28.66 H (1.4-6.5) K/uL Lymph # (Auto) 1.31 (1.2-3.4) K/uL [place] # (Auto) 2.63 H (0.11-0.59) K/uL Eos # (Auto) 0.17 (0-0.5) K/uL Baso # (Auto) 0.07 (0-0.2) K/uL Absolute Nucleated RBC 0.14 H (0-0) K/uL Nucleated RBC % (auto) 0.4 % Sodium 133 L (136-145) mmol/L Potassium 3.3 L (3.5-5.1) mmol/L Chloride 97 L (98-107) mmol/L Carbon Dioxide 26 (21-32) mmol/L Anion Gap 9.0 (3-11) BUN 21 H (7-18) mg/dl Creatinine 1.18 (0.6-1.2) mg/dl Est Cr Clr Drug Dosing 43.2 ml/min Est GFR ( Amer) 56.8 Est GFR (Non-Af Amer) 49.0 BUN/Creatinine Ratio 17.8 (10-20) Glucose 172 H (70-99) mg/dl POC Glucose 174 H (70-99) Calcium 7.8 L (8.5-10.1) mg/dl Phosphorus 3.6 (2.5-4.9) mg/dl Magnesium 2.1 (1.8-2.4) mg/dl Albumin 1.7 L (3.4-5.0) gm/dl Diagnostic Findings Personally reviewed the chest x-ray images and agree with the following report: XR chest 1V portable CLINICAL HISTORY: effusion dyspnea COMPARISON STUDY: 01/11/2019 FINDINGS: No major change compared to the prior study. Pleural drain persists the left base. effusion and or consolidation left lung base is unchanged. No significant pneumothorax. IMPRESSION: No change compared to the prior study. Left pleural drain remains in satisfactory position. PG Care Time/CCT Total # of Minutes Spent Total Time Spent with Patient: Total time spent is greater than 50% in coordination of care (as documented) at patient's floor/unit and/or counseling patient:
[2019-01-12] MEDS: INSULIN GLARGINE SOLOSTAR 100 UNITS/ML 3 ML PEN SC SCH (21:45)
--- NOTE | 2019-01-12 22:27 | Infectious Disease Progress Nt ---
Date of Service January 12, 2019 Assessment & Plan (1) Empyema of left pleural space: Patient with empyema in the setting of malignant pleural effusion, appears to be improving on antibiotics with improved white blood cell count. To continue IV cefazolin for now, will consider transition to oral antibiotics if continues to improve. Will follow. (2) MSSA (methicillin susceptible Staphylococcus aureus) infection: Subjective Patient seen in follow-up for MSSA empyema. Feeling better today, no new complaints. Still having pain at site of pleural catheter. White count has improved to 35,000. Continues to tolerate cefazolin. Review of Systems Review of Systems: All systems reviewed & are unremarkable except as noted in HPI & below Physical Exam Constitutional: WD/WN, vitals as above comfortable; no acute distress Eyes: PERRL, conjunctivae normal, anicteric sclerae ENMT: external ear and nose normal, oropharynx normal Neck: trachea midline, no thyromegaly neck nontender Respiratory: normal respiratory effort and normal percussion; no respiratory distress and does not use accessory muscles Auscultation: + diminished lung sounds (Left-sided) Cardiovascular: Rate/Rhythm: regular rate and regular rhythm Heart Sounds: normal S1 and normal S2; no gallop, no murmur and no cardiac rub Vessels: normal peripheral pulses; no JVD Gastrointestinal (Abdomen): normal bowel sounds, soft, nontender, no hepatosplenomegaly Musculoskeletal: no cyanosis or clubbing, extremities motor strength 5/5 Spine: thoracic spine normal to inspection and lumbar spine normal to inspection; no cervical spinal tenderness Skin: no rashes, warm and dry normal turgor; no lesions Neurologic: patellar DTR's 2+ bilat, sensation intact no focal motor deficits Psychiatric: A+Ox3, euthymic affect Orientation: cooperative Lymphatic: no cervical or axillary lymphadenopathy no inguinal lymphadenopathy Results & Data Vital Signs (Past 12 Hours) Vital Signs Temp Pulse Pulse Resp BP Pulse Ox 01/12/19 20:08 36.9 C 103 H 20 131/76 98 01/12/19 15:43 106 H 01/12/19 15:38 36.8 C 103 H 19 134/78 96 01/12/19 12:38 36.5 C 99 H 20 122/80 97 Laboratory Results Short CBC 01/12/19 Range/Units 05:33 WBC 36.03 H* (4.8-10.8) K/uL Hgb 9.6 L (12.0-16.0) g/dL Hct 28.3 L (37-47) % Plt Count 417 H (130-400) K/uL BMP 01/12/19 05:33 Sodium 133 L Potassium 3.3 L Chloride 97 L Carbon Dioxide 26 BUN 21 H Creatinine 1.18 Glucose 172 H Calcium 7.8 L Liver Function 01/12/19 Range/Units 05:33 Albumin 1.7 L (3.4-5.0) gm/dl Diagnostic Findings Microbiology 01/11/19 09:40 Pleural Fluid Gram Stain - Final 01/11/19 09:40 Pleural Fluid Aerobic and Anaerobic Culture - Preliminary No growth to date. 01/12/19 07:40 Pleural Fluid Gram Stain - Final 01/09/19 14:04 Blood Aerobic Blood Culture - Preliminary No growth in Aerobic bottle after 48 hours. 01/09/19 14:04 Blood Anaerobic Blood Culture - Preliminary No growth in Anaerobic bottle after 48 hours. 01/09/19 13:52 Blood Aerobic Blood Culture - Preliminary No growth in Aerobic bottle after 48 hours. 01/09/19 13:52 Blood Anaerobic Blood Culture - Preliminary No growth in Anaerobic bottle after 48 hours. 01/09/19 06:45 Urine,Clean Catch Urine Culture - Final No growth - less than 1,000 colonies/mL. PG Care Time/CCT Total # of Minutes Spent Total Time Spent with Patient: Total time spent is greater than 50% in coordination of care (as documented) at patient's floor/unit and/or counseling patient:
[2019-01-13] MEDS: metroNIDAZOLE 500 MG/100 ML BAG IV SCH ×3 (05:20→21:35)
[2019-01-13 06:21] LABS: Hemoglobin 8.7 g/dL (12.0-16.0); Mean Corpuscular Hemoglobin 32.8 pg (25-34); Mean Corpuscular Hgb Conc 34.8 g/dL (32-36); Mean Corpuscular Volume 94.3 fL (80-100); Mean Platelet Volume 9.3 fL (7.4-10.4); Nucleated RBC # (auto) 0.24 K/uL (0-0); Nucleated RBC % (auto) 0.8 %; Platelet Count 377 K/uL (130-400); RDW Coefficient of Variation 16.4 % (11.5-14.5); RDW Standard Deviation 56.9 fL (36.4-46.3); Red Blood Count 2.65 M/uL (4.2-5.4); White Blood Count 30.44 K/uL (4.8-10.8)
[2019-01-13 06:51] LABS: Albumin Level 1.7 gm/dl (3.4-5.0); BUN Creatinine Ratio 17.8 (10-20); Calcium 8.4 mg/dl (8.5-10.1); Creatinine Clr Calc Pharmacy 44.2 ml/min; Est GFR (Non-African American) 50.1; Magnesium 1.9 mg/dl (1.8-2.4); Potassium 3.5 mmol/L (3.5-5.1)
[2019-01-13 06:55] LABS: Phosphorus 2.8 mg/dl (2.5-4.9)
[2019-01-13 07:15] LABS: Basophils # (auto) 0.08 K/uL (0-0.2); Basophils % (auto) 0.3 %; Eosinophils # (auto) 0.07 K/uL (0-0.5); Eosinophils % (auto) 0.2 %; Immature Granulocytes % (auto) 7.9 %; Lymphocytes # (auto) 1.16 K/uL (1.2-3.4); Lymphocytes % (auto) 3.8 %; Monocytes # (auto) 1.71 K/uL (0.11-0.59); Monocytes % (auto) 5.6 %; Neutrophils # (auto) 25.02 K/uL (1.4-6.5); Neutrophils % (auto) 82.2 %; Polychromasia 1+
--- NOTE | 2019-01-13 07:25 | XRay Report ---
XR chest 1V portable CLINICAL HISTORY: empyema COMPARISON STUDY: 01/12/2019 FINDINGS: The heart remains enlarged. There is a right-sided A-Port catheter present. There is a left basilar chest tube unchanged in orientation. There is persistent left-sided wall thickening/fluid. T here is mild right-sided pleural thickening. There are left mid and lower lung zone airspace opacitie s similar to the preceding study. Minimal right-sided airspace opacities persist. There is no pneumot horax.[ IMPRESSION: 1. No significant change in the position of the left-sided pleural drainage catheter 2. No pneumothorax 3. Cardiomegaly and left mid and lower lung zone predominant airspace opacities Electronically signed by: Magen Crespo M.D. 01/13/2019 7:24 AM
[2019-01-13] MEDS: HYDROCODONE/ACETAMOPHEN 5/325MG TAB PO PRN (07:58)
[2019-01-13] MEDS: CETIRIZINE HCL 10 MG TABLET PO SCH (07:59)
[2019-01-13] MEDS: DORNASE ALFA 5 ML in SYRINGE 25 ML IPL SCH (08:24)
[2019-01-13] MEDS: CEFAZOLIN 1000MG 1,000 MG/7.5 ML SYR IV SCH ×3 (08:24→23:37)
[2019-01-13] MEDS: INSULIN ASPART 100 UNITS/ML 3 ML PEN SC SCH ×4 (08:57→20:57)
--- NOTE | 2019-01-13 09:02 | Surgery Progress Note ---
Date of Service January 13, 2019 Assessment & Plan (1) MSSA (methicillin susceptible Staphylococcus aureus) infection: Present on Admission?: Yes (2) Empyema of left pleural space: A long talk to the skin. We will remove his Pleurx catheter tomorrow, provided her cultures are negative.. Her cultures been negative thus far we just leonard our third set. I thought her CT scan looked pretty good. She had an infiltrative process and also has pleural thickening however, I think she is been drained fairly well. Present on Admission?: Yes Subjective Patient feels much better. She is on room air. She is ambulating. She is quite eager to go home. She denies pain. Her breathing is much improved. Physical Exam Physical Exam: Her Pleurx site is clean. She has decreased breath sounds on the right but actually I think moving air pretty well. She has no wheezing. Results & Data Vital Signs (Past 12 Hours) Vital Signs Temp Pulse Pulse Resp BP Pulse Ox 01/13/19 08:08 36.6 C 82 20 112/73 97 01/13/19 07:28 97 H 01/13/19 04:09 96 H 14 96 01/13/19 01:08 92 H 18 94 01/13/19 00:00 37.2 C 99 H 20 129/86 93 01/12/19 23:59 102 H 16 95 01/12/19 23:14 98 H PG Care Time/CCT Total # of Minutes Spent Total Time Spent with Patient: Total time spent is greater than 50% in coordination of care (as documented) at patient's floor/unit and/or counseling patient:
--- NOTE | 2019-01-13 10:31 | Hospitalist Progress Note ---
Date of Service January 13, 2019 Assessment & Plan (1) Empyema of left pleural space: With PleurX catheter in place for malignant effusion since 08/2018 Now with loculated effusion, growing MSSA in pleural fluid culture Had some bloody drainage on 01/11-her Lovenox prophylaxis was held in the alteplase was held from the protocol. She is only now receiving dornase -Thoracic Surgery requested admission--> on day #6/6 of MIST-2 protocol (repeating second cycle of 3 days), draining a lot of fluid, and now chest x- ray/CT findings improving somewhat - CXR today with improvement, d/w Dr. Judd, plan to pull PleurX tomorrow -initially on vancomycin and Zosyn which are now dcd -continue Ancef 1000 mg IV every 8 hours for MSSA empyema per ID, transition to Augmentin on discharge -follow CBC-she had worsening leukocytosis despite appropriate treatment which was most likely from Neulasta effect--> consulted ID who agreed with current management and also thought was from Neulasta -Leukocytosis is improving, down to 30k today -follow BCxs-NGTD plan for d/c to home tomorrow (2) Acute respiratory failure with hypoxia: Secondary to loculated effusion, does not feel dyspneic and is improving, now weaned down to 1-2 L nasal cannula -continue supplemental O2 as needed to keep POx>90% -Continue to treat empyema as above -draining Pleurx bid with MIST-2 two step ordered today to plan for possible need for home oxygen (3) Malignant pleural effusion: As above, secondary to Br CA (4) Hypokalemia: -3.5 today (5) Acute hyponatremia: Baseline is around 134-136 Is on chlorthalidone 50mg daily at home prior to admission and did receive her dose on the morning of 01/08-it has since been held Was tachycardic on admission and now improved with IVFs, weight is down overall from previous, no edema Pleural effusion is not from CHF but rather from malignancy Vp Biology continued to rise despite IV fluid hydration, but now is improved at 1.18 Na+ 125 on admission and then down to 123, however back up to 133 now after normal saline hydration and also received NaCL tabs on 01/09 and 01/11. Is hypotonic hyponatremia--> suspect hypovolemia and likely secondary to extra- renal losses and "tea/toast diet" as has had poor po intake prior to admission Also with acute kidney injury possibly due to infection, now improving Urine sodium was 24 and urine osmolality 218 but was collected 24 hours after admission and after being given normal saline at the time of collection Urinalysis with only trace protein and trace blood, no casts Appreciate nephrology consultation-likely appropriate ADH release in the setting of infection and dehydration, loss of pleural fluid daily -no further IVFs -Nephro recommends fluid restrict to 2L -Salt tablets as needed -Continue to hold chlorthalidone from home -consult Nephrology-appreciated Na is 136 today, responding well to current treatment plan (6) Leukocytosis: In the setting of current infection and recent dexamethasone use on 01/01- 01/03 as well as Neulasta received 01/01-01/02 with Neulasta Patch Half life of Neulasta 7-10 days so any effect from this is likely now wearing off -Leukocytosis peaked at 45k, reactive in nature, and is finally now down to 30k - secondary to MSSA empyema, Neulasta effect -consult ID-recommends no changes to regimen at this point - remains afebrile -blood [id number] follow -follow CBC -Continue treating infection with antibiotics as above (7) Breast cancer: Left Br CA triple neg dxd in 2017, s/p surgery but no chemo With mets now to bones, lungs She [place] [facility] [place] Her last chemo was 01/01, doclataxel therapy She takes dexamethasone pre/post chemo Appreciate Onco consult here-nothing to add at this time (8) Essential (primary) hypertension: Controlled -continue home amlodipine -Continue to HOLD chlorthalidone secondary to hyponatremia (9) Hypophosphatemia: replaced with po Neutra Phos but now will discontinue his phosphorus is normal (10) Hypomagnesemia: replaced with IV Magnesium and now acceptable (11) JOSE (acute kidney injury): Vp Biology was climbing throughout the hospitalization despite hydration with IVFs, was as high as 1.6 up from 0.8 upon admission Suspect ATN from sepsis UA without casts or signs of infection -is making adequate urine-follow I/Os FeNa unreliable in the setting of taking thiazide diuretics but is 0.68%, FeUrea calculated at 55% which is indicative of intrinsic renal disease Renal ultrasound negative for obstruction -consult Nephrology appreciated -Creatinine now improved after giving IV fluids -IV fluids have since been discontinued and creatinine is normal at 1.18 -Follow BMP in the morning (12) MARK (obstructive sleep apnea): continue qhs CPAP (13) CKD (chronic kidney disease), stage III: baseline GFR 50s-70s CKD stage 2-3 -avoid nephrotpxins -renally dose meds -follow BMP (14) Prediabetes: HgbA1C actually in diabetic range at 6.7% on last check and remains stable at that level this admission With hyperglycemia here which is now improving after starting sliding scale insulin, but remains somewhat elevated -Continue accuchecks ACHS and SSI -Add on Lantus 8 units nightly -Could potentially add metformin versus Lantus at discharge (15) 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, seen previously and should continue to be followed as outpt (16) Anemia: Hemoglobin dropped acutely from 11 down to 9 today, remains hemodynamically stable Did have some bloody drainage on 01/11 from Pleurx catheter and both the Lovenox was held and the alteplase was held from the mist-2 protocol She also may be having some antineoplastic effect from her recent chemotherapy She has no other evidence of gross bleeding from any source -Follow CBC, Hb is 8.7 -No need for transfusion at this point we will transfuse if hemoglobin drops less than 7 or is hemodynamically unstable (17) DVT prophylaxis: SCD Dispo-remain hospitalized, likely d/c home tomorrow Subjective patient sitting up in chair today, breathing well reviewed CXR, improved left lower consolidation, effusion discussed with Dr. Judd, he plans to pull PleurX tomorrow reviewed cultures, still negative patient anxious to leave the hospital breathing well, minimal cough, no fever/chills, no pain with PleurX reviewed chart since admission discussed antibiotic plan with Dr. Brand, transition to Augmentin for several weeks eating well, moving her bowels labs, WBC down to 30k, Hb 8.7, Cr is 1.1 and electrolytes stable Review of Systems Review of Systems: All systems reviewed & are unremarkable except as noted in HPI & below Constitutional: + weakness; no fever, no chills and no fatigue Respiratory: + cough and + dyspnea on exertion; no pain with cough and no sputum production Cardiovascular: no chest pain and no edema Gastrointestinal: no abdominal pain, no nausea, no vomiting, no constipation and no diarrhea/loose stools Physical Exam Constitutional: WD/WN, vitals as above Eyes: PERRL, conjunctivae normal, anicteric sclerae ENMT: external ear and nose normal, oropharynx normal Neck: trachea midline, no thyromegaly Respiratory: normal respiratory effort and + cough; no respiratory distress Auscultation: + diminished lung sounds (left base) and + rhonchi; no crackles, no rales and no wheezes Cardiovascular: RRR, no murmur, no edema Gastrointestinal (Abdomen): normal bowel sounds, soft, nontender, no hepatosplenomegaly Musculoskeletal: no cyanosis or clubbing, extremities motor strength 5/5 Skin: no rashes, warm and dry Neurologic: patellar DTR's 2+ bilat, sensation intact and PERRL, EOMI, accommodation nl, no face palsy, no dysarthria Psychiatric: A+Ox3, euthymic affect Lymphatic: no cervical or axillary lymphadenopathy Results & Data Vital Signs (Past 12 Hours) Vital Signs Temp Pulse Pulse Resp BP Pulse Ox 01/13/19 08:08 36.6 C 82 20 112/73 97 01/13/19 07:28 97 H 01/13/19 04:09 96 H 14 96 01/13/19 01:08 92 H 18 94 01/13/19 00:00 37.2 C 99 H 20 129/86 93 01/12/19 23:59 102 H 16 95 01/12/19 23:14 98 H Laboratory Results Laboratory Results - last 24 hr 01/12/19 01/12/19 01/13/19 16:24 20:53 06:03 WBC RBC Hgb Hct MCV MCH MCHC RDW Std Deviation RDW Coeff of Geoffrey Plt Count MPV Immature Gran % (Auto) Neut % (Auto) Lymph % (Auto) Schley % (Auto) Eos % (Auto) Baso % (Auto) Immature Gran # (Auto) Neut # (Auto) Lymph # (Auto) Schley # (Auto) Eos # (Auto) Baso # (Auto) Absolute Nucleated RBC Nucleated RBC % (auto) Polychromasia Sodium 136 Potassium 3.5 Chloride 101 Carbon Dioxide 29 Anion Gap 6.0 BUN 21 H Creatinine 1.16 Est Cr Clr Drug Dosing 44.2 Est GFR ( Amer) 58.0 Est GFR (Non-Af Amer) 50.1 BUN/Creatinine Ratio 17.8 Glucose 179 H POC Glucose 174 H 147 H Calcium 8.4 L Phosphorus 2.8 Magnesium 1.9 Albumin 1.7 L 01/13/19 01/13/19 01/13/19 06:03 07:53 12:13 WBC 30.44 H* RBC 2.65 L Hgb 8.7 L Hct 25.0 L MCV 94.3 MCH 32.8 MCHC 34.8 RDW Std Deviation 56.9 H RDW Coeff of Geoffrey 16.4 H Plt Count 377 MPV 9.3 Immature Gran % (Auto) 7.9 Neut % (Auto) 82.2 Lymph % (Auto) 3.8 Schley % (Auto) 5.6 Eos % (Auto) 0.2 Baso % (Auto) 0.3 Immature Gran # (Auto) 2.40 H Neut # (Auto) 25.02 H Lymph # (Auto) 1.16 L Schley # (Auto) 1.71 H Eos # (Auto) 0.07 Baso # (Auto) 0.08 Absolute Nucleated RBC 0.24 H Nucleated RBC % (auto) 0.8 Polychromasia 1+ Sodium Potassium Chloride Carbon Dioxide Anion Gap BUN Creatinine Est Cr Clr Drug Dosing Est GFR ( Amer) Est GFR (Non-Af Amer) BUN/Creatinine Ratio Glucose POC Glucose 158 H 134 H Calcium Phosphorus Magnesium Albumin Diagnostic Findings XR chest 1V portable CLINICAL HISTORY: empyema COMPARISON STUDY: 01/12/2019 FINDINGS: The heart remains enlarged. There is a right-sided A-Port catheter present. There is a left basilar chest tube unchanged in orientation. There is persistent left-sided wall thickening/fluid. There is mild right-sided pleural thickening. There are left mid and lower lung zone airspace opacities similar to the preceding study. Minimal right-sided airspace opacities persist. There is no pneumothorax.[ IMPRESSION: 1. No significant change in the position of the left-sided pleural drainage catheter 2. No pneumothorax 3. Cardiomegaly and left mid and lower lung zone predominant airspace opacities Medications Administered Current Inpatient Medications Acetaminophen (Tylenol) 650 mg PO Q4H PRN PRN Reason: Pain or Fever Stop: 02/06/19 18:21 Hydrocodone Bitart/Acetaminophen ([place] 5/325) 1 tab PO Q4 PRN PRN Reason: Pain Stop: 01/24/19 11:11 Last Admin: 01/13/19 07:58 Dose: 1 tab Documented by: Albuterol (Proair Hfa) 2 puffs INH Q6H PRN PRN Reason: Shortness Of Breath Stop: 02/06/19 18:43 Amlodipine Besylate (Norvasc) 5 mg PO HS DANIA Stop: 02/06/19 20:59 Last Admin: 01/10/19 21:10 Dose: 5 mg Documented by: Cetirizine HCl (Zyrtec) 10 mg PO QAM DANIA Stop: 02/07/19 08:59 Last Admin: 01/13/19 07:59 Dose: 10 mg Documented by: Dextrose (Dextrose 50%) 25 - 50 ml IV UD PRN; Protocol PRN Reason: Hypoglycemia Protocol Stop: 02/07/19 22:31 Enoxaparin Sodium (Lovenox) 40 mg SQ QAM DANIA Stop: 02/07/19 08:59 Last Admin: 01/10/19 10:07 Dose: 40 mg Documented by: Glucagon (Glucagen) 1 mg SQ UD PRN; Protocol PRN Reason: Hypoglycemia Protocol Stop: 02/07/19 22:31 Glucose (Dex4 Glucose) 4 - 8 tabs PO UD PRN; Protocol PRN Reason: Hypoglycemia Protocol Stop: 02/07/19 22:31 Glucose (Glucose 40%) 15 - 30 gm PO UD PRN; Protocol PRN Reason: Hypoglycemia Protocol Stop: 02/07/19 22:31 Cefazolin Sodium (Ancef 1000mg) 1,000 mg in 7.5 mls @ 2.5 mls/min IV Q8H DANIA Stop: 01/16/19 15:59 Last Admin: 01/13/19 08:24 Dose: 2.5 mls/min Documented by: Dornase Jesse 5 ml/ Syringe 30 mls @ 0.0006 mls/min IPL Q12H DANIA; Protocol Stop: 01/13/19 19:59 Last Admin: 01/13/19 08:24 Dose: 0.0006 mls/min Documented by: Metronidazole (Flagyl) 500 mg in 100 mls @ 100 mls/hr IV Q8H DANIA; Protocol Stop: 01/17/19 13:59 Last Infusion: 01/13/19 14:30 Dose: Infused Documented by: Insulin Aspart (Novolog Flexpen) 0 units SC ACHS DANIA Stop: 02/08/19 07:29 Last Admin: 01/13/19 13:21 Dose: 3 units Documented by: Insulin Glargine (Lantus Solostar Pen) 8 units SC HS DANIA Stop: 02/11/19 20:59 Last Admin: 01/12/19 21:45 Dose: 8 units Documented by: Magnesium Hydroxide (Milk Of Magnesia) 30 ml PO Q12H PRN PRN Reason: Constipation Stop: 02/06/19 18:21 Menthol (Nice) 1 nadya BUCCAL PRN PRN PRN Reason: Sore Throat Stop: 02/06/19 21:01 Miscellaneous (Carbohydrates For Hypoglycemia) 15 - 30 gm PO UD PRN PRN Reason: Hypoglycemia Protocol Stop: 02/07/19 22:31 Ondansetron HCl (Zofran) 4 mg IV Q6H PRN PRN Reason: Nausea Stop: 02/06/19 18:21 Ondansetron HCl (Zofran Tab) 8 mg PO Q8 PRN PRN Reason: Nausea Stop: 02/06/19 21:59 PG Care Time/CCT Total # of Minutes Spent Total Time Spent with Patient: Total time spent is greater than 50% in coordination of care (as documented) at patient's floor/unit and/or counseling patient:
--- NOTE | 2019-01-13 14:13 | Infectious Disease Progress Nt ---
Date of Service January 13, 2019 Assessment & Plan (1) Empyema of left pleural space: Patient with empyema in the setting of malignant pleural effusion, improving on antibiotics with improved white blood cell count. Would continue cefazolin for now, but consider transition to oral Augmentin 875 twice daily at time of discharge as we will give both staph and anaerobic coverage. Likely will need 2 to 3 weeks of oral antibiotics. We will continue to follow. (2) MSSA (methicillin susceptible Staphylococcus aureus) infection: Subjective Patient seen in follow-up for MSSA empyema. Feeling better today, no new complaints. Ambulating, no increase in shortness of breath. Pain at catheter site slightly better. White count down further to 30,000. Remains afebrile. Follow-up cultures have remained negative. Review of Systems Review of Systems: All systems reviewed & are unremarkable except as noted in HPI & below Physical Exam Constitutional: WD/WN, vitals as above + obese and comfortable; no acute distress Eyes: PERRL, conjunctivae normal, anicteric sclerae ENMT: external ear and nose normal, oropharynx normal Neck: trachea midline, no thyromegaly neck nontender Respiratory: normal respiratory effort and normal percussion; no respiratory distress and does not use accessory muscles Auscultation: + diminished lung sounds (Left-sided); no rales and no rhonchi Cardiovascular: Rate/Rhythm: regular rate and regular rhythm Heart Sounds: normal S1 and normal S2; no gallop, no murmur and no cardiac rub Vessels: normal peripheral pulses; no JVD Gastrointestinal (Abdomen): normal bowel sounds, soft, nontender, no hepatosplenomegaly Musculoskeletal: no cyanosis or clubbing, extremities motor strength 5/5 Spine: thoracic spine normal to inspection and lumbar spine normal to inspection; no cervical spinal tenderness Skin: no rashes, warm and dry normal turgor; no lesions Neurologic: patellar DTR's 2+ bilat, sensation intact no focal motor deficits Psychiatric: A+Ox3, euthymic affect Orientation: cooperative Lymphatic: no cervical or axillary lymphadenopathy no inguinal lymphadenopathy Results & Data Vital Signs (Past 12 Hours) Vital Signs Temp Pulse Pulse Pulse Pulse Pulse Pulse 01/13/19 12:07 36.6 C 100 H 01/13/19 10:50 111 H 108 H 106 H 101 H 01/13/19 08:08 36.6 C 82 01/13/19 07:28 97 H 01/13/19 04:09 96 H Resp Resp Resp Resp BP Pulse Ox Pulse Ox 01/13/19 12:07 20 124/79 90 01/13/19 10:50 20 18 16 92 01/13/19 08:08 20 112/73 97 01/13/19 07:28 01/13/19 04:09 14 96 Pulse Ox Pulse Ox Pulse Ox 01/13/19 12:07 01/13/19 10:50 86 L 95 93 01/13/19 08:08 01/13/19 07:28 01/13/19 04:09 Laboratory Results Short CBC 01/13/19 Range/Units 06:03 WBC 30.44 H* (4.8-10.8) K/uL Hgb 8.7 L (12.0-16.0) g/dL Hct 25.0 L (37-47) % Plt Count 377 (130-400) K/uL BMP 01/13/19 06:03 Sodium 136 Potassium 3.5 Chloride 101 Carbon Dioxide 29 BUN 21 H Creatinine 1.16 Glucose 179 H Calcium 8.4 L Liver Function 01/13/19 Range/Units 06:03 Albumin 1.7 L (3.4-5.0) gm/dl Diagnostic Findings Microbiology 01/12/19 07:40 Pleural Fluid Gram Stain - Final 01/12/19 07:40 Pleural Fluid Aerobic and Anaerobic Culture - Preliminary No growth to date. 01/13/19 Unknown Pleural Fluid Gram Stain - Final 01/11/19 09:40 Pleural Fluid Gram Stain - Final 01/11/19 09:40 Pleural Fluid Aerobic and Anaerobic Culture - Preliminary No growth to date. 01/09/19 14:04 Blood Aerobic Blood Culture - Preliminary No growth in Aerobic bottle after 48 hours. 01/09/19 14:04 Blood Anaerobic Blood Culture - Preliminary No growth in Anaerobic bottle after 48 hours. 01/09/19 13:52 Blood Aerobic Blood Culture - Preliminary No growth in Aerobic bottle after 48 hours. 01/09/19 13:52 Blood Anaerobic Blood Culture - Preliminary No growth in Anaerobic bottle after 48 hours. 01/09/19 06:45 Urine,Clean Catch Urine Culture - Final No growth - less than 1,000 colonies/mL. XR chest 1V portable CLINICAL HISTORY: empyema COMPARISON STUDY: 01/12/2019 FINDINGS: The heart remains enlarged. There is a right-sided A-Port catheter present. There is a left basilar chest tube unchanged in orientation. There is persistent left-sided wall thickening/fluid. There is mild right-sided pleural thickening. There are left mid and lower lung zone airspace opacities similar to the preceding study. Minimal right-sided airspace opacities persist. There is no pneumothorax.[ IMPRESSION: 1. No significant change in the position of the left-sided pleural drainage catheter 2. No pneumothorax 3. Cardiomegaly and left mid and lower lung zone predominant airspace opacities PG Care Time/CCT Total # of Minutes Spent Total Time Spent with Patient: Total time spent is greater than 50% in coordination of care (as documented) at patient's floor/unit and/or counseling patient:
[2019-01-13] MEDS: INSULIN GLARGINE SOLOSTAR 100 UNITS/ML 3 ML PEN SC SCH (20:56)
[2019-01-14] MEDS: metroNIDAZOLE 500 MG/100 ML BAG IV SCH ×2 (05:31→14:06)
--- NOTE | 2019-01-14 07:34 | XRay Report ---
XR chest 1V portable CLINICAL HISTORY: emyema empyema COMPARISON STUDY: 01/13/2019 FINDINGS: Slight increase in density of the loculated pleural fluid left lateral chest. Slight decrea se in aeration left base. Left basilar chest tube unaltered. Pleural parenchymal changes right hemithorax is stable. Improved aeration right base. There is a cent ral catheter in superior vena cava. IMPRESSION: 1. Slight increase in density a loculated effusion/empyema left hemithorax. 2. Left basilar drainage catheter in good position. 3. Slight improvement in aeration right lung base. The above report was generated using voice recognition software. It may contain grammatical, syntax or spelling errors. Electronically signed by: Rommel Poole M.D. 01/14/2019 7:33 AM
[2019-01-14] MEDS: CETIRIZINE HCL 10 MG TABLET PO SCH (08:02)
[2019-01-14] MEDS: CEFAZOLIN 1000MG 1,000 MG/7.5 ML SYR IV SCH ×2 (08:15→16:00)
[2019-01-14] MEDS: INSULIN ASPART 100 UNITS/ML 3 ML PEN SC SCH ×3 (08:20→18:29)
--- NOTE | 2019-01-14 09:48 | XRay Report ---
XR chest 1V portable CLINICAL HISTORY: Chest tube removal COMPARISON STUDY: 01/14/2019 FINDINGS: The heart remains enlarged. There is been interval removal of left-sided pleural catheter. A right-sided A-Port catheter remains unchanged in position. There is persistent left-sided pleural t hickening/fluid. There is mild right-sided pleural thickening/fluid. There are improving left basilar airspace opacities. No pneumothorax is visualized.[ IMPRESSION: 1. No evidence of pneumothorax status post removal of the left sided pleural catheter 2. Slight improvement in the aeration of the left lung base. Electronically signed by: Magen Crespo M.D. 01/14/2019 9:46 AM
[2019-01-14 10:32] LABS: Hematocrit (blood only) 25.4 % (37-47); Hemoglobin 8.7 g/dL (12.0-16.0); Mean Corpuscular Hemoglobin 32.6 pg (25-34); Mean Corpuscular Hgb Conc 34.3 g/dL (32-36); Mean Corpuscular Volume 95.1 fL (80-100); Mean Platelet Volume 9.4 fL (7.4-10.4); Nucleated RBC # (auto) 0.11 K/uL (0-0); Nucleated RBC % (auto) 0.4 %; Platelet Count 389 K/uL (130-400); RDW Coefficient of Variation 16.6 % (11.5-14.5); Red Blood Count 2.67 M/uL (4.2-5.4); White Blood Count 27.92 K/uL (4.8-10.8)
[2019-01-14 10:58] LABS: ALC (manual) 0.73 K/uL (1.2-3.4); ANC (manual) 25.24 K/uL (1.4-6.5); Eosinophils # (manual) 0.25 K/uL (0-0.5); Eosinophils % (manual) 0.9 %; Lymphocytes # (manual) 0.73 K/uL (1.2-3.4); Lymphocytes % (manual) 2.6 %; Metamyelocytes # (manual) 0.98 K/uL (0-0); Metamyelocytes % (manual) 3.5 %; Monocytes # (manual) 0.47 K/uL (0.11-0.59); Monocytes % (manual) 1.7 %; Myelocytes # (manual) 0.25 K/uL (0-0); Myelocytes % (manual) 0.9 %; Neutrophils # (manual) 25.24 K/uL (1.4-6.5); Neutrophils % (manual) 90.4 %; Polychromasia 1+
[2019-01-14 11:02] LABS: BUN Creatinine Ratio 20.3 (10-20); Calcium 8.7 mg/dl (8.5-10.1); Creatinine Clr Calc Pharmacy 42.1 ml/min; Est GFR (African American) 54.6; Est GFR (Non-African American) 47.1; Potassium 3.4 mmol/L (3.5-5.1)
[2019-01-14] MEDS: HYDROCODONE/ACETAMOPHEN 5/325MG TAB PO PRN ×2 (12:40→18:16)
--- NOTE | 2019-01-14 14:03 | Discharge Summary ---
Date of Service January 14, 2019 Admission HPI Per Admitting Provider 63 y/o F who was a direct from CT surgery for infectious pleural effusion. Pt was seen in the ED earlier today for SOB. She has a L sided pleurx for metastatic breast cancer causing fluid collections and was found to have some fluid overload. She had a thoracentesis at bedside with Dr. Judd and was feeling much improved. She was d/c'd to home with abx. Prelim eval of pleural fluid suggested infectious etiology and Dr. Judd feels that pt would benefit from IV abx and MIST-2 protocol. He spoke with pt and arranged for her to return to [facility] for admission. Pt is feeling much better overall. She is SOB with prolonged ambulation, but not at rest at present. She has some pain related to the pleurx site, but no other chest pain. She has had little appetite the last 2 days, but no n/v. Pt denies fever, abd pain, c/d, LE pain or swelling. She has been following with Dr. Burton at [facility] for her oncology, however Dr. Judd is requesting oncology to follow her current progress. Her last chemo was 01/01. She takes dexamethasone pre/post chemo. Principal Diagnosis Empyema Discharge Exam Constitutional WD/WN, vitals as above Eyes PERRL, conjunctivae normal, anicteric sclerae ENMT external ear and nose normal, oropharynx normal Neck trachea midline, no thyromegaly Respiratory normal respiratory effort and + cough; no respiratory distress Auscultation: + diminished lung sounds (left base) and + rhonchi; no crackles, no rales and no wheezes Cardiovascular RRR, no murmur, no edema Gastrointestinal (Abdomen) normal bowel sounds, soft, nontender, no hepatosplenomegaly Musculoskeletal no cyanosis or clubbing, extremities motor strength 5/5 Skin no rashes, warm and dry Neurologic patellar DTR's 2+ bilat, sensation intact and PERRL, EOMI, accommodation nl, no face palsy, no dysarthria Psychiatric A+Ox3, euthymic affect Lymphatic no cervical or axillary lymphadenopathy Discharge Data Allergies Allergy/AdvReac Type Severity Reaction Status Date / Time cat dander Allergy Mild Itchy Eyes Verified 01/07/19 10:38 lisinopril Allergy Mild Cough Unverified 01/07/19 10:38 Consultations 01/07/19 18:22 Consult Hematology Routine Consult Thoracic Surgery Routine 01/07/19 18:25 Consult Case Management - Discharge Planning Routine 01/08/19 22:51 Consult Nephrology Routine 01/11/19 08:54 Consult Infectious Diseases Routine 01/13/19 09:01 Consult Infectious Diseases Routine Ordered Studies 01/09/19 08:50 US renal/blad retro comp Routine 01/11/19 07:57 CT chest wo con Stat Hospital Course (1) Empyema of left pleural space: With PleurX catheter in place for malignant effusion since 08/2018 Now with loculated effusion, growing MSSA in pleural fluid culture Had some bloody drainage on 01/11-her Lovenox prophylaxis was held in the alteplase was held from the protocol. She is only now receiving dornase -Thoracic Surgery requested admission--> completed #6 of MIST-2 protocol (repeating second cycle of 3 days), draining a lot of fluid, and now chest x- ray/CT findings improving somewhat - CXR 01/14 with improvement, d/w Dr. Judd, will pull PleurX prior to d/c -initially on vancomycin and Zosyn which are now dcd -continue Ancef 1000 mg IV every 8 hours for MSSA empyema per ID, transition to Augmentin on discharge, complete 2-3 weeks -follow CBC-she had worsening leukocytosis despite appropriate treatment which was most likely from Neulasta effect--> consulted ID who agreed with current management and also thought was from Neulasta -Leukocytosis is improving although still elevated -follow BCxs-NGTD d/c to home with home health close follow up next week with Dr. Judd (2) Acute respiratory failure with hypoxia: Secondary to loculated effusion, does not feel dyspneic and is improving, now weaned down to 1-2 L nasal cannula -continue supplemental O2 as needed to keep POx>90% -Continue to treat empyema as above -draining Pleurx bid with MIST-2 two step done, will have 2L on exertion (3) Malignant pleural effusion: As above, secondary to Br CA (4) Hypokalemia: resolved after replacement (5) Acute hyponatremia: Baseline is around 134-136 Is on chlorthalidone 50mg daily at home prior to admission and did receive her dose on the morning of 01/08-it has since been held Was tachycardic on admission and now improved with IVFs, weight is down overall from previous, no edema Pleural effusion is not from CHF but rather from malignancy Computer Network Specialist continued to rise despite IV fluid hydration, but now is improved at 1.18 Na+ 125 on admission and then down to 123, however back up to 133 now after normal saline hydration and also received NaCL tabs on 01/09 and 01/11. Is hypotonic hyponatremia--> suspect hypovolemia and likely secondary to extra- renal losses and "tea/toast diet" as has had poor po intake prior to admission Also with acute kidney injury possibly due to infection, now improving Urine sodium was 24 and urine osmolality 218 but was collected 24 hours after admission and after being given normal saline at the time of collection Urinalysis with only trace protein and trace blood, no casts Appreciate nephrology consultation-likely appropriate ADH release in the setting of infection and dehydration, loss of pleural fluid daily Na normal on discharge continue to hold chlorthalidone, fluid restrict, no salt tabs required (6) Leukocytosis: In the setting of current infection and recent dexamethasone use on 01/01- 01/03 as well as Neulasta received 01/01-01/02 with Neulasta Patch Half life of Neulasta 7-10 days so any effect from this is likely now wearing off -Leukocytosis peaked at 45k, reactive in nature, and is finally now down to 20ks - secondary to MSSA empyema, Neulasta effect -consult ID-recommends no changes to regimen at this point - remains afebrile -blood khtbbrlw-LRBH-ilms follow -follow CBC -Continue treating infection with antibiotics as above (7) Breast cancer: Left Br CA triple neg dxd in 2017, s/p surgery but no chemo With mets now to bones, lungs She has been following with Dr. Burton at [facility] for her oncology Her last chemo was 01/01, doclataxel therapy She takes dexamethasone pre/post chemo Appreciate Onco consult here-nothing to add at this time (8) Essential (primary) hypertension: Controlled -continue home amlodipine -Continue to HOLD chlorthalidone secondary to hyponatremia (9) Hypophosphatemia: replaced with po Neutra Phos but now will discontinue his phosphorus is normal (10) Hypomagnesemia: replaced with IV Magnesium and now acceptable (11) JOSE (acute kidney injury): Computer Network Specialist was climbing throughout the hospitalization despite hydration with IVFs, was as high as 1.6 up from 0.8 upon admission Suspect ATN from sepsis UA without casts or signs of infection -is making adequate urine-follow I/Os FeNa unreliable in the setting of taking thiazide diuretics but is 0.68%, FeUrea calculated at 55% which is indicative of intrinsic renal disease Renal ultrasound negative for obstruction -consult Nephrology appreciated -Creatinine now improved after giving IV fluids -IV fluids have since been discontinued and creatinine is normal at 1.18 (12) MARK (obstructive sleep apnea): continue qhs CPAP (13) CKD (chronic kidney disease), stage III: baseline GFR 50s-70s CKD stage 2-3 -avoid nephrotpxins -renally dose meds -follow BMP (14) Prediabetes: HgbA1C actually in diabetic range at 6.7% on last check and remains stable at that level this admission With hyperglycemia here which is now improving after starting sliding scale insulin, but remains somewhat elevated -Continue accuchecks ACHS and SSI -Add on Lantus 8 units nightly -Could potentially add metformin versus Lantus at discharge (15) 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, seen previously and should continue to be followed as outpt (16) Anemia: Hemoglobin dropped acutely from 11 down to 9, remains hemodynamically stable Did have some bloody drainage on 01/11 from Pleurx catheter and both the Lovenox was held and the alteplase was held from the mist-2 protocol She also may be having some antineoplastic effect from her recent chemotherapy She has no other evidence of gross bleeding from any source -Follow CBC, stable for a few days can follow as outpatient (17) DVT prophylaxis: SCD Total Time Total Time Spent Total Time Spent (In Minutes): 35 minutes Total Time Includes: Examination of the Patient, Discharge Planning, Medication Reconciliation and Communication With Other Providers (Dr. Judd, Dr. Brand) Discharge Plan Discharge Items Patient Disposition: Home - Home Health Services Reason For Visit: INFECTED PLEURAL EFFUSION Discharge Diagnosis: Pleural effusion due to metastatic breast cancer Empyema on left, Staph aureus Acute hypoxic respiratory failure Condition on Discharge: Good Goals: improve treatment of infection, complete course of Augmentin follow up closely with Dr. Judd next week Activity: Resume your previous activity Lifting: None Bathing: No limitations Exercise/Sports: Gradually increase as tolerated Weightbearing: Full weightbearing Non-emergency contact: Primary Care Provider and Surgeon Call non-emergency contact if: you have any medication questions, your symptoms worsen, your pain is not controlled, your pain is worsening, you have a fever, your wound has increased drainage and your wound pain has increased Follow-up/Referrals: Pamella Zelaya DO [Primary Care Provider] - 01/20/19 12:00 pm (Please, follow up with Dr. Zelaya on SundayJanuary 20 at 12:00 pm. *If you need to change this appointment, call the office at [phone].) Diet: Regular Addtl Attending Provider Instructions: Medications: - AMOXICILLIN/CLAVULONATE: antibiotic for staph infection in left pleural fluid, take twice a day for three weeks - NORCO: take as needed for pain - CHLORTHALIDONE: stopped due to low sodium levels - AMLODIPINE: stopped due to normal blood pressures while off this medication - ASPIRIN: stopped due to some bleeding with PleurX drain Infected left pleural fluid associated with PleurX catheter third set of cultures with no growth bacterial source of infection was Staph aureus, sensitive to penicillins will utilize Amoxicillin-clavulonate twice a day for the next three weeks PleurX pulled on 01/14 Dr. Judd's office will contact you for follow up next week with chest x- ray Low sodium (hyponatremia) please follow a fluid restriction of 2 liters a day Chlorthalidone was stopped under direction of silk spooler, do not resume sodium levels have been stable for the past several days Breast cancer with mets to bone, lung please contact your oncologist to discuss current situation, will send them a discharge summary discuss if they want to continue treatment or pause while your are being treated for infection FOLLOW UP - PCP on 01/20 - Dr. Judd in one week, his office will contact you for appt Pending Studies at Discharge: No Stand-Alone Forms: My [facility], Smoking Cessation Medications and DC Order Prescriptions: New hydrocodone-acetaminophen [Bulger] 5-325 mg Tablet 1 tab PO Q4 PRN (Reason: pain) 20 Days Qty: 30 RF: 0 amoxicillin-pot clavulanate 875-125 mg tablet 1 tab PO BID Qty: 42 RF: 0 Continued albuterol sulfate 90 mcg/actuation Aerosol Powdr Breath Activated 2 inh INHALATION Q6H PRN (Reason: Shortness Of Breath) RF: 0 ondansetron HCl 8 mg tablet 8 mg PO Q8 RF: 0 cetirizine [Zyrtec] 10 mg Tablet 10 mg PO QAM RF: 0 dexamethasone 4 mg tablet 4 mg PO BID PRN (Reason: CHEMO) RF: 0 Discontinued amlodipine 5 mg Tablet 5 mg PO HS RF: 0 aspirin 81 mg Tablet,Delayed Release (Dr/Ec) 81 mg PO DAILY RF: 0 chlorthalidone 50 mg tablet 50 mg PO DAILY RF: 0 cephalexin [Keflex] 500 mg capsule 500 mg PO Q6H 10 Days Qty: 40 RF: 0 azithromycin [Zithromax] 500 mg tablet 500 mg PO DAILY 7 Days Qty: 7 RF: 0 Discharge Orders: Discharge Order (Routine); Ordered 01/14/19 Ordered By: Siva Kate/Other Patient Handouts: A1C Admission Data Admit Date/Time: 01/07/19 17:56 Attending Provider: Siva Lind Admit Provider: Hortensia Hernández Primary Care Provider: Pamella Zelaya Other Providers: Keith Gan ; Hugo Judd ; [facility] ; Soy Welch ; Angi Luciano Other Interventions: Discharge Summary Assessment (RN) Last Done: 01/14/19 17:46 DC Date/Time DO NOT enter until pt leaves facility: 01/14/19 19:33
--- NOTE | 2019-01-14 14:17 | Surgery Progress Note ---
Date of Service January 14, 2019 Assessment & Plan (1) MSSA (methicillin susceptible Staphylococcus aureus) infection: Present on Admission?: Yes (2) Empyema of left pleural space: Present on Admission?: Yes (3) Malignant pleural effusion: Present on Admission?: Yes (4) Breast cancer, stage 4: I had a long talk with Ann Marie Preston today at the bedside. We are not draining fluid and her CT scan from a couple of days ago showed mostly an infiltrative pattern. We had no growth for 3 days of the pleural fluid. I believe she can be safely discharged on antibiotics by mouth. I will see her back in the office in a week or so with a chest x-ray. I have explained to Ms. Preston that this fluid may reaccumulate and she may get ill from this if it is infected. She understands. She is quite pleased to have the catheter out. She also understands that we may have to put it back again. She is to be discharged today I will follow her up in the office. We removed her Pleurx catheter at bedside without difficulty under local anesthesia. Discharge instructions were given. Present on Admission?: Yes Subjective Ann Marie feels much better today. We are draining very little from her Pleurx and she is on room air. Physical Exam Physical Exam: Though she does have decreased breath sounds in the left base, her Pleurx site is clean and she is moving air better. She has a regular rate and rhythm of her heart. No neurologic deficits. Results & Data Vital Signs (Past 12 Hours) Vital Signs Temp Pulse Pulse Resp BP Pulse Ox 01/14/19 12:10 36.8 C 108 H 20 133/79 92 01/14/19 07:51 36.6 C 102 H 20 119/77 93 01/14/19 07:27 112 H 01/14/19 04:25 37.4 C 97 H 19 110/74 98 01/14/19 03:39 86 16 94 PG Care Time/CCT Total # of Minutes Spent Total Time Spent with Patient: Total time spent is greater than 50% in coordination of care (as documented) at patient's floor/unit and/or counseling patient: (1) Breast cancer, stage 4 Laterality: left Qualified Code(s): C50.912 - Malignant neoplasm of unspecified site of left female breast
--- NOTE | 2019-01-21 08:57 | Coding Query ---
SEPSIS To promote full compliance with coding requirements relating to patient care, physician participation is requested in all cases of marine painter uncertainty. Please assist us with the question(s) below: In responding to this query, please exercise your independent professional judgement. The fact that a question is asked does not imply that any particular answer is desired or expected. We appreciate your clarification on this issue. Throughout the medical record, you have clearly documented a localized infection and your patient has clinical evidence of a generalized sepsis or severe sepsis. The term urosepsis is a nonspecific entity and is coded as an UTI. If the patient has sepsis, severe sepsis, from an urinary source or some other source, please clarify in your response below. The medical record reflects the following clinical findings: Patient presenting with malignant pleural effusion, empyema and chest tube. Progress notes and D/S document Sepsis. Please document the phrase that applies. Thank you ! DEMARIO Ferris [facility] ____ ( )Bacteremia (Nonspecific laboratory finding of bacteria in the blood) Specify Organism ( ) Present on Admission ( ) Not present on admission ( ) Unable to clinically determine ( ) Septicemia (Systemic disease associated with the presence of pathogenic microorganisms in the blood): Specify Organism ( ) Present on Admission ( ) Not present on admission ( ) Unable to clinically determine ( ) Sepsis Specify Organism Specify Associated Condition/Diagnosis ( ) Present on Admission ( ) Not present on admission ( ) Unable to clinically determine ( x) Severe Sepsis (Sepsis associated with acute organ dysfunction) Specify Organism MSSA Specify Associated Condition/Diagnosis Empyema, acute hypoxic respiratory failure (x ) Present on Admission ( ) Not present on admission ( ) Unable to clinically determine ( ) Septic Shock (Severe sepsis with acute circulatory failure, unexplained by other causes) ( ) Present on Admission ( ) Not present on admission ( ) Unable to clinically determine ( ) Other, patient has: MTDD
== END 2019-01-14 19:33 | disposition home health service (06) | DRG 871 ==
LOC: SUATTDRO 17:56 → 2N 17:56

== ENCOUNTER 2020-02-01 01:36 | Inpatient (IN) ==
[2020-02-01] MEDS ORDERED: LORazepam 2 MG/4 ML VIAL IV STA (01:43)
--- NOTE | 2020-02-01 01:50 | Emergency Department Note ---
Impression & Plan Seizure, Hypomagnesemia, Acute alteration in mental status, Metastatic breast cancer ED Provider Note Name: JAVIER WHITTINGTON Age: 64 Sex: F Arrives Via: Ambulance Informant: EMS, ED Provider: Maximilian Cintron MD Chief Complaint: AMS Impression: Seizure Hypomagnesemia Acute Alteration in Mental Status Metastatic Breast Cancer Medical Decision Makin yr old female with Metastatic Breast CA, DMII, CKD, HTN, DLP, Vit D deficiency, Hypothyroid who is currently undergoing chemotherapy treatments at [place] arrives for altered mental status. Per she had seizure 4 weeks ago during chemo at [place], but none since. The last 4 days reportedly with headaches and loss of appetite at home. This evening worsening mental status and not responding, thus brought in by EMS for eval. On arrival patient having partial seizure with right facial droop and hypoxia. Given 2mg IV ativan with break of seizure, though patient quite somnolent after this, responding to loud voice by briefly opening eyes. CT obtained and reported normal. CXR with come congestion though no overt infectious etiology. Labs with hypomag but otherwise unremarkable. Given IV mag and fluids. No further seizure activity. Updated family at bedside, she is stable but obtunded. Hospitalist consulted for further evaluation. Patient did have right facial droop on arrival, it is unclear if this is seizure related or stroke. Given ongoing symptoms for at least 4 days, and acute symptoms since this evening, she is well outside TPA window, let alone she has reported brain mets from CA and is seizing. Given unclear where mets are held off on any asa, along with fact patient is too obtunded to swallow currently. Prior Medical Record and Triage/Nursing Notes reviewed by Me Additional history obtained from , chart Differentials:Infection, hypoglycemia, electrolyte abnormalities, overdose, toxicologic, cardiac sources, intracerebral event, neurologic, trauma, as well as other pathologies. Vital Signs: reviewed and remarkable for Hypoxia Interventions: Ativan 2mg IV, NSS infusion, Mag 2gm IV Labs:Reviewed and remarkable for Hypomag Imaging:[facility] Radiologist interpretation reviewed by me: CT head no acute findings X ray results are stated below per my interpretation: Chest: 1 view: Poor inspiration, mild congestive like findings, no overt effusion/infiltrate EKG:Per My Interpretation: Indication AMS: Sinus Tach bpm, qtc 108. No Ectopy. No Ischemia. Compared to EKG 01/07/19 lead I T waves have normalized Cardiac/Tele Monitoring: Cardiac Monitoring: An Order was placed for continuous cardiac monitoring. The monitor shows a rate of 80 with a normal sinus rhythm. Consults:Dr Dejah ADKINS Hospitalist Plan: Disposition:Hospitalization. Condition: Fair History of Present Illness:64 yr old female arrives for evaluation of altered mental status. Per EMS report patient with stage 4 Metastatic breast cancer with known mets to brain. Reportedly she had a seizure 3 weeks ago and was seen at [place]. 4 days ago she started having increasing headaches and fatigue. She was having worsening issues with walking. This evening patient altered, not answering questions, and she wouldn't follow commands. EMS contacted who brought her here for further evaluation. No treatments prior to arrival. No reported falls nor injuries. ROS: Unable to review secondary to AMS Past Medical History:Per Chart: Metastatic Breast CA, DMII, CKD, HTN, DLP, Vit D deficiency, Hypothyroid Past Surgical History:See Below Family History:See Below Social History:See Below Home Medications:See Below Allergies:See Below Vitals:Blood Pressure: 170/100, Pulse 100, RR 20, T 36.9C, O2 100% on 2L NC O2 Physical Exam: GENERAL: Patient is chronically unwell appearing and in no acute distress. EYES: No scleral icterus, unremarkable pupils. ENT: Mucous membranes moist, no nasal congestion. NECK: No masses appreciated, nomeningismus, trachea is midline. RESPIRATORY: stuttering respirations with periodic choking noise, cleared with jaw thrust, some crackles bilateral lungs CARDIOVASCULAR: Regular rate and rhythm.No murmurs, rubs, gallops appreciated. Left breast appears enlarged compared to right. Mediport right upper chest. GASTROINTESTINAL: Abdomen soft, non-tender, no peritonitis.Bowel sounds positive.No masses appreciated. BACK: No midline tenderness, no CVA tenderness EXTREMITIES: No cyanosis, no edema. Strong pulses all 4 NEUROLOGIC: Head twisted to right, twitching face/eyebrows, right lower facial droop with drooling, periodic twitching of arms/legs coming in waves. No response to painful stimuli nor voice. SKIN: No rash, no jaundice, no diaphoresis. PSYCH: Unable to assess GCS: n/a as seizing ED Course: Times/Reassessments: resolution of seizure with ativan, moderately obtunded and requiring NC O2 though maintains airway Critical Care: I have personally spent 40 minutes of critical care time in the direct management of this patient. Acute Seizure with hypoxia in possible stroke patient requiring IV benzos and close respiratory monitoring. This was a life/limb threatening event. This 40 minutes is in excess of all separately billable procedures. Maximilian Cintron MD Past Med/Surg History Medical History (Updated 02/01/20 @ 05:08 by Maximilian Cintron MD) Acute respiratory failure with hypoxia Breast cancer, stage 4 CKD (chronic kidney disease), stage III Encounter for pleural drainage tube placement Essential (primary) hypertension Hyperlipidemia DIET CONTROLLED Hyponatremia Obesity MARK (obstructive sleep apnea) CPAP Pancreatic cyst BEING MONITORED Pneumonia RECENT DX Prediabetes Thalassemia carrier Thyroid nodule 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 Surgical History (Updated 05/15/19 @ 15:07 by Hortensia Cummins PA-C) H/O section H/O heart surgery BENIGN VALVULAR TUMOR EXCISION 2004; SUBSEQUENT CARDIO FOLLOWUP "NORMAL" AND TOLD SHE DID NOT NEED TO CONTINUE FOLLOWING WITH CARDIO H/O hernia repair H/O tubal ligation History of bronchoscopy + CANCER (RECENT BIOPSY) History of cardiac cath 2004= NO STENTS History of ectopic WITH PARTIAL FALLOPIAN TUBE REMOVAL PER PT History of thoracentesis History of tooth extraction Status post partial mastectomy of left breast lumpectomy, 2016, with axillary lymph node dissection Family History (Updated 05/15/19 @ 15:09 by Hortensia Cummins PA-C) Father , age 61 Stroke Diabetes Hypertension Mother , age 78 Pulmonary embolism Son Thalassemia Sister Tuberculosis Denies family history of Breast cancer Social History Smoking Status: Unknown if ever smoked Second Hand Exposure: No; Hx Alcohol Use: Yes Alcohol type: wine Hx Substance Use: No Preferred Language: Turkmen Communication Ability: Effective Occ Med Physician Required: No Beliefs That Will Affect Care: None marital status: marital status details: 4 children Current Living Situation: Spouse 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 (-[employer] Feels Safe at Home: Yes Assistive Devices: CPAP and Oxygen - Continuous Allergies Allergies Allergy/AdvReac Type Severity Reaction Status Date / Time cat dander Allergy Mild Itchy Eyes Verified 02/01/20 02:00 lisinopril Allergy Mild Cough Unverified 02/01/20 02:00 ciprofloxacin Allergy Unknown Unverified 02/01/20 02:00 Home Meds Home Medications Medication Instructions Recorded Confirmed albuterol sulfate 2 inh INHALATION QID PRN 08/12/18 02/01/20 multivitamin 1 tab PO DAILY 05/15/19 02/01/20 amlodipine 5 mg PO DAILY 02/01/20 02/01/20 chlorthalidone 50 mg PO DAILY 02/01/20 02/01/20 potassium chloride 40 meq PO BID 02/01/20 02/01/20 Results & Data (ED) Vital Signs Vital Signs - 24 hr 02/01/20 01:40 02/01/20 01:42 02/01/20 01:59 Temperature 36.9 C Temperature Source Oral Pulse Rate 115 H 116 H Pulse Rate from SpO2 Sensor 114 H Respiratory Rate 23 24 Respiratory Effort / Characteristics Other Respiratory Depth Normal Respiratory Pattern Regular Blood Pressure 169/115 H 169/115 H Blood Pressure Mean 146 133 Blood Pressure Position Semi-fowlers Pulse Oximetry 97 96 85 L Oxygen Delivery Method Room Air Room Air Room Air Oxygen Flow Rate Sepsis Recent Fever Within 48 Hours No Sepsis New/Unexplained Change in Mental Status N/A Sepsis Action Taken by Nursing Physician Notified Oxygen Flow Rate - Titration 2 Pulse Oximetry Post Tiitration 100 02/01/20 02:00 02/01/20 02:30 02/01/20 02:33 Temperature Temperature Source Pulse Rate 106 H 112 H 102 H Pulse Rate from SpO2 Sensor 107 H 110 H 102 H Respiratory Rate 22 18 21 Respiratory Effort / Characteristics Respiratory Depth Respiratory Pattern Blood Pressure 164/105 H 189/123 H Blood Pressure Mean 124 149 Blood Pressure Position Pulse Oximetry 100 80 L 100 Oxygen Delivery Method Nasal Cannula Nasal Cannula Nasal Cannula Oxygen Flow Rate 2 2 2 Sepsis Recent Fever Within 48 Hours Sepsis New/Unexplained Change in Mental Status Sepsis Action Taken by Nursing Oxygen Flow Rate - Titration Pulse Oximetry Post Tiitration 02/01/20 03:00 02/01/20 03:30 02/01/20 03:31 Temperature Temperature Source Pulse Rate 100 H 99 H 88 Pulse Rate from SpO2 Sensor 104 H 99 H 91 H Respiratory Rate 20 17 16 Respiratory Effort / Characteristics Respiratory Depth Respiratory Pattern Blood Pressure 170/100 H 164/102 H Blood Pressure Mean 143 128 Blood Pressure Position Pulse Oximetry 100 100 100 Oxygen Delivery Method Nasal Cannula Nasal Cannula Nasal Cannula Oxygen Flow Rate 2 2 2 Sepsis Recent Fever Within 48 Hours Sepsis New/Unexplained Change in Mental Status Sepsis Action Taken by Nursing Oxygen Flow Rate - Titration Pulse Oximetry Post Tiitration 02/01/20 04:00 02/01/20 04:30 02/01/20 05:00 Temperature Temperature Source Pulse Rate 90 81 83 Pulse Rate from SpO2 Sensor 92 H 83 83 Respiratory Rate 16 19 20 Respiratory Effort / Characteristics Respiratory Depth Respiratory Pattern Blood Pressure 159/100 H 151/125 H 167/105 H Blood Pressure Mean 115 134 126 Blood Pressure Position Pulse Oximetry 100 93 100 Oxygen Delivery Method Nasal Cannula Nasal Cannula Nasal Cannula Oxygen Flow Rate 2 2 2 Sepsis Recent Fever Within 48 Hours Sepsis New/Unexplained Change in Mental Status Sepsis Action Taken by Nursing Oxygen Flow Rate - Titration Pulse Oximetry Post Tiitration Laboratory Data Result diagrams: 02/01/20 01:57 02/01/20 01:57 Lab Results 02/01/20 02/01/20 02/01/20 Range/Units 01:57 01:57 01:57 WBC 7.84 (4.8-10.8) K/uL RBC 2.91 L (4.2-5.4) M/uL Hgb 10.0 L (12.0-16.0) g/dL Hct 29.4 L (37-47) % MCV 101.0 H (80-100) fL MCH 34.4 H (25-34) pg MCHC 34.0 (32-36) g/dL RDW Std Deviation 58.4 H (36.4-46.3) fL RDW Coeff of Geoffrey 15.9 H (11.5-14.5) % Plt Count 180 (130-400) K/uL MPV 10.6 H (7.4-10.4) fL Immature Gran % (Auto) 0.1 % Neut % (Auto) 80.1 % Lymph % (Auto) 14.3 % [place] % (Auto) 5.1 % Eos % (Auto) 0.3 % Baso % (Auto) 0.1 % Neut # (Auto) 6.28 (1.4-6.5) K/uL Lymph # (Auto) 1.12 L (1.2-3.4) K/uL [place] # (Auto) 0.40 (0.11-0.59) K/uL Eos # (Auto) 0.02 (0-0.5) K/uL Baso # (Auto) 0.01 (0-0.2) K/uL Immature Gran # (Auto) 0.01 (0.00-0.02) K/uL PT (9.0-12.0) Seconds INR (0.9-1.1) Sodium (136-145) mmol/L Potassium (3.5-5.1) mmol/L Chloride (98-107) mmol/L Carbon Dioxide (21-32) mmol/L Anion Gap (3-11) BUN (7-18) mg/dl Creatinine (0.6-1.2) mg/dl Est Cr Clr Drug Dosing Est GFR ( Amer) Est GFR (Non-Af Amer) BUN/Creatinine Ratio (10-20) Glucose (70-99) mg/dl Lactate 2.0 (0.4-2.0) mmol/L Calcium (8.5-10.1) mg/dl Magnesium (1.8-2.4) mg/dl Total Bilirubin (0.2-1) mg/dl Direct Bilirubin (0-0.2) mg/dl AST (15-37) U/L ALT (12-78) U/L Alkaline Phosphatase (45-117) U/L Ammonia 15.0 (11-32) umol/L Troponin I (0-0.045) ng/ml Total Protein (6.4-8.2) gm/dl Albumin (3.4-5.0) gm/dl Lipase (73-393) U/L Urine Color Urine Appearance (Clear) Urine pH (4.5-7.5) Ur Specific [place] (1.000-1.030) Urine Protein (Negative) Urine Glucose (UA) (Negative) Urine Ketones (Negative) Urine Blood (Negative) Urine Nitrite (Negative) Urine Bilirubin (Negative) Urine Urobilinogen (Negative) Ur Leukocyte Esterase (Negative) Urine WBC (Auto) (0-5) /hpf Urine RBC (Auto) (0-4) /hpf U Hyaline Cast (Auto) (0-5) /lpf U Epithel Cells (Auto) (0-5) /lpf Urine Bacteria (Auto) (Negative) Ur Renal Epithelial Cell Urine Mucus (None Prsent) COVID-19 Eval Order SARS-CoV-2, RNA, NAAT (NEGATIVE) 12/13/20 12/13/20 12/13/20 Range/Units 01:57 01:57 03:24 WBC (4.8-10.8) K/uL RBC (4.2-5.4) M/uL Hgb (12.0-16.0) g/dL Hct (37-47) % MCV (80-100) fL MCH (25-34) pg MCHC (32-36) g/dL RDW Std Deviation (36.4-46.3) fL RDW Coeff of Geoffrey (11.5-14.5) % Plt Count (130-400) K/uL MPV (7.4-10.4) fL Immature Gran % (Auto) % Neut % (Auto) % Lymph % (Auto) % [place] % (Auto) % Eos % (Auto) % Baso % (Auto) % Neut # (Auto) (1.4-6.5) K/uL Lymph # (Auto) (1.2-3.4) K/uL [place] # (Auto) (0.11-0.59) K/uL Eos # (Auto) (0-0.5) K/uL Baso # (Auto) (0-0.2) K/uL Immature Gran # (Auto) (0.00-0.02) K/uL PT 12.1 H (9.0-12.0) Seconds INR 1.2 H (0.9-1.1) Sodium 135 L (136-145) mmol/L Potassium 3.0 L (3.5-5.1) mmol/L Chloride 100 (98-107) mmol/L Carbon Dioxide 31 (21-32) mmol/L Anion Gap 4.0 (3-11) BUN 9 (7-18) mg/dl Creatinine 0.98 (0.6-1.2) mg/dl Est Cr Clr Drug Dosing Not Reportable Est GFR ( Amer) 70.7 Est GFR (Non-Af Amer) 61.0 BUN/Creatinine Ratio 9.1 L (10-20) Glucose 240 H (70-99) mg/dl Lactate (0.4-2.0) mmol/L Calcium 9.8 (8.5-10.1) mg/dl Magnesium 1.0 L (1.8-2.4) mg/dl Total Bilirubin 0.5 (0.2-1) mg/dl Direct Bilirubin 0.1 (0-0.2) mg/dl AST 13 L (15-37) U/L ALT 21 (12-78) U/L Alkaline Phosphatase 67 (45-117) U/L Ammonia (11-32) umol/L Troponin I < 0.015 (0-0.045) ng/ml Total Protein 7.6 (6.4-8.2) gm/dl Albumin 3.8 (3.4-5.0) gm/dl Lipase 84 (73-393) U/L Urine Color Yellow Urine Appearance Clear (Clear) Urine pH 6.5 (4.5-7.5) Ur Specific [place] 1.029 (1.000-1.030) Urine Protein 1+ H (Negative) Urine Glucose (UA) Negative (Negative) Urine Ketones Trace H (Negative) Urine Blood Negative (Negative) Urine Nitrite Negative (Negative) Urine Bilirubin Negative (Negative) Urine Urobilinogen Negative (Negative) Ur Leukocyte Esterase Negative (Negative) Urine WBC (Auto) 1-5 (0-5) /hpf Urine RBC (Auto) 0-4 (0-4) /hpf U Hyaline Cast (Auto) >30 H (0-5) /lpf U Epithel Cells (Auto) 5-10 H (0-5) /lpf Urine Bacteria (Auto) Negative (Negative) Ur Renal Epithelial Cell Not Reportable Urine Mucus Present A (None Prsent) COVID-19 Eval Order SARS-CoV-2, RNA, NAAT (NEGATIVE) 02/01/20 02/01/20 Range/Units 03:37 03:37 WBC (4.8-10.8) K/uL RBC (4.2-5.4) M/uL Hgb (12.0-16.0) g/dL Hct (37-47) % MCV (80-100) fL MCH (25-34) pg MCHC (32-36) g/dL RDW Std Deviation (36.4-46.3) fL RDW Coeff of Geoffrey (11.5-14.5) % Plt Count (130-400) K/uL MPV (7.4-10.4) fL Immature Gran % (Auto) % Neut % (Auto) % Lymph % (Auto) % [place] % (Auto) % Eos % (Auto) % Baso % (Auto) % Neut # (Auto) (1.4-6.5) K/uL Lymph # (Auto) (1.2-3.4) K/uL [place] # (Auto) (0.11-0.59) K/uL Eos # (Auto) (0-0.5) K/uL Baso # (Auto) (0-0.2) K/uL Immature Gran # (Auto) (0.00-0.02) K/uL PT (9.0-12.0) Seconds INR (0.9-1.1) Sodium (136-145) mmol/L Potassium (3.5-5.1) mmol/L Chloride (98-107) mmol/L Carbon Dioxide (21-32) mmol/L Anion Gap (3-11) BUN (7-18) mg/dl Creatinine (0.6-1.2) mg/dl Est Cr Clr Drug Dosing Est GFR ( Amer) Est GFR (Non-Af Amer) BUN/Creatinine Ratio (10-20) Glucose (70-99) mg/dl Lactate (0.4-2.0) mmol/L Calcium (8.5-10.1) mg/dl Magnesium (1.8-2.4) mg/dl Total Bilirubin (0.2-1) mg/dl Direct Bilirubin (0-0.2) mg/dl AST (15-37) U/L ALT (12-78) U/L Alkaline Phosphatase (45-117) U/L Ammonia (11-32) umol/L Troponin I (0-0.045) ng/ml Total Protein (6.4-8.2) gm/dl Albumin (3.4-5.0) gm/dl Lipase (73-393) U/L Urine Color Urine Appearance (Clear) Urine pH (4.5-7.5) Ur Specific [place] (1.000-1.030) Urine Protein (Negative) Urine Glucose (UA) (Negative) Urine Ketones (Negative) Urine Blood (Negative) Urine Nitrite (Negative) Urine Bilirubin (Negative) Urine Urobilinogen (Negative) Ur Leukocyte Esterase (Negative) Urine WBC (Auto) (0-5) /hpf Urine RBC (Auto) (0-4) /hpf U Hyaline Cast (Auto) (0-5) /lpf U Epithel Cells (Auto) (0-5) /lpf Urine Bacteria (Auto) (Negative) Ur Renal Epithelial Cell Urine Mucus (None Prsent) COVID-19 Eval [facility] [place] [place] SARS-CoV-2, RNA, NAAT NEGATIVE (NEGATIVE) Administered Medications Sodium Chloride (Nss 1000ml) 1,000 mls @ 125 mls/hr IV .Q8H DANIA Stop: 03/02/20 03:29 Last Admin: 02/01/20 03:40 Dose: 125 mls/hr Documented by: [id number] Discontinued Medications Lorazepam (Ativan) 2 mg in 4 mls @ 4 mls/min IV NOW STA Stop: 02/01/20 01:44 Last Admin: 02/01/20 01:56 Dose: 4 mls/min Documented by: [id number] Magnesium Sulfate/Dextrose (Magnesium Sulfate / D5w) 1 gm in 100 mls @ 200 mls/hr IV Q30M DANIA Stop: 02/01/20 04:11 Last Infusion: 02/01/20 04:20 Dose: 0 mls/hr Documented by: [id number] Admin: 02/01/20 03:50 Dose: 200 mls/hr Documented by: [id number] Infusion: 02/01/20 03:46 Dose: 200 mls/hr Documented by: [id number] Admin: 02/01/20 03:16 Dose: 200 mls/hr Documented by: [id number] Discharge Plan Visit Data Chief Complaint: Altered Mental Status Stated Complaint: ALTERED MENTAL STATUS ED Provider: Maximilian Cintron Discharge Problem: Seizure, Hypomagnesemia, Acute alteration in mental status, Metastatic breast cancer Forms Stand Alone Forms: My [facility] Prescriptions Prescriptions: No Action multivitamin Tablet 1 tab PO DAILY RF: 0 albuterol sulfate 90 mcg/actuation Aerosol Powdr Breath Activated 2 inh INHALATION QID PRN (Reason: Shortness Of Breath) RF: 0 potassium chloride 20 mEq tablet extended release 40 meq PO BID RF: 0 amlodipine 5 mg tablet 5 mg PO DAILY RF: 0 chlorthalidone 50 mg tablet 50 mg PO DAILY RF: 0
[2020-02-01 02:09] LABS: Basophils # (auto) 0.01 K/uL (0-0.2); Basophils % (auto) 0.1 %; Eosinophils # (auto) 0.02 K/uL (0-0.5); Eosinophils % (auto) 0.3 %; Hematocrit (blood only) 29.4 % (37-47); Immature Granulocytes # (auto) 0.01 K/uL (0.00-0.02); Immature Granulocytes % (auto) 0.1 %; Lymphocytes # (auto) 1.12 K/uL (1.2-3.4); Lymphocytes % (auto) 14.3 %; Mean Corpuscular Hemoglobin 34.4 pg (25-34); Mean Platelet Volume 10.6 fL (7.4-10.4); Monocytes % (auto) 5.1 %; Neutrophils # (auto) 6.28 K/uL (1.4-6.5); Neutrophils % (auto) 80.1 %; Platelet Count 180 K/uL (130-400); RDW Coefficient of Variation 15.9 % (11.5-14.5); RDW Standard Deviation 58.4 fL (36.4-46.3); Red Blood Count 2.91 M/uL (4.2-5.4); White Blood Count 7.84 K/uL (4.8-10.8)
[2020-02-01 02:17] LABS: INR 1.2 (0.9-1.1); Prothrombin Time 12.1 Seconds (9.0-12.0)
[2020-02-01 02:27] LABS: Alanine Aminotransferase 21 U/L (12-78); Albumin Level 3.8 gm/dl (3.4-5.0); Aspartate Aminotransferase 13 U/L (15-37); BUN Creatinine Ratio 9.1 (10-20); Bilirubin Direct 0.1 mg/dl (0-0.2); Blood Urea Nitrogen 9 mg/dl (7-18); Calcium 9.8 mg/dl (8.5-10.1); Carbon Dioxide 31 mmol/L (21-32); Chloride 100 mmol/L (98-107); Est GFR (African American) 70.7; Glucose 240 mg/dl (70-99); Lipase 84 U/L (73-393); Sodium 135 mmol/L (136-145)
[2020-02-01 02:32] LABS: Alkaline Phosphatase 67 U/L (45-117); Bilirubin,Total 0.5 mg/dl (0.2-1); Total Protein 7.6 gm/dl (6.4-8.2); Troponin I < 0.015 ng/ml (0-0.045)
[2020-02-01] MEDS: MAGNESIUM SULFATE / D5W 1 GM/100 ML BAG IV SCH ×2 (03:16→03:50)
[2020-02-01] MEDS ORDERED: SODIUM CHLORIDE 0.9% 1000ML 1,000 ML IV SCH (03:30)
[2020-02-01 03:34] LABS: Appearance Urine Clear (Clear); Bacteria Urine Automated Negative (Negative); Bilirubin Urine Negative (Negative); Blood Urine Negative (Negative); Color Urine Yellow; Glucose Urine UA Negative (Negative); Ketones Urine Trace (Negative); Leukocyte Esterase Urine Negative (Negative); Nitrite Urine Negative (Negative); Protein Urine 1+ (Negative); RBC Urine Automated 0-4 /hpf (0-4); Specific Gravity Urine 1.029 (1.000-1.030); Urobilinogen Urine Negative (Negative); pH Urine 6.5 (4.5-7.5)
[2020-02-01 03:47] LABS: Cast Urine Automated >30 /lpf (0-5); Mucus Urine Present (None Prsent)
[2020-02-01] MEDS ORDERED: DEXAMETHASONE SOD INJ 10 MG/ML VIAL IV ONE (05:14)
[2020-02-01] MEDS ORDERED: MAGNESIUM SULFATE / D5W 1 GM/100 ML BAG IV ONE (05:14)
--- NOTE | 2020-02-01 05:32 | History & Physical Report ---
Date of Service February 01, 2020 Assessment & Plan (1) Seizure: Caveat: History Limited by - Obtunded/AMS Mrs. 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 - Partial seizure in ED of right facial droop treated with Ativan 2mg IV that resolved seizure. - Now obtunded/post-ictal. - Currently stable - Worsening headaches for the past 4 days with newly diagnosed leptomeningeal carcinomatosis dx 01/23/2020 - Follows with [facility] - Oncology Dr. Moira Franco. - No acute findings on CT head in ED. - Since having headaches and leptomeningeal disease will initiate Dexamethasone 10mg IV on admission, defer further steroids to day provider. - MRI Brain w/wo ordered for consideration for focal stroke or worsening mets. - Seizure precautions - Neurology consulted for any additional recs. - Magnesium was 1.0, contributory to seizure, will replete and trend. Given Mag 1gm x 2 bags in ED, another Mag 1gm x 1 bag ordered on admission. - Potassium 3.0 on admit, replete Mag and then replete K. - Allow for permissive HTN, I am not sure in current setting it would be appropriate to lower BP. - Hold home meds. - Currently stable, will replete electrolytes, no indication for emergent transfer but gets Oncology care at [facility], with pandemic unsure if transfer would be available and will defer to day provider as patient clinically progresses, hopes that she might even be able to get through current acute illness and be discharged and able to follow up with [place] on Sunday. - Spouse wasn't up for Palliative conversation or discussing DNR/DNI status. Appears her disease was relatively stable until recent diagnosis of brain mets which was only less than 2 weeks ago. FENGI: NSS + KCL 20meq @ 125ml/hr x 1 bag; Pepcid 20mg IV BID since on steroids. NPO currently. Dispo: PCU tele DVT ppx: SCDs, hypercoagulable risk cause of active cancer, was taken off of ASA by Oncology - unclear reason suspect cause of chemo induced thrombocytopenia or because of plans of upcoming intraventricular chemotherapy. Code: Discussed with Spouse at bedside, Full Code, no advanced wishes known for DNR/DNI. (2) Hypomagnesemia: As noted above - - Magnesium was 1.0, contributary to seizure, will replete and trend. Given Mag 1gm x 2 bags in ED, another Mag 1gm x 1 bag ordered on admission. (3) Acute alteration in mental status: as above (4) Metastatic breast cancer: noted to have bony mets with mets to brain leptomeningeal. - Metastatic triple negative inflammatory left breast cancer with lung metastasis, pleural effusion, and bony mets diagnosed 07/07/2018. (5) Hypokalemia: along with Mag repletion, KCl 20meq ordered IV (6) CKD (chronic kidney disease), stage III: as noted in hx; no signs of acute kidney failure (7) MARK (obstructive sleep apnea): cpap qHS ordered (8) Hypoxia: 80-85% on arrival to ED. Currently 98% on 2L NC (9) Diabetes mellitus: No current treatment as outpatient because of complex medical conditions. Suspect it is steroid induced as no pror formal diagnosis but Hgb A1c of 6.7 would meet criteria. Not on any outpatient medications PO or insulin, - Pharmacy Glycemic management appreciated as starting steroids and glucose of 240 in patient presenting with AMS, do not want to drop but would like proper control without sugars raising to dangerous levels. History of Present Illness Chief Complaint: Seizure; Lethargic Primary Care Provider: Cecilia Juarez MD Caveat: History Limited by - Obtunded/AMS Mrs. Ann Marie Preston is a 64 y/o female with past medical hx of triple negative inf lammatory breast cancer with bony mets and leptomeningeal carcinomatosis, h/o open heart surgery for atrial myxoma, CKD III, HTN, MARK, diabetes - steroid induced not treated, left pleural effusion s/p pleurx, who presented to [facility] ED via EMS for lethargy/AMS. Spouse and daughter are at bedside. Patient is unable to provide history as obtunded. Spouse notes that Ann Marie has been having headaches for several weeks that was found to have intracranial metastatic disease/leptomeningeal carcinomatosis. Over the past 4 days, patient has been complaining of worsening headaches. She was only taking Tylenol 500mg-1000mg for headache wild mild improvement. Spouse notes that she had poor oral intake with poor fluid and solid intake. Spouse suspected headaches were attributed to low nutritional/f luid intake. He notes she also periods of AMS that notes she would stare off or wouldn't be as mentally alert. Since her headaches persistented and she was fatigued with poor intake. Spouse called [facility] where she is treated by Oncology who advised her to come here to [facility] ED. He notes she was unable to stand was lethargic, had slurred speech and had worsening mental status. She was brought in via EMS. On arrival, she was noted to have appearance of partial seizure with right facial droop and was treated with Ativan 2mg IV which resolved seizure. She them became somnolent/obtunded with only responding to name, but stable. She was obtunded when I examined her. Family was in room. She was scheduled to have multi-agent intraventricular chemotherapy through an [facility] reservior scheduled for this upcoming Sunday, 02/02. Daughter is asking if she would still be able to get this. Brain mets were found via MRI on 01/23/2020. Prior her TNBC was well controlled with carbo/taxol. She had an allergic reaction with during chemo that required ED treatment for hypotension on 01/07/20. She had stable disease on scans prior to the brain mets. She was scheduled to have paclitaxel therapy on 02/03 as to not drop her platelets prior to intraventricular chemo on 02/02. Allergies Allergy/AdvReac Type Severity Reaction Status Date / Time cat dander Allergy Mild Itchy Eyes Verified 02/01/20 02:00 lisinopril Allergy Mild Cough Unverified 02/01/20 02:00 ciprofloxacin Allergy Unknown Unverified 02/01/20 02:00 Home Medications Medication Instructions Recorded Confirmed Type albuterol sulfate 2 inh INHALATION QID PRN 08/12/18 02/01/20 History multivitamin 1 tab PO DAILY 05/15/19 02/01/20 History amlodipine 5 mg PO DAILY 02/01/20 02/01/20 History chlorthalidone 50 mg PO DAILY 02/01/20 02/01/20 History potassium chloride 40 meq PO BID 02/01/20 02/01/20 History Past Med/Surg History Medical History Acute respiratory failure with hypoxia Breast cancer, stage 4 CKD (chronic kidney disease), stage III Encounter for pleural drainage tube placement Essential (primary) hypertension Hyperlipidemia DIET CONTROLLED Hyponatremia Obesity MARK (obstructive sleep apnea) CPAP Pancreatic cyst BEING MONITORED Pneumonia RECENT DX Prediabetes Thalassemia carrier Thyroid nodule 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 Surgical History H/O section H/O heart surgery BENIGN VALVULAR TUMOR EXCISION 2004; SUBSEQUENT CARDIO FOLLOWUP "NORMAL" AND TOLD SHE DID NOT NEED TO CONTINUE FOLLOWING WITH CARDIO H/O hernia repair H/O tubal ligation History of bronchoscopy + CANCER (RECENT BIOPSY) History of cardiac cath 2004= NO STENTS History of ectopic WITH PARTIAL FALLOPIAN TUBE REMOVAL PER PT History of thoracentesis History of tooth extraction Status post partial mastectomy of left breast lumpectomy, 2017, with axillary lymph node dissection Family History Father , age 61 Stroke Diabetes Hypertension Mother , age 78 Pulmonary embolism Son Thalassemia Sister Tuberculosis Denies family history of Breast cancer Social History Smoking Status: Unknown if ever smoked Second Hand Exposure: No; Preferred Language: Uzbek Communication Ability: Patient ob Extermination Inspector Required: No Beliefs That Will Affect Care: None marital status: marital status details: 4 children Current Living Situation: Spouse 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 Otherwise ROS limited by AMS/obtunded Physical Exam Physical Exam: Physical Exam Limited by: Obtunded Constitutional: + altered mental status and comfortable; no acute distress and not in distress ENMT: Ears: no external ear abnormality Nose: no external nose abnormality Neck: trachea midline, no thyromegaly Respiratory: no respiratory distress Auscultation: no wheezes snoring Cardiovascular: Rate/Rhythm: regular rate and regular rhythm Extremities: no edema Chest (Breasts): Chest: + vascular access device or port (Right upper chest without surrounding erythema or signs of infection) Gastrointestinal (Abdomen): Inspection/Auscultation: normal bowel sounds Percussion/Palpation: abdomen soft Musculoskeletal: Head/Neck/Chest: normocephalic and head atraumatic Skin: warm and dry Neurologic: + obtunded winces to verbal stimuli but does not open eyes Results & Data Results & Data ([facility]) Vital Signs (Past 12 Hours) Vital Signs Temp Pulse Resp BP Pulse Ox 02/01/20 05:00 83 20 167/105 H 100 02/01/20 04:30 81 19 151/125 H 93 02/01/20 04:00 90 16 159/100 H 100 02/01/20 03:31 88 16 100 02/01/20 03:30 99 H 17 164/102 H 100 02/01/20 03:00 100 H 20 170/100 H 100 02/01/20 02:33 102 H 21 189/123 H 100 02/01/20 02:30 112 H 18 80 L 02/01/20 02:00 106 H 22 164/105 H 100 02/01/20 01:59 85 L 02/01/20 01:42 36.9 C 116 H 24 169/115 H 96 02/01/20 01:40 115 H 23 169/115 H 97 Code Status & VTE Plan Code Status Full VTE Prophylaxis Plan VTE Prophylaxis will be ordered: Yes Reason for no VTE drug order: Contraindicated Supervising Physician Co-Signing Physician Notes Attending addendum: I have physically seen this patient, have supervised the medical residents activities, and agree with the H&P unless as otherwise noted. Assessment and Plan: Seizure-like activity/altered mental status obtunded- NPO Seizure precautions Admit to monitored bed EEG MRI of brain, particularly assess for possibility of metastatic disease. Optimize magnesium and potassium via IV replacement Consult neurology Remaining orders and notations as noted Resident Activity Tracking Resident Involvement: Resident Care Provided Care Provided: Adult Hospital Medicine
[2020-02-01] MEDS ORDERED: POTASSIUM CHLORIDE / WTR 10 MEQ/100 ML PLCT IV STA (05:58)
[2020-02-01] MEDS ORDERED: ACETAMINOPHEN 325 MG TAB PO PRN (06:39)
[2020-02-01] MEDS ORDERED: ONDANSETRON INJ 2 MG/ML 2 ML VIAL IV PRN (06:39)
[2020-02-01] MEDS ORDERED: NSS + 20MEQ KCL 20 MEQ/1,000 ML BAG IV SCH (06:39)
[2020-02-01] MEDS ORDERED: PHARMACY GLYCEMIC MGMT CONSULT PRN (07:10)
[2020-02-01] MEDS: POTASSIUM CHLORIDE / WTR 10 MEQ/100 ML PLCT IV SCH ×2 (07:29→08:50)
--- NOTE | 2020-02-01 08:05 | CT Scan Report ---
HEAD CT NONCONTRAST CT DOSE: 537.48 mGy.cm HISTORY: Altered mental status. seizure, BrCA to brain TECHNIQUE: Multiaxial CT images of the head were performed without the use of intravenous contrast. A utomated exposure control was utilized for this study. A dose lowering technique was utilized adheri ng to the principles of ALARA. Comparison: None. Findings: Moderate mucosal thickening within the right maxillary sinus. The calvarium and skull base are intact. There is no definite mass, hematoma, midline shift, acute infarct. The ventricles have sl ightly increased in size and there is progressive periventricular hypodensity. This is most pronounce d at the occipital horns. Therefore, this findings raise the possibility of mild hydrocephalus with t ransependymal flow. Impression: The ventricles have slightly increased in size and there is progressive periventricular hypodensity. This raises the possibility of mild hydrocephalus with transependymal flow. This will be better appre ciated on the same day brain MRI. ACT 112: Negative or not required by law. Electronically signed by: Alfred Arguelles M.D. 02/01/2020 8:03 AM
[2020-02-01 08:06] LABS: Basophils # (auto) 0.01 K/uL (0-0.2); Basophils % (auto) 0.1 %; Hematocrit (blood only) 28.7 % (37-47); Hemoglobin 9.8 g/dL (12.0-16.0); Immature Granulocytes # (auto) 0.02 K/uL (0.00-0.02); Immature Granulocytes % (auto) 0.2 %; Lymphocytes # (auto) 0.53 K/uL (1.2-3.4); Lymphocytes % (auto) 4.4 %; Mean Corpuscular Hemoglobin 34.1 pg (25-34); Mean Corpuscular Hgb Conc 34.1 g/dL (32-36); Mean Platelet Volume 9.5 fL (7.4-10.4); Monocytes # (auto) 0.17 K/uL (0.11-0.59); Monocytes % (auto) 1.4 %; Neutrophils # (auto) 11.37 K/uL (1.4-6.5); Neutrophils % (auto) 93.9 %; Platelet Count 158 K/uL (130-400); RDW Coefficient of Variation 15.8 % (11.5-14.5); RDW Standard Deviation 57.6 fL (36.4-46.3); Red Blood Count 2.87 M/uL (4.2-5.4)
[2020-02-01] MEDS: INSULIN ASPART 100 UNITS/ML 3 ML PEN SC SCH ×2 (08:12→13:38)
--- NOTE | 2020-02-01 08:17 | XRay Report ---
XR chest 1V portable HISTORY: Altered mental status. COMPARISON: Chest 02/23/2019. FINDINGS: No pneumothorax. No pleural effusions. Stable scarlike densities and pleural thickening/flu id within the right lung. Right jugular Port-A-Cath terminates at the superior cavoatrial junction. T here are low lung volumes. The heart remains unenlarged. IMPRESSION: 1. Stable scarlike densities and pleural thickening within the right hemithorax. This favors posttrea tment changes. 2. Stable cardiomegaly. ACT 112: Negative or not required by law. Electronically signed by: Alfred Arguelles M.D. 02/01/2020 8:15 AM
[2020-02-01 08:26] LABS: BUN Creatinine Ratio 8.4 (10-20); Blood Urea Nitrogen 8 mg/dl (7-18); Calcium 9.7 mg/dl (8.5-10.1); Carbon Dioxide 29 mmol/L (21-32); Chloride 100 mmol/L (98-107); Est GFR (African American) 75.3; Est GFR (Non-African American) 64.9; Glucose 198 mg/dl (70-99); Magnesium 2.2 mg/dl (1.8-2.4); Potassium 3.3 mmol/L (3.5-5.1); Sodium 136 mmol/L (136-145)
[2020-02-01] MEDS ORDERED: FAMOTIDINE 20 MG in SYRINGE 3 ML IV SCH (09:00)
[2020-02-01] MEDS ORDERED: NovoLIN-N (NPH) PER UNIT CHARGE SQ ONE (09:30)
--- NOTE | 2020-02-01 09:38 | Neurology Consultation ---
Date of Consultation February 01, 2020 Assessment & Plan (1) Seizure: Ann Marie Preston is a 64 yo woman w/ PMH of diabetes, CKDIII, HLD, MARK on CPAP, pancreatic cyst, thalassemia carrier, HTN, hypothyroidism and stage IV breast cancer with known leptomeningeal disease/bony mets/metastatic disease to the lung recently s/p chemotherapy who p/t [facility] after a 4 day h/o headaches, loss of appetite, and worsening AMS. Became minimally responsive the evening of 01/31/20, prompting presentation to the ED. # Stage IV metastatic breast cancer with recently diagnosed leptomeningeal carcinomatosis now complicated by suspected seizure: Given that she is actively receiving chemotherapy with potential plans to get intrathecal chemotherapy in the next few weeks, would recommend the following. Of note, her current leptomeningeal carcinomatosis carries a very poor prognosis. - start dexamethasone PO 8mg bid - load with keppra 1.5g IV and start 1000mg q12h - follow up MRI brain w/ and w/o contrast, particularly attention to location of leptomeningeal disease and presence of hydrocephalus or not - strongly consider transfer to [facility] if there are signs of hydrocephalus on MRI brain as she would potentially need a VPS placed for palliative care (hydr ocephalus could explain her new onset headaches/AMS). She would also benefit from continuous EEG monitoring as AMS could also be from frequent clinical/subclinical seizures or non-convulsive status epilepticus. Would at least obtain a routine EEG here to r/o NCSE. Thank you for this interesting consult. Plan of care discussed with primary team. Please call or text with questions. (2) Acute alteration in mental status: (3) Cancer with leptomeningeal spread: (4) Hypomagnesemia: History of Present Illness Attending Physician: Steven Mcconnell DO History of Present Illness Ann Marie Preston is a 64 yo woman w/ PMH of diabetes, CKDIII, HLD, MARK on CPAP, pancreatic cyst, thalassemia carrier, HTN, hypothyroidism and stage IV breast cancer with known leptomeningeal disease/bony mets/metastatic disease to the lung recently s/p chemotherapy who p/t [facility] after a 4 day h/o headaches, loss of appetite, and worsening AMS. Became minimally responsive the evening of 01/31/20, prompting presentation to the ED. In the ED, she was found to be somnolent with right facial droop, right facial twitching, periodic twitching of arms/legs and hypoxia, suspected of being a partial seizure. She was given ativan 2mg with resolution of facial droop but ongoing somnolence (eyes to voice or stimulation). She was afebrile, BP 169/115, HR 115, RR 23, satting 97% on room air. Labs notable for WBC 7.4, hemoglobin 10.0 with MCV 101, platelets 180, sodium mildly low at 135, potassium low at 3.0, BUN 9, creatinine 0.98, glucose 240, lactate 2, ammonia 15, INR 1.2, calcium 9.8, magnesium low at 1.0, LFTs within normal, troponin negative, albumin 3.8, UA no infection, Covid negative. Imaging independently reviewed. CT head shows questionable hypodensity in the left parietal lobe with no hemorrhage noted, question early or mild hydrocephalus compared to CT head in 2019. MRI brain pending. She also received magnesium sulfate and IV fluids in the ED and was admitted for further evaluation. On evaluation, she continues to be somnolent opening eyes to voice and intermittently following commands. She does have a left gaze preference that is sometimes overcome-able with dolls eyes or with her moving her eyes to the right independently. She had one observed twitching movement of the RUE that lasted about 2-3 seconds without any noticeable change in mental status during that time. Allergies Allergy/AdvReac Type Severity Reaction Status Date / Time cat dander Allergy Mild Itchy Eyes Verified 02/01/20 02:00 lisinopril Allergy Mild Cough Unverified 02/01/20 02:00 ciprofloxacin Allergy Unknown Unverified 02/01/20 02:00 Home Medications Medication Instructions Recorded Confirmed Type albuterol sulfate 2 inh INHALATION QID PRN 08/12/18 02/01/20 History multivitamin 1 tab PO DAILY 05/15/19 02/01/20 History amlodipine 5 mg PO DAILY 02/01/20 02/01/20 History chlorthalidone 50 mg PO DAILY 02/01/20 02/01/20 History potassium chloride 40 meq PO BID 02/01/20 02/01/20 History Patient History Medical History Acute respiratory failure with hypoxia Breast cancer, stage 4 CKD (chronic kidney disease), stage III Encounter for pleural drainage tube placement Essential (primary) hypertension Hyperlipidemia DIET CONTROLLED Hyponatremia Obesity MARK (obstructive sleep apnea) CPAP Pancreatic cyst BEING MONITORED Pneumonia RECENT DX Prediabetes Thalassemia carrier Thyroid nodule 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 Surgical History H/O section H/O heart surgery BENIGN VALVULAR TUMOR EXCISION 2004; SUBSEQUENT CARDIO FOLLOWUP "NORMAL" AND TOLD SHE DID NOT NEED TO CONTINUE FOLLOWING WITH CARDIO H/O hernia repair H/O tubal ligation History of bronchoscopy + CANCER (RECENT BIOPSY) History of cardiac cath 2004= NO STENTS History of ectopic WITH PARTIAL FALLOPIAN TUBE REMOVAL PER PT History of thoracentesis History of tooth extraction Status post partial mastectomy of left breast lumpectomy, 2016, with axillary lymph node dissection Family History Father , age 61 Stroke Diabetes Hypertension Mother , age 78 Pulmonary embolism Son Thalassemia Sister Tuberculosis Denies family history of Breast cancer Social History Smoking Status: Unknown if ever smoked Second Hand Exposure: No; Preferred Language: Bengali Communication Ability: Patient ob Electric Razor Assembler Required: No Beliefs That Will Affect Care: None marital status: marital status details: 4 children Current Living Situation: Spouse 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 CV: RRR, no peripheral edema PULM: Nonlabored respirations on 2L NC. Neuro Exam: MS: Drowsy, eyes to voice or noxious stimuli. Unable to answer orientation questions. Minimal speech output, mainly grunting. Unable to fully assess c ognition given mental status. Inattentive. CN: +BTT bilaterally. Unable to visualize fundi on fundoscopic exam. PERRLA OU. Left gaze preference, intermittently overcome-able. Facial sensation intact to LT. Facial muscles full and symmetric. Hearing intact to conversation. MOTOR: Normal bulk and tone. BUEs antigravity with quick drift to bed. RLE antigravity with minimal drift to bed. LLE minimal antigravity with drift to bed. REFLEXES: 1+ at biceps, triceps, brachioradialis, trace patella and absent Achilles bilaterally. Flexor plantar responses bilaterally. SENSORY: Withdraws to noxious stimuli in BUEs, grimaces to noxious stimuli in BLEs. COORDINATION: unable to assess 2/2 mental status GAIT: deferred given physical/mental status Results & Data ([facility]) Vital Signs (Past 12 Hours) Vital Signs Temp Pulse Pulse Resp BP BP BP 02/01/20 08:11 173/99 H 02/01/20 08:08 36.9 C 67 20 205/146 H 02/01/20 07:21 70 02/01/20 05:30 87 14 176/101 H 02/01/20 05:00 83 20 167/105 H 02/01/20 04:30 81 19 151/125 H 02/01/20 04:00 90 16 159/100 H 02/01/20 03:31 88 16 02/01/20 03:30 99 H 17 164/102 H 02/01/20 03:00 100 H 20 170/100 H 02/01/20 02:33 102 H 21 189/123 H 02/01/20 02:30 112 H 18 02/01/20 02:00 106 H 22 164/105 H 02/01/20 01:59 02/01/20 01:42 36.9 C 116 H 24 169/115 H 02/01/20 01:40 115 H 23 169/115 H Pulse Ox 02/01/20 08:11 02/01/20 08:08 99 02/01/20 07:21 02/01/20 05:30 98 02/01/20 05:00 100 02/01/20 04:30 93 02/01/20 04:00 100 02/01/20 03:31 100 02/01/20 03:30 100 02/01/20 03:00 100 02/01/20 02:33 100 02/01/20 02:30 80 L 02/01/20 02:00 100 02/01/20 01:59 85 L 02/01/20 01:42 96 02/01/20 01:40 97 PG Care Time/CCT Total # of Minutes Spent Total Time Spent with Patient: Total time spent is greater than 50% in coordination of care (as documented) at patient's floor/unit and/or counseling patient: Coding Level of Care Code 62114 Initial Inpt Care Lvl 3 Diagnoses Seizure R56.9 Acute alteration in mental status R41.82 Cancer with leptomeningeal spread C79.49 Hypomagnesemia E83.42
--- NOTE | 2020-02-01 10:38 | Pharmacy Report ---
Glycemic Control Consultation - Date of Service February 01, 2020 - Scope Scope: Glycemic Pharmacist consulted for glycemic control and to write orders per [facility] inpatient glycemic control protocol. - Objective Weight: 72.8 kg Accuchecks BSG (last 24hrs): 02/01/20 02/01/20 02/01/20 01:57 07:51 08:06 Glucose 240 H 198 H POC Glucose 201 H Laboratory Data (last 24hrs): 02/01/20 02/01/20 01:57 07:51 Potassium 3.0 L 3.3 L Carbon Dioxide 31 29 Anion Gap 4.0 7.0 Creatinine 0.98 0.93 Est Cr Clr Drug Dosing Not Reportable Not Reportable - Recent Pertinent Medications Outpatient Anti-diabetic Regimen: * NONE * A1c = ordered for 02/02/20 Risk Factors for Insulin Resistance: * Steroids: Dexamethasone 10 mg IV x 1 dose in ED around 5 AM today * Infection: none * IVF: NS + 20 KCL @ 125 ml/hr * Diet: NPO - Assessment & Plan Assessment & Plan: ASSESSMENT: * 64 y/o F admitted for AMS and seizures. Patient with Breast cancer and received treatment. * HbA1c = 6.7% from 2019 indicates borderline Diabetes but patient has not been any anti-diabetic meds. * Admission BSG was 240 mg/dl. Also patient received Dex 10 mg IV x 1 dose in ED early today AM which can lead to hyperglycemia. * NPH 20 units (0.27 units/kg) x 1 dose given today morning. * Novolog parameters were based on wt and stress of 3 however, patient is NPO at this time. PLAN FOR INPATIENT GLYCEMIC CONTROL: * Basal insulin - NPH 20 units SQ x 1 dose given this AM to counteract effects of steroid induced hyperglycemia. * Bolus insulin * NovoLog per scale ACHS or Q6hrs while NPO * Goal Range: Low 110 mg/dL - High 140 mg/dL * Correction Factor: 20 mg/dL/unit * Nutritional / Prandial insulin per carb ratio of 1 unit per 8 grams CHO consumed * Please note that the plan above was derived based on current level of insulin resistance and hospital stress. These recommendations are appropriate for inpatient admission only. Plan of care upon discharge will need to be reassessed to avoid potential outpatient hypo/hyperglycemia. Thank you.
[2020-02-01] MEDS ORDERED: levETIRAcetam 1,250 MG in 0.9 % SODIUM CHLORIDE 100 ML IV ONE (11:00)
[2020-02-01] MEDS ORDERED: RAPID SEQUENCE INDUCTION BAG ONE (11:33)
[2020-02-01] MEDS ORDERED: KETAMINE HCL INJ 50 MG/ML 10 ML VIAL ONE (11:35)
[2020-02-01] MEDS ORDERED: PROPOFOL IV EMULSION 10 MG/ML 100 ML VIAL IV ONE (11:37)
--- NOTE | 2020-02-01 12:18 | Procedure Note ---
Procedure Note Date of Service February 01, 2020 Note Procedure Note Procedure: Endotracheal Intubation Date: 02/01/2020 Time: 11:30 AM Indication: Airway protection and management w/ non-convulsant status epilepticus Resident: Dr. Cynthia Frye Attending: Dr. Santino Morelos A time-out was completed verifying correct patient, procedure, site, positioning, and special equipment if applicable. The patient was placed in a flat position. Sedation was obtained using Ketamine 500mg. The patient was easily ventilated using an ambu bag. The [employer]/ MAC 3 BLADE was used and inserted into the oropharynx at which time there was a Grade 1 view of the vocal cords. A 7.5-omani endotracheal tube was inserted and visualized going through the vocal cords. The stylette was removed. Colorimetric change was visualized on the CO2 meter. Breath sounds were heard in both lung negron equally. The endotracheal tube was placed at 23 cm, measured at the teeth. Dr. Morelos was present for the entire procedure. A chest x-ray was ordered to assess for pneumothorax and verify endotracheal tube placement. Estimated Blood Loss: 0cc The patient tolerated the procedure well and there were no complications. Supervising Physician Co-Signing Physician Notes I was present and assisted with the entire procedure Coding Resident Activity Tracking Resident Involvement: Resident Care Provided Care Provided: Adult Hospital Medicine
--- NOTE | 2020-02-01 12:19 | XRay Report ---
XR chest 1V portable HISTORY: S/P Intubation COMPARISON: Chest 02/01/2020. FINDINGS: The endotracheal tube terminates 1 cm from the ramona. Right jugular Port-A-Cath terminates at the superior cavoatrial junction. The heart remains mildly enlarged. Nasogastric tube terminates in the fundus of the stomach. No pneumothorax. There is mild central pulmonary vascular congestion wi thout overt edema. No pleural effusions. Pleural thickening and scarlike densities within the right l adolph remain unchanged. IMPRESSION: 1. The endotracheal tube terminates 1 cm from the ramona. This should be pulled back by approximately 1 to 2 cm. 2. The nasogastric tube terminates in the fundus of the stomach. 3. Mild cardiomegaly with mild congestive change. 4. Stable scarlike densities and pleural thickening within the right hemithorax. ACT 112: Negative or not required by law. Electronically signed by: Alfred Arguelles M.D. 02/01/2020 12:17 PM
--- NOTE | 2020-02-01 12:36 | Communication Note ---
Date of Service: February 01, 2020 After initial review of chart/morning rounds and discussion with Dr. Castle (neurology), decision was made that she required transfer to a tertiary care center. [facility] called and is able to accept patient; plan was discussed over phone with [facility] neurology and legal executive assistant. It was determined that she would need to be sent on a propofol drip and prophylactic airway protection with intubation would be of benefit due to patient's non-convulsant status epilepticus. Intubation successfully completed in [facility] ICU by myself and Dr. Morelos (legal executive assistant). Patient was flown to [facility] by [facility] intubated on propofol drip. MRI at [facility] cancelled due to transfer. Patient's called and updated on patient's status and transfer by Dr. Mcconnell (hospitalist). Resident Activity Tracking Resident Involvement: Resident Care Provided Care Provided: Adult Hospital Medicine
--- NOTE | 2020-02-01 14:14 | Billing Data ---
Date of Service February 01, 2020 Coding Level of Care Code 41598 Prolonged Care (int'l) Comment Intubation CPT
--- NOTE | 2020-02-01 18:08 | Discharge Summary ---
Date of Service February 01, 2020 Admission HPI Per Admitting Provider Caveat: History Limited by - Obtunded/AMS Mrs. 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 Spouse and daughter are at bedside. Patient is unable to provide history as obtunded. Spouse notes that Ann Marie has been having headaches for several weeks that was found to have intracranial metastatic disease/leptomeningeal carcino matosis. Over the past 4 days, patient has been complaining of worsening headaches. She was only taking Tylenol 500mg-1000mg for headache wild mild improvement. Spouse notes that she had poor oral intake with poor fluid and solid intake. Spouse suspected headaches were attributed to low nutritional/fluid intake. He notes she also periods of AMS that notes she would stare off or wouldn't be as mentally alert. Since her headaches persistented and she was fatigued with poor intake. Spouse called [facility] where she is treated by Oncology who advised her to come here to [facility] ED. He notes she was unable to stand was lethargic, had slurred speech and had worsening mental status. She was brought in via EMS. On arrival, she was noted to have appearance of partial seizure with right facial droop and was treated with Ativan 2mg IV which resolved seizure. She them became somnolent/obtunded with only responding to name, but stable. She was obtunded when I examined her. Family was in room. She was scheduled to have multi-agent intraventricular chemotherapy through an [facility] reservior scheduled for this upcoming Sunday, 02/02. Daughter is asking if she would still be able to get this. Brain mets were found via MRI on 01/23/2020. Prior her TNBC was well controlled with carbo/taxol. She had an allergic reaction with during chemo that required ED treatment for hypotension on 01/07/20. She had stable disease on scans prior to the brain mets. She was scheduled to have paclitaxel therapy on 02/03 as to not drop her platelets prior to intraventricular chemo on 02/02. Principal Diagnosis leptomeningeal carcinomatosis, seizure w concern on nonconvulsive status epilepticus, hydrocephalus Discharge Exam unresponsive. breathing unlabored and even. no accessory muscles. no active convulsions. see ICU note and neuro consult for more detail Discharge Data Allergies Allergy/AdvReac Type Severity Reaction Status Date / Time cat dander Allergy Mild Itchy Eyes Verified 02/01/20 02:00 lisinopril Allergy Mild Cough Unverified 02/01/20 02:00 ciprofloxacin Allergy Unknown Unverified 02/01/20 02:00 Consultations 02/01/20 03:25 ED Decision to Admit Stat 02/01/20 06:39 Consult Neurology Routine 02/01/20 11:32 Burn CD for patient Stat Ordered Studies 02/01/20 01:43 CT head/brain wo con Urgent 02/01/20 05:14 MR brain wo/w con Urgent Hospital Course (1) Cancer with leptomeningeal spread: concern on nonconvulsive status epilepticus - unresponsive w persistent L lateral gaze. neuro input greatly appreciated in this regard. ?cause related to leptimeningeal spread vs hydrocephalus vs both. no neurosurgery or continuous eeg monitoring available at this facility. after d/w neuro, promptly contacted [facility] - d/w neuro ICU and neurology - graciously accepted in transf er, and given concerns for status - asked for airway protection prior to transfer - d/w cover creaser here who assisted in intubation and ventilation. given risk of the whole situation and concern on worsening status and any kind of acute deterioration - transported by air. updated . -ativan, keppra given here for seizures -10mg decadron given as well -transfer to tertiary care for ongoing management Total Time Total Time Spent Total Time Spent (In Minutes): >30 Discharge Plan Discharge Items Patient Disposition: Transfer Acute Care Hospital Reason For Visit: SEIZURE, LETHARGIC Discharge Diagnosis: non-convulsant status epilepticus Condition on Discharge: Critical Activity: As commented below Activity Comment: none Non-emergency contact: Primary Care Provider and Neurologist Call non-emergency contact if: you have any medication questions Follow-up/Referrals: Cecilia Juarez MD [Primary Care Provider] - Diet: Nothing by Mouth Addtl Attending Provider Instructions: Patient transferred to [facility] for higher level of care. Below is admitting provider's assessment and plan: Mrs. 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 - Partial seizure in ED of right facial droop treated with Ativan 2mg IV that resolved seizure. - Now obtunded/post-ictal. - Currently stable - Worsening headaches for the past 4 days with newly diagnosed leptomeningeal carcinomatosis dx 01/23/2020 - Follows with [facility] - Oncology Dr. Moira Franco. - No acute findings on CT head in ED. - Since having headaches and leptomeningeal disease will initiate Dexamethasone 10mg IV on admission, defer further steroids to day provider. - MRI Brain w/wo ordered for consideration for focal stroke or worsening mets. - Seizure precautions - Neurology consulted for any additional recs. - Magnesium was 1.0, contributory to seizure, will replete and trend. Given Mag 1gm x 2 bags in ED, another Mag 1gm x 1 bag ordered on admission. - Potassium 3.0 on admit, replete Mag and then replete K. - Allow for permissive HTN, I am not sure in current setting it would be appropriate to lower BP. - Hold home meds. - Currently stable, will replete electrolytes, no indication for emergent transfer but gets Oncology care at [facility], with pandemic unsure if transfer would be available and will defer to day provider as patient clinically progresses, hopes that she might even be able to get through current acute illness and be discharged and able to follow up with [place] on Sunday. - Spouse wasn't up for Palliative conversation or discussing DNR/DNI status. Appears her disease was relatively stable until recent diagnosis of brain mets which was only less than 2 weeks ago. FENGI: NSS + KCL 20meq @ 125ml/hr x 1 bag; Pepcid 20mg IV BID since on steroids. NPO currently. Dispo: PCU tele DVT ppx: SCDs, hypercoagulable risk cause of active cancer, was taken off of ASA by Oncology - unclear reason suspect cause of chemo induced thrombocytopenia or because of plans of upcoming intraventricular chemotherapy. Code: Discussed with Spouse at bedside, Full Code, no advanced wishes known for DNR/DNI. (2) Hypomagnesemia: As noted above - - Magnesium was 1.0, contributary to seizure, will replete and trend. Given Mag 1gm x 2 bags in ED, another Mag 1gm x 1 bag ordered on admission. (3) Acute alteration in mental status: as above (4) Metastatic breast cancer: noted to have bony mets with mets to brain leptomeningeal. - Metastatic triple negative inflammatory left breast cancer with lung metastasis, pleural effusion, and bony mets diagnosed 07/07/2018. (5) Hypokalemia: along with Mag repletion, KCl 20meq ordered IV (6) CKD (chronic kidney disease), stage III: as noted in hx; no signs of acute kidney failure (7) MARK (obstructive sleep apnea): cpap qHS ordered (8) Hypoxia: 80-85% on arrival to ED. Currently 98% on 2L NC (9) Diabetes mellitus: No current treatment as outpatient because of complex medical conditions. Suspect it is steroid induced as no pror formal diagnosis but Hgb A1c of 6.7 would meet criteria. Not on any outpatient medications PO or insulin, - Pharmacy Glycemic management appreciated as starting steroids and glucose of 240 in patient presenting with AMS, do not want to drop but would like proper control without sugars raising to dangerous levels. Pending Studies at Discharge: No Stand-Alone Forms: My [facility] Skilled Items Patient informed of condition?: No DNR: No Discharge Level of Care: Other Communicable Disease: No Discharge Prognosis: Deteriorating Lines: Peripheral IV and Saline Lock Urinary Catheter: Yes Medications and DC Order Prescriptions: Continued multivitamin Tablet 1 tab PO DAILY RF: 0 albuterol sulfate 90 mcg/actuation Aerosol Powdr Breath Activated 2 inh INHALATION QID PRN (Reason: Shortness Of Breath) RF: 0 potassium chloride 20 mEq tablet extended release 40 meq PO BID RF: 0 amlodipine 5 mg tablet 5 mg PO DAILY RF: 0 chlorthalidone 50 mg tablet 50 mg PO DAILY RF: 0 Discharge Orders: Discharge Order (Routine); Ordered 02/01/20 Ordered By: Cynthia Frye Admission Data Admit Date/Time: 02/01/20 05:16 Attending Provider: Steven Mcconnell Admit Provider: Shan Gupta Primary Care Provider: Cecilia Juarez Other Providers: Micheal Pond ; Moira Castle Other Interventions: Discharge Summary Assessment (RN) Last Done: 02/01/20 15:07 Coding Level of Care Code D/C Day Management >30 mins Diagnoses Cancer with leptomeningeal spread C79.49
[2020-02-01] MEDS ORDERED: levETIRAcetam 1,000 MG in 0.9 % SODIUM CHLORIDE 100 ML IV SCH (21:00)
--- NOTE | 2020-02-02 06:39 | Electrocardiogram Report ---
Test Reason : Blood Pressure : / mmHG Vent. Rate : 108 BPM Atrial Rate : 108 BPM P-R Int : 132 ms QRS Dur : 072 ms QT Int : 354 ms P-R-T Axes : 048 000 056 degrees QTc Int : 474 ms Sinus tachycardia Minimal voltage criteria for LVH, may be normal variant Borderline ECG When compared with ECG of 07-JAN-2019 10:55, Premature atrial complexes are no longer Present Nonspecific T wave abnormality no longer evident in Inferior leads Nonspecific T wave abnormality, improved in Anterolateral leads QT has lengthened Confirmed by Keith Shannon ([id number]) on 02/02/2020 6:39:35 AM Referred By: REFERRED SELF Confirmed By:Keith Shannon
--- NOTE | 2020-02-02 06:49 | Billing Data ---
Date of Service February 02, 2020 Coding Level of Care Code 70535 Initial Inpt Care Lvl 3
== END 2020-02-01 12:45 | disposition short-term general hospital (02) | DRG 55 ==
LOC: ED 01:36 → SUATTDRO 05:16 → 2S 05:16 → 1E 11:35